=== PATIENT | female | born 1960 | race Caucasian/White ===

== ENCOUNTER → 2020-07-08 09:28 | Outpatient (BNVA) | payer OTHER, SELFPAY | PROVIDERS: PCP Emergency Medicine; Referring Provider Emergency Medicine; Visit Provider Internal Medicine | DX: J44.9 Chronic obstructive pulmonary disease, unspecified (principal); J84.89 Other specified interstitial pulmonary diseases; G47.34 Idiopathic sleep related nonobstructive alveolar hypoventilation; Z79.899 Other long term (current) drug therapy | CPT/HCPCS: 99213 ==

== ENCOUNTER → 2020-07-30 15:58 | Outpatient (BNVA) | payer OTHER, SELFPAY | PROVIDERS: PCP Emergency Medicine; Referring Provider Emergency Medicine; Visit Provider Student in an Organized Health Care Education/Training Program | DX: M25.50 Pain in unspecified joint (principal) | CPT/HCPCS: 99202 ==

== ENCOUNTER 2020-09-02 07:49 | Outpatient (REF) | payer OTHER, SELFPAY ==
--- NOTE | 2020-09-02 07:53 | MM_ITS ---
EXAMINATION: BONE DENSITOMETRY CLINICAL INDICATION: Use of systemic steroids. COMPARISON: None (current study represents initial baseline exam). TECHNIQUE: Using a [employer] DXA System (software version: 13.1) manufactured by [employer], dual-energy x-ray absorptiometry was performed of the lumbar spine and left hip. The images are of good technical quality. Summary results are attached. FINDINGS: AP SPINE L1-L4: BMD 1.080 g/cm2, Z-score -0.6, T-score -0.8, normal. LEFT FEMUR, NECK: BMD 0.986 g/cm2, Z-score 0.3, T-score -0.4, normal. LEFT FEMUR, TOTAL: BMD 1.030 g/cm2, Z-score 0.4, T-score 0.2, normal. IDENTIFIED RISK FACTORS: Osteoporosis, recurrent falls, history of fracture (adult), glucocorticoids (chronic), menopause. HISTORY OF FRACTURE: Extremities. No insufficiency fracture reported. MEDICATIONS: Fosamax. MM/XR DEXA axial skeleton IMPRESSION: 1. DIAGNOSIS: Normal bone density based on the lowest T-score value of -0.8 in the lumbar spine applying World Health Organization criteria. 2. 10-YEAR FRACTURE RISK PREDICTION, FRAX: Major osteoporotic fracture (clinical spine, forearm, hip or shoulder) 9.0%. Hip fracture 0.3%. 3. Treatment Recommendations: NOF guidelines recommend consideration for treatment in postmenopausal women and men age 50 and older presenting with the following: -A hip or vertebral (clinical or morphometric) fracture. -T-score less than or equal to -2.5 at the femoral neck or spine after appropriate evaluation to exclude secondary causes. -Low bone mass at the hip or spine and a 10-year fracture probability by FRAX of greater than or equal to 3% for hip fracture or greater than or equal to 20% for major osteoporotic fracture based on the [place] adapted WHO algorithm. 4. Other Recommendations: All treatment decisions require clinical judgment and consideration of individual patient factors, including patient preferences, comorbidities, previous drug use, risk factors not captured in the FRAX model (e.g. frailty, falls, vitamin D deficiency, increased bone turnover, interval significant decline in bone density) and possible under or overestimation of fracture risk by FRAX. FUTURE SCAN RECOMMENDATION: People with diagnosed cases of osteoporosis or at high risk for fracture should have regular bone mineral density tests. For patients eligible for Medicare, routine testing is allowed once every 2 years. The testing frequency can be increased to one year for patients who have rapidly progressing disease, those who are receiving or discontinuing medical therapy to restore bone mass, or have additional risk factors.
== END 2020-09-02 07:50 | disposition home or self-care (01) ==
LOC: HO.MAMMO 07:49
PROVIDERS: PCP Nurse Practitioner; Visit Provider Nurse Practitioner
DX: Z79.52 Long term (current) use of systemic steroids (principal); Z87.81 Personal history of (healed) traumatic fracture
CPT/HCPCS: 77080

== ENCOUNTER 2020-09-21 06:40 | Emergency (ER) | payer OTHER, SELFPAY ==
[2020-09-21 06:56] VITALS: BP 130/77; BP 146/106; PULSE 100; RESP 18; TEMP 36.9; O2SAT 97; BMI 34.7
--- NOTE | 2020-09-21 07:17 | CT_ITS ---
EXAMINATION: CT BRAIN, CT CERVICAL SPINE AND CT LUMBAR SPINE. CLINICAL INFORMATION: Trauma. COMPARISON: CT brain 12/10/2012 and MRI brain 05/09/2015. MRI lumbar spine 12/18/2019 TECHNIQUE: 5 mm thin axial and reformatted 2 mm thin sagittal and coronal images of brain were obtained. Subsequently axial 3 mm thin and reformatted 2 mm thin sagittal and coronal images of cervical spine were obtained. DLP [id number]. Lastly axial 2 mm thin and reformatted 2 mm thin sagittal and coronal images of lumbar spine were obtained. DLP [id number]. FINDINGS: BRAIN: There is no acute intra-axial, extra-axial bleed, masses or midline shift. There is no acute infarction in evolution. The lateral ventricles are symmetrical in size and configuration without enlargement. The tatum to white matter differentiation is maintained. Bone windows reveal no calvarial abnormality. Bilateral paranasal sinuses and mastoid air cells are well-aerated. No scalp soft tissue abnormality. CERVICAL SPINE: There is mild straightening of cervical lordosis. The vertebral heights and alignment is normal. There is disc fusion C5-C6 and C6-C7 disc levels with disc prosthesis. There is loss of C4-C5 disc height with moderate ventral spondylosis. There is minimal spondylosis. The C1-C2 disc level. The craniovertebral junction and the C1-C2 alignment is normal. There is no visible acute fracture, dislocation or subluxation seen. There is moderate right C3-C4 facet joint arthropathy. The prevertebral and paravertebral soft tissues are normal. The airway is widely patent. Visualized thyroid, submandibular and parotid glands are symmetrical and unremarkable. No neck mass or abnormal size lymphadenopathy seen. The lung apices are clear. LUMBAR SPINE: There is normal lumbar lordosis. The vertebral heights, alignment and disc heights are normal. There is no visible acute fracture, dislocation, subluxation or lytic process. Mild L4-L5, L3-L4 and L2-L3 facet joint arthropathy. There is superior endplate L4 Schmorl's node. No lytic or sclerotic process seen. The paravertebral soft tissues are normal. CT/CT cervical spine wo con IMPRESSION: No acute intracranial process seen. No acute fracture or dislocation cervical spine. There is an old left L3 transverse process fracture. There is disc fusion at C5-C6 and C6-C7 disc levels with degenerative disc changes at C4-C5 disc level. The craniovertebral junction appears normal. The soft tissues are normal. No acute fracture, dislocation or subluxation lumbar spine. No lytic or sclerotic process seen. There is bilateral L4-L5 and L3-L4 facet joint arthropathy.
--- NOTE | 2020-09-21 07:17 | ECG_ITS ---
Test Reason : FALL Blood Pressure : / mmHG Vent. Rate : 078 BPM Atrial Rate : 078 BPM P-R Int : 180 ms QRS Dur : 092 ms QT Int : 410 ms P-R-T Axes : 061 028 039 degrees QTc Int : 467 ms Normal sinus rhythm Normal ECG When compared with ECG of 10-JUN-2020 08:43, No significant change was found Referred By: Christophe Mayes Electronically Signed By:SASHA RODARTE
--- NOTE | 2020-09-21 07:20 | ED.FALL ---
HPI - Fall General Chief Complaint: Fall Stated Complaint: FALL WITH ABD PAIN Time Seen by Provider: 09/21/20 07:16 Source: patient and EMS Mode of arrival: EMS Limitations: no limitations History of Present Illness HPI Narrative: Very nice 60 years old female patient presented to the emergency department after a fall. Patient states that she has a history of falls, she has a history of fibromyalgia, chronic pain is see that she fell down about 5 stairs. She is complaining of generalized pain all over including back pain and headache and neck pain MD complaint: fall Onset (ago): hour(s) (1) Fall from: down stairs (#) Fall witnessed: no Place fall occurred: home Loss of consciousness: none Prolonged down time: no Symptoms prior to fall: none Context: other (Weakness) Location of injury: head, neck and other (Back) Associated symptoms (after fall): headache and neck pain Related Data Home Medications Medication Instructions Recorded Confirmed amlodipine 10 mg tablet 10 mg PO DAILY 06/16/20 07/30/20 doxepin 75 mg capsule 75 mg PO BEDTIME 06/16/20 07/30/20 duloxetine 60 mg capsule,delayed 0 mg PO 06/16/20 07/30/20 release eszopiclone 3 mg tablet 3 mg PO BEDTIME 06/16/20 07/30/20 gabapentin 600 mg tablet 600 mg PO TID 06/16/20 07/30/20 naloxone 4 mg/actuation nasal spray 0 spray INTRANASAL 06/16/20 07/30/20 olanzapine 5 mg tablet 5 mg PO BEDTIME 06/16/20 07/30/20 pantoprazole 40 mg tablet,delayed 40 mg PO DAILY 06/16/20 07/30/20 release baclofen 10 mg tablet 0 mg PO 07/08/20 07/30/20 betamethasone dipropionate 0.05 % TOPICAL 07/08/20 07/30/20 topical ointment levothyroxine 50 mcg tablet 50 mcg PO DAILY 07/08/20 07/30/20 onabotulinumtoxinA 200 unit unit INTRADERMAL ONCE ea 07/08/20 07/30/20 solution for injection ondansetron HCl 4 mg tablet 0 mg PO 07/08/20 07/30/20 sumatriptan succinate 50 mg tablet 0 mg PO 07/08/20 07/30/20 alprazolam 1 mg tablet 1 mg PO BEDTIME 07/30/20 07/30/20 eszopiclone 3 mg tablet 3 mg PO BEDTIME 07/30/20 07/30/20 Previous Rx's Medication Instructions Recorded albuterol sulfate 90 mcg/actuation 2 puff INHALATION Q6H PRN #8.5 g 07/08/20 aerosol inhaler fluticasone furoate 200 1 inh INHALATION DAILY 30 Days #28 07/08/20 mcg-vilanterol 25 mcg/dose ea inhalation powder oxycodone 5 mg PO Q8H PRN #10 tab 09/21/20 Allergies Allergy/AdvReac Type Severity Reaction Status Date / Time cyclobenzaprine Allergy Severe Anaphylaxis Verified 07/30/20 16:03 [From Flexeril] beclomethasone [From QVAR] Allergy Intermediate FACIAL/TONGUE Verified 07/30/20 16:03 SWELLING NSAIDS (Non-Steroidal Allergy Intermediate swollen Verified 07/30/20 16:03 Anti-Inflamma [Nsaids] egg [Egg] Allergy Mild UNKNOWN Verified 07/30/20 16:03 Review of Systems Review of Systems: Patient denies any fever, chills, vomiting, chest pain, shortness of breath Yes all other systems are reviewed and are negative PMFSH Past Medical History Medical History Alopecia Anxiety Chronic pain COPD (chronic obstructive pulmonary disease) Depression Emphysema of lung Femur fracture, right Fibromyalgia Herniated disc Hypothyroidism Nocturnal hypoxemia Spondylosis of cervical spine Surgical History H/O cervical spine surgery H/O tubal ligation History of cholecystectomy Family History Family History Father Diabetes Mother CVD (cardiovascular disease) Social History Social History Smoking Status: Former smoker Tobacco Type: Cigarette Advance Directives: No Advance Directives Information Provided: Yes Physical Exam Vital Signs: Vital Signs: Last Vital Signs Temp 98.5 F 09/21/20 06:56 Pulse 82 09/21/20 09:11 Resp 16 09/21/20 09:11 BP 126/84 09/21/20 09:11 Pulse Ox 98 09/21/20 09:11 Body Mass Index 34.7 Const: Other: Patient id he is awake and alert in no acute distress General: cooperative and comfortable Orientation/consciousness: oriented to person, oriented to time and patient oriented x3 HENMT: Head: Yes normal to inspection and Yes No palpable skull fracture present Eyes: General: appearance normal, both eyes and all related structures Neck: Neck: Yes normal visual inspection and Yes full ROM Chest: Chest palpation & inspection: normal inspection of the chest and normal palpation of entire chest wall Resp: Effort & Inspection: normal respiratory effort, no respiratory distress and no retractions Cardio: Rate: regular rate GI: Inspection: Yes normal to inspection Palpation (GI): Soft to palpation Skin: General skin exam: no rashes or lesions noted Neuro: General: oriented to person, oriented to place, oriented to time and patient oriented x3 MDM - Fall Lab Data Result diagrams: 09/21/20 09:39 09/21/20 09:39 Labs: Lab Results 09/21/20 09/21/20 09/21/20 Range/Units 09:39 09:39 09:39 WBC 8.0 (4.8-10.8) X10*3/uL RBC 4.24 (4.20-5.50) X10*6/uL Hgb 12.3 (12.0-16.0) g/dl Hct 37.9 (37-47) % MCV 89.4 (80-98) fL MCH 29.0 (27.0-33.0) pg MCHC 32.5 (31.0-35.0) g/dl RDW 12.6 (11.0-16.0) % Plt Count 313 (160-400) X10*3/uL MPV 9.7 (9.4-12.3) fL Immature Gran % (Auto) 0.3 (0.0-0.4) % Neut % (Auto) 52.9 (45-73) % Lymph % (Auto) 35.4 (20-40) % [place] % (Auto) 6.5 (2-11) % Eos % (Auto) 4.1 H (0-4) % Baso % (Auto) 0.8 (0-2) % Lymph # (Auto) 2.8 (1.2-4.9) X10*3/uL [place] # (Auto) 0.5 (0.1-1.2) X10*3/uL Eos # (Auto) 0.3 (0.0-0.4) X10*3/uL Baso # (Auto) 0.1 (0.0-0.2) X10*3/uL Abs Immat Gran (auto) 0.02 (0.00-0.03) X10*3/uL Absolute Neuts (auto) 4.2 (2.0-8.3) X10*3/uL Absolute Nucleated RBC 0.000 (0.0-0.012) X10*3/uL Nucleated RBC % (auto) 0.0 (0.0-0.2) /100WBC Sodium 143 (135-145) mmol/L Potassium 4.2 (3.3-5.1) mmol/l Chloride 106 (96-108) mmol/L Carbon Dioxide 30 H (22-29) mmol/L Anion Gap 11 L (12-20) BUN 17 H (9-16) mg/dL Creatinine 0.87 (0.5-1.4) mg/dL Estim Creat Clear Calc 77.3 Estimated GFR > 60 Random Glucose 103 (60-115) mg/dL Calcium 8.9 (8.4-10.2) mg/dL Total Bilirubin 0.2 (0.0-1.0) mg/dL AST 16 (5-31) U/L ALT 13 (0-31) U/L Alkaline Phosphatase 116 (39-117) U/L Troponin I High Sens < 3.5 (<3.5-17.0) ng/L Total Protein 7.1 (6.5-8.0) g/dL Albumin 4.0 (3.5-5.0) g/dL Urine Color Urine Appearance Urine pH (5.0-8.0) Ur Specific [place] (1.005-1.025) Urine Protein (NEG-TRACE) MG/DL Urine Glucose (UA) (NEG) MG/DL Urine Ketones (NEG) MG/DL Urine Blood (NEG) Urine Nitrite (NEG) Ur Leukocyte Esterase (NEG) Urine RBC (0) /HPF Urine WBC (0-4) /HPF Ur Squamous Epith Cells /LPF Urine Bacteria /LPF 09/21/20 Range/Units 09:39 WBC (4.8-10.8) X10*3/uL RBC (4.20-5.50) X10*6/uL Hgb (12.0-16.0) g/dl Hct (37-47) % MCV (80-98) fL MCH (27.0-33.0) pg MCHC (31.0-35.0) g/dl RDW (11.0-16.0) % Plt Count (160-400) X10*3/uL MPV (9.4-12.3) fL Immature Gran % (Auto) (0.0-0.4) % Neut % (Auto) (45-73) % Lymph % (Auto) (20-40) % [place] % (Auto) (2-11) % Eos % (Auto) (0-4) % Baso % (Auto) (0-2) % Lymph # (Auto) (1.2-4.9) X10*3/uL [place] # (Auto) (0.1-1.2) X10*3/uL Eos # (Auto) (0.0-0.4) X10*3/uL Baso # (Auto) (0.0-0.2) X10*3/uL Abs Immat Gran (auto) (0.00-0.03) X10*3/uL Absolute Neuts (auto) (2.0-8.3) X10*3/uL Absolute Nucleated RBC (0.0-0.012) X10*3/uL Nucleated RBC % (auto) (0.0-0.2) /100WBC Sodium (135-145) mmol/L Potassium (3.3-5.1) mmol/l Chloride (96-108) mmol/L Carbon Dioxide (22-29) mmol/L Anion Gap (12-20) BUN (9-16) mg/dL Creatinine (0.5-1.4) mg/dL Estim Creat Clear Calc Estimated GFR Random Glucose (60-115) mg/dL Calcium (8.4-10.2) mg/dL Total Bilirubin (0.0-1.0) mg/dL AST (5-31) U/L ALT (0-31) U/L Alkaline Phosphatase (39-117) U/L Troponin I High Sens (<3.5-17.0) ng/L Total Protein (6.5-8.0) g/dL Albumin (3.5-5.0) g/dL Urine Color YELLOW Urine Appearance CLOUDY Urine pH 6.0 (5.0-8.0) Ur Specific [place] 1.010 (1.005-1.025) Urine Protein NEG (NEG-TRACE) MG/DL Urine Glucose (UA) NEG (NEG) MG/DL Urine Ketones NEG (NEG) MG/DL Urine Blood 1+ H (NEG) Urine Nitrite NEG (NEG) Ur Leukocyte Esterase 2+ H (NEG) Urine RBC 0 (0) /HPF Urine WBC 5-9 H (0-4) /HPF Ur Squamous Epith Cells 3+ /LPF Urine Bacteria 1+ /LPF ECG Data Attestation: I personally reviewed and interpreted this ECG as follows: ECG interpretation date: 09/21/20 ECG interpretation time: 10:40 Pacemaker model: Normal sinus rhythm rate of 78 no ischemic changes Discharge Plan Discharge Clinical Impression: Fall, Contusion Patient Disposition: Home, Self-Care Instructions: Fall Prevention (ED) Additional Instructions: Please follow-up with primary care physician tomorrow faye office in a.m. return if you are worse Prescriptions: New oxycodone 5 mg tablet 5 mg PO Q8H PRN (Reason: pain) Qty: 10 RF: 0 No Action sumatriptan succinate 50 mg tablet 0 mg PO RF: 0 ondansetron HCl 4 mg tablet 0 mg PO RF: 0 baclofen 10 mg tablet 0 mg PO RF: 0 levothyroxine 50 mcg tablet 50 mcg PO DAILY RF: 0 betamethasone dipropionate 0.05 % ointment topical RF: 0 Botox 200 unit recon soln intradermal ONCE RF: 0 Breo Ellipta 200-25 mcg/dose blister with device 1 inh inhalation DAILY 30 Days Qty: 28 RF: 5 albuterol sulfate [ProAir HFA] 90 mcg/actuation HFA aerosol inhaler 2 puff inhalation Q6H PRN (Reason: shortness of breath or wheezing) Qty: 8.5 RF: 4 Narcan 4 mg/actuation spray,non-aerosol 0 spray intranasal RF: 0 eszopiclone 3 mg tablet 3 mg PO BEDTIME RF: 0 duloxetine 60 mg capsule,delayed release(DR/EC) 0 mg PO RF: 0 olanzapine 5 mg tablet 5 mg PO BEDTIME RF: 0 doxepin 75 mg capsule 75 mg PO BEDTIME RF: 0 amlodipine 10 mg tablet 10 mg PO DAILY RF: 0 pantoprazole 40 mg tablet,delayed release (DR/EC) 40 mg PO DAILY RF: 0 gabapentin 600 mg tablet 600 mg PO TID RF: 0 alprazolam [Xanax] 1 mg tablet 1 mg PO BEDTIME RF: 0 eszopiclone [Lunesta] 3 mg tablet 3 mg PO BEDTIME RF: 0 Interventions: ED Discharge Assessment Last Done: 09/21/20 10:58 Discharge Date/Time: 09/21/20 10:58
[2020-09-21] MEDS: oxyCODONE HCl Immed Release 5 MG TABLET 10 MG PO (07:35)
[2020-09-21 09:11] VITALS: BP 126/84; PULSE 82; RESP 16; O2SAT 98
[2020-09-21 09:44] LABS: MANUAL DIFF FLAG NO
[2020-09-21 09:45] LABS: Basophils Absolute Auto 0.1 X10*3/uL (0.0-0.2); Basophils Percent Auto 0.8 % (0-2); Eosinophils Absolute Auto 0.3 X10*3/uL (0.0-0.4); Eosinophils Percent Auto 4.1 % (0-4); Hematocrit 37.9 % (37-47); Hemoglobin 12.3 g/dl (12.0-16.0); Imm Gran Abs Auto 0.02 X10*3/uL (0.00-0.03); Imm Gran Pct Auto 0.3 % (0.0-0.4); Lymphocytes Absolute Auto 2.8 X10*3/uL (1.2-4.9); Lymphocytes Percent Auto 35.4 % (20-40); Mean Corpuscular HGB Conc 32.5 g/dl (31.0-35.0); Mean Corpuscular Volume 89.4 fL (80-98); Mean Platelet Volume 9.7 fL (9.4-12.3); Monocytes Absolute Auto 0.5 X10*3/uL (0.1-1.2); Monocytes Percent Auto 6.5 % (2-11); Neutrophils Absolute Auto 4.2 X10*3/uL (2.0-8.3); Neutrophils Percent Auto 52.9 % (45-73); Platelet Count 313 X10*3/uL (160-400); Red Blood Count 4.24 X10*6/uL (4.20-5.50); Red Cell Distribution Width 12.6 % (11.0-16.0)
[2020-09-21 09:52] LABS: Glucose Urine UA NEG (NEG); Leukocyte Esterase Urine 2+ (NEG); Nitrite Urine NEG (NEG); Urine Blood 1+ (NEG); Urine Ketones NEG (NEG); Urine Protein NEG (NEG-TRACE)
[2020-09-21 10:07] LABS: Appearance Urine CLOUDY; Color Urine YELLOW
[2020-09-21 10:08] LABS: Bacteria Urine 1+ /LPF; RBC Urine 0 /HPF (0); Squamous Epithelial Cell Urine 3+ /LPF
[2020-09-21 10:13] LABS: Alanine Aminotransferase 13 U/L (0-31); Alkaline Phosphatase 116 U/L (39-117); Anion Gap 11 (12-20); Aspartate Amino Transferase 16 U/L (5-31); Bilirubin Total 0.2 mg/dL (0.0-1.0); Blood Urea Nitrogen 17 mg/dL (9-16); Calcium 8.9 mg/dL (8.4-10.2); Carbon Dioxide 30 mmol/L (22-29); Chloride 106 mmol/L (96-108); Creatinine Clr Calc Pharmacy 77.3; Estimated Glomerular Filt Rate > 60; Glucose Random 103 mg/dL (60-115); Potassium 4.2 mmol/l (3.3-5.1); Sodium 143 mmol/L (135-145); Total Protein 7.1 g/dL (6.5-8.0)
[2020-09-21 10:18] LABS: Troponin-I High Sensitivity < 3.5 ng/L (<3.5-17.0)
--- NOTE | 2020-09-21 10:39 | PC.NURSE ---
DR DALTON SPOKE WITH PT. TO BE DISCH
== END 2020-09-21 10:58 | disposition home or self-care (01) ==
PROVIDERS: Emergency Provider Emergency Medicine
DX: S30.0XXA Contusion of lower back and pelvis, initial encounter (principal); S10.93XA Contusion of unspecified part of neck, initial encounter; M54.2 Cervicalgia; M54.5 Low back pain; G44.309 Post-traumatic headache, unspecified, not intractable; W10.9XXA Fall (on) (from) unspecified stairs and steps, initial encounter; Y93.9 Activity, unspecified; Y92.009 Unspecified place in unspecified non-institutional (private) residence as the place of occurrence of the external cause; Y99.9 Unspecified external cause status; Z79.899 Other long term (current) drug therapy; Z87.891 Personal history of nicotine dependence; Z91.81 History of falling
CPT/HCPCS: 36415; 70450; 72125; 72131; 80053; 81001; 81003; 84484; 85025; 87086; 93005; 99283; 99284

== ENCOUNTER 2020-09-27 09:03 | Outpatient (REF) | payer OTHER, SELFPAY ==
[2020-09-27 09:30] LABS: Basophils Absolute Auto 0.1 X10*3/uL (0.0-0.2); Basophils Percent Auto 0.8 % (0-2); Eosinophils Absolute Auto 0.2 X10*3/uL (0.0-0.4); Eosinophils Percent Auto 3.3 % (0-4); Hematocrit 37.7 % (37-47); Hemoglobin 12.6 g/dl (12.0-16.0); Imm Gran Abs Auto 0.02 X10*3/uL (0.00-0.03); Imm Gran Pct Auto 0.3 % (0.0-0.4); Lymphocytes Absolute Auto 2.6 X10*3/uL (1.2-4.9); Lymphocytes Percent Auto 35.4 % (20-40); Mean Corpuscular HGB Conc 33.4 g/dl (31.0-35.0); Mean Corpuscular Hemoglobin 28.8 pg (27.0-33.0); Mean Corpuscular Volume 86.1 fL (80-98); Mean Platelet Volume 9.7 fL (9.4-12.3); Monocytes Absolute Auto 0.6 X10*3/uL (0.1-1.2); Monocytes Percent Auto 7.6 % (2-11); Neutrophils Absolute Auto 3.8 X10*3/uL (2.0-8.3); Neutrophils Percent Auto 52.6 % (45-73); Platelet Count 409 X10*3/uL (160-400); Red Blood Count 4.38 X10*6/uL (4.20-5.50); Red Cell Distribution Width 12.4 % (11.0-16.0); White Blood Count 7.3 X10*3/uL (4.8-10.8)
--- NOTE | 2020-09-27 09:31 | XR_ITS ---
EXAMINATION: XR BILATERAL HAND. CLINICAL INFORMATION: Bilateral hand pain. COMPARISON: Left wrist 09/10/2012 TECHNIQUE: 3 views each hand. FINDINGS: RIGHT HAND: There is no visible acute fracture, dislocation or subluxation. The PIP and DIP joint space is reduced. No periarticular spurring or erosive changes seen. The soft tissues are normal. LEFT HAND: There is partial resection in the base of the 1st metacarpal and 2 elda from previous surgical changes. There is loss of PIP and DIP joint space all digits no visible acute fracture or dislocation seen. The dense round 1.1 cm calcification seen adjacent to ulnar styloid process likely old injury or calcium deposit. The soft tissues are normal. XR/XR hand LT min 3V IMPRESSION: 1. Mild early degenerative changes suspected in PIP and DIP joints of both digits but no bony erosive changes, spurring or soft tissue swelling. 2. There is postsurgical changes base of 1st metacarpal left hand. 3. There is a 1.1 cm calcification adjacent to the left ulnar styloid process likely old injury. This could be producing some pain in the lateral left wrist.
--- NOTE | 2020-09-27 09:31 | XR_ITS ---
EXAMINATION: XR BILATERAL HAND. CLINICAL INFORMATION: Bilateral hand pain. COMPARISON: Left wrist 09/10/2012 TECHNIQUE: 3 views each hand. FINDINGS: RIGHT HAND: There is no visible acute fracture, dislocation or subluxation. The PIP and DIP joint space is reduced. No periarticular spurring or erosive changes seen. The soft tissues are normal. LEFT HAND: There is partial resection in the base of the 1st metacarpal and 2 elda from previous surgical changes. There is loss of PIP and DIP joint space all digits no visible acute fracture or dislocation seen. The dense round 1.1 cm calcification seen adjacent to ulnar styloid process likely old injury or calcium deposit. The soft tissues are normal. XR/XR hand RT min 3V IMPRESSION: 1. Mild early degenerative changes suspected in PIP and DIP joints of both digits but no bony erosive changes, spurring or soft tissue swelling. 2. There is postsurgical changes base of 1st metacarpal left hand. 3. There is a 1.1 cm calcification adjacent to the left ulnar styloid process likely old injury. This could be producing some pain in the lateral left wrist.
[2020-09-27 09:33] LABS: MANUAL DIFF FLAG NO
[2020-09-27 10:03] LABS: Alanine Aminotransferase 16 U/L (0-31); Albumin Level 4.1 g/dL (3.5-5.0); Alkaline Phosphatase 117 U/L (39-117); Anion Gap 15 (12-20); Aspartate Amino Transferase 19 U/L (5-31); Bilirubin Total 0.3 mg/dL (0.0-1.0); Blood Urea Nitrogen 9 mg/dL (9-16); C Reactive Protein 1.24 mg/dL (< or = 0.50); Calcium 9.7 mg/dL (8.4-10.2); Carbon Dioxide 25 mmol/L (22-29); Chloride 105 mmol/L (96-108); Estimated Glomerular Filt Rate > 60; Glucose Random 106 mg/dL (60-115); Rheumatoid Factor < 15.0 IU/mL (<15.0); Sodium 141 mmol/L (135-145); Total Protein 7.4 g/dL (6.5-8.0)
[2020-09-27 10:12] LABS: Erythrocyte Sedimentation Rate 26 MM/HR (0-20)
[2020-09-27 10:23] LABS: Thyroid Stimulating Hormone 0.59 uIU/mL (0.32-4.0)
[2020-09-29 13:12] LABS: Antibody to SS-A Antigen <1.0 NEG AI (<1.0 NEG); Antibody to SS-B Antigen <1.0 NEG AI (<1.0 NEG); Cyclic Citrullinated Peptide <16 UNITS
[2020-09-29 13:38] LABS: Beta-2 Microglobulin, Serum 2.42 mg/L (< OR = 2.51); PTT (LAC) Screen 35 sec (< OR = 40)
[2020-09-29 23:22] LABS: Anti Nuclear Antibody Pattern Nuclear, Nucleolar; Anti Nuclear Antibody Screen POSITIVE (NEGATIVE); Anti Nuclear Antibody Titer 1:40 titer
[2020-09-30 00:12] LABS: Cardiolipin IgG Ab <14 GPL; Cardiolipin IgM Ab 37 MPL
== END 2020-09-27 09:04 | disposition home or self-care (01) ==
LOC: HO.LAB 09:03
PROVIDERS: Absent Provider Nurse Practitioner; PCP Nurse Practitioner; Visit Provider Student in an Organized Health Care Education/Training Program
DX: M25.50 Pain in unspecified joint (principal)
CPT/HCPCS: 36415; 73130; 80053; 82232; 84443; 85025; 85597; 85613; 85652; 85730; 86038; 86039; 86140; 86147; 86200; 86235; 86431

== ENCOUNTER 2020-10-01 07:47 | Outpatient (REF) | payer OTHER, SELFPAY ==
--- NOTE | 2020-10-01 08:26 | XR_ITS ---
EXAMINATION: XR KNEE, RIGHT CLINICAL INFORMATION: Right knee pain COMPARISON: Radiographs right knee 06/17/2020 TECHNIQUE: 5 views of the right knee. FINDINGS: There is old healed fracture distal femur with intact hardware within [id number]. Hardware extends proximally beyond the [id number]. There is no fracture or dislocation or destructive process. There is mild narrowing medial knee joint compartment with small marginal osteophyte. Mild narrowing also present patellofemoral joint. There are no erosive changes or chondrocalcinosis. No definite knee joint effusion. XR/XR knee RT 4V IMPRESSION: 1. Mild osteoarthritic changes medial knee joint compartment and lateral patellofemoral joint. 2. Old healed fracture femur. Visualized hardware intact. No osteolysis.
[2020-10-01 09:53] LABS: Thyroid Stimulating Hormone 0.17 uIU/mL (0.32-4.0)
== END 2020-10-01 07:48 | disposition home or self-care (01) ==
LOC: HO.LAB 07:47
PROVIDERS: Visit Provider Internal Medicine
DX: E03.9 Hypothyroidism, unspecified (principal); M25.561 Pain in right knee
CPT/HCPCS: 36415; 73564; 84443

== ENCOUNTER 2020-11-18 13:38 | Outpatient (REF) | payer OTHER, SELFPAY ==
--- NOTE | ~2020-11-18 | US_ITS ---
EXAMINATION: US VENOUS ULTRASOUND WITH DOPPLER LOWER EXTREMITY, RIGHT CLINICAL INFORMATION: Leg swelling. COMPARISON: None TECHNIQUE: Ultrasound of the deep veins is performed from the hip to the calf with compression sonography and color and pulse Doppler assessment. Spectral analysis with color-flow imaging is performed. FINDINGS: The right common femoral, superficial femoral, profunda femoral veins are patent. There is a small amount of nonocclusive thrombus in the popliteal vein. The visualized posterior tibial and peroneal veins are patent. There is no Reyes's cyst. US/US venous duplex LE RT IMPRESSION: Nonocclusive thrombus in the right popliteal vein.
== END 2020-11-18 13:39 | disposition home or self-care (01) ==
LOC: HO.HMGCX 13:38
PROVIDERS: PCP Nurse Practitioner; Visit Provider General Practice
DX: R22.41 Localized swelling, mass and lump, right lower limb (principal)
CPT/HCPCS: 93971

== ENCOUNTER → 2020-12-10 09:56 | Outpatient (BNVA) | payer OTHER, SELFPAY | PROVIDERS: PCP Nurse Practitioner; Visit Provider Nurse Practitioner Family | DX: M96.1 Postlaminectomy syndrome, not elsewhere classified (principal); M47.816 Spondylosis without myelopathy or radiculopathy, lumbar region; G89.29 Other chronic pain; Z79.899 Other long term (current) drug therapy | CPT/HCPCS: 99212 ==

== ENCOUNTER 2020-12-12 12:44 | Outpatient (REF) | payer OTHER, SELFPAY ==
--- NOTE | ~2020-12-12 | US_ITS ---
EXAMINATION: US VENOUS ULTRASOUND WITH DOPPLER LOWER EXTREMITY, RIGHT CLINICAL INFORMATION: Right leg pain. History of DVT. COMPARISON: Previous right lower extremity venous ultrasound exam 11/18/2020 TECHNIQUE: Ultrasound of the deep veins is performed from the hip to the calf with compression sonography and color and pulse Doppler assessment. Spectral analysis with color-flow imaging is performed. FINDINGS: There is normal venous compression and respiratory variation and augmented flow. The visualized common femoral vein, superficial femoral vein, profunda femoral vein and the trifurcation region shows no evidence of deep venous thrombosis. There is a small amount of nonocclusive thrombus seen in the right popliteal vein. This is similar to 11/18/2020 exam and may be chronic. The right popliteal vein compresses normally. There is no significant popliteal fossa cyst. US/US venous duplex LE RT IMPRESSION: Small amount of nonocclusive thrombus seen in the right popliteal vein. This is similar to 11/18/2020 exam and may be chronic. No other evidence of DVT.
== END 2020-12-12 12:45 | disposition home or self-care (01) ==
LOC: HO.HMGCX 12:44
PROVIDERS: Visit Provider Internal Medicine Geriatric Medicine
DX: M79.604 Pain in right leg (principal); Z86.718 Personal history of other venous thrombosis and embolism
CPT/HCPCS: 93971

== ENCOUNTER 2020-12-13 12:34 | Emergency (ER) | payer OTHER, SELFPAY ==
--- NOTE | ~2020-12-13 | XR_ITS ---
EXAMINATION: XR CHEST CLINICAL INFORMATION: Right clavicle pain. Fall. COMPARISON: Previous chest x-ray May 2020 TECHNIQUE: 2 views of the chest were obtained. FINDINGS: The cardiac and mediastinal contours are normal. The lungs are clear. There is no pleural effusion or pneumothorax. There are postsurgical changes to the lower cervical spine. Bony structures are otherwise unremarkable. XR/XR chest 2V IMPRESSION: Unremarkable examination.
--- NOTE | ~2020-12-13 | CT_ITS ---
EXAMINATION: CT HEAD WITHOUT CONTRAST CLINICAL INFORMATION: Lower extremity weakness. Fall. COMPARISON: Previous head CT September 2020 TECHNIQUE: Contiguous axial imaging was performed from the skull base to vertex without intravenous administration of contrast. This CT examination was performed using dose optimization techniques as appropriate, variously including the following: *Automated exposure control *Adjustment of mA and/or kV according to patient size (this includes techniques or standardized protocols for targeted exams where dose is matched to indication/reason for exam; i.e. extremities or head) *Use of iterative reconstruction technique DLP: 652 mGy-cm FINDINGS: There is no evidence of acute intracranial hemorrhage or territorial infarction. No abnormal mass effect or midline shift is seen. Silva to white matter differentiation is well preserved. No extra-axial fluid collections are identified. The ventricles are normal in size. There is no abnormal attenuation within the brain parenchyma. The osseous structures and soft tissues are normal. The mastoid air cells and visualized portions of the paranasal sinuses are well aerated. CT/CT head/brain wo con IMPRESSION: Unremarkable exam.
[2020-12-13 12:45] VITALS: BP 125/70; BP 126/72; PULSE 100; PULSE 88; RESP 18; TEMP 37.1; O2SAT 95; BMI 37.8
--- NOTE | 2020-12-13 13:13 | ECG_ITS ---
Test Reason : FALL Blood Pressure : / mmHG Vent. Rate : 079 BPM Atrial Rate : 079 BPM P-R Int : 184 ms QRS Dur : 088 ms QT Int : 410 ms P-R-T Axes : 063 035 051 degrees QTc Int : 470 ms Sinus rhythm with Premature atrial complexes in a pattern of bigeminy Low voltage QRS Nonspecific T wave abnormality Prolonged QT Abnormal ECG When compared with ECG of 21-SEP-2020 09:26, Premature atrial complexes are now Present Nonspecific T wave abnormality, worse in Anterolateral leads Referred By: Tracie Rayo Electronically Signed By:SASHA RODARTE
--- NOTE | 2020-12-13 13:19 | ED_ITS ---
HPI - General Adult General Chief complaint: General Medical Stated complaint: ? DVT, SEEN T-1 FOR SAME Time Seen by Provider: 12/13/20 12:36 Source: patient Mode of arrival: ambulatory Limitations: no limitations History of Present Illness HPI narrative: 60 yo with past medical history of alopecia , anxiety, chronic pain, COPD (chronic obstructive pulmonary disease), Depression, Emphysema of lung, h/o Femur fracture, right, Fibromyalgia, Herniated disc, Hypothyroidism, Nocturnal hypoxemia (O2 2L/MT AT NIGHT ,, AND MAY USE PRN DURING DAY TIME), Spondylosis of cervical spine here with complaints of abnormal US concerning for DVT. Patient tells me she has been having pain and intermittent numbness/tingling in her right lower extremity x 2 weeks. She had an outpatient US yesterday concerning for DVT. Sent in from PCP for eval today. Patient tells me yesterday when she was walking up the stairs she had weakness in both of her legs R>L causing her fall forwards striking her chest and right clavicle. NO head injury or LOC. Related Data Home Medications Medication Instructions Recorded Confirmed amlodipine 10 mg tablet 10 mg PO DAILY 06/16/20 12/10/20 doxepin 75 mg capsule 75 mg PO BEDTIME 06/16/20 12/10/20 duloxetine 60 mg capsule,delayed 0 mg PO 06/16/20 12/10/20 release eszopiclone 3 mg tablet 3 mg PO BEDTIME 06/16/20 12/10/20 gabapentin 600 mg tablet 600 mg PO TID 06/16/20 12/10/20 naloxone 4 mg/actuation nasal spray 0 spray INTRANASAL 06/16/20 12/10/20 olanzapine 5 mg tablet 5 mg PO BEDTIME 06/16/20 12/10/20 pantoprazole 40 mg tablet,delayed 40 mg PO DAILY 06/16/20 12/10/20 release baclofen 10 mg tablet 0 mg PO 07/08/20 07/30/20 betamethasone dipropionate 0.05 % TOPICAL 07/08/20 07/30/20 topical ointment levothyroxine 50 mcg tablet 50 mcg PO DAILY 07/08/20 12/10/20 onabotulinumtoxinA 200 unit unit INTRADERMAL ONCE ea 07/08/20 12/10/20 solution for injection ondansetron HCl 4 mg tablet 0 mg PO 07/08/20 12/10/20 sumatriptan succinate 50 mg tablet 0 mg PO 07/08/20 12/10/20 alprazolam 1 mg tablet 1 mg PO BEDTIME 07/30/20 12/10/20 eszopiclone 3 mg tablet 3 mg PO BEDTIME 07/30/20 07/30/20 Previous Rx's Medication Instructions Recorded fluticasone furoate 200 1 inh INHALATION DAILY 30 Days #28 07/08/20 mcg-vilanterol 25 mcg/dose ea inhalation powder oxycodone 5 mg PO Q8H PRN #10 tab 09/21/20 albuterol sulfate 90 mcg/actuation 2 puff PO Q6H PRN #25.5 g 11/24/20 aerosol inhaler oxycodone 5 mg PO Q6H PRN #5 tab 12/13/20 rivaroxaban [Xarelto] 15 mg PO BID #21 tab 12/13/20 Allergies Allergy/AdvReac Type Severity Reaction Status Date / Time cyclobenzaprine Allergy Severe Anaphylaxis Verified 12/10/20 10:12 [From Flexeril] beclomethasone [From QVAR] Allergy Intermediate FACIAL/TONGUE Verified 12/10/20 10:12 SWELLING NSAIDS (Non-Steroidal Allergy Intermediate swollen Verified 12/10/20 10:12 Anti-Inflamma [Nsaids] egg [Egg] Allergy Mild UNKNOWN Verified 12/10/20 10:12 Review of Systems Review of Systems: Yes all other systems are reviewed and are negative Constitutional: Constitutional: Reports no additional constitutional complaints, Denies body ache(s), Denies chills, Denies fever(s), Denies headache(s) and Reports weakness Eyes: Eyes: Reports no additional eye complaints and Denies change in vision ENT: Reports system reviewed and no additional complaints, except as documented, Denies dizziness, Denies headache(s), Denies nasal congestion, Denies nasal discharge and Denies neck pain Cardiovascular: Cardiovascular: Reports no additional cardiovascular complaints, Reports chest pain, Denies leg edema and Denies dyspnea Respiratory: Respiratory: Reports no additional respiratory complaints, Denies cough and Denies dyspnea Gastrointestinal: Gastrointestinal: Reports no additional gastrointestinal complaints, Denies abdominal pain, Denies diarrhea, Denies nausea and Denies vomiting Genitourinary: Genitourinary: Reports no additional female genitourinary complaints and Denies urinary incontinence Musculoskeletal: Musculoskeletal: Reports no additional musculoskeletal complaints, Denies back pain, Reports arthralgias, Denies joint swelling, Denies neck pain, Reports numbness and Reports tingling Integumentary/Breasts: Skin/Breast: Reports system reviewed and no additional complaints, except as docu and Denies rash Neurologic: Reports system reviewed and no additional complaints, except as documented, Denies Abnormal speech present, Denies dizziness, Denies headache(s), Reports numbness, Reports tingling and Reports weakness PMFSH Past Medical History Attestation statement: The following information was validated with the patient. Source: old records reviewed and nursing notes reviewed Medical History (Updated 12/13/20 @ 15:29 by Tracie Rayo NP) Alopecia Anxiety Chronic pain COPD (chronic obstructive pulmonary disease) Depression Emphysema of lung Femur fracture, right Fibromyalgia Herniated disc Hypothyroidism Nocturnal hypoxemia Spondylosis of cervical spine Surgical History H/O cervical spine surgery H/O tubal ligation History of cholecystectomy Family History Family History Father Diabetes Mother CVD (cardiovascular disease) Social History Social History Smoking Status: Former smoker Tobacco Type: Cigarette Smoked in Last 30 Days: No Use of substances other than those prescribed or required for medical reasons: No Advance Directives: No Advance Directives Information Provided: Yes Physical Exam Vital Signs: Vital Signs: Last Vital Signs Temp 98.9 F 12/13/20 15:04 Pulse 78 12/13/20 15:04 Resp 18 12/13/20 15:04 BP 109/60 12/13/20 15:04 Pulse Ox 94 12/13/20 15:04 Body Mass Index 37.8 Const: General: cooperative, healthy appearing, comfortable and no acute distress Orientation/consciousness: patient oriented x3 Limitations: no limitations HENMT: Head: Yes normal to inspection Ears: hearing grossly normal bilaterally General nose exam: Normal external nose present Face and sinus: Yes normal facial exam Mouth: Normal oral and palatal mucosa present Throat: Yes posterior oropharynx normal Eyes: General: appearance normal, both eyes and all related structures Pupils: Equal, round and reactive pupils present Neck: Other: No midline tenderness, step-offs or deformities Neck: Yes normal visual inspection Chest: Other: Tenderness over central chest with no obvious ecchymosis, crepitus or deformity. Chest palpation & inspection: normal inspection of the chest Resp: Effort & Inspection: normal respiratory effort Auscultation: clear to auscultation bilaterally Cardio: Rate: regular rate Rhythm: regular rhythm Peripheral pulses: Peripheral pulses 2+ throughout GI: Inspection: Yes normal to inspection Palpation (GI): Soft to palpation and nontender Auscultation: normal bowel sounds Back/Spine/Pelvis: Thoracic/Lumbar Spine: thoracic and lumbar spine normal to inspection Skin: General skin exam: no rashes or lesions noted Neuro: General: patient oriented x3, no focal motor deficits and normal sensation to monofilament Cranial nerves: Yes CN's II-XII intact bilaterally, Yes Equal, round and reactive pupils present, Yes Bilaterally intact EOM present, Yes Nystagmus not present, Yes Normal facial strength present and Yes Midline tongue present Cognition (Neuro): normal cognition Speech: No Abnormal speech present Gait exam (Neuro): Normal gait present Motor exam (neuro): 5/5 motor strength present throughout Sensory Exam: Normal double simultaneous stimulation for sensation Deep tendon reflexes (DTR's): Right patellar reflex intensity grade: 2+, Left patellar reflex intensity grade: 2+, Right ankle reflex intensity grade: 2+ and Left ankle reflex intensity grade: 2+ Coordination: meplhs-mg-idna test normal, aist-gy-psnr test normal and tandem gait normal Extrem: Other: Tenderness over the proximal clavicle with no obvious deformity or tenting of the skin or swelling. General: Yes normal to inspection, Yes no pedal edema and Yes calf tenderness (Right calf, no erythema or warmth) Course Course Course Narrative: 60-year-old female here with outpatient ultrasound concerning for DVT done yesterday in the setting of 2 weeks of right calf pain. No history of DVTs in the past. No history of PEs. No recent travel. No OCP or estrogen use. No family history. Patient is very immobile at home and due to the p andemic has been only leaving for doctor's appointments. She tells me that due to her asthma she spends most of her days in a recliner and on the couch and does not move much. Also complaining of a fall which occurred yesterday due to the lower legs giving out on the patient and some weakness. Normal neurological exam. However due to complaints will check CT head, chest x-ray, labs, EKG. 1615-imaging of CT head and chest x-ray unremarkable. Labs are unremarkable. EKG shows no ischemic changes. Ultrasound from yesterday shows a nonocclusive thrombus in the right popliteal vein. Discussed with patient. We will start her on Xarelto 15 mg twice daily for 21 days and have her follow-up with her primary care doctor for additional dosage. Reviewed worrisome signs and symptoms when to return to the emergency department. Lengthy discussion about anticoagulation with risks versus benefi ts. Comfortable discharge home. Medical Decision Making MDM Narrative Medical decision making narrative: PE, DVT, chest wall strain versus contusion, rib fracture, clavicle fracture versus contusion, GB, ICH versus lesion, electrolyte abnormality, anemia, underlying infection Less likely GB with no progressive symptoms, normal reflexes and neuro exam. Lab Data Result diagrams: 12/13/20 13:27 12/13/20 13:27 Labs: Lab Results 12/13/20 12/13/20 12/13/20 Range/Units 13:27 13:27 13:27 WBC 5.8 (4.8-10.8) X10*3/uL RBC 4.59 (4.20-5.50) X10*6/uL Hgb 12.9 (12.0-16.0) g/dl Hct 39.8 (37-47) % MCV 86.7 (80-98) fL MCH 28.1 (27.0-33.0) pg MCHC 32.4 (31.0-35.0) g/dl RDW 13.2 (11.0-16.0) % Plt Count 335 (160-400) X10*3/uL MPV 9.5 (9.4-12.3) fL Immature Gran % (Auto) 0.2 (0.0-0.4) % Neut % (Auto) 47.3 (45-73) % Lymph % (Auto) 37.2 (20-40) % [place] % (Auto) 7.5 (2-11) % Eos % (Auto) 6.8 H (0-4) % Baso % (Auto) 1.0 (0-2) % Lymph # (Auto) 2.1 (1.2-4.9) X10*3/uL [place] # (Auto) 0.4 (0.1-1.2) X10*3/uL Eos # (Auto) 0.4 (0.0-0.4) X10*3/uL Baso # (Auto) 0.1 (0.0-0.2) X10*3/uL Abs Immat Gran (auto) 0.01 (0.00-0.03) X10*3/uL Absolute Neuts (auto) 2.7 (2.0-8.3) X10*3/uL Absolute Nucleated RBC 0.000 (0.0-0.012) X10*3/uL Nucleated RBC % (auto) 0.0 (0.0-0.2) /100WBC PT 11.6 (10.8-13.0) SEC INR 1.0 (0.9-1.1) Sodium 141 (135-145) mmol/L Potassium 3.5 (3.3-5.1) mmol/L Chloride 106 (96-108) mmol/L Carbon Dioxide 27 (22-29) mmol/L Anion Gap 12 (12-20) BUN 10 (9-16) mg/dL Creatinine 1.03 (0.5-1.4) mg/dL Estim Creat Clear Calc 68.4 Estimated GFR 55 Random Glucose 142 H (60-115) mg/dL Calcium 8.3 L D (8.4-10.2) mg/dL Total Bilirubin 0.3 (0.0-1.0) mg/dL Direct Bilirubin 0.2 (0.0-0.5) mg/dL AST 21 (5-31) U/L ALT 9 (0-31) U/L Alkaline Phosphatase 116 (39-117) U/L Total Protein 6.7 (6.5-8.0) g/dL Albumin 3.7 (3.5-5.0) g/dL Imaging Data Venous US: Attestation: I personally reviewed and interpreted this imaging study as follows: Radiologist's impression: IMPRESSION: Small amount of nonocclusive thrombus seen in the right popliteal vein. This is similar to 11/18/2020 exam and may be chronic. No other evidence of DVT. CT scan - head: Attestation: I personally reviewed and interpreted this imaging study as follows: Radiologist's impression: EXAMINATION: CT HEAD WITHOUT CONTRAST CLINICAL INFORMATION: Lower extremity weakness. Fall. COMPARISON: Previous head CT September 2020 TECHNIQUE: Contiguous axial imaging was performed from the skull base to vertex without intravenous administration of contrast. This CT examination was performed using dose optimization techniques as appropriate, variously including the following: *Automated exposure control *Adjustment of mA and/or kV according to patient size (this includes techniques or standardized protocols for targeted exams where dose is matched to indication/reason for exam; i.e. extremities or head) *Use of iterative reconstruction technique DLP: 652 mGy-cm FINDINGS: There is no evidence of acute intracranial hemorrhage or territorial infarction. No abnormal mass effect or midline shift is seen. Silva to white matter differentiation is well preserved. No extra-axial fluid collections are identified. The ventricles are normal in size. There is no abnormal attenuation within the brain parenchyma. The osseous structures and soft tissues are normal. The mastoid air cells and visualized portions of the paranasal sinuses are well aerated. CT/CT head/brain wo con IMPRESSION: Unremarkable exam. Chest x-ray: Attestation: I personally reviewed and interpreted this imaging study as follows: Radiologist's impression: EXAMINATION: XR CHEST CLINICAL INFORMATION: Right clavicle pain. Fall. COMPARISON: Previous chest x-ray May 2020 TECHNIQUE: 2 views of the chest were obtained. FINDINGS: The cardiac and mediastinal contours are normal. The lungs are clear. There is no pleural effusion or pneumothorax. There are postsurgical changes to the lower cervical spine. Bony structures are otherwise unremarkable. XR/XR chest 2V IMPRESSION: Unremarkable examination. ECG Data Attestation: I personally reviewed and interpreted this ECG as follows: Interpretation: sr with rate 79, normal [place], normal QRS, prolonged QTC 470 Discharge Plan Discharge Clinical Impression: DVT (deep venous thrombosis) Qualifiers: DVT location: lower extremity Affected thrombotic vein of extremity: popliteal Chronicity: acute Laterality: right Qualified Code(s): I82.431 - Acute embolism and thrombosis of right popliteal vein Patient Disposition: Home, Self-Care Instructions: Deep Vein Thrombosis (ED), Safe Use of Anticoagulants (ED), Blood Thinners (ED) Additional Instructions: See instructions for being on anticoagulation If you fall and hit your head you must come in for an evaluation. Watch for signs of bleeding and return to the emergency department if these occur Follow-up with your primary care doctor Tuesday Compression stockings as discussed Prescriptions: New Xarelto 15 mg tablet 15 mg PO BID Qty: 21 RF: 0 oxycodone 5 mg tablet 5 mg PO Q6H PRN (Reason: pain) Qty: 5 RF: 0 No Action albuterol sulfate 90 mcg/actuation HFA aerosol inhaler 2 puff PO Q6H PRN (Reason: for wheezing) Qty: 25.5 RF: 0 oxycodone 5 mg tablet 5 mg PO Q8H PRN (Reason: pain) Qty: 10 RF: 0 sumatriptan succinate 50 mg tablet 0 mg PO RF: 0 ondansetron HCl 4 mg tablet 0 mg PO RF: 0 baclofen 10 mg tablet 0 mg PO RF: 0 levothyroxine 50 mcg tablet 50 mcg PO DAILY RF: 0 betamethasone dipropionate 0.05 % ointment topical RF: 0 Botox 200 unit recon soln intradermal ONCE RF: 0 Breo Ellipta 200-25 mcg/dose blister with device 1 inh inhalation DAILY 30 Days Qty: 28 RF: 5 Narcan 4 mg/actuation spray,non-aerosol 0 spray intranasal RF: 0 eszopiclone 3 mg tablet 3 mg PO BEDTIME RF: 0 duloxetine 60 mg capsule,delayed release(DR/EC) 0 mg PO RF: 0 olanzapine 5 mg tablet 5 mg PO BEDTIME RF: 0 doxepin 75 mg capsule 75 mg PO BEDTIME RF: 0 amlodipine 10 mg tablet 10 mg PO DAILY RF: 0 pantoprazole 40 mg tablet,delayed release (DR/EC) 40 mg PO DAILY RF: 0 gabapentin 600 mg tablet 600 mg PO TID RF: 0 alprazolam [Xanax] 1 mg tablet 1 mg PO BEDTIME RF: 0 eszopiclone [Lunesta] 3 mg tablet 3 mg PO BEDTIME RF: 0 Interventions: ED Discharge Assessment Last Done: 12/13/20 15:49 Discharge Date/Time: 12/13/20 15:50
[2020-12-13] MEDS: oxyCODONE HCl Immed Release 5 MG TABLET PO (13:21)
[2020-12-13] MEDS: Acetaminophen 325 MG TABLET 650 MG PO (13:21)
[2020-12-13 13:32] LABS: MANUAL DIFF FLAG NO
[2020-12-13 13:33] LABS: Basophils Absolute Auto 0.1 X10*3/uL (0.0-0.2); Eosinophils Absolute Auto 0.4 X10*3/uL (0.0-0.4); Eosinophils Percent Auto 6.8 % (0-4); Hematocrit 39.8 % (37-47); Hemoglobin 12.9 g/dl (12.0-16.0); Imm Gran Abs Auto 0.01 X10*3/uL (0.00-0.03); Imm Gran Pct Auto 0.2 % (0.0-0.4); Lymphocytes Absolute Auto 2.1 X10*3/uL (1.2-4.9); Lymphocytes Percent Auto 37.2 % (20-40); Mean Corpuscular HGB Conc 32.4 g/dl (31.0-35.0); Mean Corpuscular Hemoglobin 28.1 pg (27.0-33.0); Mean Corpuscular Volume 86.7 fL (80-98); Mean Platelet Volume 9.5 fL (9.4-12.3); Monocytes Absolute Auto 0.4 X10*3/uL (0.1-1.2); Monocytes Percent Auto 7.5 % (2-11); Neutrophils Absolute Auto 2.7 X10*3/uL (2.0-8.3); Neutrophils Percent Auto 47.3 % (45-73); Platelet Count 335 X10*3/uL (160-400); Red Blood Count 4.59 X10*6/uL (4.20-5.50); Red Cell Distribution Width 13.2 % (11.0-16.0); White Blood Count 5.8 X10*3/uL (4.8-10.8)
[2020-12-13 13:42] LABS: Prothrombin Time 11.6 SEC (10.8-13.0)
[2020-12-13 13:57] LABS: Alanine Aminotransferase 9 U/L (0-31); Albumin Level 3.7 g/dL (3.5-5.0); Alkaline Phosphatase 116 U/L (39-117); Anion Gap 12 (12-20); Aspartate Amino Transferase 21 U/L (5-31); Bilirubin Direct 0.2 mg/dL (0.0-0.5); Bilirubin Total 0.3 mg/dL (0.0-1.0); Blood Urea Nitrogen 10 mg/dL (9-16); Calcium 8.3 mg/dL (8.4-10.2); Carbon Dioxide 27 mmol/L (22-29); Chloride 106 mmol/L (96-108); Creatinine Clr Calc Pharmacy 68.4; Estimated Glomerular Filt Rate 55; Glucose Random 142 mg/dL (60-115); Potassium 3.5 mmol/L (3.3-5.1); Sodium 141 mmol/L (135-145); Total Protein 6.7 g/dL (6.5-8.0)
[2020-12-13 15:04] VITALS: BP 109/60; PULSE 78; RESP 18; TEMP 37.2; O2SAT 94
== END 2020-12-13 15:50 | disposition home or self-care (01) ==
PROVIDERS: Nurse Practitioner Family; Emergency Provider Emergency Medicine; PCP Nurse Practitioner
DX: I82.431 Acute embolism and thrombosis of right popliteal vein (principal); M79.661 Pain in right lower leg; R53.1 Weakness; J44.9 Chronic obstructive pulmonary disease, unspecified
CPT/HCPCS: 36415; 70450; 71046; 80048; 80076; 85025; 85610; 93005; 99284

== ENCOUNTER → 2021-02-23 10:22 | Outpatient (BNVA) | payer OTHER, SELFPAY | PROVIDERS: PCP Nurse Practitioner; Visit Provider Internal Medicine | DX: J44.9 Chronic obstructive pulmonary disease, unspecified (principal); G47.34 Idiopathic sleep related nonobstructive alveolar hypoventilation | CPT/HCPCS: 99212 ==

== ENCOUNTER 2021-06-24 16:24 | Emergency (ER) | payer OTHER, SELFPAY ==
--- NOTE | ~2021-06-24 | XR_ITS ---
EXAMINATION: XR CHEST CLINICAL INFORMATION: Shortness of breath. COMPARISON: Chest radiograph dated from 12/13/2020. TECHNIQUE: AP view of the chest was obtained. FINDINGS: Normal appearance of the cardiomediastinal silhouette. There is increased interstitial prominence when compared to the study from November with new patchy and linear opacities in the lung bases. No pleural effusion or pneumothorax. No acute osseous findings. XR/XR chest 1V IMPRESSION: Increased interstitial prominence and patchy opacities in the lung bases raising the possibility of an infectious/inflammatory process of the small airways. Correlate clinically and follow-up to ensure resolution.
[2021-06-24 16:33] VITALS: BP 138/78; PULSE 98; O2SAT 97
[2021-06-24 16:42] VITALS: BP 111/56; PULSE 97; RESP 20; TEMP 38.1; O2SAT 97; BMI 31.4
[2021-06-24 17:17] LABS: COVID-19 Test Positive (Negative); IDNOW Serial# 9DD0AD1C
--- NOTE | 2021-06-24 17:31 | ED.GENADULT ---
HPI - General Adult General Chief complaint: Upper Respiratory Symptoms Stated complaint: COUGH,SOB,N/V,FEVER, SINCE TUESDAY,? COVID Time Seen by Provider: 06/24/21 16:44 Source: patient Mode of arrival: EMS Limitations: no limitations History of Present Illness HPI narrative: Patient with history of COPD and DVT in the past for last 4 days patient been having cough fever nausea vomiting diarrhea body aches headache saturating 96% at home unable to eat or drink today lost her taste sensation also not been vaccinated against COVID. No other family member sick Related Data Home Medications Medication Instructions Recorded Confirmed amlodipine 10 mg tablet 10 mg PO DAILY 06/16/20 12/10/20 gabapentin 600 mg tablet 600 mg PO TID 06/16/20 12/10/20 naloxone 4 mg/actuation nasal spray 0 spray INTRANASAL 06/16/20 12/10/20 olanzapine 5 mg tablet 5 mg PO BEDTIME 06/16/20 12/10/20 pantoprazole 40 mg tablet,delayed 40 mg PO DAILY 06/16/20 12/10/20 release betamethasone dipropionate 0.05 % TOPICAL 07/08/20 07/30/20 topical ointment alprazolam 1 mg tablet (Xanax) 1 mg PO BEDTIME 07/30/20 12/10/20 eszopiclone 3 mg tablet (Lunesta) 3 mg PO BEDTIME 07/30/20 07/30/20 baclofen 10 mg tablet 10 mg PO BEDTIME PRN tab 02/23/21 duloxetine 60 mg capsule,delayed 60 mg PO BID cap 02/23/21 release ondansetron HCl 4 mg tablet 4 mg PO Q8H PRN tab 02/23/21 sumatriptan succinate 50 mg tablet 50 mg PO ONCE tab 02/23/21 Previous Rx's Medication Instructions Recorded fluticasone furoate 200 1 inh INHALATION DAILY 30 Days #28 07/08/20 mcg-vilanterol 25 mcg/dose ea inhalation powder (Breo Ellipta) albuterol sulfate 90 mcg/actuation 2 puff PO Q6H PRN #25.5 g 02/09/21 aerosol inhaler benzonatate 100 mg capsule 100 mg PO TID PRN #20 cap 06/24/21 (Tessalon Perles) dexamethasone 6 mg tablet 6 mg PO DAILY #7 tab 06/24/21 (Decadron) ondansetron 4 mg disintegrating 4 mg PO Q6-8H PRN #7 tab 06/24/21 tablet Allergies Allergy/AdvReac Type Severity Reaction Status Date / Time cyclobenzaprine Allergy Severe Anaphylaxis Verified 02/23/21 10:48 [From Flexeril] beclomethasone [From QVAR] Allergy Intermediate FACIAL/TONGUE Verified 02/23/21 10:48 SWELLING NSAIDS (Non-Steroidal Allergy Intermediate swollen Verified 02/23/21 10:48 Anti-Inflamma [Nsaids] egg [Egg] Allergy Mild UNKNOWN Verified 02/23/21 10:48 Review of Systems Review of Systems: Yes all other systems are reviewed and are negative [facility] Past Medical History Medical History Alopecia Anxiety Chronic pain COPD (chronic obstructive pulmonary disease) Depression Emphysema of lung Femur fracture, right Fibromyalgia Herniated disc Hypothyroidism Nocturnal hypoxemia Spondylosis of cervical spine Surgical History H/O cervical spine surgery H/O tubal ligation History of cholecystectomy Family History Family History Father Diabetes Mother CVD (cardiovascular disease) Social History Social History Advance Directives: No Advance Directives Information Provided: No Patient : No Physical Exam Vital Signs: Vital Signs: Last Vital Signs Temp 100.7 F H 06/24/21 18:58 Pulse 85 06/24/21 18:58 Resp 17 06/24/21 18:58 BP 130/64 06/24/21 18:58 Pulse Ox 99 06/24/21 18:58 Body Mass Index 31.4 Appearance: Alert. Oriented X3. No acute distress. Eyes: No pallor/ icterus coughing a lot ENT: Pharynx normal. Oral Mucosa moist Neck: Normal inspection. Neck supple. CVS: Normal heart rate and rhythm. Pulses normal. Respiratory: No respiratory distress. Equal air entry bilateral, no wheezing/rales/rhonchi Abdomen: Soft and nontender. Bowel sounds are present, no mass palpable, no CVA tenderness Skin: Skin warm and dry. Normal skin color. Normal skin turgor. Extremities: No lower extremity edema. No calf tenderness Neuro: Oriented X 3. Medical Decision Making MDM Narrative Medical decision making narrative: Patient's COVID-19 infection saturating 97% , patient feel better after IV fluids and Zofran will discharge patient home on Decadron Lab Data Lab results reviewed: Yes I reviewed the patient's lab results. Labs: Lab Results 06/24/21 Range/Units 16:55 COVID-19 ([place]) Positive A (Negative) COVID-19 Clin Com See Note Discharge Plan Discharge Clinical Impression: COVID-19 Patient Disposition: Home, Self-Care Instructions: COVID-19 (Coronavirus Disease 2019) (ED) Additional Instructions: Self-isolation and social distancing as advised Drink plenty of fluids Take medication as prescribed Report to the ER if increased shortness of breath Prescriptions: New dexamethasone [Decadron] 6 mg tablet 6 mg PO DAILY Qty: 7 RF: 0 ondansetron 4 mg tablet,disintegrating 4 mg PO Q6-8H PRN (Reason: nausea and vomiting) Qty: 7 RF: 0 benzonatate [Tessalon Perles] 100 mg capsule 100 mg PO TID PRN (Reason: cough) Qty: 20 RF: 0 No Action albuterol sulfate 90 mcg/actuation HFA aerosol inhaler 2 puff PO Q6H PRN (Reason: for wheezing) Qty: 25.5 RF: 0 betamethasone dipropionate 0.05 % ointment topical RF: 0 Breo Ellipta 200-25 mcg/dose blister with device 1 inh inhalation DAILY 30 Days Qty: 28 RF: 5 baclofen 10 mg tablet 10 mg PO BEDTIME PRNRF: 0 ondansetron HCl 4 mg tablet 4 mg PO Q8H PRNRF: 0 sumatriptan succinate 50 mg tablet 50 mg PO ONCE RF: 0 Narcan 4 mg/actuation spray,non-aerosol 0 spray intranasal RF: 0 olanzapine 5 mg tablet 5 mg PO BEDTIME RF: 0 amlodipine 10 mg tablet 10 mg PO DAILY RF: 0 pantoprazole 40 mg tablet,delayed release (DR/EC) 40 mg PO DAILY RF: 0 gabapentin 600 mg tablet 600 mg PO TID RF: 0 duloxetine 60 mg capsule,delayed release(DR/EC) 60 mg PO BID RF: 0 alprazolam [Xanax] 1 mg tablet 1 mg PO BEDTIME RF: 0 eszopiclone [Lunesta] 3 mg tablet 3 mg PO BEDTIME RF: 0 Interventions: ED Discharge Assessment Last Done: 06/24/21 19:07 Discharge Date/Time: 06/24/21 20:01
[2021-06-24] MEDS: 0.9 % Sodium Chloride 1,000 ML 999 ML IVCONT (18:26)
[2021-06-24] MEDS: dexAMETHasone sod phosphate 10 MG/ML VIAL IVPUSH (18:27)
[2021-06-24] MEDS: guaiFEN/Codeine SF 200/20/10ML 10 ML LIQUID PO (18:27)
[2021-06-24] MEDS: ondansetron HCL 4 MG/2 ML VIAL IVPUSH (18:27)
[2021-06-24 18:58] VITALS: BP 130/64; PULSE 85; RESP 17; TEMP 38.2; O2SAT 99
--- NOTE | 2021-06-24 19:02 | PC.NURSE ---
RN assumed care at 1900. Pt alert and oriented x4, calm and cooperative. Pt denies pain, states generalized ache throughout body. Pt states cough has improved. Pt ambulating without difficulties. Vitals stable. IV intact. Pt voided without issues. Pt educated on dc and stated an understanding.
== END 2021-06-24 20:01 | disposition home or self-care (01) ==
PROVIDERS: Emergency Provider Internal Medicine; PCP Nurse Practitioner
DX: U07.1 COVID-19 (principal); J44.9 Chronic obstructive pulmonary disease, unspecified; Z86.718 Personal history of other venous thrombosis and embolism; Z79.899 Other long term (current) drug therapy
CPT/HCPCS: 36415; 71045; 87635; 96361; 96374; 96375; 99284; J1100; J2405

== ENCOUNTER → 2021-07-29 08:02 | Outpatient (BNVA) | payer OTHER, SELFPAY | PROVIDERS: PCP Nurse Practitioner; Visit Provider Nurse Practitioner Family | DX: M47.816 Spondylosis without myelopathy or radiculopathy, lumbar region (principal); M96.1 Postlaminectomy syndrome, not elsewhere classified | CPT/HCPCS: 99212 ==

== ENCOUNTER → 2021-10-12 13:04 | Outpatient (BNVA) | payer OTHER, SELFPAY | PROVIDERS: PCP Nurse Practitioner; Visit Provider Internal Medicine | DX: J44.9 Chronic obstructive pulmonary disease, unspecified (principal); J84.9 Interstitial pulmonary disease, unspecified; G47.34 Idiopathic sleep related nonobstructive alveolar hypoventilation | CPT/HCPCS: 94618; 99212 ==

== ENCOUNTER 2021-10-26 09:25 | Emergency (ER) | payer OTHER, SELFPAY ==
--- NOTE | ~2021-10-26 | CT_ITS ---
. EXAMINATION: CT BRAIN, CT CERVICAL SPINE WITHOUT CONTRAST. LUMBAR SPINE. CLINICAL INFORMATION: Fall. COMPARISON: CT brain 12/13/[address] lumbar spine 09/21/2020. TECHNIQUE: Axial 5 mm thin and reformatted 2 mm thin sagittal and coronal images of brain were obtained. Axial 3 mm thin and reformatted 2 mm thin sagittal and coronal images of cervical spine were obtained. DLP [id number] FINDINGS: Brain: There is no acute intra-axial, extra-axial bleed, masses or midline shift. There is no acute infarction evolution. There is no edema. Silva to white matter differentiation is maintained normal. The lateral ventricles are symmetrical in size and configuration without enlargement. Bone windows reveal no calvarial abnormality. There is no scalp soft tissue abnormality seen. The paranasal sinuses are well-aerated and clear. Cervical spine: There is mild reversal of cervical lordosis. Grade 1 anterolisthesis C3 over C4 is noted. There is C5-C6 and C6-C7 disc fusion with disc with zero profile prosthesis in place. There is bilateral C2-C3, C3-C4 and C7-T1 facet joint arthropathy. No visible acute fracture or dislocation seen. The craniovertebral junction and the C1-C2 alignment is normal. There is mild bilateral narrowing of neural foramina from uncovertebral atrophic changes at C5-C6 and C6-C7 disc levels. Bilateral submandibular, parotid glands are symmetrical and normal. The thyroid lobes are symmetric and normal. No abnormal neck mass or lymphadenopathy seen. Silva is widely patent. The TM joints are symmetrical and normal. Partially visualized lung apices are clear. Lumbar spine: There is normal lumbar lordosis. There is grade 1 anterolisthesis L4-L5. There is loss of L4-L5 and L5/S1 disc heights rest the disc heights are normal. No visible acute fracture, dislocation or lytic process seen. The prevertebral and paravertebral soft tissues are normal. CT/CT cervical spine wo con IMPRESSION: No acute intracranial process seen. No acute fracture, dislocation or subluxation in cervical spine. There is C5-C6 and C6-C7 disc fusion with prosthesis in place. Grade 1 anterolisthesis C3 over C4 is noted. Grade 1 anterolisthesis L4 over L5. No acute fracture or dislocation in lumbar spine.
[2021-10-26 09:28] VITALS: BP 152/96; PULSE 89; RESP 18; TEMP 36.3; O2SAT 96; BMI 34.3
--- NOTE | 2021-10-26 09:44 | ED_ITS ---
HPI - Fall General Chief Complaint: Fall Stated Complaint: Fall Time Seen by Provider: 10/26/21 09:34 Source: patient and old records reviewed Mode of arrival: ambulatory Limitations: no limitations History of Present Illness MD complaint: fall Onset (ago): minute(s) Fall from: standing Fall witnessed: yes, by family Place fall occurred: home Loss of consciousness: yes, seconds (10 maybe but unsure) Length of LOC: second(s) (10) Prolonged down time: no Symptoms prior to fall: none Context: tripped/slipped (ice) Location of injury: head, neck and back Severity: severe Quality: aching and throbbing Associated symptoms (after fall): headache Related Data Home Medications Medication Instructions Recorded Confirmed naloxone 4 mg/actuation nasal spray 0 spray INTRANASAL 06/16/20 10/12/21 olanzapine 5 mg tablet 5 mg PO BEDTIME 06/16/20 10/12/21 pantoprazole 40 mg tablet,delayed 40 mg PO DAILY 06/16/20 10/12/21 release betamethasone dipropionate 0.05 % TOPICAL 07/08/20 10/12/21 topical ointment alprazolam 1 mg tablet (Xanax) 1 mg PO BEDTIME 07/30/20 10/12/21 eszopiclone 3 mg tablet (Lunesta) 3 mg PO BEDTIME 07/30/20 10/12/21 duloxetine 60 mg capsule,delayed 60 mg PO BID cap 02/23/21 10/12/21 release sumatriptan succinate 50 mg tablet 50 mg PO ONCE tab 02/23/21 10/12/21 cholecalciferol (vitamin D3) 1,250 1,250 mcg PO QWEEK 10/12/21 10/12/21 mcg (50,000 unit) capsule folic acid 1 mg tablet 1 mg PO DAILY 10/12/21 10/12/21 methotrexate (PF) 7.5 mg/0.15 mL 7.5 mg SUBCUT QWEEK 10/12/21 10/12/21 subcutaneous auto-injector Previous Rx's Medication Instructions Recorded fluticasone furoate 200 1 inh INHALATION DAILY 30 Days 07/08/20 #28 mcg-vilanterol 25 mcg/dose ea inhalation powder (Breo Ellipta) albuterol sulfate 90 mcg/actuation 2 puff PO Q6H PRN #25.5 g 02/09/21 aerosol inhaler ondansetron 4 mg disintegrating 4 mg PO Q6-8H PRN #7 tab 06/24/21 tablet lidocaine 5 % topical patch 1 patch TOPICAL DAILY #30 ea 10/26/21 Allergies Allergy/AdvReac Type Severity Reaction Status Date / Time cyclobenzaprine Allergy Severe Anaphylaxis Verified 10/26/21 09:28 [From Flexeril] beclomethasone Allergy Intermediate FACIAL/TONGUE Verified 10/26/21 09:28 [From QVAR] SWELLING NSAIDS Allergy Intermediate swollen Verified 10/26/21 09:28 (Non-Steroidal Anti-Inflamma [Nsaids] egg [Egg] Allergy Mild UNKNOWN Verified 10/26/21 09:28 Review of Systems Verdana 4l Review of Systems: Verdana 4d Verdana 4d Constitutional : No Fever, No Chills, No Fatigue ENT/Mouth : No sore throat, No Rhinorrhea Eyes: No Eye Pain, No Swelling, No Redness Cardiovascular : No Chest Pain, No SOB, No Dyspnea on Exertion Respiratory : No Cough, No Sputum GastrointestinalGastrointestinal : No Nausea, No Vomiting, No Diarrhea, No abdominal Pain Genitourinary : No Dysuria, No Urinary Frequency, No Hematuria, Musculoskeletal : No joint pain, No Myalgias, No Joint Swelling, pos back pain Skin : No Skin Lesions, No rash Neuro : No Weakness, No Numbness, No Dizziness, positive Headache, pos LOC Psych : No Anxiety/Panic, No Depression Heme/Lymph: No Bruising, No Bleeding,No Lymphadenopathy Endocrine : No Polyuria, No Polydipsia All other systems reviewed and are negative PMFSH Past Medical History Attestation statement: The following information was validated with the patient. Medical History Alopecia Anxiety Chronic pain COPD (chronic obstructive pulmonary disease) Depression DVT (deep venous thrombosis) Emphysema of lung Femur fracture, right Fibromyalgia Herniated disc Hypothyroidism Interstitial lung disease Nocturnal hypoxemia Spondylosis of cervical spine Surgical History H/O cervical spine surgery H/O tubal ligation History of cholecystectomy Family History Family History Father Diabetes Mother CVD (cardiovascular disease) Social History Social History Household Members: Children Household Members Other:: son Alcohol intake: never Patient Tobacco Use Status: Former Tobacco user Use of substances other than those prescribed or required for medical reasons: No Advance Directives: No Advance Directives Information Provided: No Physical Exam Verdana 4l Vital Signs: Verdana 4d Verdana 4d Vital Signs: Verdana 4d Verdana 4Bd Last Vital Signs Verdana 4d Hand Screen Printer New 4d Hand Screen Printer New 4d Temp 97.3 F 10/26/21 09:28 Hand Screen Printer New 4d Pulse 89 10/26/21 09:28 Hand Screen Printer New 4d Resp 18 10/26/21 09:28 BP 152/96 H 10/26/21 09:28 Pulse Ox 96 10/26/21 09:28 BMI result Body Mass Index 34.3 Appearance: Alert. Oriented X3. Mild acute distress. Very anxious Eyes: Pupils equal, round and reactive to light. ENT: Pharynx normal. Contusion on occiput Neck: R sided ttp no mass seen, no step offs CVS: Normal heart rate and rhythm. Pulses normal. Respiratory: No respiratory distress. Breath sounds normal. Abdomen: Soft and non-tender. Back: reports lower lumbar ttp no step offs felt Skin: Skin warm and dry. Normal skin color. Normal skin turgor. Extremities: No lower extremity edema. No calf ttp Neuro: Oriented X 3. No motor deficit. No sensory deficit. Course Course Course Narrative: no acute findings on xray or CT head/cervical spine GCS 15. MDM - Fall MDM Narrative Medical decision making narrative: 61 yo female with hx of ILD, COPD, remote DVT, here with mechanical fall slipping on ice - not on DOAC reports possible brief LOC she is GCS 15 c/o headache/neck pain and low back pain - she is NV intact. At this time will obtain CT head/neck given her degree of pain and LOC. Lumbar films. Will offer tylenol, zofran and xanax for anxiety. Dispo per results and findings. Differential Diagnosis Differential diagnosis: Unlikely syncope Discharge Plan Discharge Clinical Impression: Head injury Qualifiers: Encounter type: initial encounter Qualified Code(s): S09.90XA - Unspecified injury of head, initial encounter Contusion of scalp Qualifiers: Encounter type: initial encounter Qualified Code(s): S00.03XA - Contusion of scalp, initial encounter Low back strain Qualifiers: Encounter type: initial encounter Qualified Code(s): S39.012A - Strain of muscle, fascia and tendon of lower back, initial encounter Neck strain Qualifiers: Encounter type: initial encounter Qualified Code(s): S16.1XXA - Strain of muscle, fascia and tendon at neck level, initial encounter Patient Disposition: Home, Self-Care Instructions: Cervical Strain (ED), Concussion (ED), Head Injury (ED), Acute Low Back Pain (ED), Contusion in Adults (ED) Additional Instructions: return to ED for any worsening symptoms or concerns Prescriptions: New lidocaine 5 % adhesive patch,medicated 1 patch topical DAILY Qty: 30 0RF Rx Instructions: leave on most painful area for up to 12 hrs No Action albuterol sulfate 90 mcg/actuation HFA aerosol inhaler 2 puff PO Q6H PRN (Reason: for wheezing) Qty: 25.5 0RF ondansetron 4 mg tablet,disintegrating 4 mg PO Q6-8H PRN (Reason: nausea and vomiting) Qty: 7 0RF betamethasone dipropionate 0.05 % ointment topical 0RF Breo Ellipta 200-25 mcg/dose blister with device 1 inh inhalation DAILY 30 Days Qty: 28 5RF sumatriptan succinate 50 mg tablet 50 mg PO ONCE 0RF Narcan 4 mg/actuation spray,non-aerosol 0 spray intranasal 0RF olanzapine 5 mg tablet 5 mg PO BEDTIME 0RF pantoprazole 40 mg tablet,delayed release (DR/EC) 40 mg PO DAILY 0RF duloxetine 60 mg capsule,delayed release(DR/EC) 60 mg PO BID 0RF alprazolam [Xanax] 1 mg tablet 1 mg PO BEDTIME 0RF eszopiclone [Lunesta] 3 mg tablet 3 mg PO BEDTIME 0RF folic acid 1 mg tablet 1 mg PO DAILY 0RF cholecalciferol (vitamin D3) 1,250 mcg (50,000 unit) capsule 1,250 mcg PO QWEEK 0RF methotrexate (PF) 7.5 mg/0.15 mL auto-injector 7.5 mg subcut QWEEK 0RF Referrals: Miri Reyes [Primary Care Provider] - 2 days
--- NOTE | 2021-10-26 09:59 | PC.NURSE ---
Out of room for CT scan at this time
[2021-10-26] MEDS: Acetaminophen 325 MG TABLET 650 MG PO (10:20)
[2021-10-26] MEDS: ALPRAZolam 0.5 MG TABLET PO (10:20)
[2021-10-26] MEDS: Ondansetron ODT 4 MG TAB.RAPDIS TRANSLINGU (10:20)
[2021-10-26] MEDS: oxyCODONE HCl Immed Release 5 MG TABLET PO (11:29)
== END 2021-10-26 11:51 | disposition home or self-care (01) ==
PROVIDERS: Emergency Provider Emergency Medicine; PCP Nurse Practitioner
DX: S09.90XA Unspecified injury of head, initial encounter (principal); S00.03XA Contusion of scalp, initial encounter; S39.012A Strain of muscle, fascia and tendon of lower back, initial encounter; S16.1XXA Strain of muscle, fascia and tendon at neck level, initial encounter; W00.0XXA Fall on same level due to ice and snow, initial encounter; Y93.89 Activity, other specified; Y92.018 Other place in single-family (private) house as the place of occurrence of the external cause; Y99.9 Unspecified external cause status
CPT/HCPCS: 70450; 72100; 72125; 99284

== ENCOUNTER 2021-11-12 10:53 | Outpatient (REF) | payer OTHER, SELFPAY ==
--- NOTE | ~2021-11-12 | XR_ITS ---
EXAMINATION: XR CHEST CLINICAL INFORMATION: Interstitial pulmonary disease. COMPARISON: 06/24/2021 chest radiographs. TECHNIQUE: 2 views of the chest were obtained. FINDINGS: No significant abnormality is noted involving the heart, lungs, mediastinum, bony thorax or soft tissues. XR/XR chest 2V IMPRESSION: No acute cardiopulmonary process.
== END 2021-11-12 10:54 | disposition home or self-care (01) ==
LOC: HO.XRAY 10:53
PROVIDERS: PCP Nurse Practitioner; Visit Provider Internal Medicine
DX: J84.9 Interstitial pulmonary disease, unspecified (principal); J44.9 Chronic obstructive pulmonary disease, unspecified
CPT/HCPCS: 71046

== ENCOUNTER → 2021-12-14 08:18 | Outpatient (BNVA) | payer OTHER, SELFPAY | PROVIDERS: PCP Nurse Practitioner; Visit Provider Psychiatry & Neurology Neurology | DX: G43.109 Migraine with aura, not intractable, without status migrainosus (principal) | CPT/HCPCS: 64615; 99211; J0585 ==

== ENCOUNTER 2021-12-15 09:52 | Outpatient (REF) | payer OTHER, SELFPAY ==
--- NOTE | 2021-12-15 13:15 | PFT_ITS ---
Forced vital capacity is 69%, FEV1 70%, FEV1/FVC ratio is 78, FEF 25/75 69% and MVV is 78%. After bronchodilator therapy, there is a significant improvement in FEV1 and FEF 25/75 bringing the flow volumes to almost normal. Total lung capacity 76% and total residual volume 92%. Diffusion capacity 65%. CONCLUSION: 1. Mild restrictive pulmonary disorder. 2. [id number] degree of obstructive airway disorder with good response to bronchodilator therapy. This finding is consistent with bronchial asthma. 3. Clinical correlation recommended. MD JONI Squires/MODL / [id number]
== END 2021-12-15 09:53 | disposition home or self-care (01) ==
LOC: HO.RESP 09:52
PROVIDERS: PCP Nurse Practitioner; Visit Provider Internal Medicine
DX: J44.9 Chronic obstructive pulmonary disease, unspecified (principal); J84.9 Interstitial pulmonary disease, unspecified; G47.34 Idiopathic sleep related nonobstructive alveolar hypoventilation; Z79.899 Other long term (current) drug therapy
CPT/HCPCS: 94060; 94727; 94729; 99212

== ENCOUNTER → 2022-04-13 09:55 | Outpatient (BNVA) | payer OTHER, SELFPAY | PROVIDERS: PCP Nurse Practitioner; Visit Provider Internal Medicine | DX: J44.9 Chronic obstructive pulmonary disease, unspecified (principal); G47.34 Idiopathic sleep related nonobstructive alveolar hypoventilation; J84.9 Interstitial pulmonary disease, unspecified | CPT/HCPCS: 99212 ==

== ENCOUNTER → 2022-08-04 11:06 | Outpatient (BNVA) | payer OTHER, SELFPAY | PROVIDERS: PCP Nurse Practitioner; Visit Provider Internal Medicine | DX: J44.9 Chronic obstructive pulmonary disease, unspecified (principal); J84.9 Interstitial pulmonary disease, unspecified; G47.34 Idiopathic sleep related nonobstructive alveolar hypoventilation; Z99.81 Dependence on supplemental oxygen | CPT/HCPCS: 99212 ==

== ENCOUNTER 2022-08-09 17:17 | Emergency (ER) | payer OTHER, SELFPAY ==
--- NOTE | ~2022-08-09 | XR_ITS ---
EXAMINATION: XR CHEST CLINICAL INFORMATION: Cough and fever COMPARISON: Chest x-ray 09/11/2022 TECHNIQUE: Frontal view of the chest was obtained. FINDINGS: Cardiac silhouette is normal in size. The lungs are well aerated. There is no lobar consolidation. No pleural effusion or pneumothorax. XR/XR chest 1V IMPRESSION: No acute pulmonary pathology.
[2022-08-09 17:25] VITALS: BP 107/76; BP 126/82; PULSE 88; PULSE 91; RESP 16; TEMP 37.8; O2SAT 98; O2SAT 99; BMI 31.9
--- NOTE | 2022-08-09 17:59 | ED_ITS ---
HPI - Nausea/Vomiting/Diarrhea General Chief complaint: Nausea/Vomiting/Diarrhea Stated complaint: headache Time Seen by Provider: 08/09/22 17:58 Source: patient Mode of arrival: ambulatory Limitations: no limitations History of Present Illness HPI Narrative: Patient has history of COPD chronic lung disease alopecia comes here for body ache nausea vomiting running nose headache dry cough since early today. No ot her family member sick noticed to have low-grade fever 100.1 on arrival. Patient vomited 3 times at home no significant abdominal pain no diarrhea at this time patient feeling much better no urinary complaints no flank pain Related Data Home Medications Medication Instructions Recorded Confirmed naloxone 4 mg/actuation nasal spray 0 spray intranasal 06/16/20 04/13/22 olanzapine 5 mg tablet 5 mg PO BEDTIME 06/16/20 04/13/22 pantoprazole 40 mg tablet,delayed 40 mg PO DAILY 06/16/20 04/13/22 release betamethasone dipropionate 0.05 % topical 07/08/20 04/13/22 topical ointment alprazolam 1 mg tablet (Xanax) 1 mg PO BEDTIME 07/30/20 04/13/22 eszopiclone 3 mg tablet (Lunesta) 3 mg PO BEDTIME 07/30/20 04/13/22 duloxetine 60 mg capsule,delayed 60 mg PO BID 02/23/21 04/13/22 release onabotulinumtoxinA 100 unit IM .q 4 months PRN 04/13/22 04/13/22 solution for injection (Botox) upadacitinib 15 mg tablet,extended 15 mg PO DAILY 08/04/22 release 24 hr (Rinvoq) Previous Rx's Medication Instructions Recorded fluticasone furoate 200 1 inh inhalation DAILY 30 days #28 07/08/20 mcg-vilanterol 25 mcg/dose ea inhalation powder (Breo Ellipta) ondansetron 4 mg disintegrating 4 mg PO Q6-8H PRN nausea and 11/12/21 tablet vomiting #7 tabs sumatriptan succinate 50 mg tablet See Rx Instructions PO ONCE #14 11/12/21 tabs albuterol sulfate 90 mcg/actuation 2 puff PO Q6H PRN for wheezing 03/09/22 aerosol inhaler #25.5 grams Allergies Allergy/AdvReac Type Severity Reaction Status Date / Time cyclobenzaprine Allergy Severe Anaphylaxis Verified 08/04/22 11:25 [From Flexeril] beclomethasone [From QVAR] Allergy Intermediate FACIAL/TONGUE Verified 08/04/22 11:25 SWELLING NSAIDS (Non-Steroidal Allergy Intermediate swollen Verified 08/04/22 11:25 Anti-Inflamma [Nsaids] egg [Egg] Allergy Mild UNKNOWN Verified 08/04/22 11:25 Review of Systems Review of Systems: Yes all other systems are reviewed and are negative [facility] Past Medical History Medical History Alopecia Anxiety Asthma-COPD overlap syndrome Chronic pain COPD (chronic obstructive pulmonary disease) Depression DVT (deep venous thrombosis) Emphysema of lung Femur fracture, right Fibromyalgia Herniated disc Hypothyroidism Interstitial lung disease Nocturnal hypoxemia Spondylosis of cervical spine Surgical History H/O cervical spine surgery H/O tubal ligation History of cholecystectomy Family History Family History Father Diabetes Mother CVD (cardiovascular disease) Social History Social History Household Members: Children Household Members Other:: son Alcohol intake: never Patient Tobacco Use Status: Former Tobacco user Advance Directives: No Advance Directives Information Provided: Yes Physical Exam Vital Signs: Vital Signs: Last Vital Signs Temp 100.1 F 08/09/22 17:25 Pulse 88 08/09/22 17:25 Resp 16 08/09/22 17:25 BP 107/76 08/09/22 17:25 Pulse Ox 99 08/09/22 17:25 O2 Del Method 08/09/22 17:25 Oxygen Flow Rate 2 08/09/22 17:25 BMI result Body Mass Index 31.9 Appearance: Alert. Oriented X3. No acute distress. Eyes: No pallor/ icterus ENT: Pharynx normal. Oral Mucosa moist clear rhinorrhea Neck: Normal inspection. Neck supple. CVS: Normal heart rate and rhythm. Pulses normal. Respiratory: No respiratory distress. Equal air entry bilateral, bilateral wheezing++ Abdomen: Soft and nontender. Bowel sounds are present, no mass palpable, no CVA tenderness Skin: Skin warm and dry. Normal skin color. Normal skin turgor. Extremities: No lower extremity edema. No calf tenderness Neuro: Oriented X 3. No motor deficit. Medications Administered Discontinued Medications Generic Name Dose Route Start Last Admin Trade Name John PRN Reason Stop Dose Admin Albuterol Sulfate 2.5 mg/ 0 mg 08/09/22 18:21 08/09/22 18:41 Albuterol/Ipratropium 3 ml INHALE 08/09/22 18:22 2.5 each ONCE ONE Administration Tramadol HCl 50 mg 08/09/22 18:16 08/09/22 18:26 Tramadol Hcl 50 Mg Tablet PO 08/09/22 18:17 50 mg ONCE ONE Administration MDM - Nausea/Vomiting/Diarrhea MDM Narrative Medical decision making narrative: Patient chest x-ray negative symptoms likely viral URI discharge patient home Lab Data Attestation: I reviewed the patient's lab results. Labs: Lab Results 08/09/22 Range/Units 18:28 Influenza Type A (PCR) NEGATIVE (Negative) Influenza Type B (PCR) NEGATIVE (Negative) RSV RNA Qual (PCR) NEGATIVE (Negative) SARS-CoV-2 RNA (RT-PCR) NEGATIVE (Negative) Discharge Plan Discharge Clinical Impression: Viral upper respiratory infection Patient Disposition: Home, Self-Care Instructions: Upper Respiratory Infection (ED) Additional Instructions: Keep hydrated Drink plenty of fluids Tylenol/Motrin for fever body aches Report to the ER if gets worse Prescriptions: No Action sumatriptan succinate 50 mg tablet See Rx Instructions PO ONCE Qty: 14 3RF Rx Instructions: 1 tab at onset of migraine , can be repeated in 2 hrs if needed, maximum 4tabs a day PO once; ondansetron 4 mg tablet,disintegrating 4 mg PO Q6-8H PRN (Reason: nausea and vomiting) Qty: 7 0RF albuterol sulfate 90 mcg/actuation HFA aerosol inhaler 2 puff PO Q6H PRN (Reason: for wheezing) Qty: 25.5 0RF betamethasone dipropionate 0.05 % ointment topical Breo Ellipta 200-25 mcg/dose blister with device 1 inh inhalation DAILY 30 Days Qty: 28 5RF Narcan 4 mg/actuation spray,non-aerosol 0 spray intranasal olanzapine 5 mg tablet 5 mg PO BEDTIME pantoprazole 40 mg tablet,delayed release (DR/EC) 40 mg PO DAILY duloxetine 60 mg capsule,delayed release(DR/EC) 60 mg PO BID alprazolam [Xanax] 1 mg tablet 1 mg PO BEDTIME eszopiclone [Lunesta] 3 mg tablet 3 mg PO BEDTIME Botox 100 unit recon soln IM .q 4 months PRN Rx Instructions: for migrains Rinvoq 15 mg tablet extended release 24 hr 15 mg PO DAILY
[2022-08-09] MEDS: traMADoL HCL 50 MG TABLET PO (18:26)
[2022-08-09] MEDS: Albuterol Sulfate 2.5 MG, Albuterol/Iprat 2.5/0.5MG 3 ML 3 ML INHALE (18:41)
[2022-08-09 19:11] LABS: Influenza A PCR NEGATIVE (Negative); Influenza B PCR NEGATIVE (Negative); Resp Syncy Virus RNA Qual PCR NEGATIVE (Negative); SARS COV2 PCR INHOUSE NEGATIVE (Negative)
== END 2022-08-09 23:59 | disposition home or self-care (01) ==
PROVIDERS: Emergency Provider Internal Medicine; PCP Nurse Practitioner
DX: B34.9 Viral infection, unspecified (principal); M79.10 Myalgia, unspecified site; Z20.822 Contact with and (suspected) exposure to COVID-19; J44.9 Chronic obstructive pulmonary disease, unspecified; Z79.899 Other long term (current) drug therapy
CPT/HCPCS: 0241U; 71045; 99283; 99284

== ENCOUNTER → 2022-11-09 14:13 | Outpatient (BNVA) | payer OTHER, SELFPAY | PROVIDERS: PCP Registered Nurse; Visit Provider Psychiatry & Neurology Neurology | DX: G43.109 Migraine with aura, not intractable, without status migrainosus (principal); G43.119 Migraine with aura, intractable, without status migrainosus | CPT/HCPCS: 99212 ==

== ENCOUNTER → 2022-12-02 09:27 | Outpatient (BNVA) | payer OTHER, SELFPAY | PROVIDERS: PCP Registered Nurse; Visit Provider Internal Medicine | DX: J44.9 Chronic obstructive pulmonary disease, unspecified (principal); G47.34 Idiopathic sleep related nonobstructive alveolar hypoventilation; J84.9 Interstitial pulmonary disease, unspecified | CPT/HCPCS: 99212 ==

== ENCOUNTER 2023-04-19 14:12 | Outpatient (AMB) | payer OTHER, SELFPAY ==
[2023-04-19 14:13] VITALS: BP 102/74; PULSE 84; O2SAT 96; BMI 31.7
--- NOTE | 2023-04-19 14:13 | A.OFFVIS_ITS ---
Intake Vital Signs 04/19/23 14:13 Height 5 ft 5 in Weight 190 lb 4 oz BMI 31.7 BP 102/74 Blood Pressure Location Lt brachial Position Sitting Pulse 84 Pulse Source Pulse Oximeter Pulse Oximetry (%) 96 Oxygen Delivery Method Room Air Intake Visit Reasons: follow up-confimed Intake Note: Pt presents in office as a f/u. 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: No Allergies cyclobenzaprine [From Flexeril] Allergy (Severe, Verified 04/19/23 14:17) Anaphylaxis beclomethasone [From QVAR] Allergy (Intermediate, Verified 04/19/23 14:17) FACIAL/TONGUE SWELLING NSAIDS (Non-Steroidal Anti-Inflamma [Nsaids] Allergy (Intermediate, Verified 04/19/23 14:17) swollen egg [Egg] Allergy (Mild, Verified 04/19/23 14:17) UNKNOWN Medication List - Last Reconciled 04/19/23 by Beth Gil MD albuterol sulfate 90 mcg/actuation 2 puffs PO Q6H PRN alprazolam (Xanax) 1 mg PO BEDTIME atorvastatin 20 mg PO DAILY betamethasone dipropionate 0.05% topical duloxetine 60 mg PO BID eszopiclone (Lunesta) 3 mg PO BEDTIME fluticasone furoate-vilanterol 200-25 mcg/dose (Breo Ellipta) 1 inh inhalation DAILY 30 days levothyroxine 0 mcg PO meclizine mg PO naloxone 4 mg/actuation 0 sprays intranasal olanzapine 5 mg PO BEDTIME omega 4-zxr-uva-fish oil 60-90-500 mg (Fish Oil) 0 caps PO onabotulinumtoxinA (Botox) for migrains ondansetron 4 mg PO Q6-8H PRN pantoprazole 40 mg PO DAILY sumatriptan succinate 50 - 100 mg orally at onset of headache, may repeat in 2 hrs PRN; max 2 tabs per day or 4 tabs/week 30 days ubrogepant (Ubrelvy) 1 tab at onset of migraine and can repeat in 2 hrs; MDD 2 tabs HPI HPI Comments History of Present Illness Details 63y/o female with chronic migraines comes for a new symptoms. she reports numbness in her Left UE . It was episodic initially but for past 1month it is persistent. she has neck pain and shooting pains from her neck.SHe denies weakness.she has h/o cervical surgery in 2008 . Ubrelvy helps her migraines -she takes it qod . But she had headaches almost everyday. she was on treatment with botox and her migraines were well controlled. But after her last treatment in November 2021 she did not have follow up. Her migraines have increased to almost every day. she has pounding throbbing pain with photophobia, phonophobia nausea , blurry vision, vomiting, visual aura. she takes sumatriptan 100mg as needed . she wants to restart botox She was tried on gabapentin, topiramate, amitriptyline, verapramil for prophylaxis she was tried on rizatriptan, fioricet imitrex, ubrelvy Total migarine days - 25 days PFSH Medical History (Updated 04/19/23 @ 14:33 by Beth Gil MD) Alopecia Anxiety Asthma-COPD overlap syndrome Chronic pain COPD (chronic obstructive pulmonary disease) Depression DVT (deep venous thrombosis) Emphysema of lung Femur fracture, right Fibromyalgia Herniated disc Hypothyroidism Interstitial lung disease Left upper extremity numbness Nocturnal hypoxemia Spondylosis of cervical spine Surgical History H/O cervical spine surgery H/O tubal ligation History of cholecystectomy Family History Father Diabetes Mother CVD (cardiovascular disease) Social History Household Members: Children Household Members Other:: son Alcohol intake: never Patient Tobacco Use Status: Former Tobacco user Use of substances other than those prescribed or required for medical reasons: No Physical Exam Vital Signs: Last Vital Signs Pulse 84 04/19/23 14:13 BP 102/74 04/19/23 14:13 Pulse Ox 96 04/19/23 14:13 Oxygen Delivery Method Room Air 04/19/23 14:13 BMI result Body Mass Index 31.7 Const General: cooperative, healthy appearing, comfortable, no acute distress and well developed Nutritional Appearance: overweight Orientation/consciousness: patient oriented x3 Eyes Pupils: Equal, round and reactive pupils present Neck Other: tight neck muscles Neck: Yes no meningeal signs Neuro General: patient oriented x3, gait normal, tone normal, moves all extremities, Normal light touch and pain sensation, no meningeal signs, no focal motor deficits and CN's II-XI intact bilaterally Cranial nerves: Yes CN's II-XII intact bilaterally, Yes Facial sensation intact/muscles of mastication intact and Yes Equal, round and reactive pupils present Cognition (Neuro): normal cognition Motor exam (neuro): 5/5 motor strength present throughout Deep tendon reflexes (DTR's): Right triceps reflex intensity grade: 2+, Left triceps reflex intensity grade: 2+, Rt Biceps (C5, C6): 2+, Left biceps reflex intensity grade: 2+, Right brachioradialis reflex intensity grade: 2+, Left brachioradialis reflex intensity grade: 2+, Right patellar reflex intensity grade: 2+ and Left patellar reflex intensity grade: 2+ Coordination: [id number] test normal Assessment & Plan Assessment & Plan (1) Chronic migraine with aura: Code(s): G43.109 - Migraine with aura, not intractable, without status migrainosus (2) Migraine with aura, intractable, without status migrainosus: Code(s): G43.119 - Migraine with aura, intractable, without status migrainosus (3) Left upper extremity numbness: Code(s): R20.0 - Anesthesia of skin (4) Neck pain: Code(s): M54.2 - Cervicalgia Plan I will restart her on botox for chronic migraines continue sumatriptan 100mg as needed ubrelvy 100 mg as needed I will evaluate her with MRI C spine, EMG and trial her on baclofen 5mg qhs Orders: Orders MR cervical spine wo con Today M47.812 - Spondylosis without myelopathy or radiculopathy, cervical region, M54.2 - Cervicalgia NE electromyogram (EMG) Today R20.0 - Anesthesia of skin Medications: New baclofen 5 mg PO BEDTIME 30 tabs 3RF Coding Level of Care Code Est Pt Level 4 (67338) Diagnoses Chronic migraine with aura G43.109 Migraine with aura, intractable, without status migrainosus G43.119 Left upper extremity numbness R20.0 Neck pain M54.2
== END 2023-04-19 14:39 | disposition home or self-care (01) ==
PROVIDERS: PCP Registered Nurse; Visit Provider Psychiatry & Neurology Neurology
DX: G43.109 Migraine with aura, not intractable, without status migrainosus (principal); G43.119 Migraine with aura, intractable, without status migrainosus; R20.0 Anesthesia of skin; M54.2 Cervicalgia
CPT/HCPCS: 99214

== ENCOUNTER → 2023-04-19 14:12 | Outpatient (BNVA) | payer OTHER, SELFPAY | PROVIDERS: PCP Registered Nurse; Visit Provider Psychiatry & Neurology Neurology | DX: R20.0 Anesthesia of skin (principal); M47.812 Spondylosis without myelopathy or radiculopathy, cervical region; G43.119 Migraine with aura, intractable, without status migrainosus; M54.2 Cervicalgia | CPT/HCPCS: 99212 ==

== ENCOUNTER 2023-05-04 13:05 | Outpatient (REF) | payer OTHER, SELFPAY ==
--- NOTE | 2023-05-04 | EMG_ITS ---
Please see EMG / Nerve Conduction Report. MTDD
--- NOTE | 2023-05-04 14:06 | HO.EMG-NCS ---
Physiatry - EMG/NCS EMG/NCS Chief complaint: Left hand pain and numbness. History of hand fracture 3 years ago with resulting numbness after. History of cervical spine surgery several years ago. Chronic neck pain. History of fibromyalgia. Reason for referral: Evaluate for radiculopathy versus neuropathy Referred by: Dr. Gil Procedure done: Left upper extremity NCS/EMG Precautions and/or limitations: None The limb temperature was monitored continuously and remained between 32-36 degrees C during the performance of the NCS. Nerve Conduction Studies Anti Sensory Summary Table ?Stim Site NR Onset (ms) Norm Onset (ms) Peak (ms) Norm Peak (ms) O-P Amp (?V) Norm O-P Amp Site1 Site2 Delta-0 (ms) Dist (cm) John (m/s) Norm John (m/s) Left Median Anti Sensory (2nd Digit) Wrist ? 2.6 3.2 <3.6 27.0 >10 Wrist 2nd Digit 2.6 14.0 54 Left Radial Anti Sensory (Thumb) Forearm ? 0.7 0.8 <3.1 99.6 Forearm Thumb 0.7 0.0 Left Ulnar Anti Sensory (5th Digit) Wrist ? 2.6 3.3 <3.7 28.3 >15.0 Wrist 5th Digit 2.6 14.0 54 Motor Summary Table ?Stim Site NR Onset (ms) Norm Onset (ms) O-P Amp (mV) Norm O-P Amp iAmp (mV) Amp (1st) (%) Site1 Site2 Delta-0 (ms) Dist (cm) John (m/s) Norm John (m/s) Left Median Motor (Abd Poll Brev) Wrist ? 3.1 <3.9 8.1 >4.5 9.2 100.0 Elbow Wrist 3.2 21.0 66 >45 Elbow ? 6.3 7.5 8.6 92.6 Left Ulnar Motor (Abd Dig Minimi) Wrist ? 2.7 <3.0 3.3 >5 3.9 100.0 B Elbow Wrist 3.0 16.0 53 >45 B Elbow ? 5.7 2.9 3.9 87.9 A Elbow B Elbow 1.8 10.0 56 >45 A Elbow ? 7.5 2.6 3.5 78.8 EMG+ ?Side Muscle Nerve Root Ins Act Fibs Psw Amp Dur Poly Recrt Int Pat Comment Left FDI Ulnar C8-T1 Nml Nml Nml Nml Nml 0 Nml Complete Left FCR Median C6-C7 Nml Nml Nml Nml Nml 0 Nml Complete Left Biceps Musculocut C5-C6 Nml Nml Nml Nml Nml 0 Nml Complete Left Triceps Radial C6-C8 Nml Nml Nml Nml Nml 0 Nml Complete Left Deltoid Axillary C5-C6 Nml Nml Nml Nml Nml 0 Nml Complete Left EIP Post Interosseous,? R... C7-C8 Nml Nml Nml Nml Nml 0 Nml Complete Left FCU Ulnar C8-T1 Nml Nml Nml Nml Nml 0 Nml Complete FINDINGS: Left ulnar motor nerve showed normal distal latency, small amplitude and normal conduction velocity. All other nerves tested were within normal. Concentric needle EMG was performed in selected muscles of the left upper extremity. Study did not reveal signs of electric abnormalities as shown in the table below. IMPRESSION: 1. This is an abnormal study. 2. There is electrodiagnostic findings suggestive for left ulnar neuropathy. 3. Left C8 chronic radiculopathy cannot be completely ruled out. Although needle EMG was normal. 3. There is no electrodiagnostic evidence for median neuropathy, or brachial plexopathy. CLINICAL COMMENT: Further clinical correlation recommended. Thank you for your kind referral. Suzanne Holm MD, SULAIMAN Board Certified, [place] [employer] and [employer] (ABPMR) Board Certified, [place] Board [employer] Electrodiagnostic [employer] (ABEM)
== END 2023-05-04 13:06 | disposition home or self-care (01) ==
LOC: HO.NEURO 13:05
PROVIDERS: PCP Registered Nurse; Visit Provider Psychiatry & Neurology Neurology
DX: R20.0 Anesthesia of skin (principal)
CPT/HCPCS: 95860; 95886; 95907; 95909

== ENCOUNTER → 2023-05-04 13:05 | Outpatient (BNV) | payer OTHER, SELFPAY | PROVIDERS: PCP Registered Nurse; Visit Provider Physical Medicine & Rehabilitation | DX: G56.22 Lesion of ulnar nerve, left upper limb (principal); M54.12 Radiculopathy, cervical region | CPT/HCPCS: 95886; 95909 ==

== ENCOUNTER 2023-05-18 09:26 | Outpatient (AMB) | payer OTHER, SELFPAY ==
[2023-05-18 09:30] VITALS: BP 104/62; PULSE 65; O2SAT 98; BMI 31.9
--- NOTE | 2023-05-18 09:30 | MHC.OFFVIS ---
Intake Vital Signs 05/18/23 09:30 Height 5 ft 5 in Weight 191 lb 12.835 oz BMI 31.9 BP 104/62 Blood Pressure Location Lt brachial Position Sitting Pulse 65 Pulse Source Pulse Oximeter Pulse Oximetry (%) 98 Oxygen Delivery Method Room Air Intake Visit Reasons: COPD [employer] Required: No Allergies cyclobenzaprine [From Flexeril] Allergy (Severe, Verified 05/18/23 09:35) Anaphylaxis beclomethasone [From QVAR] Allergy (Intermediate, Verified 05/18/23 09:35) FACIAL/TONGUE SWELLING NSAIDS (Non-Steroidal Anti-Inflamma [Nsaids] Allergy (Intermediate, Verified 05/18/23 09:35) swollen egg [Egg] Allergy (Mild, Verified 05/18/23 09:35) UNKNOWN Medication List - Last Reconciled 05/18/23 by Corinna Hi MD albuterol sulfate 90 mcg/actuation 2 puffs PO Q6H PRN alprazolam (Xanax) 1 mg PO BEDTIME atorvastatin 20 mg PO DAILY baclofen 5 mg PO BEDTIME betamethasone dipropionate 0.05% topical duloxetine 60 mg PO BID eszopiclone (Lunesta) 3 mg PO BEDTIME fluticasone furoate-vilanterol 200-25 mcg/dose (Breo Ellipta) 1 inh inhalation DAILY 30 days levothyroxine 0 mcg PO meclizine mg PO naloxone 4 mg/actuation 0 sprays intranasal olanzapine 5 mg PO BEDTIME omega 1-krh-vji-fish oil 60-90-500 mg (Fish Oil) 0 caps PO onabotulinumtoxinA (Botox) for migrains ondansetron 4 mg PO Q6-8H PRN pantoprazole 40 mg PO DAILY sumatriptan succinate 50 - 100 mg orally at onset of headache, may repeat in 2 hrs PRN; max 2 tabs per day or 4 tabs/week 30 days ubrogepant (Ubrelvy) 1 tab at onset of migraine and can repeat in 2 hrs; MDD 2 tabs Do you need a note to return to daycare/school/sports/work: No HPI COPD HPI Details This 63 years old very pleasant female is being seen for pulmonary follow-up after 6 months. Breathing status has remained very stable, without any acute exacerbations. She does have mild intermittent cough which is nonproductive. She does get short of breath on walking around in the house or climbing stairs. Sleeps well with O2 2 L/minute at night. Does not smoke. Emotionally has been stable . [facility] Medical History Alopecia Anxiety Asthma-COPD overlap syndrome Chronic pain COPD (chronic obstructive pulmonary disease) Depression DVT (deep venous thrombosis) Emphysema of lung Femur fracture, right Fibromyalgia Herniated disc Hypothyroidism Interstitial lung disease Left upper extremity numbness Nocturnal hypoxemia Spondylosis of cervical spine Surgical History H/O cervical spine surgery H/O tubal ligation History of cholecystectomy Family History Father Diabetes Mother CVD (cardiovascular disease) Social History Household Members: Children Household Members Other:: son Alcohol intake: never Patient Tobacco Use Status: Former Tobacco user Review of Systems Const All systems reviewed & are unremarkable except as noted in HPI and below Eyes Reports no additional complaints ENT Reports nasal congestion (Only mild off and on) Card Denies chest pain, Denies irregular heart rhythm, Denies leg edema and Reports dyspnea on exertion (Mild if she walks fast) Resp Reports cough (Mild off and on) and Reports dyspnea on exertion (Mild if she walks fast) GI Reports as per HPI Reports no additional complaints Musc Reports back pain (Mild stiffness like feeling) and Reports myalgias (Fibromyalgia like symptoms) Skin/Breast Reports system reviewed and no additional complaints, except as documented Neuro Reports no additional complaints Psych Reports depression (Controlled in) Endo Reports no additional complaints Juan/Lymph Reports no additional complaints Physical Exam Vital Signs: Last Vital Signs Pulse 65 05/18/23 09:30 BP 104/62 05/18/23 09:30 Pulse Ox 98 05/18/23 09:30 Oxygen Delivery Method Room Air 05/18/23 09:30 BMI result Body Mass Index 31.9 Const General: comfortable, no acute distress, alert and awake Orientation/consciousness: patient oriented x3 HEENT Head: Yes normal to inspection General nose exam: No nasal polyps present and No nasal discharge present Face and sinus: Yes sinuses nontender Mouth: oropharynx normal Throat: Yes posterior oropharynx normal Eyes General: appearance normal, both eyes and all related structures Neck Neck: Yes normal visual inspection, Yes no lymphadenopathy, Yes trachea midline and Yes no JVD Thyroid: Thyroid normal Chest Chest palpation & inspection: normal inspection of the chest, normal palpation of entire chest wall and no tenderness Resp Other: Percussion is resonant, breath sounds are equal on both sides. A few fine inspiratory crackles over the basilar areas . No wheezes . NO PLEURAL RUB. Cardio Palpation: normal PMI Rate: regular rate Rhythm: regular rhythm Heart sounds: no gallops and no murmurs Peripheral pulses: Peripheral pulses 2+ throughout GI Palpation (GI): Soft to palpation, nontender, No hepatosplenomegaly present and no masses Auscultation: normal bowel sounds Back/Spine/Pelvis Thoracic/Lumbar Spine: thoracic and lumbar spine normal to inspection Skin General skin exam: no rashes or lesions noted Neuro General: patient oriented x3 and no focal motor deficits Cranial nerves: Yes CN's II-XII intact bilaterally Extrem General: Yes normal to inspection, Yes no clubbing, cyanosis or edema and Yes no calf tenderness Psych Appearance: grossly normal and well kempt Speech and movement: Normal speech and movement present Assessment & Plan Assessment & Plan (1) Asthma-COPD overlap syndrome: Comment: She has been treated for asthma and COPD. The pulmonary function test has confirmed that she has predominantly bronchial asthma with mild COPD. responding positively to the bronchodilator therapy. TX: She is doing well with the use of Breo 200-25 just 1 inhalation daily . Prescription renewed . and ProAir 2 puffs Q 4-6 hours p.r.n.. Code(s): J44.9 - Chronic obstructive pulmonary disease, unspecified (2) Interstitial lung disease: Comment: She does have some residual interstitial lung disease, since her acute alveolitis in 2019 . She does have mild restrictive component probably due to residual interstitial lung disease. Code(s): J84.9 - Interstitial pulmonary disease, unspecified (3) Nocturnal hypoxemia: Comment: Has had Nocturnal Hypoxemia , TX: O2 2L/MT AT NIGHT ,, AND MAY USE PRN DURING DAY TIME . Code(s): G47.34 - Idiopathic sleep related nonobstructive alveolar hypoventilation Coding Level of Care Code Est Pt Level 3 (90469) Diagnoses Asthma-COPD overlap syndrome J44.9 Interstitial lung disease J84.9 Nocturnal hypoxemia G47.34
== END 2023-05-18 09:41 | disposition home or self-care (01) ==
PROVIDERS: PCP Registered Nurse; Visit Provider Internal Medicine
DX: J44.9 Chronic obstructive pulmonary disease, unspecified (principal); J84.9 Interstitial pulmonary disease, unspecified; G47.34 Idiopathic sleep related nonobstructive alveolar hypoventilation
CPT/HCPCS: 99213

== ENCOUNTER → 2023-05-18 09:26 | Outpatient (BNVA) | payer OTHER, SELFPAY | PROVIDERS: Visit Provider Internal Medicine | DX: J44.9 Chronic obstructive pulmonary disease, unspecified (principal); G47.34 Idiopathic sleep related nonobstructive alveolar hypoventilation; J84.9 Interstitial pulmonary disease, unspecified | CPT/HCPCS: 99212 ==

== ENCOUNTER 2023-06-16 07:46 | Outpatient (REF) | payer OTHER, SELFPAY | END 2023-06-16 07:47 | disposition home or self-care (01) | LOC: HO.MRI 07:46 | PROVIDERS: PCP Registered Nurse; Visit Provider Psychiatry & Neurology Neurology | DX: Z13.89 Encounter for screening for other disorder (principal) ==

== ENCOUNTER 2023-08-31 10:50 | Outpatient (REF) | payer OTHER, SELFPAY ==
[2023-08-31 11:27] LABS: MANUAL DIFF FLAG NO
[2023-08-31 11:33] LABS: Basophils Absolute Auto 0.1 X10*3/uL (0.0-0.2); Basophils Percent Auto 1.5 % (0-2); Eosinophils Absolute Auto 0.4 X10*3/uL (0.0-0.4); Eosinophils Percent Auto 6.1 % (0-4); Hematocrit 37.3 % (37.0-47.0); Hemoglobin 12.2 g/dl (12.0-16.0); Imm Gran Abs Auto 0.02 X10*3/uL (0.00-0.03); Imm Gran Pct Auto 0.3 % (0.0-0.4); Lymphocytes Absolute Auto 2.4 X10*3/uL (1.2-4.9); Mean Corpuscular HGB Conc 32.7 g/dl (31.0-35.0); Mean Corpuscular Hemoglobin 26.6 pg (27.0-33.0); Mean Corpuscular Volume 81.4 fL (80.0-98.0); Mean Platelet Volume 9.8 fL (9.4-12.3); Monocytes Absolute Auto 0.3 X10*3/uL (0.1-1.2); Neutrophils Absolute Auto 2.8 x10*3/uL (2.0-8.3); Neutrophils Percent Auto 47.1 % (45-73); Platelet Count 400 X10*3/uL (160-400); Red Blood Count 4.58 X10*6/uL (4.20-5.50); Red Cell Distribution Width 14.8 % (11.0-16.0)
[2023-08-31 11:57] LABS: Alanine Aminotransferase 9 U/L (0-31); Alkaline Phosphatase 84 U/L (39-117); Anion Gap 11 (12-20); Aspartate Amino Transferase 18 U/L (5-31); Bilirubin Total 0.5 mg/dL (0.0-1.0); Blood Urea Nitrogen 13 mg/dL (9-16); Calcium 9.4 mg/dL (8.4-10.2); Carbon Dioxide 25 mmol/L (22-29); Chloride 107 mmol/L (96-108); Cholesterol 149 mg/dL (<200); Estimated Glomerular Filt Rate > 60; Glucose Random 102 mg/dL (60-115); HDL Cholesterol 39 mg/dL (>40); LDL Cholesterol Calculated 85 mg/dL (<100); Potassium 3.3 mmol/L (3.3-5.1); Sodium 140 mmol/L (135-145); Total Protein 7.6 g/dL (6.5-8.0); Triglycerides 127 mg/dL (<150)
== END 2023-08-31 10:51 | disposition home or self-care (01) ==
LOC: HO.HHCL 10:50
PROVIDERS: Visit Provider Dermatology
DX: L63.0 Alopecia (capitis) totalis (principal); L20.89 Other atopic dermatitis
CPT/HCPCS: 36415; 80053; 80061; 85025

== ENCOUNTER 2023-10-12 15:45 | Outpatient (REF) | payer OTHER, SELFPAY ==
--- NOTE | ~2023-10-12 | XR_ITS ---
EXAMINATION: XR FOOT, RIGHT CLINICAL INFORMATION: Right first toe pain worsening COMPARISON: June 29, 2017 TECHNIQUE: AP, lateral, and oblique views of the right foot. FINDINGS: There is no evidence of acute fracture or dislocation of the right foot. Right foot joint spaces are maintained. There is mild hallux valgus deformity of the first metatarsophalangeal joint. There is some mild soft tissue swelling about the medial aspect of the joint. No destructive erosive changes are appreciated. There are old healed fractures involving the third and fourth metatarsals. About the plantar soft tissues about the base of the first distal phalanx there is a density measuring approximately 4 x 1 mm in size. This is not a metallic foreign body but could represent foreign body or other etiology. Clinical correlation to site of pain as to whether it is involving the first metatarsophalangeal joint or interphalangeal joint is recommended. XR/XR foot RT min 3V IMPRESSION: Question radiopaque foreign body plantar aspect base first distal phalanx. Bunion formation with hallux valgus deformity about the first metatarsophalangeal joint.
== END 2023-10-12 15:46 | disposition home or self-care (01) ==
LOC: HO.HHCX 15:45
PROVIDERS: Visit Provider General Practice
DX: M21.611 Bunion of right foot (principal)
CPT/HCPCS: 73630

== ENCOUNTER 2023-11-24 11:51 | Emergency (ER) | payer OTHER, SELFPAY ==
--- NOTE | ~2023-11-24 | XR_ITS ---
EXAMINATION: XR FEMUR, RIGHT CLINICAL INFORMATION: Pain COMPARISON: None available. TECHNIQUE: AP and lateral views of the right femur were obtained. FINDINGS: Postsurgical changes seen, in the femur with posttraumatic deformity noted. Surgical hardware is intact. There is no fracture or destructive process. XR/XR femur RT 2V IMPRESSION: No acute findings in the right femur.
--- NOTE | ~2023-11-24 | XR_ITS ---
EXAMINATION: XR KNEE, RIGHT CLINICAL INFORMATION: Right knee injury. COMPARISON: 10/01/2020 TECHNIQUE: Four views of the right knee. FINDINGS: Lateral plate and screw fixation of the distal femur is partially imaged. No periprosthetic lucency. Hardware alignment is unchanged. Mild medial tibiofemoral and patellofemoral cartilage space loss with marginal osteophytes. Trace suprapatellar joint effusion. XR/XR knee RT 4V IMPRESSION: Mild osteoarthritis of the right knee.
--- NOTE | ~2023-11-24 | XR_ITS ---
EXAMINATION: XR PELVIS CLINICAL INFORMATION: Pain COMPARISON: None available. TECHNIQUE: AP view of the pelvis. FINDINGS: Pelvic ring is intact. Sacroiliac joints are symmetric. No gross fracture or dislocation of either hip. Pelvic calcifications are likely vascular in nature. XR/XR pelvis 1-2V IMPRESSION: No pelvic fracture.
[2023-11-24 12:32] VITALS: BP 101/67; PULSE 64; RESP 18; TEMP 36.6; O2SAT 98
[2023-11-24 12:34] VITALS: BP 101/67; BP 138/94; PULSE 64; PULSE 84; RESP 16; TEMP 36.6; O2SAT 98; BMI 30.8
[2023-11-24] MEDS: HYDROcodone Bit/Acetam 5/325 TABLET 1 TAB PO (14:03)
--- NOTE | 2023-11-24 14:13 | ED.LOWEXIN ---
HPI - Extremity Injury (Lower) General Chief Complaint: Extremity Injury, Lower Stated Complaint: R KNEE PAIN/SWELLINF/DEFORMITY,FELT POP PER EMS Time Seen by Provider: 11/24/23 12:13 Source: patient and RN notes reviewed Mode of arrival: ambulatory Limitations: no limitations History of Present Illness HPI Narrative: This is a 63-year-old female, with a history of fibromyalgia, chronic migraines, and emphysema, presenting to the emergency department via EMS for evaluation of right knee pain and swelling since today. Patient states that she was walking on a road and stepped on a branch and immediately felt a pop in her right knee. She states that she is unable to fully bear weight on her right leg secondary to pain. Patient states that she fractured her femur and had hardware placed several years ago. Denies taking any medications prior to arrival for pain. She did not fall to the ground, hit her head or lose consciousness. She denies any dizziness, lightheadedness, changes in vision, chest pain, shortness of breath, abdominal pain, nausea, vomiting or diarrhea. No other complaints or concerns at this time. MD complaint: knee injury and leg injury Type of Injury: unknown Place: street/outdoors Severity: severe Relieving factors: nothing Exacerbating factors: weight bearing Context: walking Associated symptoms: unable to bear weight Other symptoms: none Related Data Home Medications Medication Instructions Recorded Confirmed naloxone 4 mg/actuation nasal spray 0 spray intranasal 06/16/20 04/19/23 olanzapine 5 mg tablet 5 mg PO BEDTIME 06/16/20 04/19/23 pantoprazole 40 mg tablet,delayed 40 mg PO DAILY 06/16/20 04/19/23 release betamethasone dipropionate 0.05 % topical 07/08/20 04/19/23 topical ointment alprazolam 1 mg tablet (Xanax) 1 mg PO BEDTIME 07/30/20 04/19/23 eszopiclone 3 mg tablet (Lunesta) 3 mg PO BEDTIME 07/30/20 04/19/23 duloxetine 60 mg capsule,delayed 60 mg PO BID 02/23/21 04/19/23 release onabotulinumtoxinA 100 unit IM .q 4 months PRN 04/13/22 04/19/23 solution for injection (Botox) levothyroxine 88 mcg tablet 0 mcg PO 12/02/22 04/19/23 meclizine 25 mg tablet mg PO 12/02/22 04/19/23 omega 4-wdr-sss-fish oil 60 mg-90 0 cap PO 12/02/22 04/19/23 mg-500 mg capsule (Fish Oil) atorvastatin 20 mg tablet 20 mg PO DAILY 04/19/23 04/19/23 Previous Rx's Medication Instructions Recorded fluticasone furoate 200 1 inh inhalation DAILY 30 days #28 07/08/20 mcg-vilanterol 25 mcg/dose ea inhalation powder (Breo Ellipta) ondansetron 4 mg disintegrating 4 mg PO Q6-8H PRN nausea and 11/12/21 tablet vomiting #7 tabs sumatriptan succinate 100 mg tablet 50 - 100 mg (0.5 - 1 x 100 mg) PO 11/01/22 .COMPLEX PRN migraine headache 30 days #12 tabs ubrogepant 100 mg tablet (Ubrelvy) See Rx Instructions .Route 11/24/22 .COMPLEX migraine #14 tabs baclofen 5 mg tablet 5 mg PO BEDTIME #30 tabs 04/19/23 albuterol sulfate 90 mcg/actuation 2 puff PO Q6H PRN for wheezing 10/25/23 aerosol inhaler #25.5 grams acetaminophen 650 mg 650 mg PO Q8H PRN pain #30 tabs 11/24/23 tablet,extended release (Tylenol 8 Hour) oxycodone 5 mg tablet 5 mg PO Q6H PRN severe pain (scale 11/24/23 score 7-10) #10 tabs Allergies Allergy/AdvReac Type Severity Reaction Status Date / Time cyclobenzaprine Allergy Severe Anaphylaxis Verified 05/18/23 09:35 [From Flexeril] beclomethasone [From QVAR] Allergy Intermediate FACIAL/TONGUE Verified 05/18/23 09:35 SWELLING NSAIDS (Non-Steroidal Allergy Intermediate swollen Verified 05/18/23 09:35 Anti-Inflamma [Nsaids] egg [Egg] Allergy Mild UNKNOWN Verified 05/18/23 09:35 Review of Systems Review of Systems: Yes all other systems are reviewed and are negative Constitutional: Constitutional: Reports as per [facility] Past Medical History Attestation statement: The following information was validated with the patient. Medical History Left upper extremity numbness Asthma-COPD overlap syndrome DVT (deep venous thrombosis) Interstitial lung disease Femur fracture, right Depression Chronic pain Herniated disc Alopecia Anxiety Fibromyalgia Emphysema of lung Spondylosis of cervical spine Hypothyroidism Nocturnal hypoxemia COPD (chronic obstructive pulmonary disease) Surgical History H/O cervical spine surgery H/O tubal ligation History of cholecystectomy Family History Family History Father Diabetes Mother CVD (cardiovascular disease) Social History Social History Household Members: Children Household Members Other:: son Alcohol intake: never Patient Tobacco Use Status: Former Tobacco user Smoked in Last 30 Days: No Use of substances other than those prescribed or required for medical reasons: No Advance Directives: No Advance Directives Information Provided: Yes Patient : No Physical Exam Vital Signs: Vital Signs: Last Vital Signs Temp 98.4 F 11/24/23 14:34 Pulse 101 H 11/24/23 14:34 Resp 18 11/24/23 14:34 BP 141/81 H 11/24/23 14:34 Pulse Ox 98 11/24/23 14:34 O2 Del Method Room Air 11/24/23 14:34 BMI result Body Mass Index 30.8 Const: General: cooperative, comfortable and no acute distress Orientation/consciousness: patient oriented x3 Limitations: no limitations HEENT: Head: Yes normal to inspection, Yes normocephalic and Yes atraumatic Ears: hearing grossly normal bilaterally General nose exam: Normal external nose present Face and sinus: Yes normal facial exam Mouth: Normal oral and palatal mucosa present, oropharynx normal and moist mucous membranes Throat: Yes posterior oropharynx normal Eyes: General: appearance normal, both eyes and all related structures Eyelids: Yes eyelids normal Conjunctivae: conjunctivae normal Sclerae: sclerae normal Pupils: Equal, round and reactive pupils present EOM: EOMs intact bilaterally Neck: Neck: Yes normal visual inspection, Yes full ROM and Yes no lymphadenopathy Lymphatic: no lymphadenopathy noted Chest: Chest palpation & inspection: normal inspection of the chest Resp: Effort & Inspection: normal respiratory effort and able to speak in complete sentences Auscultation: clear to auscultation bilaterally, no crackles, no rales, no rhonchi and no wheezes Cardio: Rate: regular rate Rhythm: regular rhythm Heart sounds: S1 normal heart sound present and S2 normal heart sound present GI: Inspection: Yes normal to inspection Skin: General skin exam: no rashes or lesions noted Trauma: no lacerations or abrasions Wounds: no wounds Neuro: General: patient oriented x3 and moves all extremities Cranial nerves: Yes Equal, round and reactive pupils present Extrem: Other: Right knee medial aspect there is a moderate amount of swelling with exquisite tenderness palpation. She is tenderness palpation along her distal femur. No open wounds or lacerations noted. Unable to extend leg fully. Comfortable position is with her right leg flexed and abducted negative anterior-posterior drawer. No joint laxity with varus and valgus strain. General: Yes normal to inspection Right upper extremity: normal to inspection Left upper extremity: normal to inspection Right lower extremity: normal to inspection Left lower extremity: normal to inspection Course Reevaluation(s) Reevaluation #1: X-ray revealing mild osteoarthritis of the right knee. X-ray of the femur revealing old posttraumatic findings, I discussed this with , radiology, who states that this is not acute, is chronic in nature. Discussed with patient, will follow-up with Orthopedics. Given return precautions. She has a wheelchair as well as a walker at home which she can utilize as needed to help with ambulation. She does not live alone, feels comfortable for discharge. Patient stable for discharge. Time: 16:46 Medications Administered Discontinued Medications Generic Name Dose Route Start Last Admin Trade Name Sidq PRN Reason Stop Dose Admin Hydrocodone Bitart/Acetaminophen 1 tab 11/24/23 13:41 11/24/23 14:03 Hydrocodone Bit/Acetam 5/325 Tablet PO 11/24/23 13:42 1 tab ONCE ONE Administration Oxycodone HCl 5 mg 11/24/23 16:40 11/24/23 16:53 Oxycodone Hcl Immed Release 5 Mg Tablet PO 11/24/23 16:41 5 mg ONCE ONE Administration Medical Decision Making Medical Decision Making [facility] Narrative: This is a 63-year-old female presenting to the emergency department for evaluation of leg pain status post stepping on tree branch and feeling a popping sensation her right knee and leg. On arrival, vital signs within normal limits. Patient has exquisite tenderness palpation along the medial aspect of the right knee as well as distal femur. Differential diagnoses include fracture, hardware malalignment, dislocation. Less likely compartment syndrome. Plan: X-ray right knee femur, and pelvis, Percocet p.o. Differential Diagnosis Differential Diagnoses: The differential diagnosis associated with the presentation includes See above Admission/Observation Consideration of admission/observation: Escalation of care including admission/observation considered Escalation of care including admission/observation considered however given workup today not warranted at this time. Radiology Impression Discussion of test interpretation with radiology: I have reviewed the radiologist's reading. Radiologist Impression: EXAMINATION: XR PELVIS CLINICAL INFORMATION: Pain COMPARISON: None available. TECHNIQUE: AP view of the pelvis. FINDINGS: Pelvic ring is intact. Sacroiliac joints are symmetric. No gross fracture or dislocation of either hip. Pelvic calcifications are likely vascular in nature. XR/XR pelvis 1-2V IMPRESSION: No pelvic fracture. Dictated By: Luis Miguel Julio MD EXAMINATION: XR FEMUR, RIGHT CLINICAL INFORMATION: Pain COMPARISON: None available. TECHNIQUE: AP and lateral views of the right femur were obtained. FINDINGS: Postsurgical changes seen, in the femur with posttraumatic deformity noted. Surgical hardware is intact. There is no fracture or destructive process. XR/XR femur RT 2V IMPRESSION: No acute findings in the right femur. Dictated By: Twan Romano MD EXAMINATION: XR KNEE, RIGHT CLINICAL INFORMATION: Right knee injury. COMPARISON: 10/01/2020 TECHNIQUE: Four views of the right knee. FINDINGS: Lateral plate and screw fixation of the distal femur is partially imaged. No periprosthetic lucency. Hardware alignment is unchanged. Mild medial tibiofemoral and patellofemoral cartilage space loss with marginal osteophytes. Trace suprapatellar joint effusion. XR/XR knee RT 4V IMPRESSION: Mild osteoarthritis of the right knee. Independent Historian Clinical information obtained from an independent historian. History obtained from or confirmed by: EMS Prescription Management I considered prescription management with: Pain Medication Discharge Plan Discharge Clinical Impression: Knee strain Patient Disposition: Home, Self-Care Instructions: Knee Sprain (ED) Additional Instructions: You were seen in the emergency department after injuring her right knee. Your right knee does not show any broken bones. The hardware in your leg is in the right spot. You do have osteoarthritis, which has not caused from the fall. Rest, ice, elevate and use Jose wrap. You may have ligament damage in your right knee which we are unable to determine in the emergency room today. You need to follow-up with Orthopedics. Call today or tomorrow to make an appointment. Drink plenty of fluids get plenty of rest. Take Tylenol as well as oxycodone as needed for pain Oxycodone is a strong narcotic pain medication, only take as needed for severe pain only. Please be advised that this can cause drowsiness, do not drink alcohol or drive while taking this medication. This medication can be addictive. You can not return to the emergency room for medication refill of this medication. If you do need a refill or further management of your pain, you need follow-up with primary care physician. Prescriptions: New oxycodone 5 mg tablet 5 mg PO Q6H PRN (Reason: severe pain (scale score 7-10)) Qty: 10 0RF Rx Instructions: Partial Fill upon patient request. acetaminophen [Tylenol 8 Hour] 650 mg tablet extended release 650 mg PO Q8H PRN (Reason: pain) Qty: 30 0RF No Action ondansetron 4 mg tablet,disintegrating 4 mg PO Q6-8H PRN (Reason: nausea and vomiting) Qty: 7 0RF sumatriptan succinate 100 mg tablet 50 - 100 mg PO .COMPLEX PRN (Reason: migraine headache) 30 Days Qty: 12 6RF Rx Instructions: 50 - 100 mg orally at onset of headache, may repeat in 2 hrs PRN; max 2 tabs per day or 4 tabs/week Ubrelvy 100 mg tablet See Rx Instructions .ROUTE .COMPLEX MDD 2 tabs Qty: 14 3RF Rx Instructions: 1 tab at onset of migraine and can repeat in 2 hrs; albuterol sulfate 90 mcg/actuation HFA aerosol inhaler 2 puff PO Q6H PRN (Reason: for wheezing) Qty: 25.5 0RF betamethasone dipropionate 0.05 % ointment topical Breo Ellipta 200-25 mcg/dose blister with device 1 inh inhalation DAILY 30 Days Qty: 28 5RF Narcan 4 mg/actuation spray,non-aerosol 0 spray intranasal olanzapine 5 mg tablet 5 mg PO BEDTIME pantoprazole 40 mg tablet,delayed release (DR/EC) 40 mg PO DAILY duloxetine 60 mg capsule,delayed release(DR/EC) 60 mg PO BID alprazolam [Xanax] 1 mg tablet 1 mg PO BEDTIME eszopiclone [Lunesta] 3 mg tablet 3 mg PO BEDTIME Botox 100 unit recon soln IM .q 4 months PRN Rx Instructions: for migrains omega 0-lni-bsw-fish oil [Fish Oil] 60-90-500 mg capsule 0 cap PO meclizine 25 mg tablet PO levothyroxine 88 mcg tablet 0 mcg PO atorvastatin 20 mg tablet 20 mg PO DAILY baclofen 5 mg tablet 5 mg PO BEDTIME Qty: 30 3RF Referrals: [facility] [place] Orthopedic Surgeons [Provider Group] Interventions: ED Discharge Assessment Last Done: 11/24/23 16:51
[2023-11-24 14:34] VITALS: BP 141/81; PULSE 101; RESP 18; TEMP 36.9; O2SAT 98
[2023-11-24] MEDS: oxyCODONE HCl Immed Release 5 MG TABLET PO (16:53)
== END 2023-11-24 17:02 | disposition home or self-care (01) ==
PROVIDERS: Emergency Provider Emergency Medicine
DX: S83.91XA Sprain of unspecified site of right knee, initial encounter (principal); R10.2 Pelvic and perineal pain; M25.561 Pain in right knee; M79.7 Fibromyalgia; X58.XXXA Exposure to other specified factors, initial encounter; Y93.9 Activity, unspecified; Y92.89 Other specified places as the place of occurrence of the external cause; Y99.8 Other external cause status; Z79.899 Other long term (current) drug therapy
CPT/HCPCS: 72170; 73552; 73564; 99283; 99284

== ENCOUNTER 2023-12-16 07:44 | Outpatient (AMB) | payer OTHER, MEDICAID, SELFPAY ==
--- NOTE | 2023-12-16 08:00 | A.OFFVIS_ITS ---
Intake Vital Signs 12/16/23 08:05 Height 5 ft 5 in Weight 185 lb BMI 30.8 Intake Visit Reasons: N/P RT knee sprain/swelling/ ED visit 11/24/23 Intake Note: Rodrigue is a 63 year old female who presents today as a new patient for a evaluation of her right knee pain, DOI 11/24/23. Patient states that she was walking on a road and stepped on a branch and immediately felt a pop in her right knee. She states that her pain has been getting worse. Pain is all over the knee and her pain radiates up to her hip. Allergies cyclobenzaprine [From Flexeril] Allergy (Severe, Verified 12/16/23 08:02) Anaphylaxis beclomethasone [From QVAR] Allergy (Intermediate, Verified 12/16/23 08:02) FACIAL/TONGUE SWELLING NSAIDS (Non-Steroidal Anti-Inflamma [Nsaids] Allergy (Intermediate, Verified 12/16/23 08:02) swollen egg [Egg] Allergy (Mild, Verified 12/16/23 08:02) UNKNOWN HPI N/P RT knee sprain/swelling/ ED visit 11/24/23 HPI Details 63-year-old female who [facility], as a new patient, for an evaluation of right knee pain. Patient presented to the ED on 11/24/2023 with a complaint of pain and edema beginning that day. Patient stated that she was walking on a road and stepped on a branch and immediately felt a pop in her right knee. X-rays were obtained. Patient was prescribed Oxycodone 5 mg PO Q6H PRN and Acetaminophen 650 mg PO Q8H PRN. While in the office today the patient reports she was talking on the road when she stepped on a branch. This caused her to feel a popping in her right knee. She reports since the injury her pain has been increasing. She claims the pain is through out the knee and it radiates up to her hip. Patient has a history of a right femur ORIF, with hardware placed several years ago. [facility] Medical History Left upper extremity numbness Asthma-COPD overlap syndrome DVT (deep venous thrombosis) Interstitial lung disease Femur fracture, right Depression Chronic pain Herniated disc Alopecia Anxiety Fibromyalgia Emphysema of lung Spondylosis of cervical spine Hypothyroidism Nocturnal hypoxemia COPD (chronic obstructive pulmonary disease) Surgical History H/O cervical spine surgery H/O tubal ligation History of cholecystectomy Family History Father Diabetes Mother CVD (cardiovascular disease) Social History (Updated 12/16/23 @ 08:05 by Cedric Hooper) Household Members: Children Household Members Other:: son Alcohol intake: never Patient Tobacco Use Status: Former Tobacco user Current occupational status: disabled Review of Systems Const All systems reviewed & are unremarkable except as noted in HPI and below Physical Exam Vital Signs: BMI result Body Mass Index 30.8 Const General: cooperative and no acute distress Orientation/consciousness: patient oriented x3 Resp Effort & Inspection: normal respiratory effort and able to speak in complete sentences Cardio Peripheral pulses: Peripheral pulses 2+ throughout Skin General skin exam: no rashes or lesions noted Neuro General: patient oriented x3 Extrem Other: Right knee: Global tenderness to palpation, more tenderness to the medial joint line. ROM is lacking 40 degrees of full extension. Flexion to 90 degrees. Unable to assess Hyacinth's and Anterior Drawer due to patient guarding. NVI. Office Procedures Joint Injection/Drain Joint Injection/Drain Primary Site: right knee Prep: site was prepped using aseptic technique, ethochloride spray was applied and injection warnings given Injected: with 3 mL of (2% plain lido ), 0.25% bupivacaine (3mL), in the joint and decadron Approach Used: anterolateral Procedure: The patient tolerated the procedure well, but had some pain with the injection and there was some relief with the local anesthesia Coding 81830 - Large joint Procedure code (CPT) selection complete Assessment & Plan Assessment & Plan (1) Osteoarthritis of right knee: Code(s): M17.11 - Unilateral primary osteoarthritis, right knee Qualifiers: Osteoarthritis type: unspecified Qualified Code(s): M17.11 - Unilateral primary osteoarthritis, right knee Plan Ms. Martinez is a 63-year-old female who presents in the office today, as a new patient, for an evaluation of right knee pain. Patient presented to the ED on 11/24/2023 with a complaint of pain and edema beginning that day. Patient stated that she was walking on a road and stepped on a branch and immediately felt a pop in her right knee. X-rays were obtained. Patient was prescribed Oxycodone 5 mg PO Q6H PRN and Acetaminophen 650 mg PO Q8H PRN. While in the office today the patient reports she was talking on the road when she stepped on a branch. This caused her to feel a popping in her right knee. She reports since the injury her pain has been increasing. She claims the pain is through out the knee and it radiates up to her hip. Patient has a history of a right femur ORIF, with hardware placed several years ago. Patient has a significant medical history of fibromyalgia. The patient was offered a cortisone injection in the right knee. The patient was explained the risk, benefits, and alternatives to receiving this injection. After receiving consent for the injection, the patient had the procedure done while in office today. The patient tolerated the procedure well with no complications. Patient was given a reaction knee brace off the shelf. A prescription for Tramadol 25 mg PO Q8H for 5 days was sent to the pharmacy, this is a one time prescription with no refills. Follow up will be 6 weeks, or sooner if needed. X-rays of the right knee which were obtained while in the office today and were reviewed by me, Gill Dunn PA-C, revealed no acute fracture or dislocation. Prior distal femur fracture with orthopedic hardware in place. X-rays of the right knee, obtained on 11/24/2023, revealed: FINDINGS: Lateral plate and screw fixation of the distal femur is partially imaged. No periprosthetic lucency. Hardware alignment is unchanged. Mild medial tibiofemoral and patellofemoral cartilage space loss with marginal osteophytes. Trace suprapatellar joint effusion. IMPRESSION: Mild osteoarthritis of the right knee. X-rays of the right femur, obtained on 11/24/2023, revealed: FINDINGS: Postsurgical changes seen, in the femur with posttraumatic deformity noted. Surgical hardware is intact. There is no fracture or destructive process. IMPRESSION: No acute findings in the right femur. Orders: Orders XR knee RT 3V Today M25.569 - Pain in unspecified knee Medications: New tramadol 25 mg PO Q8H PRN 15 tabs 0RF pain 5 days Patient Instructions: Scribed by Georgette Albre[facility] or medicalbety law PA-C on 12/16/2023 at 7:51 am, EST. Coding Level of Care Code New Pt Level 4 (62066) Diagnoses Osteoarthritis of right knee, unspecified osteoarthritis type M17.11 Osteoarthritis type: unspecified CPT Codes Coding - 25420 Large joint: 46515 - Large joint ([id number])
[2023-12-16 08:05] VITALS: BMI 30.8
== END 2023-12-16 08:50 | disposition home or self-care (01) ==
PROVIDERS: Visit Provider Physician Assistant
DX: M17.11 Unilateral primary osteoarthritis, right knee (principal)
CPT/HCPCS: 20610; 99204

== ENCOUNTER 2023-12-16 09:43 | Outpatient (REF) | payer OTHER, SELFPAY ==
--- NOTE | ~2023-12-16 | XR_ITS ---
EXAMINATION: XR KNEE, RIGHT CLINICAL INFORMATION: Pain. COMPARISON: Prior radiographs dated 11/24/2023. TECHNIQUE: AP lateral and axial views of the right knee are submitted. The AP view includes the upright left knee. FINDINGS: There is an old, healed fracture of the distal shaft of the right femur, with bony remodeling. An intact intact orthopedic fixator plate and fixator screws are applied to the distal right femur. No hardware failure or loosening is seen. There is mild narrowing of the lateral and patellofemoral joint space compartments of the right knee, and the medial joint space compartment is well-maintained. There is mild peripheral osteophyte formation of the lateral and medial joint space compartments. No right knee joint effusion is seen. There is no foreign body. The medial joint space compartment of the left knee is mildly narrowed, with peripheral osteophyte formation, and the lateral joint space compartment is well-maintained. No significant varus or valgus configuration is seen bilaterally. XR/XR knee RT 3V IMPRESSION: 1. There is mild tricompartment osteoarthritic change of the right knee, most pronounced of the medial and patellofemoral joint space compartments. 2. There is mild osteoarthritic change of the medial joint space compartment of the left knee.
== END 2023-12-16 09:44 | disposition home or self-care (01) ==
LOC: HO.HOSX 09:43
PROVIDERS: Visit Provider Physician Assistant
DX: M17.11 Unilateral primary osteoarthritis, right knee (principal)
CPT/HCPCS: 20610; 73562; 99202; J0665; J1100

== ENCOUNTER 2024-01-10 10:13 | Outpatient (AMB) | payer OTHER, SELFPAY ==
[2024-01-10 10:35] VITALS: BP 102/68; PULSE 78; O2SAT 95; BMI 32.3
--- NOTE | 2024-01-10 10:35 | A.OFFVIS_ITS ---
Vital Signs 01/10/24 10:35 Height 5 ft 5 in Weight 194 lb BMI 32.3 BP 102/68 Blood Pressure Location Lt brachial Position Sitting Pulse 78 Pulse Source Pulse Oximeter Pulse Oximetry (%) 95 Oxygen Delivery Method Room Air Intake Visit Reasons: copd Intake Note: pt is here for follow up and states she does have some coughing and wheezing, usually at night. Instrumentation Technician Required: No Allergies cyclobenzaprine [From Flexeril] Allergy (Severe, Verified 01/10/24 11:08) Anaphylaxis beclomethasone [From QVAR] Allergy (Intermediate, Verified 01/10/24 11:08) FACIAL/TONGUE SWELLING NSAIDS (Non-Steroidal Anti-Inflamma [Nsaids] Allergy (Intermediate, Verified 01/10/24 11:08) swollen egg [Egg] Allergy (Mild, Verified 01/10/24 11:08) UNKNOWN Medication List - Last Reconciled 01/10/24 by Corinna Hi MD acetaminophen ER (Tylenol 8 Hour) 650 mg PO Q8H PRN albuterol sulfate 90 mcg/actuation 2 puffs PO Q6H PRN alprazolam (Xanax) 1 mg PO BEDTIME atorvastatin 20 mg PO DAILY baclofen 5 mg PO BEDTIME betamethasone dipropionate 0.05% topical duloxetine 60 mg PO BID eszopiclone (Lunesta) 3 mg PO BEDTIME fluticasone furoate-vilanterol 200-25 mcg/dose (Breo Ellipta) 1 inh inhalation DAILY 30 days levothyroxine 0 mcg PO meclizine mg PO olanzapine 5 mg PO BEDTIME omega 0-cjn-qgk-fish oil 60-90-500 mg (Fish Oil) 0 caps PO onabotulinumtoxinA (Botox) for migrains pantoprazole 40 mg PO DAILY sumatriptan succinate 50 - 100 mg orally at onset of headache, may repeat in 2 hrs PRN; max 2 tabs per day or 4 tabs/week 30 days tramadol 50 mg PO Q8H PRN 5 days ubrogepant (Ubrelvy) 1 tab at onset of migraine and can repeat in 2 hrs; MDD 2 tabs Do you need a note to return to daycare/school/sports/work: No HPI HPI copd: Details: 63 YEARS OLD VERY PLEASANT FEMALE IS HERE FOR 6 MONTHS FOLLOW-UP. SHE IS BEING TREATED FOR ASTHMA/COPD OVERLAP SYNDROME. ALSO SHE HAS HAD INTERSTITIAL LUNG DISEASE SECONDARY TO ALVEOLITIS SINCE MANY YEARS AGO WHICH HAS GRADUALLY RESOLVED. SHE HAS NOCTURNAL HYPOXEMIA TREATED WITH O2 2 L/MINUTE AT NIGHT. SHE DOES NOT NEED. OXYGEN DURING THE DAYTIME USES BREO 200-250 1 INHALATION DAILY AND HARDLY NEEDS TO USE THE RESCUE INHALER. SHE HAS ONLY MILD SHORTNESS OF BREATH ON WALKING AROUND. SHE HAS HAD ALOPECIA AFTER CHEMOTHERAPY, NOW SHE IS THRILLED THAT HER HERE ARE GROWING BACK. [facility] Medical History Left upper extremity numbness Asthma-COPD overlap syndrome DVT (deep venous thrombosis) Interstitial lung disease Femur fracture, right Depression Chronic pain Herniated disc Alopecia Anxiety Fibromyalgia Emphysema of lung Spondylosis of cervical spine Hypothyroidism Nocturnal hypoxemia COPD (chronic obstructive pulmonary disease) Surgical History H/O cervical spine surgery H/O tubal ligation History of cholecystectomy Family History Father Diabetes Mother CVD (cardiovascular disease) Social History Household Members: Children Household Members Other:: son Alcohol intake: never Patient Tobacco Use Status: Former Tobacco user Current occupational status: disabled Review of Systems Const All systems reviewed & are unremarkable except as noted in HPI and below Eyes Reports no additional complaints ENT Reports nasal congestion (Only mild off and on) Card Denies chest pain, Denies irregular heart rhythm, Denies leg edema and Reports dyspnea on exertion (Mild if she walks fast) Resp Reports cough (Mild off and on) and Reports dyspnea on exertion (Mild if she walks fast) GI Reports as per HPI Reports no additional complaints Musc Reports back pain (Mild stiffness like feeling) and Reports myalgias (Fibromyalgia like symptoms) Skin/Breast Reports system reviewed and no additional complaints, except as documented Neuro Reports no additional complaints Psych Reports depression (Controlled in) Endo Reports no additional complaints Juan/Lymph Reports no additional complaints Physical Exam Vital Signs: Last Vital Signs Pulse 78 01/10/24 10:35 BP 102/68 01/10/24 10:35 Pulse Ox 95 01/10/24 10:35 Oxygen Delivery Method Room Air 01/10/24 10:35 BMI result Body Mass Index 32.3 Const General: comfortable, no acute distress, alert and awake Orientation/consciousness: patient oriented x3 HEENT Head: Yes normal to inspection General nose exam: No nasal polyps present and No nasal discharge present Face and sinus: Yes sinuses nontender Mouth: oropharynx normal Throat: Yes posterior oropharynx normal Eyes General: appearance normal, both eyes and all related structures Neck Neck: Yes normal visual inspection, Yes no lymphadenopathy, Yes trachea midline and Yes no JVD Thyroid: Thyroid normal Chest Chest palpation & inspection: normal inspection of the chest, normal palpation of entire chest wall and no tenderness Resp Other: Percussion is resonant, breath sounds are equal on both sides. A few fine inspiratory crackles over the basilar areas . No wheezes . NO PLEURAL RUB. Cardio Palpation: normal PMI Rate: regular rate Rhythm: regular rhythm Heart sounds: no gallops and no murmurs Peripheral pulses: Peripheral pulses 2+ throughout GI Palpation (GI): Soft to palpation, nontender, No hepatosplenomegaly present and no masses Auscultation: normal bowel sounds Back/Spine/Pelvis Thoracic/Lumbar Spine: thoracic and lumbar spine normal to inspection Skin General skin exam: no rashes or lesions noted Neuro General: patient oriented x3 and no focal motor deficits Cranial nerves: Yes CN's II-XII intact bilaterally Extrem General: Yes normal to inspection, Yes no clubbing, cyanosis or edema and Yes no calf tenderness Psych Appearance: grossly normal and well kempt Speech and movement: Normal speech and movement present Assessment & Plan Assessment & Plan (1) Asthma-COPD overlap syndrome: Comment: She has been treated for asthma and COPD. The pulmonary function test has confirmed that she has predominantly bronchial asthma with mild COPD. responding positively to the bronchodilator therapy. Code(s): J44.9 - Chronic obstructive pulmonary disease, unspecified Category: Medical Plan: TX: She is doing well with the use of Breo 200-25 just 1 inhalation daily . Prescription renewed . and ProAir 2 puffs Q 4-6 hours p.r.n.. (2) Nocturnal hypoxemia: Comment: Has had Nocturnal Hypoxemia , I talked to her in detail. Advise that we should do overnight oximetry recording on room air and see if she still needs oxygen. Code(s): G47.34 - Idiopathic sleep related nonobstructive alveolar hypoventilation Category: Medical Plan: Overnight oximetry on room air is being ordered (3) Interstitial lung disease: Comment: She does have some residual interstitial lung disease, since her acute alveolitis in 2019 . She does have mild restrictive component probably due to residual interstitial lung disease. Code(s): J84.9 - Interstitial pulmonary disease, unspecified Category: Medical Plan: IT IS NOT ACTIVE. CONTINUE DOING DEEP BREATHING EXERCISES Medications: Refilled fluticasone furoate-vilanterol 200-25 mcg/dose (Breo Ellipta) 1 inh inhalation DAILY 28 ea 5RF 30 days Coding Level of Care Code Est Pt Level 3 (08386) Diagnoses Asthma-COPD overlap syndrome J44.9 Nocturnal hypoxemia G47.34 Interstitial lung disease J84.9
== END 2024-01-10 11:10 | disposition home or self-care (01) ==
PROVIDERS: PCP General Practice; Visit Provider Internal Medicine
DX: J44.9 Chronic obstructive pulmonary disease, unspecified (principal); G47.34 Idiopathic sleep related nonobstructive alveolar hypoventilation; J84.9 Interstitial pulmonary disease, unspecified
CPT/HCPCS: 99213

== ENCOUNTER → 2024-01-10 10:13 | Outpatient (BNVA) | payer OTHER, SELFPAY | PROVIDERS: PCP General Practice; Visit Provider Internal Medicine | DX: J44.9 Chronic obstructive pulmonary disease, unspecified (principal); J84.9 Interstitial pulmonary disease, unspecified; G47.34 Idiopathic sleep related nonobstructive alveolar hypoventilation | CPT/HCPCS: 99212 ==

== ENCOUNTER 2024-01-27 09:30 | Outpatient (AMB) | payer OTHER, MEDICAID, SELFPAY ==
--- NOTE | 2024-01-27 09:38 | A.OFFVIS_ITS ---
Vital Signs 01/27/24 09:40 Height 5 ft 5 in Weight 194 lb BMI 32.3 Intake Visit Reasons: OV - right knee OA, last inj 12/16/23 Intake Note: Rodrigue is a 63 year old female who presents today for a follow up of her right knee OA, DOI 11/24/23. Last inj 12/16/23. Patient states her last injection gave her about 3 days of relief. She expresses that when she wears her knee brace she feels its not helping her with the pain or support. Patient finds relief when she is taking the tramodol. Allergies cyclobenzaprine [From Flexeril] Allergy (Severe, Verified 01/27/24 09:39) Anaphylaxis beclomethasone [From QVAR] Allergy (Intermediate, Verified 01/27/24 09:39) FACIAL/TONGUE SWELLING NSAIDS (Non-Steroidal Anti-Inflamma [Nsaids] Allergy (Intermediate, Verified 01/27/24 09:39) swollen egg [Egg] Allergy (Mild, Verified 01/27/24 09:39) UNKNOWN HPI HPI OV - right knee OA, last inj 12/16/23: Details: 63-year-old female who presents in the office today for a follow up of right knee osteoarthritis. I last saw the patient in the office on 12/16/2023 when she was given a cortisone injection. She was also given a reaction knee brace and prescribed Tramadol 25 mg PO Q8H for 5 days as a onetime prescription. While in the office today the patient reports the injection gave her about 3 days worth of relief. She states she has been wearing the brace but feels it is not helping her with her pain or support. She claims to get relief from taking the Tramadol. [facility] Medical History Left upper extremity numbness Asthma-COPD overlap syndrome DVT (deep venous thrombosis) Interstitial lung disease Femur fracture, right Depression Chronic pain Herniated disc Alopecia Anxiety Fibromyalgia Emphysema of lung Spondylosis of cervical spine Hypothyroidism Nocturnal hypoxemia COPD (chronic obstructive pulmonary disease) Surgical History H/O cervical spine surgery H/O tubal ligation History of cholecystectomy Family History Father Diabetes Mother CVD (cardiovascular disease) Social History Household Members: Children Household Members Other:: son Alcohol intake: never Patient Tobacco Use Status: Former Tobacco user Current occupational status: disabled Review of Systems Const All systems reviewed & are unremarkable except as noted in HPI and below Physical Exam Vital Signs: BMI result Body Mass Index 32.3 Const General: cooperative, healthy appearing and no acute distress Resp Effort & Inspection: normal respiratory effort and able to speak in complete sentences Cardio Rate: regular rate Peripheral pulses: Peripheral pulses 2+ throughout GI Palpation (GI): Soft to palpation Skin Lesions: no lesions Rashes: no rashes Extrem Other: Right knee: Global tenderness to palpation, more tenderness to the medial joint line. ROM is lacking 40 degrees of full extension. Flexion to 90 degrees. Unable to assess Hyacinth's and Anterior Drawer due to patient guarding. Pain with straight leg raise. NVI. Assessment & Plan Assessment & Plan (1) Osteoarthritis of right knee: Code(s): M17.11 - Unilateral primary osteoarthritis, right knee Category: Medical Qualifiers: Osteoarthritis type: unspecified Qualified Code(s): M17.11 - Unilateral primary osteoarthritis, right knee Plan Ms. Martinez is a 63-year-old female who presents in the office today for a follow up of right knee osteoarthritis. I last saw the patient in the office on 12/16/2023 when she was given a cortisone injection. She was also given a reaction knee brace and prescribed Tramadol 25 mg PO Q8H for 5 days as a onetime prescription. While in the office today the patient reports the injection gave her about 3 days worth of relief. She states she has been wearing the brace but feels it is not helping her with her pain or support. She claims to get relief from taking the Tramadol. Discussed the role of gel injection and a referral to Pain Management for possible genicular nerve blocks. We are going to defer at this time on both options due to the patient having significant lower back pain that radiates throughout the entire right lower extremity and causes increased pain with straight leg raise. A referral to Physiatry was made today for further evaluation and treatment of her lower back. After this evaluation we will decide how to proceed with treatment for her right knee. Follow up at this time will be with Physiatry, therefore follow up with Orthopedics will be PRN, or sooner if needed. Patient Instructions: Scribed by Georgette Albrecht medical assembler, for Gill Dunn PA-C on 01/27/2024 at 9:34 am, EST. Coding Level of Care Code Est Pt Level 3 (95962) Diagnoses Osteoarthritis of right knee, unspecified osteoarthritis type M17.11 Osteoarthritis type: unspecified
[2024-01-27 09:40] VITALS: BMI 32.3
== END 2024-01-27 11:01 | disposition home or self-care (01) ==
PROVIDERS: PCP General Practice; Visit Provider Physician Assistant
DX: M17.11 Unilateral primary osteoarthritis, right knee (principal)
CPT/HCPCS: 99213

== ENCOUNTER → 2024-01-27 09:30 | Outpatient (BNVA) | payer OTHER, MEDICAID, SELFPAY | PROVIDERS: PCP General Practice; Visit Provider Physician Assistant | DX: M17.11 Unilateral primary osteoarthritis, right knee (principal) | CPT/HCPCS: 99212 ==

== ENCOUNTER 2024-02-21 11:14 | Outpatient (REF) | payer OTHER, MEDICAID, SELFPAY ==
[2024-02-21 12:05] LABS: MANUAL DIFF FLAG NO
[2024-02-21 12:17] LABS: Basophils Percent Auto 0.7 % (0-2); Eosinophils Absolute Auto 0.1 X10*3/uL (0.0-0.4); Hematocrit 35.6 % (37.0-47.0); Hemoglobin 12.2 g/dl (12.0-16.0); Imm Gran Abs Auto 0.01 X10*3/uL (0.00-0.03); Imm Gran Pct Auto 0.2 % (0.0-0.4); Lymphocytes Absolute Auto 2.3 X10*3/uL (1.2-4.9); Lymphocytes Percent Auto 51.5 % (20-40); Mean Corpuscular HGB Conc 34.3 g/dl (31.0-35.0); Mean Corpuscular Hemoglobin 29.4 pg (27.0-33.0); Mean Corpuscular Volume 85.8 fL (80.0-98.0); Mean Platelet Volume 9.9 fL (9.4-12.3); Monocytes Absolute Auto 0.3 X10*3/uL (0.1-1.2); Neutrophils Absolute Auto 1.8 x10*3/uL (2.0-8.3); Neutrophils Percent Auto 38.6 % (45-73); Platelet Count 468 X10*3/uL (160-400); Red Blood Count 4.15 X10*6/uL (4.20-5.50); Red Cell Distribution Width 13.5 % (11.0-16.0); White Blood Count 4.5 X10*3/uL (4.8-10.8)
[2024-02-21 12:33] LABS: Estimated Average Glucose 103 mg/dL; Hemoglobin A1c % 5.2 % (<6.0)
[2024-02-21 13:22] LABS: Alanine Aminotransferase 15 U/L (0-31); Albumin Level 4.4 g/dL (3.5-5.0); Alkaline Phosphatase 75 U/L (39-117); Anion Gap 15 (12-20); Aspartate Amino Transferase 24 U/L (5-31); Bilirubin Total 0.8 mg/dL (0.0-1.0); Blood Urea Nitrogen 16 mg/dL (9-16); Calcium 9.7 mg/dL (8.4-10.2); Carbon Dioxide 25 mmol/L (22-29); Chloride 105 mmol/L (96-108); Estimated Glomerular Filt Rate 49; Glucose Random 105 mg/dL (60-115); Potassium 3.5 mmol/L (3.3-5.1); Sodium 141 mmol/L (135-145); Total Protein 7.7 g/dL (6.5-8.0)
[2024-02-21 13:39] LABS: TSH reflex Free T4 1.67 uIU/mL (0.32-4.0)
== END 2024-02-21 11:15 | disposition home or self-care (01) ==
LOC: HO.HHCL 11:14
PROVIDERS: Visit Provider Nurse Practitioner Family
DX: Z01.818 Encounter for other preprocedural examination (principal); E03.8 Other specified hypothyroidism; E06.3 Autoimmune thyroiditis
CPT/HCPCS: 36415; 80053; 83036; 84443; 85025

== ENCOUNTER 2024-05-15 17:06 | Outpatient (REF) | payer OTHER, SELFPAY | END 2024-05-15 17:07 | disposition home or self-care (01) | LOC: HO.HHCLNP 17:06 | PROVIDERS: Visit Provider Family Medicine | DX: J02.9 Acute pharyngitis, unspecified (principal) | CPT/HCPCS: 87070 ==

== ENCOUNTER 2024-08-07 10:04 | Outpatient (AMB) | payer OTHER, SELFPAY ==
[2024-08-07 10:45] VITALS: BP 102/60; PULSE 75; O2SAT 95; BMI 32.8
--- NOTE | 2024-08-07 10:45 | A.OFFVIS_ITS ---
Vital Signs 08/07/24 10:45 Height 5 ft 5 in Weight 197 lb 5.019 oz BMI 32.8 BP 102/60 Blood Pressure Location Lt brachial Position Sitting Pulse 75 Pulse Source Pulse Oximeter Pulse Oximetry (%) 95 Oxygen Delivery Method Room Air Intake Visit Reasons: COPD Intake Note: pt is here for follow up and is feeling good. pt needs refill on Breo and albuterol hfa. 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 Allergies cyclobenzaprine [From Flexeril] Allergy (Severe, Verified 08/07/24 11:02) Anaphylaxis beclomethasone [From QVAR] Allergy (Intermediate, Verified 08/07/24 11:02) FACIAL/TONGUE SWELLING NSAIDS (Non-Steroidal Anti-Inflamma [Nsaids] Allergy (Intermediate, Verified 08/07/24 11:02) swollen egg [Egg] Allergy (Mild, Verified 08/07/24 11:02) UNKNOWN Medication List - Last Reconciled 08/07/24 by Corinna Hi MD acetaminophen ER (Tylenol 8 Hour) 650 mg PO Q8H PRN albuterol sulfate 90 mcg/actuation 2 puffs PO Q6H PRN alprazolam (Xanax) 1 mg PO BEDTIME atorvastatin 20 mg PO DAILY baclofen 5 mg PO BEDTIME betamethasone dipropionate 0.05% topical duloxetine 60 mg PO BID eszopiclone (Lunesta) 3 mg PO BEDTIME fluticasone furoate-vilanterol 200-25 mcg/dose (Breo Ellipta) 1 inh inhalation DAILY 30 days levothyroxine 0 mcg PO meclizine mg PO olanzapine 5 mg PO BEDTIME omega 9-kyp-lnw-fish oil 60-90-500 mg (Fish Oil) 0 caps PO onabotulinumtoxinA (Botox) for migrains pantoprazole 40 mg PO DAILY sumatriptan succinate 50 - 100 mg orally at onset of headache, may repeat in 2 h rs PRN; max 2 tabs per day or 4 tabs/week 30 days tramadol 50 mg PO Q8H PRN 5 days ubrogepant (Ubrelvy) 1 tab at onset of migraine and can repeat in 2 hrs; MDD 2 tabs Do you need a note to return to daycare/school/sports/work: No HPI HPI COPD: Details: JOSÉ MIGUEL Lopez Is 64 years old female coming for follow-up after 6 months, for her COPD. She has remained very stable and in fact somewhat improved from before. 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 During the day she is relatively asymptomatic, as long as she uses Breo once a day. She is nonsmoker Has had no acute infection since our last visit. [facility], [facility] Medical History Left upper extremity numbness Asthma-COPD overlap syndrome DVT (deep venous thrombosis) Interstitial lung disease Femur fracture, right Depression Chronic pain Herniated disc Alopecia Anxiety Fibromyalgia Emphysema of lung Spondylosis of cervical spine Hypothyroidism Nocturnal hypoxemia COPD (chronic obstructive pulmonary disease) Surgical History H/O cervical spine surgery H/O tubal ligation History of cholecystectomy Family History Father Diabetes Mother CVD (cardiovascular disease) Social History Household Members: Children Household Members Other:: son Alcohol intake: never Patient Tobacco Use Status: Former Tobacco user Current occupational status: disabled Review of Systems Const All systems reviewed & are unremarkable except as noted in HPI and below Eyes Reports no additional complaints ENT Reports nasal congestion (Only mild off and on) Card Denies chest pain, Denies irregular heart rhythm, Denies leg edema and Reports dyspnea on exertion (Mild if she walks fast) Resp Reports cough (Mild off and on) and Reports dyspnea on exertion (Mild if she walks fast) GI Reports as per HPI Reports no additional complaints Musc Reports back pain (Mild stiffness like feeling) and Reports myalgias (Fibromyalgia like symptoms) Skin/Breast Reports system reviewed and no additional complaints, except as documented Neuro Reports no additional complaints Psych Reports depression (Controlled in) Endo Reports no additional complaints Juan/Lymph Reports no additional complaints Physical Exam Vital Signs: Last Vital Signs Pulse 75 08/07/24 10:45 BP 102/60 08/07/24 10:45 Pulse Ox 95 08/07/24 10:45 Oxygen Delivery Method Room Air 08/07/24 10:45 BMI result Body Mass Index 32.8 Const General: comfortable, no acute distress, alert and awake Orientation/consciousness: patient oriented x3 HEENT Head: Yes normal to inspection General nose exam: No nasal polyps present and No nasal discharge present Face and sinus: Yes sinuses nontender Mouth: oropharynx normal Throat: Yes posterior oropharynx normal Eyes General: appearance normal, both eyes and all related structures Neck Neck: Yes normal visual inspection, Yes no lymphadenopathy, Yes trachea midline and Yes no JVD Thyroid: Thyroid normal Chest Chest palpation & inspection: normal inspection of the chest, normal palpation of entire chest wall and no tenderness Resp Other: Percussion is resonant, breath sounds are equal on both sides. A few fine inspiratory crackles over the basilar areas . No wheezes . NO PLEURAL RUB. Cardio Palpation: normal PMI Rate: regular rate Rhythm: regular rhythm Heart sounds: no gallops and no murmurs Peripheral pulses: Peripheral pulses 2+ throughout GI Palpation (GI): Soft to palpation, nontender, No hepatosplenomegaly present and no masses Auscultation: normal bowel sounds Back/Spine/Pelvis Thoracic/Lumbar Spine: thoracic and lumbar spine normal to inspection Skin General skin exam: no rashes or lesions noted Neuro General: patient oriented x3 and no focal motor deficits Cranial nerves: Yes CN's II-XII intact bilaterally Extrem General: Yes normal to inspection, Yes no clubbing, cyanosis or edema and Yes no calf tenderness Psych Appearance: grossly normal and well kempt Speech and movement: Normal speech and movement present Assessment & Plan Assessment & Plan (1) Asthma-COPD overlap syndrome: Comment: She has been treated for asthma and COPD. The pulmonary function test has confirmed that she has predominantly bronchial asthma with mild COPD. responding positively to the bronchodilator therapy. Code(s): J44.9 - Chronic obstructive pulmonary disease, unspecified Category: Medical Plan: Continue to use Breo 200-25 1 inhalation daily. Use albuterol HFA 2 puffs Q 6 hours p.r.n. and. (2) Nocturnal hypoxemia: Comment: Has had Nocturnal Hypoxemia , After last visit, O2 sat at night was normal. And she has not use due to at night. Code(s): G47.34 - Idiopathic sleep related nonobstructive alveolar hypoventilation Category: Medical Plan: Does not need to use oxygen Medications: Changed From albuterol sulfate 90 mcg/actuation 2 puffs PO Q6H PRN 25.5 grams 0RF for wheezing To albuterol sulfate 90 mcg/actuation 2 puffs PO Q6H PRN 25.5 grams 3RF for wheezing 30 days Coding Level of Care Code Est Pt Level 3 (04071) Diagnoses Asthma-COPD overlap syndrome J44.9 Nocturnal hypoxemia G47.34
== END 2024-08-07 11:04 | disposition home or self-care (01) ==
PROVIDERS: PCP General Practice; Visit Provider Internal Medicine
DX: J44.9 Chronic obstructive pulmonary disease, unspecified (principal); G47.34 Idiopathic sleep related nonobstructive alveolar hypoventilation
CPT/HCPCS: 99213

== ENCOUNTER → 2024-08-07 10:04 | Outpatient (BNVA) | payer OTHER, SELFPAY | PROVIDERS: PCP General Practice; Visit Provider Internal Medicine | DX: J44.9 Chronic obstructive pulmonary disease, unspecified (principal); G47.34 Idiopathic sleep related nonobstructive alveolar hypoventilation | CPT/HCPCS: 99212 ==

== ENCOUNTER 2024-09-11 09:07 | Outpatient (REF) | payer OTHER, SELFPAY ==
--- OUTSIDE RECORDS SUMMARY | 2024-09-11 09:11 | XMS_ITS | Data Portability ---
Author Organization [employer] Address [address] [place] [phone] Care Team Providers Care Healthcare Consultant Name Role Phone HIM CCA OTHER Assessment No assessment recorded. Plan of Treatment Reminders Order Date Submit Date Provider Last Modified By Organization Details Last Modified Time Details Appointments None recorded. Lab None recorded. Referral None recorded. Procedures None recorded. Surgeries None recorded. Imaging None recorded. Medication Orders Bactrim DS 800 mg-160 mg tablet 024 024 [id number], [address] [facility] [place], [place], [phone], 4 16:00:01 Patient TargetsNo targets recorded. Patient InstructionsNo instructions recorded. Reason for Referral None Reported. Medical Equipment None Reported. Allergies Allergen ID Allergen Name Allergen Category Reaction Reaction Severity Criticality Documentation Date Start Date Code Code System Note Provider Name and Address Organization Details Recorded Time 7046 egg extract food,medi cation Not available Not available Not available 07/17/2024 70292 15 RxNorm Not Available [facility] - production 4 03:34:34 Medications Name Sig Start Date Stop Date Status Note LastModified by Organization Details LastModified Time acetaminophe n 325 mg tablet TAKE 2 TABLETS BY MOUTH EVERY 6 HOURS FOR UP TO 10 DAYS NEEDED FOR PAIN OR MILD TO MODERATE PAIN active Not Available Not Available No t Available atorvastatin 20 mg tablet active Not Available Not Available Not Available alprazolam 1 mg tablet TAKE 1 TABLET BY MOUTH TWICE DAILY active Not Available Not Available No t Available sumatriptan 100 mg tablet active Not Available Not Available Not Available prazosin 1 mg capsule TAKE 1 TO 2 CAPSULES BY MOUTH AT BEDTIME FOR NIGHTMARES active Not Available Not Available N ot Available gabapentin 400 mg capsule TAKE 1 CAPSULE BY MOUTH TWICE DAILY active Not Available Not Available No t Available olanzapine 5 mg tablet TAKE 1 TABLET BY MOUTH AT BEDTIME. MAY TAKE EXTRA 1/2 TABLET DURING THE DAY NEEDED FOR ANXIETY AGITATION active Not Available Not Available No t Available sumatriptan 50 mg tablet TAKE 1 TABLET BY MOUTH ONSET OF MIGRAINE REPEAT IN 2 HOURS IF NEEDED MAX 4 TABLETS A DAY active Not Available Not Available No t Available sulfamethoxa zole 800 mg-trimethop rim 160 mg tablet TAKE 1 TABLET BY MOUTH EVERY 12 HOURS active Not Available Not Available No t Available tramadol 50 mg tablet TAKE 1 TABLET BY MOUTH EVERY 8 HOURS FOR 5 DAYS NEEDED FOR PAIN active Not Available Not Available No t Available acetaminophe n 500 mg tablet TAKE 1 CAPLET BY MOUTH EVERY 8 HOURS active Not Available Not Available No t Available acetaminophe n ER 650 mg tablet,exten ded release TAKE 1 TABLET BY MOUTH EVERY 8 HOURS active Not Available Not Available No t Available levothyroxin e 88 mcg tablet TAKE 1 TABLET BY MOUTH EVERY DAY HOLD ON SUNDAYS active Not Available Not Available No t Available methocarbamo l 750 mg tablet active Not Available Not Available Not Available meclizine 25 mg tablet active Not Available Not Available No t Available pantoprazole 40 mg tablet,delay ed release TAKE 1 TABLET BY MOUTH EVERY DAY active Not Available Not Available No t Available betamethason e dipropionate 0.05 % topical cream APPLY TO THE SCALP DAILY FOR 3 WEEKS. BREAK FOR 1 WEEK. REPEAT active Not Available Not Available No t Available amoxicillin 250 mg capsule TAKE 1 CAPSULE BY MOUTH EVERY 8 HOURS UNTIL FINISHED active Not Available Not Available No t Available albuterol sulfate HFA 90 mcg/actuatio n aerosol inhaler INHALE 2 PUFFS BY MOUTH EVERY 6 HOURS NEEDED FOR WHEEZING active Not Available Not Available No t Available betamethason e dipropionate 0.05 % topical ointment APPLY TO TO THE AFFECTED AREA ON THE TRUNK AND LEGS TWICE DAILY FOR 2 WEEKS BREAK FOR 1 WEEK USE VASELINE THEN REPEAT active Not Available Not Available Not Available fluticasone propionate 50 mcg/actuatio n nasal spray,suspen keysha ADMINISTER 2 SPRAYS INTO EACH NOSTRIL DAILY. SHAKE GENTLY. BEFORE 1ST USE PRIME PUMP AFTER USE CLEAN TIP active Not Available Not Available No t Available loratadine 10 mg tablet TAKE 1 TABLET BY MOUTH EVERY DAY active Not Available Not Available No t Available amoxicillin 875 mg-potassium clavulanate 125 mg tablet TAKE 1 TABLET BY MOUTH TWICE DAILY FOR 10 DAYS active Not Available Not Available No t Available oxycodone 5 mg tablet TAKE 1 TABLET BY MOUTH EVERY 6 HOURS NEEDED FOR PAIN active Not Available Not Available No t Available rosuvastatin 10 mg tablet TAKE 1 TABLET BY MOUTH EVERY DAY active Not Available Not Available No t Available duloxetine 60 mg capsule,billy yed release TAKE 2 CAPSULES BY MOUTH AT BEDTIME active Not Available Not Available No t Available eszopiclone 3 mg tablet TAKE 1 TABLET BY MOUTH AT BEDTIME active Not Available Not Available No t Available Fish Oil 340 mg-1,000 mg capsule TAKE 2 CAPSULES BY MOUTH DAILY active Not Available Not Available Not Available diclofenac 1 % topical gel APPLY TOPICALLY TO THE AFFECTED AREA THREE TIMES DAILY active Not Available Not Available Not Available omega 8-hwf-joe-fi sh oil 60 mg-90 mg-500 mg capsule TAKE 1 CAPSULE BY MOUTH DAILY IN THE MORNING active Not Available Not Available No t Available Breo Ellipta 200 mcg-25 mcg/dose powder for inhalation INHALE 1 PUFF BY MOUTH EVERY DAY active Not Available Not Available No t Available Rinvoq 15 mg tablet,exten ded release TAKE 1 TABLET BY MOUTH DAILY active Not Available Not Available Not Available Ubrelvy 100 mg tablet TAKE 1 TABLET BY MOUTH AT ONSET OF MIGRAINE. MAY REPEAT IN 2 HOURS. MAX DAILY DOSE IS 2 TABLETS active Not Available Not Available No t Available omega-3 300 mg-dha 120 mg-epa 180 mg-fish oil 1,000 mg capsule TAKE 2 CAPSULES BY MOUTH DAILY active Not Available Not Available Not Available Vitals Date Recorded Body height Respiratory rate Body weight Body temperature Oxygen saturation Oxygen saturation in Arterial blood by Pulse oximetry Heart rate Systolic blood pressure Diastolic blood pressure Provider Name and Address Organization Details Last Updated DateTime 3 165.1 cm 18 /min 11368.8 88 g 98.4 [degF] 96 % 96 % 70 /min 109 mm[Hg] 76 mm[Hg] Not Available [employer] 3 17:55:02 Date Recorded Oxygen saturation Oxygen saturation in Arterial blood by Pulse oximetry Body height Heart rate Respiratory rate Body weight Body temperature Systolic blood pressure Diastolic blood pressure Provider Name and Address Organization Details Last Updated DateTime 4 95 % 95 % 152.4 cm 95 /min 16 /min 53868.5 2 g 99.3 [degF] 160 mm[Hg] 89 mm[Hg] Not Available [employer] 15:56:16 Social History None recorded. Functional Status None recorded. Mental Status None recorded. Family History Nothing Reported. Medical History No medical history recorded. Gynecological HistoryNo gynecological history recorded. Obstetrics History GPAL:G 0 P 0 0 0 0 Past Encounters Encounter ID Performer Location Encounter Start Date Encounter Closed Date Diagnosis/Indication Diagnosis SNOMED-CT Code Diagnosis ICD10 Code [id number] Alex Hall MD [facility] [address] [place] [id number] 02/21/2023 17:54:56 02/22/2023 15:43:28 Pain of right knee region 3341651135 65913 M25.561 [id number] Saundra Chen MD [facility] [address] [place] [id number] 05/07/2024 15:56:03 05/07/2024 22:38:04 Infection of big toe 671772402 L08.9 Health Concerns Section Related Observation LastModified by Organization Detai ls LastModified Time None Recorded Concern Status LastModified by Organization Details LastModified Time None Recorded Advance Directives Directive None Recorded Payers Encounter Date Sequence Insurance Name Policy Number Policy Dumont Covered Member ID Dumont Member ID Guarantor Name 02/21/2023 1 [facility] - DOS ON OR AFTER 2022 - DUAL ELIGIBLE - SKILLED NURSING OPTIONS AND ONE CARE (MEDICARE REPLACEMENT/ADV ANTAGE - HMO) [id number] [facility]/07/2024 1 [facility] - DOS ON OR AFTER 2022 - DUAL ELIGIBLE - SKILLED NURSING OPTIONS AND ONE CARE (MEDICARE REPLACEMENT/ADV ANTAGE - HMO) [facility] [id number] [facility] Notes Date Note Type Note Provider Name and Address Organization Details Recorded Time 02/21/2023 text/html HPI: pt had operation in a leg>swelling. on and off for a couple of months>unable to walk on it when it swells, pain as well. Naturally suffers from dizziness, nausea, headache. taking vertigo medication due to dizziness. .................. .................. .................. .................. .................. .................. .................. ............... CRC Nursing Assessment: Comments: CRC RN did not require any additional information to process this visit. .................. .................. .................. .................. .................. .................. .................. ............... Bottom Brusher Note From Hawa Murray: Sent to a call for a pt complaining of leg pain/edema. SC8 arrives on scene, pt is alert and oriented, airway is patent. Pt complains of intermittent pain/edema in right upper leg/knee after broken femur following fall downstairs in 2019. Pt is allergic to Nsaids and took Tylenol 1gm approx 1 hr ago. Pt has an appt with PCP on Tuesday and states she has been prescribed pain meds in the past. Pt has no other complaints. BP:109/76, P:70, RR:18, SpO2:96% RA, T:98.4; Head: unremarkable; Lung sounds: clear bilaterally; Abdomen: soft, non-tender, no distention; Back: unremarkable; Upper extremities: unremarkable; Lower extremities: (+)pedal pulses, slight edema around right knee; no erythema, wounds, or deformities noted; Skin: pink, warm, dry; C consulted advises pt continue taking Tylenol and follow up with PCP. Red flags discussed. Pt has no further questions. .................. .................. .................. .................. .................. .................. .................. ............... Disposition: Fulfilled Alex Hall MD [address] [facility], [place], [address], [employer] 02/21/2023 18:00:06 05/07/2024 text/html CRC Nurse Triage Notes (Geovany Rodriguez): Reason For Request: Patient wants someone to look at her foot, she had foot surgery and it's now painful, and swollen. 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 Education provided on the response time and the member was advised to monitor reported s/s and seek emergency treatment if needed.Member reports right foot pain - Reports having surgery on 04/14 - Increased pain - Swollen and redness - Denies any wounds - Denies fever - Reports slipping and twisting same - Wellness visit requested. .................. .................. .................. .................. .................. .................. .................. ............... Bottom Brusher Note From Dante Livingston: Pt reports surgery to remove a bunion on 03/15/24. Pt notes increased redness, swelling and pain to the surgical area for two weeks. Pt denies known fevers, chills, n/v/d. Pt has podiatry f/u on Tuesday. Pt is alert, NAD. VSS. Afebrile. Non focal neuro exam. Lung CTA. Benign ABD exam. Erythema, edema and warmth noted at base of big toe/lateral side of foot. [facility] contacted an will send rx to pharmacy. Pt instructed to keep appointment on Tuesday and to seek emergent medical care for new or worsening sx, which are reviewed with her. .................. .................. .................. .................. .................. .................. .................. ............... Disposition: Fulfilled Saundra Chen MD [address] [facility], [place], [address], [employer] 05/07/2024 16:11:29 OBGyn Episode No OBEpisode recorded.
[2024-09-11 12:04] LABS: Alanine Aminotransferase 17 U/L (0-31); Albumin Level 3.9 g/dL (3.5-5.0); Alkaline Phosphatase 75 U/L (39-117); Anion Gap 12 (12-20); Aspartate Amino Transferase 25 U/L (5-31); Bilirubin Total 0.3 mg/dL (0.0-1.0); Blood Urea Nitrogen 18 mg/dL (9-16); Calcium 8.9 mg/dL (8.4-10.2); Carbon Dioxide 28 mmol/L (22-29); Chloride 107 mmol/L (96-108); Cholesterol 192 mg/dL (<200); Estimated Average Glucose 108 mg/dL; Estimated Glomerular Filt Rate > 60; Glucose Random 130 mg/dL (60-115); HDL Cholesterol 51 mg/dL (>40); Hemoglobin A1C 109.4179 umol/L; Hemoglobin A1c % 5.4 % (<6.0); LDL Cholesterol Calculated 95 mg/dL (<100); Potassium 3.7 mmol/L (3.3-5.1); Sodium 143 mmol/L (135-145); Total Hemoglobin (HGBA1C) 3038.0968 umol/L; Total Protein 7.4 g/dL (6.5-8.0); Triglycerides 231 mg/dL (<150)
[2024-09-11 12:53] LABS: TSH reflex Free T4 0.74 uIU/mL (0.32-4.0)
== END 2024-09-11 09:08 | disposition home or self-care (01) ==
LOC: HO.HHCL 09:07
PROVIDERS: Visit Provider General Practice
DX: I10 Essential (primary) hypertension (principal); Z13.1 Encounter for screening for diabetes mellitus; E78.5 Hyperlipidemia, unspecified; E06.3 Autoimmune thyroiditis
CPT/HCPCS: 36415; 80053; 80061; 83036; 84443

== ENCOUNTER 2024-09-20 14:36 | Outpatient (AMB) | payer OTHER, SELFPAY ==
--- NOTE | 2024-09-20 14:58 | MHC.OFFVIS ---
Vital Signs 09/20/24 14:59 Height 5 ft 5 in Weight 192 lb BMI 31.9 Intake Visit Reasons: Follow up Intake Note: Patient presents for follow up. Allergies cyclobenzaprine [From Flexeril] Allergy (Severe, Verified 09/20/24 15:02) Anaphylaxis beclomethasone [From QVAR] Allergy (Intermediate, Verified 09/20/24 15:02) FACIAL/TONGUE SWELLING NSAIDS (Non-Steroidal Anti-Inflamma [Nsaids] Allergy (Intermediate, Verified 09/20/24 15:02) swollen egg [Egg] Allergy (Mild, Verified 09/20/24 15:02) UNKNOWN HPI Comments Details: 63y/o female with chronic migraines comes for follow up. she has 3-4 migraines/week - reponds to sumatriptan and tylenol.The ehadaches last 24 hrs . she also responded to ubrelvy.she was doing well on BOTOX but was stopped due to insurance prior auth issues. she has h/o cervical surgery in 2008 . She was tried on gabapentin, topiramate, amitriptyline, verapramil for prophylaxis she was tried on rizatriptan, fioricet imitrex, ubrelvy Total migarine days - 25 days PFSH Medical History Left upper extremity numbness Asthma-COPD overlap syndrome DVT (deep venous thrombosis) Interstitial lung disease Femur fracture, right Depression Chronic pain Herniated disc Alopecia Anxiety Fibromyalgia Emphysema of lung Spondylosis of cervical spine Hypothyroidism Nocturnal hypoxemia COPD (chronic obstructive pulmonary disease) Surgical History H/O cervical spine surgery H/O tubal ligation History of cholecystectomy Family History Father Diabetes Mother CVD (cardiovascular disease) Social History Household Members: Children Household Members Other:: son Alcohol intake: never Patient Tobacco Use Status: Former Tobacco user Current occupational status: disabled Physical Exam Vital Signs: BMI result Body Mass Index 31.9 Const General: cooperative, healthy appearing, comfortable, no acute distress and well developed Nutritional Appearance: overweight Orientation/consciousness: patient oriented x3 Eyes Pupils: Equal, round and reactive pupils present Neck Other: tight neck muscles Neck: Yes no meningeal signs Neuro General: patient oriented x3, gait normal, tone normal, moves all extremities, Normal light touch and pain sensation, no meningeal signs, no focal motor deficits and CN's II-XI intact bilaterally Cranial nerves: Yes CN's II-XII intact bilaterally, Yes Facial sensation intact/muscles of mastication intact and Yes Equal, round and reactive pupils present Cognition (Neuro): normal cognition Motor exam (neuro): 5/5 motor strength present throughout Deep tendon reflexes (DTR's): Right triceps reflex intensity grade: 2+, Left triceps reflex intensity grade: 2+, Rt Biceps (C5, C6): 2+, Left biceps reflex intensity grade: 2+, Right brachioradialis reflex intensity grade: 2+, Left brachioradialis reflex intensity grade: 2+, Right patellar reflex intensity grade: 2+ and Left patellar reflex intensity grade: 2+ Coordination: [id number] test normal Assessment & Plan Assessment & Plan (1) Chronic migraine with aura: Code(s): G43.109 - Migraine with aura, not intractable, without status migrainosus Category: Medical (2) Migraine with aura, intractable, without status migrainosus: Code(s): G43.119 - Migraine with aura, intractable, without status migrainosus Category: Medical (3) Neck pain: Code(s): M54.2 - Cervicalgia Category: Medical Plan I will restart her on botox for chronic migraines continue sumatriptan 100mg as needed ubrelvy 100 mg as needed Coding Level of Care Code Est Pt Level 4 (36727) Diagnoses Chronic migraine with aura G43.109 Migraine with aura, intractable, without status migrainosus G43.119 Neck pain M54.2
[2024-09-20 14:59] VITALS: BMI 31.9
--- OUTSIDE RECORDS SUMMARY | 2024-09-20 16:11 | XMS_ITS | Data Portability ---
Author Organization [employer] [place] [employer] Address [address] [place] [phone] Care Team Providers Care Media Center Assistant Name Role Phone HIM CCA OTHER Assessment No assessment recorded. Plan of Treatment Reminders Order Date Submit Date Provider Last Modified By Organization Details Last Modified Time Details Appointments None recorded. Lab None recorded. Referral None recorded. Procedures None recorded. Surgeries None recorded. Imaging None recorded. Medication Orders Bactrim DS 800 mg-160 mg tablet 024 024 [facility][id number], [address] [facility] [place], [place], [id number], 4 16:00:01 Patient TargetsNo targets recorded. Patient InstructionsNo instructions recorded. Reason for Referral None Reported. Medical Equipment None Reported. Allergies Allergen ID Allergen Name Allergen Category Reaction Reaction Severity Criticality Documentation Date Start Date Code Code System Note Provider Name and Address Organization Details Recorded Time 7046 egg extract food,medi cation Not available Not available Not available 07/17/2024 86874 15 RxNorm Not Available [facility] - production [...] Not Available Not Available Not Available omega 0-cuu-jjx-fi sh oil 60 mg-90 mg-500 mg capsule [...] Updated DateTime 3 165.1 cm 18 /min 60714.8 88 g 98.4 [degF] 96 % 96 % 70 /min 109 mm[Hg] 76 mm[Hg] Not Available [employer] 3 17:55:02 Date Recorded Oxygen saturation Oxygen saturation in Arterial blood by Pulse oximetry Body height Heart rate Respiratory rate Body weight Body temperature Systolic blood pressure Diastolic blood pressure Provider Name and Address Organization Details Last Updated DateTime 4 95 % 95 % 152.4 cm 95 /min 16 /min 45067.5 2 g 99.3 [degF] 160 mm[Hg] 89 mm[Hg] Not Available [employer] 15:56:16 Social History None recorded. Functional Status None recorded. Mental Status None recorded. Family History Nothing Reported. Medical History No medical history recorded. Gynecological HistoryNo gynecological history recorded. Obstetrics History GPAL:G 0 P 0 0 0 0 Past Encounters Encounter ID Performer Location Encounter Start Date Encounter Closed Date Diagnosis/Indication Diagnosis SNOMED-CT Code Diagnosis ICD10 Code [id number] Alex Hall MD [facility] [address] [place] [id number] 02/21/2023 17:54:56 02/22/2023 15:43:28 Pain of right knee region [id number] 13420 M25.561 [id number] Saundra Chen MD [facility] [address] [place] [id number] 05/07/2024 15:56:03 05/07/2024 22:38:04 Infection of big toe 866315082 L08.9 Health Concerns Section Related Observation LastModified by Organization Detai ls LastModified Time None Recorded Concern Status LastModified by Organization Details LastModified Time None Recorded Advance Directives Directive None Recorded Payers Encounter Date Sequence Insurance Name Policy Number Policy Dumont Covered Member ID Dumont Member ID Guarantor Name 02/21/2023 1 [facility] - DOS ON OR AFTER 2022 - DUAL ELIGIBLE - FCI OPTIONS AND ONE CARE (MEDICARE REPLACEMENT/ADV ANTAGE - HMO) [id number] [facility] 05/07/2024 1 [facility] - DOS ON OR AFTER 2022 - DUAL ELIGIBLE - FCI OPTIONS AND ONE CARE (MEDICARE REPLACEMENT/ADV ANTAGE - HMO) [facility] [id number] [facility] Notes Date Note Type Note Provider Name [...] .................. .................. .................. .................. .................. .................. ............... Platform Engineer Note From Hawa Murray: Sent to a [...] ............... Disposition: Fulfilled Alex Hall MD [address] [facility],[address], [place], [address], [employer] 02/21/2023 18:00:06 05/07/2024 text/html CRC Nurse Triage Notes (Geovany Rodriguez): Reason For Request: Patient wants someone to look at her foot, she had foot surgery and it's now painful, and swollen. Chief Complaints: Pain PMH: COPD/Asthma, Hypertension Allergies: Egg Comments: Senior Javascript Developer verified the member's name//address and phone number. [...] .................. .................. .................. .................. .................. .................. ............... Platform Engineer Note From Dante Livingston: Pt reports surgery [...] base of big toe/lateral side of foot. [facility] contacted an will send rx to pharmacy. Pt instructed to keep appointment on Tuesday and to seek emergent medical care for new or worsening sx, which are reviewed with her. .................. .................. .................. .................. .................. .................. .................. ............... Disposition: Fulfilled Saundra Chen MD [address] [facility],[address], [place], [address], [employer] 05/07/2024 16:11:29 OBGyn Episode No OBEpisode recorded.
== END 2024-09-20 15:21 | disposition home or self-care (01) ==
PROVIDERS: PCP General Practice; Visit Provider Psychiatry & Neurology Neurology
DX: G43.109 Migraine with aura, not intractable, without status migrainosus (principal); G43.119 Migraine with aura, intractable, without status migrainosus; M54.2 Cervicalgia
CPT/HCPCS: 99214

== ENCOUNTER → 2024-09-20 14:36 | Outpatient (BNVA) | payer OTHER, SELFPAY | PROVIDERS: PCP General Practice; Visit Provider Psychiatry & Neurology Neurology | DX: G43.119 Migraine with aura, intractable, without status migrainosus (principal); M54.2 Cervicalgia | CPT/HCPCS: 99212 ==

== ENCOUNTER 2024-10-29 13:03 | Emergency (ER) | payer OTHER, SELFPAY ==
[2024-10-29 13:14] VITALS: BP 130/90; PULSE 70; O2SAT 100
--- OUTSIDE RECORDS SUMMARY | 2024-10-29 16:23 | XMS_ITS | Encounter Summary ---
Author Organization [employer] Address [address] [place] [address] [address] [place] [address] Care Team Providers Care Repack Room Worker Name Role Phone Carlos Orozco Primary Care Provider Unavail able Sunita Ellis MD Primary Care Provider [phone] Reason for Visit * Reason Comments Med Refill Encounter Details Date Type Department Care Team (Late st Contact Info) Description 01/26/2023 Refill [facility] [address] [place], [place] [phone] Carlos Orozco AGNP Social History Tobacco Use Types Packs/Day Years Used Date Smoking Tobacco: Former Cigarettes Smokeless Tobacco: Never Alcohol Use Standard Drinks/Week Comments Never 0 (1 standard drink = 0.6 oz pur e alcohol) PHQ-2 Answer Date Recorded Patient Health Questionnaire-2 Score 2 10/29/2022 Depression Answer Date Recorded Patient Health Questionnaire-9 Score 7 10/29/2022 Comments Unknown Sex and Gender Information Value Date Recorded Sex Assigned at Female 07/19/2022 10:23 AM EDT Legal Sex Female 10:23 AM EDT Gender Identity Female 07/19/2022 10:23 AM EDT Sexual Orientation Choose not to disclose 2021 10:23 AM EDT documented as of this encounter Plan of Treatment Not on file documented as of this encounter Visit Diagnoses Not on filedocumented in this encounter Additional Health Concerns Assessment Noted Time PHQ-9 Depression Total Score: 7 10/29/19 23 9:12 AM EST documented as of this encounter Care Teams Repack Room Worker Relationship Specialty Start Date End Date Carlos Orozco AGNP PCP - General Family Medicine 10/05/22 02/03/23 Sunita Ellis MD [address] [place] [address] PCP - General Family Medicine 02/04/23 documented as of this encounter
--- OUTSIDE RECORDS SUMMARY | 2024-10-29 16:23 | XMS_ITS | Encounter Summary ---
Author Organization [employer] Address [facility] [address] [place] [address] Care Team Providers Care Expanded Function Dental Assistant Name Role Phone Sunita Ellis MD Primary Care Provider [phone] Reason for Visit * Reason Onset Date Comments Med Refill 09/23/2023 Encounter Details Date Type Department Care Team ([facility] st Contact Info) Description 09/23/2023 Refill [facility] MED & PEDS [address] [place], [place] [phone] Sunita Ellis MD [address] [place] [address] Social History Tobacco Use Types Packs/Day Years Used Date Smoking Tobacco: Former Cigarettes Smokeless Tobacco: Never Alcohol Use Standard Drinks/Week Comments Never 0 (1 standard drink = 0.6 oz pur e alcohol) PHQ-2 Answer Date Recorded Patient Health Questionnaire-2 Score 0 02/25/2023 Depression Answer Date Recorded Patient Health Questionnaire-9 Score 7 10/29/2022 Housing Stability Answer Date Recorded What is your housing situation today? I have simi villalta 07/04/[address] you li ve. Do you have problems with any of the following? None of the above 07/04/2023 Food Insecurity Answer Date Recorded Within the past 12 months, y ou worried that your food would run out before you got money to buy more: Never True 07/04/2023 Within the past 12 months,th e food you bought just didn't last and you didn't have enough money to get more: Never True Transportation Answer Date Recorded In the past 12 months, has l ack of transportation kept you from medical appts, meetings, work or from getting things needed for daily living? Yes, it has kept me from medical appointments or getting medications. 06/29/2023 Utilities Answer Date Recorded In the past 12 months, has t he electric, gas, oil or water company threatened to shut off services in your home? No 07/04/2023 Depression Answer Date Recorded Patient Health Questionnaire-2 Score 0 02/25/2023 Comments Unknown Sex and Gender Information Value [...] Time PHQ-9 Depression Total Score: 7 10/29/19 9:12 AM EST documented as of this encounter Care Teams Expanded Function Dental Assistant Relationship Specialty Start Date End Date Sunita Ellis MD [address] [place] [id number] PCP - General Family Medicine 02/04/23 documented as of this encounter
--- OUTSIDE RECORDS SUMMARY | 2024-10-29 16:23 | XMS_ITS | Encounter Summary ---
Author Organization [email or web address] Address [address] [place] [address] [place] [address] Care Team Providers Care Stamper Blocker Name Role Phone Cherry Atwood Primary Care Provider [phone] Carlos Orozco Primary Care Provider Unavail Sunita Clay MD Primary Care Provider Encounter Details Date Type Department Care Team (Late st Contact Info) Description 09/02/2022 Orders Only [facility] [address] [place], [place] [phone] Cherry Atwood FNP [address] [place], [place] [phone] Social History Tobacco Use Types Packs/Day Years Used Date Smoking Tobacco: Never Assessed Comments Unknown Sex and Gender Information Value [...] Diagnoses Not on filedocumented in this encounter Care Teams Stamper Blocker Relationship Specialty Start Date End Date Cherry Atwood FNP [address] [place] [address] [phone] PCP - General Family Medicine 05/06/22 10/04/22 Carlos Orozco AGNP [address] [place] [id number] PCP - General Family Medicine 10/05/22 02/03/23 Sunita Ellis MD [address] [place] [address] PCP - General Family Medicine 02/04/23 documented as of this encounter
--- OUTSIDE RECORDS SUMMARY | 2024-10-29 16:23 | XMS_ITS | Encounter Summary ---
Author Organization [employer] Address [address] [facility] 7t [place] [address] Care Team Providers Care Mobile Home Laborer Name Role Phone Sunita Ellis MD Primary Care Provider Reason for Visit * Reason Comments Med Refill Encounter Details Date Type Department Care Team (Late st Contact Info) Description 09/06/2024 Refill [facility] CHC MED & PEDS [address] [place], [place] [phone] Sunita Ellis MD [address] [place] [address] Social History Tobacco Use Types Packs/Day Years [...] documented as of this encounter Care Teams Mobile Home Laborer Relationship Specialty Start Date End Date Sunita Ellis MD [address] [place] [id number] PCP - General Family Medicine 02/04/23 documented as of this encounter
--- OUTSIDE RECORDS SUMMARY | 2024-10-29 16:23 | XMS_ITS | Encounter Summary ---
Author Organization [employer] Address [address] [facility] 7t [place] [address] Care Team Providers Care Hog Pusher Name Role Phone Sunita Ellis MD Primary Care Provider [phone] Reason for Visit * Reason Comments Med Refill Encounter Details Date Type Department Care Team (Late st Contact Info) Description 04/09/2024 Refill [facility] MEDICINE [address] [place], [place] [phone] Carlos Orozco AGNP Hyperlipidemia, unspecified hyperlipidemia type Social History Tobacco Use Types Packs/Day Years [...] documented as of this encounter Visit Diagnoses Diagnosis Hyperlipidemia, unspecified hyperlipidemia type documented in this encounter Additional Health Concerns Assessment Noted Time PHQ-9 Depression Total Score: 7 10/29/19 9:12 AM EST documented as of this encounter Care Teams Hog Pusher Relationship Specialty Start Date End Date Sunita Ellis MD [address] [place] [address] PCP - General Family Medicine 02/04/23 documented as of this encounter
--- OUTSIDE RECORDS SUMMARY | 2024-10-29 16:23 | XMS_ITS | Encounter Summary ---
Author Organization [employer] Address [address] [facility] 7t [place] [address] Care Team Providers Care Professor Of Astronomy Name Role Phone Sunita Ellis MD Primary Care Provider [phone] Reason for Visit * Reason Onset Date Comments Nurse Triage 09/20/2023 Encounter Details Date Type Department Care Team ([facility] st Contact Info) Description 09/20/2023 Telephone [facility] MEDICINE [address] [place], [place] [phone] Sunita Ellis MD [address] [place], [place] [phone] Nurse Triage Social History Tobacco Use Types Packs/Day Years [...] AM EDT documented as of this encounter Miscellaneous Notes * Telephone Encounter - Charissa Boucher RN - 09/20/2023 12:14 PM EST Triage call Pt reports right foot pain which started 2 weeks ago and has gotten worse. Pt reports pain is in the area of the great toe, top, side and bottom. Reddened but not warm to touch. Pt hasn'tworn any type of tight /narrow shoe only wears moccasins. Pt is having a hard time sleeping due to the pain. Pt has tried lidocaine cream on the area without effect. Pt is not using ibuprofen/tylenolfor pain, I don't like taking pills . Apt with PCP 09/23/23 @ 1115am. Protocol Used: Foot Pain (Adult) Protocol-Based Disposition: See in Office or Video Visit within 3 Days Video visit not offered Positive Triage Questions: * Moderate pain (e.g., interferes with normal activities, limping) and present > 3 days * Pain in the big toe joint * Patient wants to be seen * All higher-acuity triage questions were negative Care Advice Discussed: * Reassurance and Education - Foot Pain * Reassurance and Education - Overuse * Foot Pain - Aggravating Factors * Pain Medicines * Pain Medicines - Extra Notes and Warnings * Reasons To Call Back - Swelling, redness, or fever occur - Severe pain not relieved by pain medicine - Pain lasts over 7 days - You become worse * Telephone Encounter - Jan Arenas - 09/20/2023 10:57 AM EST Symptom: Foot or Ankle Swelling Outcome: Schedule an urgent appointment (within 1 hour) or talk to a nurse or provider soon Reason: Trouble walking The caller accepted this outcome Please contact at [phone] documented in this encounter Plan of Treatment Not on file documented as of this encounter Visit Diagnoses Not on filedocumented in this encounter Additional Health Concerns Assessment Noted Time PHQ-9 Depression Total Score: 7 10/29/19 9:12 AM EST documented as of this encounter Care Teams Professor Of Astronomy Relationship Specialty Start Date End Date Sunita Ellis MD [address] [place] [id number] PCP - General Family Medicine 02/04/23 documented as of this encounter
--- OUTSIDE RECORDS SUMMARY | 2024-10-29 16:23 | XMS_ITS | Encounter Summary ---
Author Organization [employer] Address [address] [facility] 7t [place] [address] Care Team Providers Care Laundry Sorter Name Role Phone Sunita Ellis MD Primary Care Provider [phone] Encounter Details Date Type Department Care Team ([facility] st Contact Info) Description 08/01/2023 Abstract [facility] MEDICINE [address] [place], [place] [phone] Sunita Ellis MD [address] [place], [place] [phone] Social History Tobacco Use Types Packs/Day Years [...] is your housing situation today? I have simiion villalta 07/04/[address] you [...] documented as of this encounter Care Teams Laundry Sorter Relationship Specialty Start Date End Date Sunita Ellis MD [address] [place] [phone] PCP - General Family Medicine 02/04/23 documented as of this encounter
--- OUTSIDE RECORDS SUMMARY | 2024-10-29 16:23 | XMS_ITS | Data Portability ---
Author Organization [employer] Address [address] [place] [phone] Care Team Providers Care Hand Ii Blocker Name Role Phone HIM [facility] OTHER Assessment No assessment recorded. Plan of Treatment Reminders Order Date Submit Date Provider Last Modified By Organization Details Last Modified Time Details Appointments None recorded. Lab None recorded. Referral None recorded. Procedures None recorded. Surgeries None recorded. Imaging None recorded. Medication Orders Bactrim DS 800 mg-160 mg tablet 024 024 [id number], [address] [facility] [place], [place], [phone], 4 16:00:01 Patient TargetsNo targets recorded. Patient InstructionsNo instructions recorded. Reason for Referral None Reported. Medical Equipment None Reported. Allergies Allergen ID Allergen Name Allergen Category Reaction Reaction Severity Criticality Documentation Date Start Date Code Code System Note Provider Name and Address Organization Details Recorded Time 7046 egg extract food,medi cation Not available Not available Not available 07/17/2024 92864 15 RxNorm Not Available [facility] - production [...] Not Available Not Available Not Available omega 5-acm-eho-fi sh oil 60 mg-90 mg-500 mg capsule [...] Updated DateTime 3 165.1 cm 18 /min 81999.8 88 g 98.4 [degF] 96 % 96 % 70 /min 109 mm[Hg] 76 mm[Hg] Not Available [facility] 3 17:55:02 Date Recorded Oxygen saturation Oxygen saturation in Arterial blood by Pulse oximetry Body height Heart rate Respiratory rate Body weight Body temperature Systolic blood pressure Diastolic blood pressure Provider Name and Address Organization Details Last Updated DateTime 4 95 % 95 % 152.4 cm 95 /min 16 /min 02189.5 2 g 99.3 [degF] 160 mm[Hg] 89 mm[Hg] Not Available [employer] 4 15:56:16 Social History None recorded. Functional Status None recorded. Mental Status None recorded. Family History Nothing Reported. Medical History No medical history recorded. Gynecological HistoryNo gynecological history recorded. Obstetrics History GPAL:G 0 P 0 0 0 0 Past Encounters Encounter ID Performer Location Encounter Start Date Encounter Closed Date Diagnosis/Indication Diagnosis SNOMED-CT Code Diagnosis ICD10 Code Diagnosis Note [id number] Alex Hall MD [facility] [address] [place] [phone] 02/21/2023 17:54:56 02/22/2023 15:43:28 Pain of right knee region [id number] 04421 M25.561 This 62-year-ol d female apparently sustained a right femur fracture in 2019. Since then she has had intermitte nt swelling and pain in the region of her right knee. She is taking Tylenol with some relief. She has an appointmen t with her PCP later this week, and she is expecting that he will prescribe narcotics. I recommende d that she continue taking Tylenol. She will follow-up with her PCP. The patient agreed with this plan. [id number] Saundra Chen MD [facility] [address] [place] [address] [id number] 05/07/2024 15:56:03 05/07/2024 22:38:04 Infection of big toe [id number] L08.9 64 year old female with COPD and HTN, being evaluated for 2 weeks of R great toe pain after surgical interventi on 6 weeks ago (corn removal). Patient reporting worsening pain making it difficult to ambulate. Denies fever/chil ls or trauma. Exam notable for temp 99.3 after taking tylenol/ib uprofen. R foot showing an area of warmth and erythema at R MTP region of great toe, with significan t tenderness to palpation and pain on passive ROM. Presentati on concerning for post-surgi antonietta foot infection, gout also on the differenti al, however given potential consequenc es of untreated infection will start treatment with bactrim, podiatry FU arranged in two days. I have reviewed and agree with the assessment and plan as documented by the contract negotiator. I provided real-time medical direction for this encounter and was immediatel y available to provide additional phone-base d assistance as needed. We discussed the diagnostic uncertaint y of home visits and associated risks. We discussed the need to seek care urgently/e mergently in the setting of any new or worsening symptoms. Health Concerns Section Related Observation LastModified by Organization Detai ls LastModified Time None Recorded Concern Status LastModified by Organization Details LastModified Time None Recorded Advance Directives Directive None Recorded Payers Encounter Date Sequence Insurance Name Policy Number Policy Dumont Covered Member ID Dumont Member ID Guarantor Name 02/21/2023 1 [employer] [facility] - DOS ON OR AFTER 2022 - DUAL ELIGIBLE - [employer] OPT[employer] AND ONE CARE (MEDICARE REPLACEMENT/ADV ANTAGE - HMO) Rodrigue Martinez [id number] Rodrigue Martinez 05/07/2024 1 [employer] [facility] - DOS ON OR AFTER 2022 - DUAL ELIGIBLE - [employer] OPTIONS AND ONE CARE (MEDICARE REPLACEMENT/ADV ANTAGE - HMO) Rodrigue Martinez [id number] Rodrigue Martinez Notes Date Note Type Note Provider Name [...] .................. .................. .................. .................. .................. .................. ............... Credit Director Note From Hawa Murray: Sent to a [...] or deformities noted; Skin: pink, warm, dry; [facility] consulted advises pt continue taking Tylenol and follow up with PCP. Red flags discussed. Pt has no further questions. .................. .................. .................. .................. .................. .................. .................. ............... Disposition: Fulfilled Alex Hall MD [address] [facility],[address], [place], [phone], TOMMY - TARA FORTE 02/21/2023 18:00:06 05/07/2024 text/html [facility] Nurse Triage Notes (Geovany Rodriguez): Reason For Request: Patient wants someone to look at her foot, she had foot surgery and it's now painful, and swollen. Chief Complaints: Pain PMH: COPD/Asthma, Hypertension Allergies: Egg Comments: [employer] Installer verified the member's name//address and phone number. [...] .................. .................. .................. .................. .................. .................. ............... Credit Director Note From Dante Livingston: Pt reports surgery [...] base of big toe/lateral side of foot. [facility] contacted an will send rx to pharmacy. Pt instructed to keep appointment on Tuesday and to seek emergent medical care for new or worsening sx, which are reviewed with her. .................. .................. .................. .................. .................. .................. .................. ............... Disposition: Fulfilled Saundra Chen MD [address] [facility], [place], [phone], TOMMY - TARA FORTE 05/07/2024 16:11:29 OBGyn Episode No OBEpisode recorded.
--- OUTSIDE RECORDS SUMMARY | 2024-10-29 16:23 | XMS_ITS | Encounter Summary ---
Author Organization [employer] Address 75 [facility] 7t [place] [address] Care Team Providers Care Quartz Orientator Name Role Phone Sunita Ellis MD Primary Care Provider [phone] Encounter Details Date Type Department Care Team ([facility] st Contact Info) Description 07/04/2023 Abstract [facility] MEDICINE [address] [place], [place] [phone] Sunita Ellis MD [address] [place], [place] [phone] Social History Tobacco Use Types Packs/Day Years [...] documented as of this encounter Care Teams Quartz Orientator Relationship Specialty Start Date End Date Sunita Ellis MD [address] [place] [id number] PCP - General Family Medicine 02/04/23 documented as of this encounter
--- OUTSIDE RECORDS SUMMARY | 2024-10-29 16:23 | XMS_ITS | Data Portability ---
Author Organization [facility] Address [address] [facility],[address] [place] [address] Care Team Providers Care Registry Nurse Name Role Phone JI LAUREANO Referring Provider JOSHUA ANG Primary Care Provider Assessment Encounter Date Assessment Date Assessment LastModified by Organization Details LastModified Time 02/25/2016 02/25/2016 Rodrigue Martinez is a 55 year old woman with complaints of neck pain radiating into her mid back region. She also has pain in both feet, right is greater than left. She is S/P ACDF by Dr. Walker 10 years ago. She has no radiating pain in her upper or lower extremities. She has myofascial pain syndrome. We discussed treatment options 1. Trial of aquatic physical therapy-I have discussed the importance of regular aerobic exercise for fibromyalgia pain control.She will contact us if she wants to proceed with water therapy for a referral to PT. 2. Trial of lyrica- due to her history of seizures and depression and anxiety - I have advised her to discuss this option with her psychiatrist, neurologist and PCP before starting the medication. She can follow up as needed. [email or web address] Not available 03/15/2016 10:20:34 Plan of Treatment Reminders Order Date Submit Date Provider Last Modified By Organization Details Last Modified Time Details Appointments None record ed. Lab None record ed. Referral None record ed. Procedures None record ed. Surgeries None record ed. Imaging None record ed. Medication Orders None record ed. Patient TargetsNo targets recorded. Patient Instructions Encounter Date Encounter Id Patient Instructions Last Modified By Organization Details Last Modified Time 02/25/2016 [id number] She was advised against bed rest lasting longer than four days and to continue activities as tolerated. Benefits of smoking cessation were discussed with her. [email or web address] Not available 03/15/2016 10:21:06 Reason for Referral None Reported. Problems Name Problem SNOMED Code Status Onset Date Resolution Date Notes Provider Name and Address Organization Details Recorded Time Muscle pain 80439694 Active Patsy wan MD [address] , [address], [place], [address], [place] [facility] 6 10:21:06 Osteoarthritis 858724448 Active Patsy wan MD [address] , [address], [place], [address], [place] [facility] 10:21:06 Problem Notes None recorded. Procedures Surgical History Date Name Laterality Status Provider Name and Address Organization Details Recorded Time Cataract Surgery completed Yani Westbrook [place] [facility] 02/25/2016 14:54:07 Cholecystectomy completed Yani Westbrook [place] [facility] 02/25/2016 14:54:07 Tubal Ligation completed Yani Westbrook M A [facility] 02/25/2016 14:54:07 Other completed Yani Westbrook [place] [facility] 02/25/2016 14:54:07 Imaging Results None recorded. Procedure Notes None recorded. Medical Equipment None Reported. Allergies Allergen ID Allergen Name Allergen Category Reaction Reaction Severity Criticality Documentation Date Start Date Code Code System Note Provider Name and Address Organization Details Recorded Time 60490 Non-stero idal anti-infl ammatory agent (product) medicatio n respirato ry distress Not available Not available 02/25/2016 11620 005 SNOMED Yani green [place] [facility] 6 14:54:07 53797 beclometh asone dipropion ate medicatio n respirato ry distress Not available Not available 02/25/2016 1348 RxNorm Yani green [place] [facility] 6 14:54:07 70955 cyclobenz aprine hydrochlo ride medicatio n hives Not available Not available 02/25/2016 55660 RxNorm Yani green [place] [facility] 6 14:54:07 13074 egg extract food,medi cation hives Not available Not available 02/25/2016 39776 15 RxNorm Yani green, [place] [facility] 6 14:54:07 Medications Name Sig Start Date Stop Date Status Note LastModified by Organization Details LastModified Time carisoprodol 350 mg tablet TAKE 1 TABLET BY MOUTH EVERY 6 HOURS NEEDED FOR MUSCLE SPASM. active Not Available Not Available No t Available latanoprost 0.005 % eye drops INSTILL 1 DROP INTO BOTH EYES NIGHTLY active Not Available Not Available No t Available clonidine HCl 0.1 mg tablet active Not Available Not Availabl e Not Available prednisone 10 mg tablet active Not Available Not Available No t Available gabapentin 600 mg tablet active Not Available Not Available No t Available amitriptyline 75 mg tablet active Not Available Not Available Not Available hydrocodone 5 mg-acetaminophe n 325 mg tablet active Not Available Not Availa ble Not Available ondansetron HCl 4 mg tablet active Not Available Not Available Not Available prednisone 20 mg tablet active Not Available Not Available No t Available alendronate 70 mg tablet active Not Available Not Available No t Available clonazepam 0.5 mg tablet active Not Available Not Available No t Available clonidine HCl 0.3 mg tablet active Not Available Not Availabl e Not Available prednisone 5 mg tablet active Not Available Not Available Not Available clonazepam 1 mg tablet active Not Available Not Available Not Available clindamycin HCl 150 mg capsule active Not Available Not Availab le Not Available acetaminophen 300 mg-codeine 30 mg tablet active Not Available Not Available Not Available olanzapine 7.5 mg tablet active Not Available Not Available No t Available amitriptyline 50 mg tablet active Not Available Not Available Not Available oxycodone-aceta minophen 5 mg-325 mg tablet active Not Available Not Available Not Available citalopram 20 mg tablet active Not Available Not Available No t Available amitriptyline 25 mg tablet active Not Available Not Available Not Available prednisolone acetate 1 % eye drops,suspensio n active Not Available Not Available Not Available lorazepam 0.5 mg tablet active Not Available Not Available No t Available methotrexate sodium 2.5 mg tablet active Not Available Not Available Not Available oxycodone-aceta minophen 10 mg-325 mg tablet active Not Available Not Available Not Available meclizine 25 mg tablet active Not Available Not Available Not Available cephalexin 500 mg capsule active Not Available Not Available N ot Available promethazine 25 mg tablet active Not Available Not Available No t Available oxycodone 5 mg capsule active Not Available Not Available Not Available gabapentin 300 mg capsule active Not Available Not Available N ot Available folic acid 1 mg tablet TAKE 1 TABLET BY MOUTH EVERY DAY active Not Available Not Available No t Available hydroxyzine HCl 25 mg tablet TAKE 1 TABLET BY MOUTH 3 TIMES A DAY NEEDED FOR ITCHING OR ANXIETY. active Not Available Not Available No t Available Cheratussin AC 10 mg-100 mg/5 mL oral liquid TAKE 5 ML BY MOUTH EVERY 6 HOURS NEEDED FOR COUGH active Not Available Not Available No t Available zolpidem 10 mg tablet active Not Available Not Available Not Available topiramate 100 mg tablet active Not Available Not Available No t Available oxycodone 5 mg tablet active Not Available Not Available Not Available duloxetine 30 mg capsule,delayed release active Not Available Not Available Not Available duloxetine 60 mg capsule,delayed release active Not Available Not Available Not Available ProAir HFA 90 mcg/actuation aerosol inhaler TAKE 2 PUFFS 4 TIMES DAILY NEEDED FOR WHEEZING /SHORTNE SS OF BREATH active Not Available Not Available No t Available quetiapine 50 mg tablet active Not Available Not Available No t Available Calcium with Vitamin D 600 mg-10 mcg (400 unit) tablet TAKE 1 TABLET BY MOUTH TWICE A DAY active Not Available Not Available No t Available Vitals Date Recorded Heart rate Body weight Oxygen saturation Oxygen saturation in Arterial blood by Pulse oximetry Body height Body mass index (BMI) Systolic blood pressure Diastolic blood pressure Provider Name and Address Organization Details Last Updated DateTime 6 76 /min 20673.6 266 g 97 % 97 % 165.1 cm 30 kg/m2 117 mm[Hg] 60 mm[Hg] [facility] 6 14:54:07 Social History Question Answer Notes LastModified by Organizat ion Details LastModified Time Tobacco Smoking Status Former Smoker quit x 1-2 months with recent smoking Not Available [employer] 07/04/2020 03:16:11 What Is Your Level Of Alcohol Consumption? None [id number] Information not available 07/04/2020 Are You Currently Employed? No [id number] Information not available 07/04/2020 Which Illicit Or Recreational Drugs Have You Used? No [id number] Information not available 07/04/2020 Education 12 With Some College [email or web address] Information not available 02/25/2016 Live Alone Or With Others? Alone Information not available 02/25/2016 Marital Status Informatio n not available 02/25/2016 How Many Years Have You Smoked Tobacco? 20 [id number] Information not available 07/04/2020 Sex: Unknown Functional Status None recorded. Mental Status None recorded. Family History Relationship Description Onset Age of this Age Resolved Age Notes LastModified by Organization Details LastModified Time Mother Chronic obstructive pulmonary disease [email or web address] Not available 02/18 10:08:35 Mother Heart disease [email or web address] Not available 02/18 10:08:35 Father Diabetes mellitus [email or web address] Not available 02/18 10:08:35 Medical History Condition Response Depression Y COPD Y Anxiety Disorder Y Arthritis Y Fibromyalgia Y Osteoporosis Y Gynecological HistoryNo gynecological history recorded. Obstetrics History GPAL:G 0 P 0 0 0 0 Past Encounters Encounter ID Performer Location Encounter Start Date Encounter Closed Date Diagnosis/Indication Diagnosis SNOMED-CT Code Diagnosis ICD10 Code Diagnosis Note [id number] Patsy Quevedo MD PAIN OFFICE [address] [place] [phone] 02/25/2016 14:27:06 03/15/2016 10:21:32 Muscle pain 63049908 M79.1 Osteoarthritis 897305430 M15.0 Health Concerns Section Related Observation LastModified by Organization Detai ls LastModified Time None Recorded Concern Status LastModified by Organization Details LastModified Time None Recorded Advance Directives Directive None Recorded Payers Encounter Date Sequence Insurance Name Policy Number Policy [place] Covered Member ID [place] Member ID Guarantor Name 02/25/2016 1 [place] [employer] Rodrigue [facility] [id number] Rodrigue [facility] 02/25/2016 2 [place] [id number] Rodrigue [facility] Notes Date Note Type Note Provider Name and Address Organization Details Recorded Time 02/25/2016 text/html [facility] Management[facility] eported bypatient.Location:Mary Ann Martinez is a 55 year old woman with complaints of pain in her mid back region. She has history of chronic pain and has been diagnosed with Fibromyalgia and is seeing a senior engineering technician at [facility]. She also has a diagnosis of arthritis and is on methotrexate. Quality:She describes the pain as starting in her neck and radiates into her mid back region and pain is along the spinous process region of the neck and mid back region. She has no radiating pain in her upper or lower extremities. Severity:worsening;inte rference with sleep; Current pain level is 10/10 Duration:present for >12 months Timing:constant Alleviating Factors:rest Aggravating Factors:movement/positi oning Associated Symptoms:no fever; no weak limbs; no tingling; no numbness of the legs/feet; no incontinence ADL (Activities of Daily Living):walking; sweeping; mopping She is S/P ACDF by Dr. Walker 10 years ago. She states since the fusion ,she has limited range of motion of her neck. She has recently tripped on a chair and has pain in her right foot. Patsy Quevedo MD [address] [place] [address] , [address], [place], [address], [facility] 03/16/2016 16:14:28 OBGyn Episode No OBEpisode recorded.
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
--- OUTSIDE RECORDS SUMMARY | 2024-10-29 16:23 | XMS_ITS | Encounter Summary ---
Author Organization [employer] Address [address] [facility] [address] [place] [address] Care Team Providers Care Racecourse Barrier Attendant Name Role Phone Carlos Orozco Primary Care Provider Unavail able Sunita Ellis MD Primary Care Provider [phone] Reason for Visit * Reason Onset Date Comments Results 11/24/2022 Encounter Details Date Type Department Care Team ([facility] Contact Info) Description 11/24/2022 Telephone [facility] [address] [place], [place] [id number] Carlos Orozco AGNP Results Social History Tobacco Use Types Packs/Day Years [...] not to disclose 2021 10:23 AM EDT COVID-19 Exposure Response Date Recorded In the last 10 days, have yo u been in contact with someone who was confirmed or suspected to have Coronavirus/COVID-19? No / Unsure 10/29/2022 8:45 AM EST documented as of this encounter Miscellaneous Notes * Telephone Encounter - Lianet David RN - 11/29/2022 3:15 PM EDT Spoke with the patient who has an appointment at the end of the month. Pt encouraged to discuss blood test results at the appointment. 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 Pt had no further concerns. * Telephone Encounter - Heladio Yeboah - 11/29/2022 2:33 PM EDT Tc from pt returning call regarding message below. Please contact pt at [phone] * Telephone Encounter - Heladio Yeboah - 11/24/2022 10:43 AM EST Tc from pt requesting a call back regarding blood work. Pt requesting for results Please contact pt at [phone] documented in this encounter Plan of Treatment Not on file documented as of this encounter Visit Diagnoses Not on filedocumented in this encounter Additional Health Concerns Assessment Noted Time PHQ-9 Depression Total Score: 7 10/29/19 9:12 AM EST documented as of this encounter Care Teams Racecourse Barrier Attendant Relationship Specialty Start Date End Date Carlos Orozco AGNP PCP - General Family Medicine 10/05/22 02/03/23 Sunita Ellis MD [address] [place] [id number] PCP - General Family Medicine 02/04/23 documented as of this encounter
== END 2024-10-29 19:11 | disposition left against medical advice (07) ==
PROVIDERS: Emergency Provider Emergency Medicine
DX: Z53.21 Procedure and treatment not carried out due to patient leaving prior to being seen by health care provider (principal)

== ENCOUNTER 2024-10-30 10:41 | Emergency (ER) | payer OTHER, SELFPAY ==
--- NOTE | ~2024-10-30 | XR_ITS ---
EXAMINATION: XR ANKLE, LEFT CLINICAL INFORMATION: fall COMPARISON: None available. TECHNIQUE: AP, lateral, and mortise views of the left ankle. FINDINGS: Moderate lateral malleolar soft tissue swelling. No visible acute fracture, dislocation subluxation seen. The ankle mortise and subtalar joints are normal. There is mild dorsal ankle soft tissue swelling. XR/XR ankle LT 2V IMPRESSION: Moderate lateral malleolar soft tissue swelling. No visible acute fracture or dislocation seen. Electronically signed by: Babar Pitts MD 10/30/2024 12:07 PM [facility]
--- NOTE | ~2024-10-30 | XR_ITS ---
EXAMINATION: XR FOOT, LEFT CLINICAL INFORMATION: fall COMPARISON: None available. TECHNIQUE: AP, lateral, and oblique views of the left foot. FINDINGS: The bones and soft tissues are normal. No fracture. Alignment is anatomic. Joint spaces are maintained. XR/XR foot LT 2V IMPRESSION: Unremarkable left foot. Electronically signed by: Babar Pitts MD 10/30/2024 12:04 PM [facility]
--- NOTE | ~2024-10-30 | XR_ITS ---
EXAMINATION: XR KNEE, LEFT CLINICAL INFORMATION: pain s/p fall COMPARISON: September 29, 2019 TECHNIQUE: Four views of the left knee. FINDINGS: No acute cortical disruption or malalignment. Marginal osteophyte formation in the medial femoral condyle and medial tibial plateau. Minimal joint space narrowing involving the medial compartment. Small to moderate amount of fluid suprapatellar bursa. No lytic or blastic lesions. XR/XR knee LT 3V IMPRESSION: No acute fracture or dislocation. Small to moderate amount of suprapatellar joint effusion. Medial compartment osteoarthrosis. Electronically signed by: Anthony Ruiz MD 10/30/2024 02:00 PM [facility]
[2024-10-30 10:54] VITALS: BP 101/68; PULSE 81; RESP 18; TEMP 36.2; O2SAT 99; BMI 33.5
--- NOTE | 2024-10-30 12:28 | ED_ITS ---
HPI - Extremity Injury (Lower) General Chief Complaint: Extremity Injury, Lower Stated Complaint: Ankle injury Time Seen by Provider: 10/30/24 12:28 Source: patient, RN notes reviewed and old records reviewed Mode of arrival: wheelchair History of Present Illness ED Provider: Hawa Mathis PA-C HPI Narrative: 64-year-old female with a past medical history of osteoarthritis, asthma/COPD overlap syndrome, presenting to the ED complaining of left ankle pain and swelling s/p mechanical trip and fall on black ice yesterday. Denies head trauma or LOC. Denies injury to other area, numbness, tingling weakness Related Data Home Medications ?Medication ?Instructions ?Recorded ?Confirmed olanzapine 5 mg tablet 5 mg PO BEDTIME 06/16/20 04/19/23 pantoprazole 40 mg tablet,delayed 40 mg PO DAILY 06/16/20 04/19/23 release betamethasone dipropionate 0.05 % topical 07/08/20 04/19/23 topical ointment alprazolam 1 mg tablet (Xanax) 1 mg PO BEDTIME 07/30/20 04/19/23 eszopiclone 3 mg tablet (Lunesta) 3 mg PO BEDTIME 07/30/20 04/19/23 duloxetine 60 mg capsule,delayed 60 mg PO BID 02/23/21 04/19/23 release onabotulinumtoxinA 100 unit IM .q 4 months PRN 04/13/22 04/19/23 solution for injection (Botox) levothyroxine 88 mcg tablet 0 mcg PO 12/02/22 04/19/23 meclizine 25 mg tablet mg PO 12/02/22 04/19/23 omega 0-gfh-qnq-fish oil 60 mg-90 0 cap PO 12/02/22 04/19/23 mg-500 mg capsule (Fish Oil) atorvastatin 20 mg tablet 20 mg PO DAILY 04/19/23 04/19/23 upadacitinib 15 mg tablet,extended 15 mg PO DAILY 09/20/24 release 24 hr (Rinvoq) Previous Rx's ?Medication ?Instructions ?Recorded sumatriptan succinate 100 mg tablet 50 - 100 mg (0.5 - 1 x 100 mg) PO 11/01/22 .COMPLEX PRN migraine headache 30 days #12 tabs ubrogepant 100 mg tablet (Ubrelvy) See Rx Instructions .Route 11/24/22 .COMPLEX migraine #14 tabs baclofen 5 mg tablet 5 mg PO BEDTIME #30 tabs 04/19/23 acetaminophen 650 mg 650 mg PO Q8H PRN pain #30 tabs 11/24/23 tablet,extended release (Tylenol 8 Hour) tramadol 50 mg tablet 50 mg PO Q8H PRN pain 5 days #15 12/16/23 tabs fluticasone furoate 200 1 inh inhalation DAILY 30 days #28 01/10/24 mcg-vilanterol 25 mcg/dose ea inhalation powder (Breo Ellipta) albuterol sulfate 90 mcg/actuation 2 puff PO Q6H PRN for wheezing 30 08/07/24 aerosol inhaler days #25.5 grams morphine 15 mg immediate release 15 mg PO Q6H PRN pain (scale score 10/30/24 tablet 7-10) 3 days #5 tabs Allergies Allergy/AdvReac Type Severity Reaction Status Date / Time cyclobenzaprine Allergy Severe Anaphylaxis Verified 10/30/24 10:56 [From Flexeril] beclomethasone [From QVAR] Allergy Intermediate FACIAL/TONGUE Verified 10/30/24 10:56 SWELLING NSAIDS (Non-Steroidal Allergy Intermediate swollen Verified 10/30/24 10:56 Anti-Inflamma [Nsaids] egg [Egg] Allergy Mild UNKNOWN Verified 10/30/24 10:56 Review of Systems Review of Systems: Yes all other systems are reviewed and are negative Constitutional: Constitutional: Reports as per [facility] Past Medical History Attestation statement: The following information was validated with the patient. Source: old records reviewed Medical History Left upper extremity numbness Asthma-COPD overlap syndrome DVT (deep venous thrombosis) Interstitial lung disease Femur fracture, right Depression Chronic pain Herniated disc Alopecia Anxiety Fibromyalgia Emphysema of lung Spondylosis of cervical spine Hypothyroidism Nocturnal hypoxemia COPD (chronic obstructive pulmonary disease) Surgical History H/O cervical spine surgery H/O tubal ligation History of cholecystectomy Family History Family History Father Diabetes Mother CVD (cardiovascular disease) Social History Social History Household Members: Children Household Members Other:: son Alcohol intake: never Patient Tobacco Use Status: Former Tobacco user Advance Directives: No Advance Directives Information Provided: Yes Do you have a plan to hurt others: No Plan Current occupational status: disabled Physical Exam Vital Signs: Vital Signs: Last Vital Signs Temp 97.1 F 10/30/24 10:54 Pulse 81 10/30/24 10:54 Resp 18 10/30/24 10:54 BP 101/68 10/30/24 10:54 Pulse Ox 99 10/30/24 10:54 O2 Del Method Room Air 10/30/24 10:54 BMI result Body Mass Index 33.5 Const: General: cooperative, healthy appearing and no acute distress Orientation/consciousness: patient oriented x3 Limitations: no limitations HEENT: Head: Yes normal to inspection and Yes atraumatic Ears: hearing grossly normal bilaterally General nose exam: Normal external nose present Face and sinus: Yes normal facial exam Eyes: General: appearance normal, both eyes and all related structures EOM: EOMs intact bilaterally Neck: Neck: Yes normal visual inspection and Yes no meningeal signs Resp: Effort & Inspection: normal respiratory effort and no respiratory distress Cardio: Rate: regular rate Skin: Rashes: no rashes Wounds: no wounds Neuro: General: patient oriented x3, tone normal and no meningeal signs Cranial nerves: Yes CN's II-XII intact bilaterally Gait exam (Neuro): Normal gait present Extrem: Other: Left knee without appreciable deformity. Tender to palpation. Limited full flexion secondary to pain. Left ankle with appreciable swelling. Diffusely, read by patient. Limited ROM secondary to pain. Neurovascularly intact distally. Left foot with mild swelling. Nontender Course Course Course Narrative: 1229--XR foot LT 2V IMPRESSION: Unremarkable left foot. XR ankle LT 2V IMPRESSION: Moderate lateral malleolar soft tissue swelling. No visible acute fracture or dislocation seen. > Aircast and crutches applied XR knee LT 3V IMPRESSION: No acute fracture or dislocation. Small to moderate amount of suprapatellar joint effusion. Medial compartment osteoarthrosis. Results discussed with patient including worrisome signs and symptoms and strict return precautions, and when to return to the emergency department. They verbalized understanding and feel safe for discharge at this time. Medical Decision Making Medical Decision Making MDM Narrative: 64-year-old female with a past medical history of osteoarthritis, asthma/COPD overlap syndrome, presenting to the ED complaining of left ankle pain and swelling s/p mechanical trip and fall on black ice yesterday. On exam vital signs stable, NAD, nontoxic appearing, physical exam as noted above. Concern for fracture vs sprain. No evidence of septic joint/arthritis. Unlikely DVT Plan: X-rays Please refer to course for remaining clinical decision making, interpretation of labs/imaging results, and discussions with consultants and/or family members. Differential Diagnosis Differential Diagnoses: The differential diagnosis associated with the presentation includes As above Independent Interpretation I performed an independent interpretation of an: Plain X-Ray Radiology Impression Discussion of test interpretation with radiology: I have reviewed the radiologist's reading. External Record Review External record reviewed: Inpatient record, Office record, Outpatient record, Prior outpatient labs, Prior outpatient radiology, Primary care record and Outside ED record Tests considered The following testing was considered but not selected: As above Prescription Management I considered prescription management with: Pain Medication Chronic Conditions Patient?s care impacted by: Other (Asthma/COPD) Social Determinants Patient?s care significantly limited by Social Determinants of Health including: Other Social Determinant of Health Procedures Orthopedic Splinting/Casting Injury #1: Side: left Lower Extremity Injury Location: ankle and foot Lower Extremity Immobilizer: AirCast Other Orthopedic Equipment: crutches Discharge Plan Discharge Clinical Impression: Ankle sprain and strain Patient Disposition: Home, Self-Care Instructions: Ankle Sprain (DC) Additional Instructions: Your x-ray does not show fracture. You sprain her ankle Continue to take Tylenol In addition morphine as an opiate pain medication, take only when pain is severe for the next 3 days Have close follow up with her doctor Wear Aircast as needed for compression and stability. Bear weight as tolerated, use crutches as needed If pain becomes unbearable, or area begins to look infected return to the emergency department Prescriptions: New morphine 15 mg tablet 15 mg PO Q6H PRN (Reason: pain (scale score 7-10)) 3 Days Qty: 5 0RF Rx Instructions: Partial Fill upon patient request. No Action sumatriptan succinate 100 mg tablet 50 - 100 mg PO .COMPLEX PRN (Reason: migraine headache) 30 Days Qty: 12 6RF Rx Instructions: 50 - 100 mg orally at onset of headache, may repeat in 2 hrs PRN; max 2 tabs per day or 4 tabs/week Ubrelvy 100 mg tablet See Rx Instructions .ROUTE .COMPLEX MDD 2 tabs Qty: 14 3RF Rx Instructions: 1 tab at onset of migraine and can repeat in 2 hrs; tramadol 50 mg tablet 50 mg PO Q8H PRN (Reason: pain) 5 Days Qty: 15 0RF acetaminophen [Tylenol 8 Hour] 650 mg tablet extended release 650 mg PO Q8H PRN (Reason: pain) Qty: 30 0RF betamethasone dipropionate 0.05 % ointment topical olanzapine 5 mg tablet 5 mg PO BEDTIME pantoprazole 40 mg tablet,delayed release (DR/EC) 40 mg PO DAILY duloxetine 60 mg capsule,delayed release(DR/EC) 60 mg PO BID alprazolam [Xanax] 1 mg tablet 1 mg PO BEDTIME eszopiclone [Lunesta] 3 mg tablet 3 mg PO BEDTIME Botox 100 unit recon soln IM .q 4 months PRN Rx Instructions: for migrains omega 1-ehj-wov-fish oil [Fish Oil] 60-90-500 mg capsule 0 cap PO meclizine 25 mg tablet PO levothyroxine 88 mcg tablet 0 mcg PO albuterol sulfate 90 mcg/actuation HFA aerosol inhaler 2 puff PO Q6H PRN (Reason: for wheezing) 30 Days Qty: 25.5 3RF atorvastatin 20 mg tablet 20 mg PO DAILY baclofen 5 mg tablet 5 mg PO BEDTIME Qty: 30 3RF fluticasone furoate-vilanterol [Breo Ellipta] 200-25 mcg/dose blister with device 1 inh inhalation DAILY 30 Days Qty: 28 5RF Rinvoq 15 mg tablet extended release 24 hr 15 mg PO DAILY Referrals: Sunita Ellis MD [Primary Care Provider] - 1 week Print Language: Mongolian
--- OUTSIDE RECORDS SUMMARY | 2024-10-30 13:43 | XMS_ITS | Continuity of Care Document ---
Author Organization [employer], [employer] Address [address] [place] [phone] Care Team Providers Care Honey Extractor Name Role Phone HIM [facility] Primary Care Provider Assessment Encounter Date Assessment Date Assessment LastModified by Organization Details LastModified Time 10/29/2024 10/29/2024 service called for fall found 64 karen with hx COPD HTN osteoporosis c/o worsening L foot and ankle swelling and pain following fall this AM denies head strike endorses some numbness in L foot VSS reported exam: unable palpate L pedal pulse, tender effusion anterolateral aspect of L foot #L Foot Pain given worsening swelling, unable palpate pulse, and numbness recc urgent care imaging or ED assessment with imaging [email or web address] Not available 10/29/2024 19:18:34 Plan of Treatment Reminders Order Date Submit Date Provider Last Modified By Organization Details Last Modified Time Details Appointments None record ed. Lab None record ed. Referral None record ed. Procedures None record ed. Surgeries None record ed. Imaging None record ed. Medication Orders None record ed. Patient TargetsNo targets recorded. Patient InstructionsNo instructions recorded. Reason for Referral None Reported. Medical Equipment None Reported. Allergies Allergen ID Allergen Name Allergen Category Reaction Reaction Severity Criticality Documentation Date Start Date Code Code System Note Provider Name and Address Organization Details Recorded Time 25994 ibuprofen medicatio n Not available Not available Not available 10/29/2024 5640 RxNorm Not Available [facility] - production 14:29:58 20921 cyclobenz aprine hydrochlo ride medicatio n Not available Not available Not available 10/29/2024 24899 RxNorm Not Available [facility] - production 14:29:58 7046 egg extract food,medi cation Not available Not available Not available 07/17/2024 22000 15 RxNorm Not Available [facility] - production [...] Not Available Not Available Not Available omega 1-fhw-xet-fi sh oil 60 mg-90 mg-500 mg capsule [...] Not Available Not Available Vitals Date Recorded Respiratory rate Body temperature Oxygen saturation Oxygen saturation in Arterial blood by Pulse oximetry Heart rate Systolic blood pressure Diastolic blood pressure Provider Name and Address Organization Details Last Updated DateTime 16 /min 98.4 [degF] 98 % 98 % 89 /min 138 mm[Hg] 88 mm[Hg] Not Available [facility] - production 18:15:32 Social History None recorded. Functional Status None recorded. Mental Status None recorded. Family History Nothing Reported. Medical History No medical history recorded. Gynecological HistoryNo gynecological history recorded. Obstetrics History GPAL:G 0 P 0 0 0 0 Past Encounters Encounter ID Performer Location Encounter Start Date Encounter Closed Date Diagnosis/Indication Diagnosis SNOMED-CT Code Diagnosis ICD10 Code Diagnosis Note [id number] Michael Barrera MD [facility] [address] [place] [phone] 10/29/2024 18:15:21 10/29/2024 21:43:07 Pain in left foot [id number] 29791 M79.672 Health Concerns Section Related Observation LastModified by Organization Detai ls LastModified Time None Recorded Concern Status LastModified by Organization Details LastModified Time None Recorded Payers Encounter Date Sequence Insurance Name Policy Number Policy Dumont Covered Member ID Dumont Member ID Guarantor Name 10/29/2024 1 [facility] - DOS ON OR AFTER 2022 - DUAL ELIGIBLE - SENIOR LIVING OPTIONS AND ONE CARE (MEDICARE REPLACEMENT/ADV ANTAGE - HMO) Rodrigue Janesjessica [id number] Rodrigue Janesjessica Notes Date Note Type Note Provider Name and Address Organization Details Recorded Time 10/29/2024 text/html CRC Nurse Triage Notes (Georgette Meade - RN): Reason For Request: Pt reporting a fall that occured today which has resulted in left ankle swelling (starting to bruise, 8 out of 10 pain) Denies: Falls with head strike and LOC Falls from a standing position, no LOC, patient is amnestic to the event Falls with isolated injury and deformity noted to limb Falls with inability to move post fall Cool extremities after fall or injury Chief Complaints: Falls PMH: COPD/Asthma, Hypertension PMH Reviewed at 10/29/2024 - : Allergies Reviewed at 10/29/2024 - : Comments: Patient calling in to place a referral, identified via name and , Patient who slipped on ice, and believes she sprained her left ankle. She denies head strike, and does not take any blood thinners. Patient reports 8/10 pain, swelling to her outer ankle, looks like an egg , denies any other deformities, and is starting to bruise. She reports being unable to bear weight. She also is experiencing some lower back pain. Denies kidney disease. She is aware we may recommended imaging, however, she prefers to start with an istED visit. She took 3 tylenols prior to call. She was advised to keep elevated and apply ice. .................. .................. .................. .................. .................. .................. .................. ............... Brand Communications Manager Note From Alexander Pugh: Dispatch to the call address for the female with possible ankle injury. Pt states she slipped on the ice this morning. She denies head strike/LOC. She states the swelling of her left ankle has gotten worse throughout the day despite using ice. She advises that she is allergic to NSAIDs (facial swelling) but has taken Tylenol to help with pain. She endorses some numbness in the toes and is not able to flex her foot nor bare weight. Patient was found sitting in living room recliner, CAOX4, in no obvious distress, breathing non-labored, airway open and patent. Mucus membranes pink and moist, skin PWD with good turgor, lung sounds CTA, A febrile, ABD soft nontender/distende d, ? CVA tenderness, Pupils PERRL, +swelling to left ankle (top/lateral/media l aspects), unable to palpate pedal pulses, Pt did have sensation at the bottom and top of her foot. C consulted. Pt advised that she should have it imaged sooner rather than later. Pt advised she would call for a ride to urgent care and if she was not able to procure one she would call 911. Red flags discussed. All times are approximate. .................. .................. .................. .................. .................. .................. .................. ............... [facility] Consulted: Michael Barrera .................. .................. .................. .................. .................. .................. .................. ............... Disposition: Fulfilled Michael Barrera MD [address] [facility],[address], [place], [phone], [employer] 10/29/2024 21:31:08 OBGyn Episode No OBEpisode recorded.
--- OUTSIDE RECORDS SUMMARY | 2024-10-30 13:43 | XMS_ITS | Data Portability ---
Author Organization [employer] Address [address] [place] [phone] Care Team Providers Care Internist Medical Doctor Md Name Role Phone HIM [facility] Primary Care Provider Assessment Encounter Date [...] DS 800 mg-160 mg tablet 024 024 [id number] [address] [place], [place], [phone], 4 16:00:01 Patient TargetsNo targets recorded. Patient InstructionsNo instructions recorded. Reason for Referral None Reported. Medical Equipment None Reported. Allergies Allergen ID Allergen Name Allergen Category Reaction Reaction Severity Criticality Documentation Date Start Date Code Code System Note Provider Name and Address Organization Details Recorded Time 60171 ibuprofen medicatio n Not available Not available Not available 10/29/2024 5640 RxNorm Not Available [facility] - production 5 14:29:58 71824 cyclobenz aprine hydrochlo ride medicatio n Not available Not available Not available 10/29/2024 10727 RxNorm Not Available [facility] - production 5 14:29:58 7046 egg extract food,medi cation Not available Not available Not available 07/17/2024 04180 15 RxNorm Not Available [facility] - production 4 03:34:34 Medications Name Sig [...] Not Available Not Available Not Available omega 5-tbx-hge-fi sh oil 60 mg-90 mg-500 mg capsule [...] Updated DateTime 3 165.1 cm 18 /min 29268.8 88 g 98.4 [degF] 96 % 96 % 70 /min 109 mm[Hg] 76 mm[Hg] Not Available [facility] 3 17:55:02 Date Recorded Oxygen saturation Oxygen saturation in Arterial blood by Pulse oximetry Body height Heart rate Respiratory rate Body weight Body temperature Systolic blood pressure Diastolic blood pressure Provider Name and Address Organization Details Last Updated DateTime 4 95 % 95 % 152.4 cm 95 /min 16 /min 67832.5 2 g 99.3 [degF] 160 mm[Hg] 89 mm[Hg] Not Available [facility] 4 15:56:16 Date Recorded Respiratory rate Body temperature Oxygen saturation Oxygen saturation in Arterial blood by Pulse oximetry Heart rate Systolic blood pressure Diastolic blood pressure Provider Name and Address Organization Details Last Updated DateTime 5 16 /min 98.4 [degF] 98 % 98 % 89 /min 138 mm[Hg] 88 mm[Hg] Not Available [facility] 5 18:15:32 Social History None recorded. Functional Status None recorded. Mental Status None recorded. Family History Nothing Reported. Medical History No medical history recorded. Gynecological HistoryNo gynecological history recorded. Obstetrics History GPAL:G 0 P 0 0 0 0 Past Encounters Encounter ID Performer Location Encounter Start Date Encounter Closed Date Diagnosis/Indication Diagnosis SNOMED-CT Code Diagnosis ICD10 Code Diagnosis Note [id number] Alex Hall MD [facility] - [facility] [address] [place] [phone] 02/21/2023 17:54:56 02/22/2023 15:43:28 Pain of right knee region [id number] 46586 M25.561 This 62-year-ol d female apparently sustained [...] PCP. The patient agreed with this plan. [id number] Saundra Chen MD Main - [facility] [address] [place] [phone] 05/07/2024 15:56:03 05/07/2024 22:38:04 Infection of big toe [id number] L08.9 64 year old female with COPD [...] assessment and plan as documented by the head of mathematics. I provided real-time medical direction for this encounter and was immediatel y available to provide additional phone-base d assistance as needed. We discussed the diagnostic uncertaint y of home visits and associated risks. We discussed the need to seek care urgently/e mergently in the setting of any new or worsening symptoms. [id number] Michael Barrera MD Main - [facility] [address] [place] [phone] 10/29/2024 18:15:21 10/29/2024 21:43:07 Pain in left foot [id number] 06264 M79.672 Health Concerns Section Related Observation LastModified by Organization Detai ls LastModified Time None Recorded Concern Status LastModified by Organization Details LastModified Time None Recorded Advance Directives Directive None Recorded Payers Encounter Date Sequence Insurance Name Policy Number Policy Dumont Covered Member ID Dumont Member ID Guarantor Name 02/21/2023 1 [facility] - DOS ON OR AFTER 2022 - DUAL ELIGIBLE - SKILLED NURSING OPTIONS AND ONE CARE (MEDICARE REPLACEMENT/ADV ANTAGE - HMO) Diolinda Bahadur [id number] Diolinda Bahadur 05/07/2024 1 [facility] - DOS ON OR AFTER 2022 - DUAL ELIGIBLE - SKILLED NURSING OPTIONS AND ONE CARE (MEDICARE REPLACEMENT/ADV ANTAGE - HMO) Diolinda Bahadur [id number] Diolinda Bahadur 10/29/2024 1 [facility] - DOS ON OR AFTER 2022 - DUAL ELIGIBLE - SKILLED NURSING OPTIONS AND ONE CARE (MEDICARE REPLACEMENT/ADV ANTAGE - HMO) Diolmela Bahadur [id number] Diolinda Bahadur Notes Date Note Type Note Provider Name [...] .................. .................. .................. .................. .................. .................. ............... Stepdown Nurse Note From Hawa Murray: Sent to a [...] deformities noted; Skin: pink, warm, dry; [facility] [place] advises pt continue taking Tylenol and follow up with PCP. Red flags discussed. Pt has no further questions. .................. .................. .................. .................. .................. .................. .................. ............... Disposition: Fulfilled Alex Hall MD [address] [facility],[address], [place], [address], [employer] 02/21/2023 18:00:06 05/07/2024 text/html CRC Nurse Triage Notes (Geovany Rodriguez): Reason For Request: Patient wants someone to look at her foot, she had foot surgery and it's now painful, and swollen. Chief Complaints: Pain PMH: COPD/Asthma, Hypertension Allergies: Egg Comments: Environmental Services Worker verified the member's name//address and phone number. [...] .................. .................. .................. .................. .................. .................. ............... Stepdown Nurse Note From Dante Livingston: Pt reports surgery [...] of big toe/lateral side of foot. [facility] [place] an will send rx to pharmacy. Pt instructed to keep appointment on Tuesday and to seek emergent medical care for new or worsening sx, which are reviewed with her. .................. .................. .................. .................. .................. .................. .................. ............... Disposition: Fulfilled Saundra Chen MD [address] [facility],[address], [place], [address], [email or web address] 05/07/2024 16:11:29 10/29/2024 text/html CRC Nurse Triage Notes (Georgette [...] Falls PMH: COPD/Asthma, Hypertension PMH Reviewed at 10/29/2024: Allergies Reviewed at 10/29/2024: Comments: Patient calling in to place a [...] .................. .................. .................. .................. .................. .................. ............... Stepdown Nurse Note From Alexander Pugh: Dispatch to the [...] the bottom and top of her foot. [facility] [place]. Pt advised that she should have it imaged sooner rather than later. Pt advised she would call for a ride to urgent care and if she was not able to procure one she would call 911. Red flags discussed. All times are approximate. .................. .................. .................. .................. .................. .................. .................. ............... [facility] Consulted: Michael Barrera .................. .................. .................. .................. .................. .................. .................. ............... Disposition: Fulfilled Michael Barrera MD [address] [facility],[address], [place], [address], [facility] 10/29/2024 21:31:08 OBGyn Episode No OBEpisode recorded.
--- OUTSIDE RECORDS SUMMARY | 2024-10-30 13:43 | XMS_ITS | Encounter Summary ---
Author Organization [facility] Address [address] [place] [address] Care Team Providers Care Admissions Nurse Name Role Phone Naun Max MD Primary Care Provider [phone] Sunita Ellis MD Primary Care Provider Unava ilable Encounter Details Date Type Department Care Team Description 01/19/2016 Seed Laboratory Assistant Report Medical Records [address] [place], [place] [phone] Beth Gil MD Social History Tobacco Use Types Packs/Day Years Used Date Smoking Tobacco: Some Days Cigarettes Smokeless Tobacco: Never Comments:approx 1 cigarette Alcohol Use Standard Drinks/Week Comments No 0 (1 standard drink = 0.6 oz pur e alcohol) Sex Assigned at Date Recorded Not on file documented as of this encounter Plan of Treatment Not on file documented as of this encounter Visit Diagnoses Not on filedocumented in this encounter Care Teams Admissions Nurse Relationship Specialty Start Date End Date Naun Max MD [address] [place], [place] [phone] PCP - General Internal Medicine 08/26/14 09/26/23 Sunita Ellis MD [address] [place] [address] PCP - General Floor Attendant 09/27/23 documented as of this encounter
--- OUTSIDE RECORDS SUMMARY | 2024-10-30 13:43 | XMS_ITS | Encounter Summary ---
Author Organization [employer] Address [address] [facility] [address] [place] [address] Care Team Providers Care Resident Care Supervisor Name Role Phone Sunita Ellis MD Primary Care Provider [phone] Reason for Visit * Reason Onset Date Comments Nurse Triage 09/20/2023 Encounter Details Date Type Department Care Team ([facility] st Contact Info) Description 09/20/2023 Telephone [facility] MEDICINE [address] [place], [place] [phone] Sunita Ellis MD [address] [place], [place] [phone] Nurse Triage Social History Tobacco Use Types [...] caller accepted this outcome Please contact at [phone] documented in this encounter Plan of Treatment Not on file documented as of this encounter Visit Diagnoses Not on filedocumented in this encounter Additional Health Concerns Assessment Noted Time PHQ-9 Depression Total Score: 7 10/29/19 9:12 AM EST documented as of this encounter Care Teams Resident Care Supervisor Relationship Specialty Start Date End Date Sunita Ellis MD [address] [place] [id number] PCP - General Family Medicine 02/04/23 documented as of this encounter
--- OUTSIDE RECORDS SUMMARY | 2024-10-30 13:43 | XMS_ITS | Encounter Summary ---
Author Organization [employer] [facility] Address [address] [place] [address] Care Team Providers Care Electrophysiology Nurse Practitioner Name Role Phone Naun Max MD Primary Care Provider [phone] Sunita Ellis MD Primary Care Provider Unava ilable Reason for Visit * Reason Onset Date Comments Provider Call Back 01/27/2016 Encounter Details Date Type Department Care Team Description 01/27/2016 Telephone Adult Medicine [address] [phone] Naun Max MD [address] [place] [phone] Provider Call Back Social History Tobacco Use Types Packs/Day Years Used Date Smoking Tobacco: Some Days Cigarettes Smokeless Tobacco: Never Comments:approx 1 cigarette Alcohol Use Standard Drinks/Week Comments No 0 (1 standard drink = 0.6 oz pur e alcohol) Sex Assigned at Date Recorded Not on file documented as of this encounter Miscellaneous Notes * Telephone Encounter - Naun Max MD - 01/27/2016 6:06 PM EDT Called pt she is upset regarding her pain and he contract violation Pt brought up ? Of why we cannot randomly testing and that she has talked to the fda and they said medical [employer] 101 is that we should have done blood testing Pt was Animated but i calmly explained that the urine was sent to and independent lab and which wasgas chromatography was performed and its [place] policy That once some one test positive for any illicit substance and it is confirmed that we cannot prescribe Pt also has he case appealed Pt was not happy but was accepting Pt states she has boots on for foot fx and that she is to see Pain management which i agreed was Good idea Pt also upset about the fact she cannot breath she states her inhaler and nebulizer is not working pt contacted her shipping room supervisor who directed her to the er I also recommended pt go to there er and pt agreed to do so * Telephone Encounter - Chaparrita Singh M.A. - 01/27/2016 4:24 PM EDT Should we just have pt speak with patient services? * Telephone Encounter - Saira Bullard - 01/27/2016 4:19 PM EDT Patient demanding a call from Dr. Max, he never calls back, or keep up with her health, Please call, Also patient asked to speak with patient services . documented in this encounter Plan of Treatment Not on file documented as of this encounter Visit Diagnoses Not on filedocumented in this encounter Care Teams Electrophysiology Nurse Practitioner Relationship Specialty Start Date End Date Naun Max MD [address] [place] [id number] PCP - General Internal Medicine 08/26/14 09/26/23 Sunita Ellis MD [address] [place] [address] PCP - General Receptionist Telephone Operator 09/27/23 documented as of this encounter
--- OUTSIDE RECORDS SUMMARY | 2024-10-30 13:43 | XMS_ITS | Clinical Summary ---
Author Organization [facility] Address [address] [place] [address] Phone Care Team Providers Care Medical Support Specialist Name Role Phone Sunita Ellis MD Primary Care Provider [phone] Allergies Active Allergy Reactions Criticality Noted Date [...] PROCEDURE: HISTORICAL CHOLECYSTECTOMY OTHER SURGICAL HISTORY PROCEDURE: ND ANESTHESIA CERVICAL SPINE & CORD NOS; COMMENT: disectomy TUBAL LIGATION PROCEDURE: HISTORICAL TUBAL LIGATION Medical History Medical History Date Comments COPD (chronic obstructive pu lmonary disease) ([facility]) 09/30/2014 DX:COPD (chronic obstructive pulmonary disease) ([facility]) DJD (degenerative joint disease) 09/30/2014 DX:DJD (degenerative joint disease) Migraine 09/30/2014 DX:Migraine Fibromyalgia 09/30/2014 DX:Fibromyalgia Essential hypertension, benign 11/06/2014 D X:Essential hypertension, benign Seizure disorder ([facility]) 09/30/2014 DX:Se izure disorder ([facility]); COMMENT: Follows with Dr Best Osteoporosis [...] Results * Annual BMP Blood Test (07/14/2015) [facility] Annual BMP Blood Test Abstracted Historical Provider HEALTH MAINTENANCE Final Result * (ABNORMAL) Lipid panel (07/04/2015) [facility] LDL/HDL Ratio 3 0 - 4 Triglycerides 198(A) 0 - 150 mg/dL Cholesterol 250(A) 0 - 200 mg/dL HDL 73 >=40 mg/dL LDL Cholesterol 138(A) 0 - 100 mg/dL Blood Venous blood specimen / Unknown Historical Provider LAB BLOOD ORDERABLES Ping l Result * Cervical Cancer Screening: HPV (05/21/2015) Pathologist [facility] Cervical Cancer Screening: HPV Abstracted ,negative Historical Provider HEALTH MAINTENANCE Final Result * Hepatitis C Screening (05/21/2015) [facility] Hepatitis C Screening Abstracted Historical Provider HEALTH MAINTENANCE Final Result from Last 3 Months or Most Recently Relevant to Health Maintenance Insurance [employer] MEDICARE Member Subscriber Plan / Payer (Ef fective 2016-Present) Name:Emigdiorebecca Rodrigue Relation to Subscriber:Self Name:Rodrigue Martinez Payer ID:[id number] Group ID:[id number] Type:Not on file Address: [place] [address] [address] [address] Care Teams Medical Support Specialist Relationship Specialty Start Date End Date Snuita Ellis MD [address] [place] [address] PCP - General 09/27/23
--- OUTSIDE RECORDS SUMMARY | 2024-10-30 13:43 | XMS_ITS | Encounter Summary ---
Author Organization [employer] Address [address] [facility] 7[address] [place] [address] Care Team Providers Care Die Maker Bench Stamping Name Role Phone Sunita Ellis MD Primary Care Provider [phone] Reason for Visit * Reason Comments Med Refill Encounter Details Date Type Department Care Team (Late st Contact Info) Description 04/09/2024 Refill [facility] MEDICINE [address] [place], [place] [phone] Carlos Orozco AGNP Hyperlipidemia, unspecified hyperlipidemia type [...] documented as of this encounter Care Teams Die Maker Bench Stamping Relationship Specialty Start Date End Date Sunita Ellis MD [address] [place] [address] PCP - General Family Medicine 02/04/23 documented as of this encounter
--- OUTSIDE RECORDS SUMMARY | 2024-10-30 13:43 | XMS_ITS | Clinical Summary ---
Author Organization [employer] Address [address] [facility] 7t [place] [address] Care Team Providers Care Riveter Hand Name Role Phone Sunita Ellis MD Primary Care Provider [phone] Allergies Active Allergy Reactions Criticality Noted Date [...] about testing for familial hypercholesterolemia, please call [employer] at [email or web address].GENE.INFO. Veronica Blount, et al. J National Lipid [...] LDL-C. Esdras TOVAR et al. ROBER. 2013;310(19): 4185-1655 (http://ORVIBO.Birks [employer] Mayors/faq/VMO572) Chol/HDLC Ratio <5.0 (calc) 6.5??High?? 5.1??High?? 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 Date Type Department Care Team Description 10/30/2024 Orders Only [facility] External Provider, [facility] 09/06/2024 Refill [facility] CHC MED & PEDS [address] [place] [address] Sunita Ellis MD 08/08/2024 Telephone [facility] MEDICINE [address] [place] [address] Manisha Yeboah [place] Durable Medical Equipment from [...] Procedure Name Priority Date/Time Associated Diagnosis Comments XR ANKLE 2 VIEWS LEFT Routine 10/30/2024 11:50 AM EST XR FOOT 1-2 VIEWS LEFT Routine 11:50 AM EST HEMOGLOBIN A1C Routine 09/11/2024 9:10 AM EST [...] Recently Relevant to Health Maintenance Results * XR Foot 1-2 Views Left (10/30/2024 11:50 AM EST) Anatomical Region Laterality Modality Lower Extremities, Foot Left Radiogra phic Imaging 10/30/2024 11:5 0 AM EST Narrative 10/30/2024 12:07 PM EST ? [facility] ?[address] ?[place] [address] ?XRay Report ? Signed ? Patient: Bahadur,Diolinda ?MR#: [id number] ?? [id number] ? : 1960 ?Acct:[id number] ? Age/Sex: 64 / F ?ADM Date: 10/30/24 ? Loc: HO.ED ? Attending Dr: ? Ordering Physician: Generic ED Physician ?? Date of Service: 10/30/24 ?? Procedure(s): XR foot LT 2V ?? Accession Number(s): [id number] ? cc: Generic ED Physician; Sunita Ellis ? EXAMINATION: ?? XR FOOT, LEFT ? CLINICAL INFORMATION: ?? fall ? COMPARISON: ?? None available. ? TECHNIQUE: ?? AP, lateral, and oblique views of the left foot. ? FINDINGS: ?? The bones and soft tissues are normal. No fracture. Alignment is ?? anatomic. Joint spaces are maintained. ? XR/XR foot LT 2V ?? IMPRESSION: ?? Unremarkable left foot. ? Electronically signed by: ??Babar Pitts MD ??10/30/2024 12:04 PM EST RP ? Dictated By: ?Babar Pitts MD ? Signed By: ?<Electronically signed by Babar Pitts MD in OV> ?10/30/24 1204 ? DD/ 1150 ? TD/TT: 10/30/24 1157 ? Commercial Construction Estimator: MSM ? Procedure Note Angeli Howard - 10/30/[address] [address] XRay Report Signed Patient: Edvin Martinez#: [id number] : 2Acct:[id number] Age/Sex: 64 / FADM Date: 10/30/24 Loc: HO.ED Attending Dr: Ordering Physician: Generic ED Physician Date of Service: 10/30/24 Procedure(s): XR foot LT 2V Accession Number(s): [id number] cc: Generic ED Physician; Sunita Ellis EXAMINATION: XR FOOT, LEFT CLINICAL INFORMATION: fall COMPARISON: None available. TECHNIQUE: AP, lateral, and oblique views of the left foot. FINDINGS: The bones and soft tissues are normal. No fracture. Alignment is anatomic. Joint spaces are maintained. XR/XR foot LT 2V IMPRESSION: Unremarkable left foot. Electronically signed by: Babar Pitts MD 10/30/2024 12:04 PM EST RP Dictated By: Babar Pitts MD Signed By: <Electronically signed by Babar Pitts MD in OV> 10/30/24 1204 DD/ 1150 TD/TT: 10/30/24 1157 Commercial Construction Estimator: PIPO [facility] External Provider IMG XR PROCEDURES Final Result * XR Ankle 2 Views Left (10/30/2024 11:50 AM EST) Anatomical Region Laterality Modality Lower Extremities, Ankle Left Radiogr aphic Imaging 10/30/2024 11:5 0 AM EST Narrative 10/30/2024 12:10 PM EST ? [facility] ?[address] ?[place] [address] ?XRay Report ? Signed ? Patient: Rodrigue Martinez ?MR#: [id number] ?? [id number] ? : 1960 ?Acct:[id number] ? Age/Sex: 64 / F ?ADM Date: 10/30/24 ? Loc: HO.ED ? Attending Dr: ? Ordering Physician: Generic ED Physician ?? Date of Service: 10/30/24 ?? Procedure(s): XR ankle LT 2V ?? Accession Number(s): [id number] ? cc: Generic ED Physician; Sunita Ellis ? EXAMINATION: ?? XR ANKLE, LEFT ? CLINICAL INFORMATION: ?? fall ? COMPARISON: ?? None available. ? TECHNIQUE: ?? AP, lateral, and mortise views of the left ankle. ? FINDINGS: ?? Moderate lateral malleolar soft tissue swelling. No visible acute ?? fracture, dislocation subluxation seen. The ankle mortise and subtalar ?? joints are normal. There is mild dorsal ankle soft tissue swelling. ? XR/XR ankle LT 2V ?? IMPRESSION: ?? Moderate lateral malleolar soft tissue swelling. No visible acute ?? fracture or dislocation seen. ? Electronically signed by: ??Babar Pitts MD ??10/30/2024 12:07 PM EST RP ? Dictated By: ?Gisselle,Babar S MD ? Signed By: ?<Electronically signed by Babar Pitts MD in OV> ?10/30/24 1207 ? DD/ 1150 ? TD/TT: 10/30/24 1157 ? Commercial Construction Estimator: PIPO ? Procedure Note Kathyter, Image - 10/30/[address] [address] XRay Report Signed Patient: Edvin Martinez#: [id number] : 2Acct:[id number] Age/Sex: 64 / FADM Date: 10/30/24 Loc: HO.ED Attending Dr: Ordering Physician: Generic ED Physician Date of Service: 10/30/24 Procedure(s): XR ankle LT 2V Accession Number(s): [id number] cc: Generic ED Physician; Sunita Ellis EXAMINATION: XR ANKLE, LEFT CLINICAL INFORMATION: fall COMPARISON: None available. TECHNIQUE: AP, lateral, and mortise views of the left ankle. FINDINGS: Moderate lateral malleolar soft tissue swelling. No visible acute fracture, dislocation subluxation seen. The ankle mortise and subtalar joints are normal. There is mild dorsal ankle soft tissue swelling. XR/XR ankle LT 2V IMPRESSION: Moderate lateral malleolar soft tissue swelling. No visible acute fracture or dislocation seen. Electronically signed by: Babar Pitts MD 10/30/2024 12:07 PM [facility] Dictated By: Babar Pitts MD Signed By: <Electronically signed by Babar Pitts MD in OV> 10/30/24 1207 DD/ 1150 TD/TT: 10/30/24 1157 Commercial Construction Estimator: PIPO us [facility] External Provider IMG XR PROCEDURES Final Result * TSH W/Reflex to FT4 (09/11/2024 9:10 AM EST) TSH reflex Free T4 0.74 0.32 - 4.0 uIU/mL [facility] Blood Venous blood specimen / Unknown 09/11/2024 9:10 AM EST 09/11/2024 10:59 AM EST Sunita Ellis MD LAB BLOOD ORDERABLES Final Res ult Performing Organization Address City/[facility]/ZIP Co de Phone Number [facility] [address] [place] [phone] * Hemoglobin A1c (09/11/2024 9:10 AM EST) Hemoglobin A1c 5.4 <6.0 % [facility] Comment:Hemoglobin A1C Refer ence Range Adults: 4.8 - 6.0 % Non diabetic: < 6.0 % Goal: < 7.0 %Additional Action Suggested: > 8.0 %Note: Hemoglobin A1c results are invalid for patients with abnormal amounts of HbF. Blood transfusions may impact the HbA1c concentration in the patient sample. Estimated Average Glucose 108 mg/dL [facility] Comment:eAG = Estimated ave rage glucose which is %A1C expressed asaverage glucose, using the formula of the B7Q-NmwfxexTmkqhlu Glucose study (ADAG), Diabetes Care, Vol.31,#8,Apr. 2007 Blood Venous blood specimen / Unknown 09/11/2024 9:10 AM EST 09/11/2024 10:59 AM EST us Sunita Ellis MD LAB BLOOD ORDERABLES Final Res ult Performing Organization Address City/[facility]/ZIP Co de Phone Number [facility] [address] [place] [phone] * (ABNORMAL) Lipid Panel, Standard (09/11/2024 9:10 AM EST) Triglycerides 231(H) <150 mg/dL [facility] Comment:Desirable Triglyceri de: less than 150 mg/dLBorderline High Triglyceride 150-199 mg/dLHigh Triglyceride: 200-499 mg/dLVery High Triglyceride: greater than or equal to 5OO mg/dL Cholesterol 192 <200 mg/dL [facility] Comment:Desirable Cholestero l: less than 200 mg/dLBorderline High Cholesterol: 200-239 mg/dLHigh Cholesterol: greater than 239 mg/dL LDL Cholesterol Calculated 95 <100 mg/dL [facility] Comment:Desirable LDL: less than 100 mg/dLNear Optimal/Above Optimal LDL: 110- 129 mg/dLBorderline High LDL: 130-159 mg/dLHigh LDL: 160-189 mg/dLVery High LDL: greater than or equal to 190 mg/dL HDL Cholesterol 51 >40 mg/dL [facility] Comment:Desirable HDL: great er than 40 mg/dL Note: This HDL assay may give artificially low results in patients with liver disease. Blood Venous blood specimen / Unknown 09/11/2024 9:10 AM EST 09/11/2024 10:59 AM EST us Sunita Ellis MD LAB BLOOD ORDERABLES Final Res ult [facility] [address] [place] [phone] * (ABNORMAL) Comprehensive Metabolic Panel (09/11/2024 9:10 AM EST) Sodium 143 135 - 145 mmol/L [facility] Potassium 3.7 3.3 - 5.1 mmol/L [facility] Chloride 107 96 - 108 mmol/L [facility] Carbon Dioxide 28 22 - 29 mmol/L [facility] Anion Gap 12 12 - 20 [facility] Urea Nitrogen (BUN) 18(H) 9 - 16 mg/dL [facility] Creatinine, Serum 0.93 0.5 - 1.4 mg/dL [facility] Estimated Glomerular Filt Rate >60 [facility] Comment:Chronic Kidney Disea se: Estimated GFR < 60 mL/min/1.91t0Artpnp Kidney Disease: Estimated GFR < 15 mL/min/1.73m2 Glucose 130(H) 60 - 115 mg/dL [facility] Calcium 8.9 8.4 - 10.2 mg/dL [facility] Bilirubin, Total 0.3 0.0 - 1.0 mg/dL [facility] Aspartate Amino Transferase 25 5 - 31 U/L [facility] Alanine Aminotransferase 17 0 - 31 U/L [facility] Total Protein 7.4 6.5 - 8.0 g/dL [facility] Albumin Level 3.9 3.5 - 5.0 g/dL [facility] Alkaline Phosphatase 75 39 - 117 U/L [facility] Blood Venous blood specimen / Unknown 09/11/2024 9:10 AM EST 09/11/2024 10:59 AM EST Sunita Ellis MD LAB BLOOD ORDERABLES Final Res ult [facility] [address] [place] [phone] * Mammography Report 1 (09/02/2020 7:53 AM EST) Anatomical Region Laterality Modality Breast Bilateral Mammography 09/02/2020 7:53 AM EST Narrative 09/02/2020 11:51 AM EST Refer to the Notes tab for result details [facility] Procedure: Mammography Report 1 Procedure Note Provider, MD Virgen - 12/11/2022 Refer to the Notes tab for result details [facility] Procedure: Mammography Report 1 us Miri Reyes COMMISSIONER OF INTERNAL REVENUE IMG BI PROCEDURES Final Result from Last 3 Months or Most Recently Relevant to Health Maintenance Insurance [facility] Care Teams Riveter Hand Relationship Specialty Start Date End Date Sunita Ellis MD [address] [place] [phone] PCP - General Family Medicine 02/04/23
--- OUTSIDE RECORDS SUMMARY | 2024-10-30 13:43 | XMS_ITS | Encounter Summary ---
Author Organization [employer] Address [address] [place] [address] [address]t [place] [address] Care Team Providers Care Manager Wholesale Name Role Phone Carlos Orozco Primary Care Provider Unavail able Sunita Ellis MD Primary Care Provider [phone] Reason for Visit * Reason Comments Med Refill Encounter Details Date Type Department Care Team (Late st Contact Info) Description 01/26/2023 Refill [facility] MEDICINE [address] [place], [place] [phone] Carlos Orozco AGNP Social History Tobacco Use [...] documented as of this encounter Care Teams Manager Wholesale Relationship Specialty Start Date End Date Carlos Orozco AGNP PCP - General Family Medicine 10/05/22 02/03/23 Sunita Ellis MD [address] [place] [address] PCP - General Family Medicine 02/04/23 documented as of this encounter
--- OUTSIDE RECORDS SUMMARY | 2024-10-30 13:43 | XMS_ITS | Encounter Summary ---
Author Organization [employer] Address [address] [facility] 7t [place] [address] Care Team Providers Care Psychiatric Arnp Name Role Phone Sunita Ellis MD Primary Care Provider [phone] Reason for Visit * Reason Comments Med Refill Encounter Details Date Type Department Care Team (Late st Contact Info) Description 09/06/2024 Refill [facility] CHC MED & PEDS [address] [place], [place] [phone] Sunita Ellis MD [address] [place] [address] Social History Tobacco Use Types Packs/Day Years [...] documented as of this encounter Care Teams Psychiatric Arnp Relationship Specialty Start Date End Date Sunita Ellis MD [address] [place] [phone] PCP - General Family Medicine 02/04/23 documented as of this encounter
--- OUTSIDE RECORDS SUMMARY | 2024-10-30 13:43 | XMS_ITS | Encounter Summary ---
Author Organization [employer] Address [address] [facility] [address] [place] [address] Care Team Providers Care Supervisor [employer] Products Name Role Phone Sunita Ellis MD Primary Care Provider [phone] Reason for Visit * Reason Onset Date Comments Med Refill 09/23/2023 Encounter Details Date Type Department Care Team ([facility] st Contact Info) Description 09/23/2023 Refill [facility] CHC MED & PEDS [address] [place], [place] [phone] Sunita Ellis MD [address] [place] [address] Social History Tobacco Use Types Packs/Day Years [...] documented as of this encounter Care Teams Supervisor Maple Products Relationship Specialty Start Date End Date Sunita Ellis MD [address] [place] [phone] PCP - General Family Medicine 02/04/23 documented as of this encounter
--- OUTSIDE RECORDS SUMMARY | 2024-10-30 13:43 | XMS_ITS | Encounter Summary ---
Author Organization [facility] Address [address] [place] [address] Care Team Providers Care Supervisor Finishing Room Name Role Phone Naun Max MD Primary Care Provider [phone] Sunita Ellis MD Primary Care Provider Unava ilable Encounter Details Date Type Department Care Team Description 08/05/2017 Silo Painter Report Medical Records [address] [place], [place] [phone] Beth Gil MD Social History Tobacco Use Types Packs/Day Years Used Date Smoking Tobacco: Former Cigarettes Smokeless Tobacco: Never Comments:quit january 2016 Alcohol Use Standard Drinks/Week Comments No 0 (1 standard drink = 0.6 oz pur e alcohol) Sex Assigned at Date Recorded Not on file documented as of this encounter Plan of Treatment Not on file documented as of this encounter Visit Diagnoses Not on filedocumented in this encounter Care Teams Supervisor Finishing Room Relationship Specialty Start Date End Date Naun Max MD [address] [place], [place] [phone] PCP - General Internal Medicine 08/26/14 09/26/23 Sunita Ellis MD [address] [place] [phone] PCP - General Seo Professional 09/27/23 documented as of this encounter
--- OUTSIDE RECORDS SUMMARY | 2024-10-30 13:43 | XMS_ITS | Encounter Summary ---
Author Organization [employer] Address [address] [facility] 7t [place] [address] Care Team Providers Care Handbag Framer Name Role Phone Sunita Ellis MD Primary Care Provider [phone] Encounter Details Date Type Department Care Team ([facility] st Contact Info) Description 08/01/2023 Abstract [facility] MEDICINE [address] [place], [place] [phone] Sunita Ellis MD [address] [place], [place] [phone] Social History Tobacco Use Types Packs/Day Years [...] documented as of this encounter Care Teams Handbag Framer Relationship Specialty Start Date End Date Sunita Ellis MD [address] [place] [phone] PCP - General Family Medicine 02/04/23 documented as of this encounter
--- OUTSIDE RECORDS SUMMARY | 2024-10-30 13:43 | XMS_ITS | Encounter Summary ---
Author Organization [facility] Address [address] [place] [address] Care Team Providers Care Strategy Manager Name Role Phone Naun Max MD Primary Care Provider [phone] Sunita Ellis MD Primary Care Provider Unava ilable Encounter Details Date Type Department Care Team Description 09/04/2015 Heeler Report Medical Records [address] [place], [place] [phone] Beth Gil MD Social History Tobacco Use [...] on filedocumented in this encounter Care Teams Strategy Manager Relationship Specialty Start Date End Date Naun Max MD [address] [place], [place] [phone] PCP - General Internal Medicine 08/26/14 09/26/23 Sunita Ellis MD [address] [place] [phone] PCP - General Hot Tar Roofer Helper 09/27/23 documented as of this encounter
--- OUTSIDE RECORDS SUMMARY | 2024-10-30 13:43 | XMS_ITS | Encounter Summary ---
Author Organization [employer] [facility] Address [address] [place] [address] Care Team Providers Care Interventional Radiologist Name Role Phone Naun Max MD Primary Care Provider [phone] Sunita Ellis MD Primary Care Provider Unava ilable Encounter Details Date Type Department Care Team Description 08/11/2015 Advertising Assistant Report Medical Records [address] [place], [place] [phone] Beth Gil MD Social History Tobacco Use [...] on filedocumented in this encounter Care Teams Interventional Radiologist Relationship Specialty Start Date End Date Naun Max MD [address] [place], [place] [phone] PCP - General Internal Medicine 08/26/14 09/26/23 Sunita Ellis MD [address] [place] [address] PCP - General Pattern Chart Writer 09/27/23 documented as of this encounter
--- OUTSIDE RECORDS SUMMARY | 2024-10-30 13:43 | XMS_ITS | Encounter Summary ---
Author Organization [employer] [facility] Address [address] [place] [address] Care Team Providers Care Cost And Sales Record Supervisor Name Role Phone Naun Max MD Primary Care Provider [phone] Sunita Ellis MD Primary Care Provider Unava ilable Encounter Details Date Type Department Care Team Description 11/04/2015 Hospital Medical Records [address] [place] [address] Jase Mistry Social History Tobacco Use Types Packs/Day Years [...] on filedocumented in this encounter Care Teams Cost And Sales Record Supervisor Relationship Specialty Start Date End Date Naun Max MD [address] [place], [place] [phone] PCP - General Internal Medicine 08/26/14 09/26/23 Sunita Ellis MD [address] [place] [address] PCP - General Licensed Embalmer Supervisor 09/27/23 documented as of this encounter
--- OUTSIDE RECORDS SUMMARY | 2024-10-30 13:43 | XMS_ITS | Encounter Summary ---
Author Organization [employer] Address [address] [facility] [address]t [place] [address] Care Team Providers Care Corner Cutter Name Role Phone Sunita Ellis MD Primary Care Provider [phone] Encounter Details Date Type Department Care Team ([facility] st Contact Info) Description 07/04/2023 Abstract [facility] MEDICINE [address] [place], [place] [phone] Sunita Ellis MD [address] [place], [place] [phone] Social History Tobacco Use Types Packs/Day Years [...] documented as of this encounter Care Teams Corner Cutter Relationship Specialty Start Date End Date Sunita Ellis MD [address] [place] [phone] PCP - General Family Medicine 02/04/23 documented as of this encounter
--- OUTSIDE RECORDS SUMMARY | 2024-10-30 13:43 | XMS_ITS | Encounter Summary ---
Author Organization [employer] [facility] Address [address] [place] [address] Care Team Providers Care Recruiting Scheduler Name Role Phone Naun Max MD Primary Care Provider [phone] Sunita Ellis MD Primary Care Provider Unava ilable Encounter Details Date Type Department Care Team Description 04/02/2016 Walk In Clinic Visit Medical Records [address] [phone] Social History Tobacco Use Types Packs/Day Years [...] on filedocumented in this encounter Care Teams Recruiting Scheduler Relationship Specialty Start Date End Date Naun Max MD [address] [place], [place] [phone] PCP - General Internal Medicine 08/26/14 09/26/23 Sunita Ellis MD [address] [place] [address] PCP - General Follow Up Manager 09/27/23 documented as of this encounter
--- OUTSIDE RECORDS SUMMARY | 2024-10-30 13:44 | XMS_ITS | Encounter Summary ---
Author Organization [facility] Address [address] [place] [address] Care Team Providers Care Claim Benefit Specialist Name Role Phone Naun Max MD Primary Care Provider [phone] Sunita Ellis MD Primary Care Provider Unava ilable Encounter Details Date Type Department Care Team Description 09/27/2014 Hospital Medical Records [address] [place] [address] Social History Tobacco Use Types Packs/Day Years [...] on filedocumented in this encounter Care Teams Claim Benefit Specialist Relationship Specialty Start Date End Date Naun Max MD [address] [place], [place] [phone] PCP - General Internal Medicine 08/26/14 09/26/23 Sunita Ellis MD [address] [place] [address] PCP - General Wheel Worker 09/27/23 documented as of this encounter
--- OUTSIDE RECORDS SUMMARY | 2024-10-30 13:44 | XMS_ITS | Encounter Summary ---
Author Organization [facility] Address [address] [place] [address] Care Team Providers Care Miller Distillery Name Role Phone Sunita Ellis MD Primary Care Provider Alicia burton Encounter Details Date Type Department Care Team Description 05/03/2024 Telephone [facility] Medical [facility] [address] [phone] Juan Arias DPM [address] [address] Social History Tobacco Use Types Packs/Day Years Used Date Smoking Tobacco: Former Cigarettes Smokeless Tobacco: Never Comments:quit january 2016 Alcohol Use Standard Drinks/Week Comments No 0 (1 standard drink = 0.6 oz pur e alcohol) Sex Assigned at Date Recorded Not on file documented as of this encounter Miscellaneous Notes * Telephone Encounter - Eda Hayes - 05/03/2024 11:35 AM EDT Rodrigue called in stating her foot is red, swollen and very painful. DOS 03/02 Right foot bunionectomy. I offered her to come in today but she does not have transportation so she is scheduled for 05/09. Spoke to Ruthie as well and she suggested her to go to the ER or a urgent care to rule out infection. Patient agreed. Please advise. Thanks documented in this encounter Plan of Treatment Not on file documented as of this encounter Visit Diagnoses Not on filedocumented in this encounter Care Teams [employer] Relationship Specialty Start Date End Date Sunita Ellis MD PCP - General Papier Mache' Molder 09/27/23 documented as of this encounter
--- OUTSIDE RECORDS SUMMARY | 2024-10-30 13:44 | XMS_ITS | Encounter Summary ---
Author Organization [employer] Address [address] [facility] 7t [place] [address] Care Team Providers Care Wooling Machine Operator Name Role Phone Sunita Ellis MD Primary Care Provider [phone] Encounter Details Date Type Department Care Team (Late st Contact Info) Description 10/30/2024 Orders Only [facility] External Provider, [facility] Social History Tobacco Use Types Packs/Day Years [...] on file documented as of this encounter Procedures Procedure Name Priority Date/Time Associated Diagnosis Comments XR FOOT 1-2 VIEWS LEFT Routine 10/30/2024 11:50 AM EST XR ANKLE 2 VIEWS LEFT Routine 10/30/2024 11:50 AM EST documented in this encounter Results * XR Ankle 2 Views Left (10/30/2024 11:50 AM EST) Anatomical Region Laterality Modality Lower Extremities, Ankle Left Radiogr aphic Imaging 10/30/2024 11:5 0 AM EST Narrative 10/30/2024 12:10 PM EST ? [facility] ?[address] ?[place] [address] ?XRay Report ? Signed ? Patient: Rodrigue Martinez ?MR#: [id number] ?? [id number] ? : 1960 ?Acct:[id number] ? Age/Sex: 64 / F ?ADM Date: 10/30/24 ? Loc: HO.ED ? Attending Dr: ? Ordering Physician: Generic ED Physician ?? Date of Service: 10/30/24 ?? Procedure(s): XR ankle LT 2V ?? Accession Number(s): [id number] ? cc: Generic ED Physician; Sunita Ellis [...] PM EST RP ? Dictated By: ?Gisselle,Babar Mcmullen MD ? Signed By: ?<Electronically signed by Babar Pitts MD in OV> ?10/30/24 1207 ? DD/ 1150 ? TD/TT: 10/30/24 1157 ? Service Operator: PIPO ? Procedure Note Kathyter, Image - 10/30/[address] [address] XRay Report Signed Patient: Edvin Martinez#: [id number] : 2Acct:[id number] Age/Sex: 64 / FADM Date: 10/30/24 Loc: HO.ED Attending Dr: Ordering Physician: Generic ED Physician Date of Service: 10/30/24 Procedure(s): XR ankle LT 2V Accession Number(s): [id number] cc: Generic ED Physician; Sunita Ellis EXAMINATION: [...] by: Babar Pitts MD 10/30/2024 12:07 PM [facility] Dictated By: Babar Pitts MD Signed By: <Electronically signed by Babar Pitts MD in OV> 10/30/24 1207 DD/ 1150 TD/TT: 10/30/24 1157 Service Operator: PIPO [facility] External Provider IMG XR PROCEDURES Final Result * XR Foot 1-2 Views Left (10/30/2024 11:50 AM EST) Anatomical Region Laterality Modality Lower Extremities, Foot Left Radiogra phic Imaging 10/30/2024 11:5 0 AM EST Narrative 10/30/2024 12:07 PM EST ? [facility] ?[address] ?[place] [address] ?XRay Report ? Signed ? Patient: Bahadur,Diolinda ?MR#: [id number] ?? [id number] ? : 1960 ?Acct:[id number] ? Age/Sex: 64 / F ?ADM Date: 10/30/24 ? Loc: HO.ED ? Attending Dr: ? Ordering Physician: Generic ED Physician ?? Date of Service: 10/30/24 ?? Procedure(s): XR foot LT 2V ?? Accession Number(s): [id number] ? cc: Generic ED Physician; Sunita Ellis [...] 12:04 PM EST RP ? Dictated By: ?Gisselle,Babar S MD ? Signed By: ?<Electronically signed by Babar Kemi Pitts MD in OV> ?10/30/24 1204 ? DD/ 1150 ? TD/TT: 10/30/24 1157 ? Service Operator: MSM ? Procedure Note Angeli Howard - 10/30/[address] [address] XRay Report Signed Patient: Edvin Martinez#: [id number] : 2Acct:[id number] Age/Sex: 64 / FADM Date: 10/30/24 Loc: HO.ED Attending Dr: Ordering Physician: Generic ED Physician Date of Service: 10/30/24 Procedure(s): XR foot LT 2V Accession Number(s): [id number] cc: Generic ED Physician; Sunita Ellis EXAMINATION: [...] 10/30/24 1204 DD/ 1150 TD/TT: 10/30/24 1157 Service Operator: PIPO [facility] External Provider IMG XR PROCEDURES Final Result documented in this encounter Visit Diagnoses Not on filedocumented in this encounter Additional Health Concerns Assessment Noted Time PHQ-9 Depression Total Score: 7 10/29/19 23 9:12 AM EST documented as of this encounter Care Teams Wooling Machine Operator Relationship Specialty Start Date End Date Sunita Ellis MD [address] [place] [address] PCP - General Family Medicine 02/04/23 documented as of this encounter
--- OUTSIDE RECORDS SUMMARY | 2024-10-30 13:44 | XMS_ITS | Encounter Summary ---
Author Organization [employer] [facility] Address [address] [place] [address] Care Team Providers Care Dairy Store Manager Name Role Phone Naun Max MD Primary Care Provider [phone] Sunita Ellis MD Primary Care Provider Unava ilable Encounter Details Date Type Department Care Team Description 04/22/2015 Armature Winder Repair Helper Report Medical Records [address] [place], [place] [id number] Nilo Curran Social History Tobacco Use Types Packs/Day Years Used Date Smoking Tobacco: Some Days Cigarettes Smokeless Tobacco: Never Comments:approx 1 cigarette qod Alcohol Use Standard Drinks/Week Comments No 0 (1 standard drink = 0.6 oz pur e alcohol) Sex Assigned at Date Recorded Not on file documented as of this encounter Plan of Treatment Not on file documented as of this encounter Visit Diagnoses Not on filedocumented in this encounter Care Teams Dairy Store Manager Relationship Specialty Start Date End Date Naun Max MD [address] [place], [place] [phone] PCP - General Internal Medicine 08/26/14 09/26/23 Sunita Ellis MD [address] [place] [address] PCP - General Hyperbaric Tech 09/27/23 documented as of this encounter
--- OUTSIDE RECORDS SUMMARY | 2024-10-30 13:44 | XMS_ITS | Data Portability ---
Author Organization [facility] Address [address] [facility],[address] [place] [address] Care Team Providers Care Vacation Guide Name Role Phone JI LAUREANO Referring Provider JOSHUA ANG Primary Care Provider [phone] Assessment Encounter Date Assessment Date Assessment LastModified [...] By Organization Details Last Modified Time 02/25/2016 13097 She was advised against bed rest lasting longer than four days and to continue activities as tolerated. Benefits of smoking cessation were discussed with her. [email or web address] Not available 03/15/2016 10:21:06 Reason for Referral None Reported. Problems Name Problem SNOMED Code Status Onset Date Resolution Date Notes Provider Name and Address Organization Details Recorded Time Muscle pain 68679127 Active Patsy wan MD [address] , [address], [place], [address], [place] [facility] 6 10:21:06 Osteoarthritis 596623037 Active Patsy wan MD [address] , [address], [place], [address], [place] [facility] [...] Name and Address Organization Details Recorded Time 18247 Non-stero idal anti-infl ammatory agent (product) medicatio n respirato ry distress Not available Not available 02/25/2016 49781 005 SNOMED Yani green [place] [facility] 6 14:54:07 55235 beclometh asone dipropion ate medicatio n respirato ry distress Not available Not available 02/25/2016 1348 RxNorm Yani green [place] [facility] 6 14:54:07 67378 cyclobenz aprine hydrochlo ride medicatio n hives Not available Not available 02/25/2016 20645 RxNorm Yani green [place] [facility] 6 14:54:07 57949 egg extract food,medi cation hives Not available Not available 02/25/2016 85439 15 RxNorm Yani green, [place] - [place] [...] Details Last Updated DateTime 6 76 /min 10739.6 266 g 97 % 97 % 165.1 cm 30 kg/m2 117 mm[Hg] 60 mm[Hg] [facility] 6 14:54:07 Social History Question Answer Notes LastModified by Organizat ion Details LastModified Time Tobacco Smoking Status Former Smoker quit x 1-2 months with recent smoking Not Available [employer] 07/04/2020 03:16:11 What Is Your Level Of Alcohol Consumption? None [id number] Information not available 07/04/2020 Are You Currently Employed? No [id number] Information not available 07/04/2020 Which Illicit Or Recreational Drugs Have You Used? No [id number] Information not available 07/04/2020 Education 12 With Some College [email or web address] Information not available 02/25/2016 Live Alone Or With Others? Alone Information not available 02/25/2016 Marital Status Informatio n not available 02/25/2016 How Many Years Have You Smoked Tobacco? 20 [id number] Information not available 07/04/2020 Sex: Unknown Functional Status None recorded. Mental Status None recorded. Family History Relationship Description Onset Age of this Age Resolved Age Notes LastModified by Organization Details LastModified Time Mother Chronic obstructive pulmonary disease [email or web address] Not available 02/18 10:08:35 Mother Heart disease [email or web address] Not available 02/18 10:08:35 Father Diabetes mellitus [email or web address] Not available 02/18 10:08:35 Medical History Condition Response Anxiety Disorder Y Arthritis Y Depression Y COPD Y Fibromyalgia Y Osteoporosis Y Gynecological HistoryNo gynecological history recorded. Obstetrics History GPAL:G 0 P 0 0 0 0 Past Encounters Encounter ID Performer Location Encounter Start Date Encounter Closed Date Diagnosis/Indication Diagnosis SNOMED-CT Code Diagnosis ICD10 Code Diagnosis Note [id number] Patsy Quevedo MD PAIN OFFICE [address] [place] [phone] 02/25/2016 14:27:06 03/15/2016 10:21:32 Muscle pain 14803574 M79.1 Osteoarthritis 813593427 M15.0 Health Concerns Section Related Observation LastModified by Organization Detai ls LastModified Time None Recorded Concern Status LastModified by Organization Details LastModified Time None Recorded Advance Directives Directive None Recorded Payers Encounter Date Sequence Insurance Name Policy Number Policy Dumont Covered Member ID Dumont Member ID Guarantor Name 02/25/2016 1 [place] [employer] Rodrigue [facility] [id number] Rodrigue [facility] 02/25/2016 2 [place] [facility] [id number] Rodrigue [facility] Notes Date Note Type Note Provider Name and Address Organization Details Recorded Time 02/25/2016 text/html [facility] eported bypatient.Location:Mary Ann Martinez is a 55 year old woman with complaints of pain in her mid back region. She has history of chronic pain and has been diagnosed with Fibromyalgia and is seeing a sales analytics manager at [facility]. She also has a diagnosis [...] in her right foot. Patsy Quevedo MD [address] [place] [address] , [address], [place], [address], [facility] 03/16/2016 16:14:28 OBGyn Episode No OBEpisode recorded.
--- OUTSIDE RECORDS SUMMARY | 2024-10-30 13:44 | XMS_ITS | Encounter Summary ---
Author Organization [employer] [facility] Address [address] [place] [address] Care Team Providers Care Chute Builder Name Role Phone Naun Max MD Primary Care Provider [phone] Sunita Ellis MD Primary Care Provider Unava ilable Encounter Details Date Type Department Care Team Description 01/31/2015 Walk In Clinic Visit Medical Records [address] [place], [place] [phone] Social History Tobacco Use Types Packs/Day Years Used Date Smoking Tobacco: Some Days Cigarettes Smokeless Tobacco: Never Comments:quit one month back in 08/2014 Alcohol Use Standard Drinks/Week Comments No 0 (1 standard drink = 0.6 oz pur e alcohol) Sex Assigned at Date Recorded Not on file documented as of this encounter Plan of Treatment Not on file documented as of this encounter Visit Diagnoses Not on filedocumented in this encounter Care Teams Chute Builder Relationship Specialty Start Date End Date Naun Max MD [address] [place], [place] [phone] PCP - General Internal Medicine 08/26/14 09/26/23 Sunita Ellis MD [address] [place] [address] PCP - General Latexer 09/27/23 documented as of this encounter
--- OUTSIDE RECORDS SUMMARY | 2024-10-30 13:44 | XMS_ITS | Encounter Summary ---
Author Organization [employer] [facility] Address [address] [place] [address] Care Team Providers Care Head Holder Name Role Phone Naun Ang MD Primary Care Provider [phone] Sunita Ellis MD Primary Care Provider Unava ilable Reason for Visit * Reason Onset Date Comments hospital follow up 09/30/2014 Encounter Details Date Type Department Care Team Description 09/30/2014 Telephone Adult Medicine [facility] [address] [place] [phone] Naun Ang MD [address] [place] [address] [phone] hospital follow up Social History Tobacco Use Types Packs/Day Years Used Date Smoking Tobacco: Former Smokeless Tobacco: Never Comments:quit one month back in 08/2014 Alcohol Use Standard Drinks/Week Comments No 0 (1 standard drink = 0.6 oz pur e alcohol) Sex Assigned at Date Recorded Not on file documented as of this encounter Miscellaneous Notes * Telephone Encounter - Alecia Gudino R.N. - 09/30/2014 1:27 PM EST PATIENT PRESENT TODAY FOR INITIAL VISIIT WITH REFILLS NEEDED. sHE WILL BE SEEN RASHID JOSÉ MIGUEL BY Mamta ROMO BUT WILL NEED TO BE SEEN FOR HOSPITAL FOLLOWUP WITH DR ANG ON 10/18/14 AT 1030AM PAPERWORK REQUESTED FROM HOSPITAL * Telephone Encounter - Ada Garcia - 09/30/2014 10:46 AM EST Hospital follow up appointment needed Hospital patient was treated at: [facility] Was this only an ER visit or was the patient admitted to the hospital? Admitted to hospital Date of visit if ER visit only: N/A If patient was admitted what was the date of discharge? 09/29/14 Reason/diagnosis for visit or stay: emphyzema and copd When was the patient told to follow up? This week, pt has an appointment with Braulio Romo but she says she needs to see dr ang sooner also. Was visit or stay related to an injury? NO If yes, what was the date of injury (DOI)? N/A If yes, was the injury due to N/A documented in this encounter Plan of Treatment Not on file documented as of this encounter Visit Diagnoses Not on filedocumented in this encounter Care Teams Head Holder Relationship Specialty Start Date End Date Naun Ang MD [address] [place] [address] PCP - General Internal Medicine 08/26/14 09/26/23 uSnita Ellis MD [address] [place] [address] PCP - General Booker 09/27/23 documented as of this encounter
--- OUTSIDE RECORDS SUMMARY | 2024-10-30 13:44 | XMS_ITS | Encounter Summary ---
Author Organization [employer] [facility] Address [address] [place] [address] Care Team Providers Care Field Geologist Name Role Phone Sunita Ellis MD Primary Care Provider Alicia burton Encounter Details Date Type Department Care Team Description 03/28/2024 Refill [facility] Medical [facility] [address] [phone] Juan Arias DPM [address] [address] Social History Tobacco Use Types Packs/Day Years Used Date Smoking Tobacco: Former Cigarettes Smokeless Tobacco: Never Comments:quit january 2016 Alcohol Use Standard Drinks/Week Comments No 0 (1 standard drink = 0.6 oz pur e alcohol) Sex Assigned at Date Recorded Not on file documented as of this encounter Miscellaneous Notes * Telephone Encounter - Faith Cardona - 03/28/2024 1:30 PM EDT Pt also requested Tylenol documented in this encounter Plan of Treatment Not on file documented as of this encounter Visit Diagnoses Not on filedocumented in this encounter Care Teams Field Geologist Relationship Specialty Start Date End Date Sunita Ellis MD PCP - General Wound Nurse 09/27/23 documented as of this encounter
--- OUTSIDE RECORDS SUMMARY | 2024-10-30 13:44 | XMS_ITS | Encounter Summary ---
Author Organization [facility] Address [address] [place] [address] Care Team Providers Care Pet Care Technician Name Role Phone Naun Max MD Primary Care Provider [phone] Sunita Ellis MD Primary Care Provider Unava ilable Encounter Details Date Type Department Care Team Description 07/10/2015 Tax Expert Report Medical Records [address] [place], [place] [phone] Nilo Curran Social History Tobacco Use Types Packs/Day Years Used Date Smoking Tobacco: Former Cigarettes Smokeless Tobacco: Never Comments:quit 2012, approx 1 cigarette qod Alcohol Use Standard Drinks/Week Comments No 0 (1 standard drink = 0.6 oz pur e alcohol) Sex Assigned at Date Recorded Not on file documented as of this encounter Plan of Treatment Not on file documented as of this encounter Visit Diagnoses Not on filedocumented in this encounter Care Teams Pet Care Technician Relationship Specialty Start Date End Date Naun Max MD [address] [place] [phone] PCP - General Internal Medicine 08/26/14 09/26/23 Sunita Ellis MD [address] [place] [address] PCP - General Internet Consultant 09/27/23 documented as of this encounter
--- OUTSIDE RECORDS SUMMARY | 2024-10-30 13:44 | XMS_ITS | Encounter Summary ---
Author Organization [employer] Address [address] [facility] 7t [place] [address] Care Team Providers Care Civil Engineering Designer Name Role Phone Carlos Orozco Primary Care Provider Unavail able Sunita Ellis MD Primary Care Provider [phone] Reason for Visit * Reason Onset Date Comments Results 11/24/2022 Encounter Details Date Type Department Care Team ([facility] st Contact Info) Description 11/24/2022 Telephone [facility] [address] [place], [place] [phone] Carlos Orozco AGNP Results Social History Tobacco [...] blood work to be sent to her cello teacher office, pt advised she will need to sign a medical release with medical records, she confirmed this and will try to fill out the forms prior to her next appointment. Pt had no further concerns. * Telephone Encounter - Heladio Yeboah - 11/29/2022 2:33 PM EDT Tc from pt returning call regarding message below. Please contact pt at [phone] * Telephone Encounter - Heladio Yeboah - 11/24/2022 10:43 AM EST Tc from pt requesting a call back regarding blood work. Pt requesting for results Please contact pt at [phone] documented in this encounter Plan of Treatment Not on file documented as of this encounter Visit Diagnoses Not on filedocumented in this encounter Additional Health Concerns Assessment Noted Time PHQ-9 Depression Total Score: 7 10/29/19 9:12 AM EST documented as of this encounter Care Teams Civil Engineering Designer Relationship Specialty Start Date End Date Carlos Orozco AGNP PCP - General Family Medicine 10/05/22 02/03/23 Sunita Ellis MD [address] [place] [address] PCP - General Family Medicine 02/04/23 documented as of this encounter
--- OUTSIDE RECORDS SUMMARY | 2024-10-30 13:44 | XMS_ITS | Encounter Summary ---
Author Organization [employer] Address [address] [place] [address] [place] [address] Care Team Providers Care Salvage Winder And Inspector Name Role Phone Cherry Atwood Primary Care Provider [phone] Carlos Orozco Primary Care Provider Unavail Sunita Clay MD Primary Care Provider [phone] Encounter Details Date Type Department Care Team (Late st Contact Info) Description 09/02/2022 Orders Only [facility] [address] [place], [place] [phone] Cherry Atwood FNP [address] [place], [place] [phone] Social History Tobacco Use Types Packs/Day Years [...] on filedocumented in this encounter Care Teams Salvage Winder And Inspector Relationship Specialty Start Date End Date Cherry Atwood FNP [address] [place] [phone] PCP - General Family Medicine 05/06/22 10/04/22 Carlos Orozco AGNP [address] [place] [address] PCP - General Family Medicine 10/05/22 02/03/23 Sunita Ellis MD [address] [place] [address] PCP - General Family Medicine 02/04/23 documented as of this encounter
--- OUTSIDE RECORDS SUMMARY | 2024-10-30 13:44 | XMS_ITS | Encounter Summary ---
Author Organization [employer] [facility] Address [address] [place] [address] Care Team Providers Care Counselor At Law Name Role Phone Naun Max MD Primary Care Provider [phone] Sunita Ellis MD Primary Care Provider Unava ilable Encounter Details Date Type Department Care Team Description 05/23/2015 Business Doc Medical Records [address] [place], [place] [phone] Abstract, Provider Social History Tobacco Use Types Packs/Day Years [...] on filedocumented in this encounter Care Teams Counselor At Law Relationship Specialty Start Date End Date Naun Max MD [address] [place], [place] [phone] PCP - General Internal Medicine 08/26/14 09/26/23 Sunita Ellis MD [address] [place] [address] PCP - General Title I Paraprofessional 09/27/23 documented as of this encounter
--- OUTSIDE RECORDS SUMMARY | 2024-10-30 13:44 | XMS_ITS | Encounter Summary ---
Author Organization [employer] [facility] Address [address] [place] [address] Care Team Providers Care Music Composition Teacher Name Role Phone Naun Max MD Primary Care Provider [phone] Sunita Ellis MD Primary Care Provider Unava ilable Encounter Details Date Type Department Care Team Description 05/12/2015 Transfer Records Medical Records [address] [place], [place] [phone] Abstract, Provider Social History Tobacco Use Types [...] on filedocumented in this encounter Care Teams Music Composition Teacher Relationship Specialty Start Date End Date Naun Max MD [address] [place], [place] [phone] PCP - General Internal Medicine 08/26/14 09/26/23 Sunita Ellis MD [address] [place] [address] PCP - General Real Estate Investor 09/27/23 documented as of this encounter
--- OUTSIDE RECORDS SUMMARY | 2024-10-30 13:44 | XMS_ITS | Encounter Summary ---
Author Organization [facility] Address [address] [place] [address] Care Team Providers Care Tile Trimmer Name Role Phone Naun Max MD Primary Care Provider [phone] Sunita Ellis MD Primary Care Provider Unava ilable Encounter Details Date Type Department Care Team Description 09/29/2014 Hospital Medical Records [address] [place], [place] [phone] Luigi Blake MD Social History Tobacco Use Types Packs/Day [...] on filedocumented in this encounter Care Teams Tile Trimmer Relationship Specialty Start Date End Date Naun Max MD [address] [place], [place] [phone] PCP - General Internal Medicine 08/26/14 09/26/23 Sunita Ellis MD [address] [place] [address] PCP - General Catalytic Case Operator 09/27/23 documented as of this encounter
--- OUTSIDE RECORDS SUMMARY | 2024-10-30 13:44 | XMS_ITS | Encounter Summary ---
Author Organization [facility] Address [address] [place] [address] Care Team Providers Care Marketing Associate Name Role Phone Naun Max MD Primary Care Provider [phone] Sunita Ellis MD Primary Care Provider Unava ilable Reason for Visit * Reason Onset Date Comments Faxed Order 02/04/2015 Encounter Details Date Type Department Care Team Description 02/04/2015 Telephone Adult Medicine [address] [phone] Naun Max MD [address] [place] [address] [phone] Faxed Order Social History Tobacco Use Types Packs/Day Years Used Date Smoking Tobacco: Some Days Cigarettes Smokeless Tobacco: Never Comments:quit one month back in 08/2014 Alcohol Use Standard Drinks/Week Comments No 0 (1 standard drink = 0.6 oz pur e alcohol) Sex Assigned at Date Recorded Not on file documented as of this encounter Miscellaneous Notes * Telephone Encounter - Josette Silver - 02/04/2015 2:57 PM EDT Faxed orders from [facility] services sent to [place] smith to sign documented in this encounter Plan of Treatment Not on file documented as of this encounter Visit Diagnoses Not on filedocumented in this encounter Care Teams Marketing Associate Relationship Specialty Start Date End Date Naun Max MD [address] [place] [address] PCP - General Internal Medicine 08/26/14 09/26/23 Sunita Ellis MD [address] [place] [address] [place] [address] PCP - General Senior Java Developer 09/27/23 documented as of this encounter
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
--- OUTSIDE RECORDS SUMMARY | 2024-10-30 13:44 | XMS_ITS | Encounter Summary ---
Author Organization [employer] [facility] Address [address] [place] [address] Care Team Providers Care Supply Tech Name Role Phone Naun Max MD Primary Care Provider [phone] Sunita Ellis MD Primary Care Provider Unava ilable Encounter Details Date Type Department Care Team Description 05/26/2015 Walk In Clinic Visit Medical Records [address] [place], [place] [id number] Social History Tobacco Use Types Packs/Day Years [...] on filedocumented in this encounter Care Teams Supply Tech Relationship Specialty Start Date End Date Naun Max MD [address] [place], [place] [id number] PCP - General Internal Medicine 08/26/14 09/26/23 Sunita Ellis MD [address] [place] [id number] PCP - General Radiochemical Technician 09/27/23 documented as of this encounter
[2024-10-30] MEDS: Morphine Sulfate Immed Release 15 MG TABLET PO (14:46)
[2024-10-30 14:50] VITALS: BP 101/68; PULSE 81; RESP 18; TEMP 36.2; O2SAT 99
== END 2024-10-30 16:10 | disposition home or self-care (01) ==
PROVIDERS: Emergency Provider Emergency Medicine; PCP General Practice
DX: S93.402A Sprain of unspecified ligament of left ankle, initial encounter (principal); M25.572 Pain in left ankle and joints of left foot; M25.562 Pain in left knee; W00.0XXA Fall on same level due to ice and snow, initial encounter; Y93.01 Activity, walking, marching and hiking; Y92.9 Unspecified place or not applicable; Y99.8 Other external cause status; Z87.891 Personal history of nicotine dependence
CPT/HCPCS: 29515; 73562; 73600; 73620; 99283; 99284

== ENCOUNTER → 2024-10-30 11:50 | Outpatient (BNV) | payer OTHER, SELFPAY | PROVIDERS: PCP General Practice; Visit Provider Radiology Diagnostic Radiology | DX: M25.562 Pain in left knee (principal); M25.572 Pain in left ankle and joints of left foot | CPT/HCPCS: 73562; 73610; 73620 ==

== ENCOUNTER 2024-12-04 08:56 | Outpatient (AMB) | payer OTHER, SELFPAY ==
[2024-12-04 09:08] VITALS: BP 106/78; PULSE 78; O2SAT 98; BMI 34.7
--- NOTE | 2024-12-04 09:08 | A.OFFVIS_ITS ---
Vital Signs 12/04/24 09:08 Height 5 ft 4 in Weight 202 lb BMI 34.7 BP 106/78 Blood Pressure Location Rt brachial Position Sitting Pulse 78 Pulse Source Pulse Oximeter Pulse Oximetry (%) 98 Oxygen Delivery Method Room Air Intake Visit Reasons: Botox Intake Note: Patient presents for botox injection Practice supplied Allergies cyclobenzaprine [From Flexeril] Allergy (Severe, Verified 12/04/24 09:11) Anaphylaxis beclomethasone [From QVAR] Allergy (Intermediate, Verified 12/04/24 09:11) FACIAL/TONGUE SWELLING NSAIDS (Non-Steroidal Anti-Inflamma [Nsaids] Allergy (Intermediate, Verified 12/04/24 09:11) swollen egg [Egg] Allergy (Mild, Verified 12/04/24 09:11) UNKNOWN HPI Comments Details: ?64y/o female comes for treatment of chronic migraines with botox. ??? Most frequent reported adverse reactions following injection of botox for chronic migraine include neck pain (9%), headache(5%), eyelid ptosis(4%), migraine(4%), muscular weakness(4%), musculuskeletal stiffness(4%), bronchitis(3%), injection site pain (3%), musculoskeletal pain(3%), myalgia(3%), facial paresis(2%), HTN(2%) and muscle spasms(2%) were discussed in detail. ??? Botulinum toxin typeA 200units lot no [id number] Exp December 2026 was diluted with 4 cc of normal saline . ??? Muscles injected- ??? Frontalis 4 sites ??? Procerus 1 site ??? Client Support Consultant- 2 sites ??? Temporalis- 8 sites ??? Occipitalis- 6 sites ??? Cervical paraspinals- 4 sites ??? Trapezius- 6 sites ??? 5 units each in 31 site ??? Total use- 155units ??? Discarded-45units [facility] Medical History Left upper extremity numbness Asthma-COPD overlap syndrome DVT (deep venous thrombosis) Interstitial lung disease Femur fracture, right Depression Chronic pain Herniated disc Alopecia Anxiety Fibromyalgia Emphysema of lung Spondylosis of cervical spine Hypothyroidism Nocturnal hypoxemia COPD (chronic obstructive pulmonary disease) Surgical History History of bunionectomy H/O cervical spine surgery H/O tubal ligation History of cholecystectomy Family History Father Diabetes Mother CVD (cardiovascular disease) Social History Household Members: Children Household Members Other:: son Alcohol intake: never Patient Tobacco Use Status: Former Tobacco user Current occupational status: disabled Physical Exam Vital Signs: Last Vital Signs Pulse 78 12/04/24 09:08 BP 106/78 12/04/24 09:08 Pulse Ox 98 12/04/24 09:08 Oxygen Delivery Method Room Air 12/04/24 09:08 BMI result Body Mass Index 34.7 Const General: cooperative, healthy appearing, comfortable, no acute distress and well developed Nutritional Appearance: overweight Orientation/consciousness: patient oriented x3 Eyes Pupils: Equal, round and reactive pupils present Neck Other: tight neck muscles Neck: Yes no meningeal signs Neuro General: patient oriented x3, gait normal, tone normal, moves all extremities, Normal light touch and pain sensation, no meningeal signs, no focal motor deficits and CN's II-XI intact bilaterally Cranial nerves: Yes CN's II-XII intact bilaterally, Yes Facial sensation intact/muscles of mastication intact and Yes Equal, round and reactive pupils present Cognition (Neuro): normal cognition Motor exam (neuro): 5/5 motor strength present throughout Deep tendon reflexes (DTR's): Right triceps reflex intensity grade: 2+, Left triceps reflex intensity grade: 2+, Rt Biceps (C5, C6): 2+, Left biceps reflex intensity grade: 2+, Right brachioradialis reflex intensity grade: 2+, Left brachioradialis reflex intensity grade: 2+, Right patellar reflex intensity grade: 2+ and Left patellar reflex intensity grade: 2+ Coordination: [id number] test normal Office Procedures Botulinum toxin Injection 90285 - Migraine Procedure code (CPT) selection complete Office Meds onabotulinumtoxinA 200 unit solution for injection Performing Provider: Beth Gil MD [place]forming [place] [facility] Administered by: Beth Gil MD on 12/04/24 09:38 Dose Route Admin Location Dispensed Lot Number Expiration Date [facility] Substance Abuse Services Director 155 unit subcut 200 units [id number] ALLERGAN/BOTOX Comments: see HPI Assessment & Plan Assessment & Plan (1) Chronic migraine with aura: Code(s): G43.109 - Migraine with aura, not intractable, without status migrainosus Category: Medical Qualifiers: Status migrainosus presence: without status migrainosus Intractability: intractable Qualified Code(s): G43.E19 - Chronic migraine with aura, intractable, without status migrainosus (2) Migraine with aura, intractable, without status migrainosus: Code(s): G43.119 - Migraine with aura, intractable, without status migrainosus Category: Medical (3) Neck pain: Code(s): M54.2 - Cervicalgia Category: Medical Plan Patient tolerated the procedure well she will call with any side effects. continue sumatriptan 100mg as needed ubrelvy 100 mg as needed Orders: Orders AMB Botulinum toxin Injection Today G43.E19 - Chronic migraine with aura, intractable, without status migrainosus Medications: New onabotulinumtoxinA 200 units subcut ONCE 1 ea 0RF migraine G43.E19 - Chronic migraine with aura, intractable, without status migrainosus Refilled ubrogepant (Ubrelvy) 1 tab at onset of migraine and can repeat in 2 hrs; 14 tabs 3RF migraine MDD 2 tabs Coding Level of Care Code Est Pt Level 1 (01064) Diagnoses Intractable chronic migraine with aura and without status migrainosus G43.E19 Status migrainosus presence: without status migrainosus Intractability: intractable Migraine with aura, intractable, without status migrainosus G43.119 Neck pain M54.2 CPT Codes Botox Injection - Botox 3: 38670 - Migraine ([id number])
== END 2024-12-04 09:33 | disposition home or self-care (01) ==
LOC: HO.HSMS 08:56
PROVIDERS: PCP General Practice; Visit Provider Psychiatry & Neurology Neurology
DX: G43.E19 Chronic migraine with aura, intractable, without status migrainosus (principal)
CPT/HCPCS: 64615

== ENCOUNTER → 2024-12-04 08:56 | Outpatient (BNVA) | payer OTHER, SELFPAY | PROVIDERS: PCP General Practice; Visit Provider Psychiatry & Neurology Neurology | DX: G43.E19 Chronic migraine with aura, intractable, without status migrainosus (principal); M54.2 Cervicalgia | CPT/HCPCS: 64615; 99211; J0585 ==

== ENCOUNTER 2025-01-11 11:58 | Outpatient (REF) | payer OTHER, SELFPAY ==
--- NOTE | ~2025-01-11 | XR_ITS ---
EXAMINATION: XR FOOT 3 OR MORE VIEWS RIGHT HISTORY: PAIN COMPARISON: Comparison is made with the prior examination dated 10/12/2023. FINDINGS: Three views of the right foot are submitted. Osseous mineralization is normal. Postsurgical changes are noted involving the 1st metatarsal head. There is an old healed fracture of the 3rd metatarsal. There is no acute fracture or dislocation. The joint spaces are preserved. The soft tissues are unremarkable. XR/XR foot RT min 3V IMPRESSION: Postsurgical changes involving the 1st metatarsal head. No evidence of fracture of the right foot. Electronically signed by: Garret Nagel MD 01/11/2025 12:48 PM EDT
--- OUTSIDE RECORDS SUMMARY | 2025-01-11 12:51 | XMS_ITS | Encounter Summary ---
Author Organization [employer] [facility] Address [address] [place] [address] Care Team Providers Care Pulp Press Tender Name Role Phone Naun Max MD Primary Care Provider [phone] Sunita Ellis MD Primary Care Provider Unava ilable Encounter Details Date Type Department Care Team Description 11/15/2014 Business Doc Medical Records [address] [place], [place] [id number] Abstract, Provider Social History Tobacco Use Types [...] on filedocumented in this encounter Care Teams Pulp Press Tender Relationship Specialty Start Date End Date Naun Max MD [address] [place], [place] [phone] PCP - General Internal Medicine 08/26/14 09/26/23 Sunita Ellis MD [address] [place] [id number] PCP - General Supervisor Webbing 09/27/23 documented as of this encounter
--- OUTSIDE RECORDS SUMMARY | 2025-01-11 12:51 | XMS_ITS | Encounter Summary ---
Author Organization [employer] Address [address] [place] [address] Care Team Providers Care Underground Mine Superintendent Name Role Phone Sunita Ellis MD Primary Care Provider [phone] Encounter Details Date Type Department Care Team ([facility] st Contact Info) Description 08/01/2023 Abstract [facility] [address] [place], [place] [phone] Sunita Ellis MD [address] [place], [place] [phone] Social History Tobacco Use Types Packs/Day Years [...] documented as of this encounter Care Teams Underground Mine Superintendent Relationship Specialty Start Date End Date Sunita Ellis MD [address] [place] [id number] PCP - General Family Medicine 02/04/23 documented as of this encounter
--- OUTSIDE RECORDS SUMMARY | 2025-01-11 12:51 | XMS_ITS | Encounter Summary ---
Author Organization [employer] Address [address] [place] [address] Care Team Providers Care Computer Compositor Name Role Phone Sunita Ellis MD Primary Care Provider Encounter Details Date Type Department Care Team (Latest Contact Info) Description 01/11/2025 Travel Social History Tobacco Use Types Packs/Day Years [...] documented as of this encounter Care Teams Computer Compositor Relationship Specialty Start Date End Date Sunita Ellis MD [address] [place] [address] PCP - General Family Medicine 02/04/23 documented as of this encounter
--- OUTSIDE RECORDS SUMMARY | 2025-01-11 12:51 | XMS_ITS | Clinical Summary ---
Author Organization [employer] Address [address] [facility] [address] [place] [address] Care Team Providers Care Navy Material Inspector Name Role Phone Sunita Ellis MD Primary Care Provider [phone] Allergies Active Allergy Reactions Criticality Noted Date [...] puffs every 6 (six) hours if needed. 022 Active ALPRAZolam (Xanax) 1 MG tablet Take 1 mg by mouth 2 times daily. 023 Active betamethasone dipropionate (Diprolene) 0.05 % ointment 023 Active doxepin (SINEquan) 75 MG capsule Take 1 capsule by mouth at bed time. Active DULoxetine (Cymbalta) [address] capsule Take 120 mg by mouth at bedtime. 023 Active eszopiclone (Lunesta) 3 MG tablet Take 3 mg by mouth at bedtime. 023 Active OLANZapine (ZyPREXA) 5 MG tablet Take 1 tablet by mouth at bedtime. 023 Active Ubrelvy 100 MG tablet TAKE 1 TABLET BY MOUTH AT ONSET OF MIGRAINE. MAY REPEAT IN 2 HOURS. MAX DAILY DOSE IS 2 TABLETS Active Rinvoq 15 MG tablet sustained-release 24 hour Take 15 mg by mouth in the morning. Active prazosin (Minipress) 1 MG capsule Active omega-3 (Fish Oil) 500 MG capsuleIndication s:Hyperlipidemia, unspecified hyperlipidemia type TAKE 1 CAPSULE BY MOUTH DAILY IN THE MORNING 90 capsule 3 Active atorvastatin (Lipitor) 20 MG tablet TAKE 1 TABLET(20 MG) BY MOUTH IN THE MORNING 90 tablet 3 Active levothyroxine (Synthroid, Levoxyl) 88 MCG tablet TAKE 1 TABLET BY MOUTH EVERY DAY HOLD ON Sundays tablet 3 Active loratadine (Claritin) 10 MG tablet Take 1 tablet (10 mg) by mouth Once per day. 30 tablet 11 2024 Active fluticasone (Flonase) 50 MCG/ACT nasal spray Administer 2 sprays into each nostril Once per day. Shake gently. Before first use, prime pump. After use, clean tip and replace cap. 16 g 2 2024 Active methocarbamol (Robaxin) 750 MG tablet Take 1 tablet (750 mg) by mouth if needed in the morning and at bedtime for muscle spasms. 40 tablet 1 Active Diclofenac Sodium 1 % gelIndications:Bu nion of great toe of right foot Apply 1 Application topically if needed in the morning, at noon, in the evening, and at bedtime (pain). 150 g 3 Active acetaminophen (Tylenol 8 Hour) 650 MG ER tablet Take 1 tablet by mouth every 8 (eight) hours. Active Breo Ellipta 200-25 MCG/ACT aerosol powder Inhale 1 puff Once per day. Active pantoprazole (ProtoNix) 40 MG EC tablet TAKE 1 TABLET(40 MG) BY MOUTH IN THE MORNING 90 tablet 1 Active pantoprazole (ProtoNix) 40 MG EC tablet TAKE 1 TABLET(40 MG) BY MOUTH IN THE MORNING 90 tablet 1 024 2024 Discontinued oxyCODONE (Roxicodone) 5 MG immediate release tablet Take 1 tablet by mouth every 6 (six) hours if needed. 024 2024 Discontinued Active Problems Problem Noted Date Diagnosed Date [...] about testing for familial hypercholesterolemia, please call [employer] at 1.430.LFS ([employer]INFO. Veronica Blount, et al. J National Lipid Association Recommendations for Patient-Centered Management of Dyslipidemia: Part 1 Journal of Clinical Lipidology 2015;9(2), 129-169. Reference range: <100 ?? Desirable range <100 mg/dL for primary prevention; ?? <70 mg/dL for patients with CHD or diabetic patients with > or = 2 CHD risk factors. ?? LDL-C is now calculated using the Esdras-Senait calculation, which is a validated novel method providing better accuracy than the Friedewald equation in the estimation of LDL-C. Esdras TOVAR et al. ROBER. 2013;310(19): 4074-3445 (http://Digium.Gigamon/faq/KSB975) Chol/HDLC Ratio <5.0 (calc) 6.5??High?? 5.1??High?? 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 Muscle pain 10/29/2022 Osteoarthritis 08/20/2020 [...] (DVT) of popliteal vein 1 09/23/2023 Encounters Date Type Department Care Team Description 01/11/2025 11:00 AM EDT Office Visit [facility] [address] [place] [address] Cherry Atwood, AUTO SERVICE REPRESENTATIVE Chronic foot pain, right (Primary Dx) 01/11/2025 Travel 01/08/2025 Telephone [facility] [address] [place] [address] Sunita Ellis MD Nurse Triage 12/20/2024 Refill [facility] MED & PEDS [address] [place] [address] Sunita Ellis MD 12/20/2024 Refill [facility] MED & PEDS [address] [place] [address] Sunita Ellis MD 12/19/2024 Refill [facility] [address] [place] [address] Sunita Ellis MD 12/18/2024 Telephone [facility] [address] [place] [address] Sunita Ellis MD Nurse Triage 10/30/2024 Orders Only [facility] External Provider, [facility] from Last 3 Months Immunizations Name Administration [...] Sign Reading Time Taken Comments Blood Pressure 115/74 01/11/2025 11:02 AM EDT Pulse 74 01/11/2025 11:02 AM EDT Temperature 36.8 ??C (98.2 ??F) 01/11/2025 11:02 AM E DT Respiratory Rate 20 01/11/2025 11:02 AM EDT Oxygen Saturation 98% 01/11/2025 11:02 AM EDT Inhaled Oxygen Concentration - - Weight 92.7 kg (204 lb 6.4 oz) 01/11/2025 11:02 AM EDT Height 165.1 cm (5' 5 ) 01/11/2025 11:02 AM EDT Body Mass Index 34.01 01/11/2025 11:02 AM EDT Plan of Treatment Health Maintenance [...] 09/02/2020, 09/05/2017 Depression Screening 02/26/2024 02/25/2023, 10/29/19 SDOH Screening 02/26/2024 02/25/2023 COVID-19 Vaccine ( - season) 2024 07/24/2021, 07/03/2021 Influenza Vaccine (#1) 2024 Tobacco Screening 01/11/2026 01/11/2025 Lipid Panel 09/11/2029 09/11/2024, 10/20, 11/12/2021, Additional [...] Name Priority Date/Time Associated Diagnosis Comments XR KNEE 3 VIEWS LEFT Routine 10/30/2024 1:45 PM EST XR ANKLE 2 VIEWS LEFT Routine 10/30/2024 11:50 AM EST XR FOOT 1-2 VIEWS LEFT Routine 10/30/2024 11:50 AM EST LIPID PANEL, STANDARD Routine 09/11/2024 9:10 AM EST Elevated lipids MAMMOGRAM GENERIC Routine 09/02/2020 7:5 3 AM EST from Last 3 Months or Most Recently Relevant to Health Maintenance Results * XR Knee 3 Views Left (10/30/2024 1:45 PM EST) Anatomical Region Laterality Modality Lower Extremities, Knee Left Radiogra phic Imaging 10/30/2024 1:45 PM EST Narrative 10/30/2024 2:02 PM EST ? [facility] ?[address] ?[place] [address] ?XRay Report ? Signed ? Patient: Bahadur,Diolinda ?MR#: [id number] ?? [id number] ? : 1960 ?Acct:[id number] ? Age/Sex: 64 / F ?ADM Date: 10/30/24 ? Loc: HO.ED ? Attending Dr: ? Ordering Physician: Hawa Mathis ?? Date of Service: 10/30/24 ?? Procedure(s): XR knee LT 3V ?? Accession Number(s): [id number] ? cc: Sunita Ellis; Hawa Mathis ? EXAMINATION: ?? XR KNEE, LEFT ? CLINICAL INFORMATION: ?? pain s/p fall ? COMPARISON: ?? September 29, 2019 ? TECHNIQUE: ?? Four views of the left knee. ? FINDINGS: ?? No acute cortical disruption or malalignment. Marginal osteophyte ?? formation in the medial femoral condyle and medial tibial plateau. ?? Minimal joint space narrowing involving the medial compartment. ?? Small to moderate amount of fluid suprapatellar bursa. ?? No lytic or blastic lesions. ? XR/XR knee LT 3V ?? IMPRESSION: ?? No acute fracture or dislocation. ?? Small to moderate amount of suprapatellar joint effusion. ?? Medial compartment osteoarthrosis. ? Electronically signed by: ??Anthony Ruiz MD ??10/30/2024 02:00 PM ?? EST RP ? Dictated By: ?Anthony Villarreal MD ? Signed By: ?<Electronically signed by Anthony Ruiz MD in OV> ? 10/30/24 1400 ? DD/ 1345 ? TD/TT: 10/30/24 1351 ? Quality Assurance Assistant: ? Procedure Note Donotuseinterpreter, Image - 10/30/[address] [address] XRay Report Signed Patient: Edvin Martinez#: [id number] : 1960cct:[id number] Age/Sex: 64 / FADM Date: 10/30/24 Loc: HO.ED Attending Dr: Ordering Physician: Hawa Mathis Date of Service: 10/30/24 Procedure(s): XR knee LT 3V Accession Number(s): [id number] cc: Sunita Ellis; Hawa Mathis EXAMINATION: XR KNEE, LEFT CLINICAL INFORMATION: pain s/p fall COMPARISON: September 29, 2019 TECHNIQUE: Four views of the left knee. FINDINGS: No acute cortical disruption or malalignment. Marginal osteophyte formation in the medial femoral condyle and medial tibial plateau. Minimal joint space narrowing involving the medial compartment. Small to moderate amount of fluid suprapatellar bursa. No lytic or blastic lesions. XR/XR knee LT 3V IMPRESSION: No acute fracture or dislocation. Small to moderate amount of suprapatellar joint effusion. Medial compartment osteoarthrosis. Electronically signed by: Anthony Ruiz MD 10/30/2024 02:00 PM EST Dictated By: Anthony Villarreal MD Signed By: <Electronically signed by Anthony Ruiz MDin OV> 10/30/24 1400 DD/ 1345 TD/TT: 10/30/24 1351 Quality Assurance Assistant: [facility] External Provider IMG XR PROCEDURES Final Result * XR Foot 1-2 Views Left (10/30/2024 11:50 AM EST) Anatomical Region Laterality Modality Lower Extremities, Foot Left Radiogra phic Imaging 10/30/2024 11:5 0 AM EST Narrative 10/30/2024 12:07 PM EST ? [facility] ?[address] ?[place] [address] ?XRay Report ? Signed ? Patient: Bahadur,Diolinda ?MR#: [id number] ?? 3445 ? : 1960 ?Acct:[id number] ? Age/Sex: 64 / F ?ADM Date: 10/30/24 ? Loc: HO.ED ? Attending Dr: ? Ordering Physician: Generic ED Physician ?? Date of Service: 10/30/24 ?? Procedure(s): XR foot LT 2V ?? Accession Number(s): [id number] ? cc: Generic ED Physician; Sunita Ellis [...] DD/ 1150 ? TD/TT: 10/30/24 1157 ? Quality Assurance Assistant: MSM ? Procedure Note Angeli Howard - 10/30/[address] [address] XRay Report Signed Patient: Edvin Martinez#: [id number] : 2Acct:[id number] Age/Sex: 64 / FADM Date: 10/30/24 Loc: HO.ED Attending Dr: Ordering Physician: Generic ED Physician Date of Service: 10/30/24 Procedure(s): XR foot LT 2V Accession Number(s): [id number] cc: Generic ED Physician; Sunita Ellis EXAMINATION: [...] 10/30/24 1204 DD/ 1150 TD/TT: 10/30/24 1157 Quality Assurance Assistant: PIPO [facility] External Provider IMG XR PROCEDURES Final Result * XR Ankle 2 Views Left (10/30/2024 11:50 AM EST) Anatomical Region Laterality Modality Lower Extremities, Ankle Left Radiogr aphic Imaging 10/30/2024 11:5 0 AM EST Narrative 10/30/2024 12:10 PM EST ? [facility] ?[address] ?[place] [address] ?XRay Report ? Signed ? Patient: Rodrigue Martinez ?MR#: [id number] ?? 3445 ? : 1960 ?Acct:[id number] ? Age/Sex: 64 / F ?ADM Date: 10/30/24 ? Loc: HO.ED ? Attending Dr: ? Ordering Physician: Generic ED Physician ?? Date of Service: 10/30/24 ?? Procedure(s): XR ankle LT 2V ?? Accession Number(s): [id number] ? cc: Generic ED Physician; Sunita Ellis [...] 12:07 PM EST RP ? Dictated By: ?Babar Pitts MD ? Signed By: ?<Electronically signed by Babar Pitts MD in OV> ?10/30/24 1207 ? DD/ 1150 ? TD/TT: 10/30/24 1157 ? Quality Assurance Assistant: PIPO ? Procedure Note Dondoriankimberlakeshater, Image - 10/30/2024 [place] [address] XRay Report Signed Patient: Edvin Martinez#: [id number] : 1960cct:[id number] Age/Sex: 64 / FADM Date: 10/30/24 Loc: HO.ED Attending Dr: Ordering Physician: Generic ED Physician Date of Service: 10/30/24 Procedure(s): XR ankle LT 2V Accession Number(s): [id number] cc: Generic ED Physician; Sunita Ellis EXAMINATION: [...] by: Babar Pitts MD 10/30/2024 12:07 PM [facility] Dictated By: Babar Pitts MD Signed By: <Electronically signed by Babar Pitts MD in OV> 10/30/24 1207 DD/ 1150 TD/TT: 10/30/24 1157 Quality Assurance Assistant: PIPO us [facility] External Provider IMG XR PROCEDURES Final Result * (ABNORMAL) Lipid Panel, Standard (09/11/2024 9:10 AM EST) Triglycerides 231(H) <150 mg/dL [facility] Comment:Desirable Triglyceri de: less than 150 mg/dLBorderline High Triglyceride 150-199 mg/dLHigh Triglyceride: 200-499 mg/dLVery High Triglyceride: greater than or equal to 5OO mg/dL Cholesterol 192 <200 mg/dL [facility] Comment:Desirable Cholestero l: less than 200 mg/dLBorderline High Cholesterol: 200-239 mg/dLHigh Cholesterol: greater than 239 mg/dL LDL Cholesterol Calculated 95 <100 mg/dL [facility] Comment:Desirable LDL: less than 100 mg/dLNear Optimal/Above Optimal LDL: 110- 129 mg/dLBorderline High LDL: 130-159 mg/dLHigh LDL: 160-189 mg/dLVery High LDL: greater than or equal to 190 mg/dL HDL Cholesterol 51 >40 mg/dL [facility] Comment:Desirable HDL: great er than 40 mg/dL Note: This HDL assay may give artificially low results in patients with liver disease. Blood Venous blood specimen / Unknown 09/11/2024 9:10 AM EST 09/11/2024 10:59 AM EST us Sunita Ellis MD LAB BLOOD ORDERABLES Final Res ult [facility] [address] [place] [address] [phone] * Mammography Report 1 (09/02/2020 7:53 AM EST) Anatomical Region Laterality Modality Breast Bilateral Mammography 09/02/2020 7:53 AM EST Narrative 09/02/2020 11:51 AM EST Refer to the Notes tab for result details [facility] Procedure: Mammography Report 1 Procedure Note ProviderVirgen MD - 12/11/2022 Refer to the Notes tab for result details [facility] Procedure: Mammography Report 1 us Miri Reyes CREDIT CONSULTANT IMG BI PROCEDURES Final Result from Last 3 Months or Most Recently Relevant to Health Maintenance Insurance [employer] < [address] [place] [id number] Care Teams Navy Material Inspector Relationship Specialty Start Date End Date Sunita Ellis MD [address] [place] [phone] PCP - General Family Medicine 02/04/23
--- OUTSIDE RECORDS SUMMARY | 2025-01-11 12:51 | XMS_ITS | Encounter Summary ---
Author Organization [facility] Address [address] [place] [address] Care Team Providers Care Gis Professor Name Role Phone Naun Max MD Primary Care Provider [phone] Sunita Ellis MD Primary Care Provider Unava ilable Encounter Details Date Type Department Care Team Description 12/31/2014 Release of Information Medical Records [address] [place] [address] Abstract, Provider Social History Tobacco Use Types [...] on filedocumented in this encounter Care Teams Gis Professor Relationship Specialty Start Date End Date Naun Max MD [address] [place], [place] [phone] PCP - General Internal Medicine 08/26/14 09/26/23 Sunita Ellis MD [address] [place] [address] PCP - General Supervisor Meter Shop 09/27/23 documented as of this encounter
--- OUTSIDE RECORDS SUMMARY | 2025-01-11 12:51 | XMS_ITS | Encounter Summary ---
Author Organization [employer] Address [address] [facility] [place] [address] Care Team Providers Care Labor Employment Associate Name Role Phone Sunita Ellis MD Primary Care Provider [phone] Reason for Visit * Reason Onset Date Comments Med Refill 09/23/2023 Encounter Details Date Type Department Care Team ([facility] st Contact Info) Description 09/23/2023 Refill [facility] MED & PEDS [address] [place], [place] [phone] Sunita Ellis MD [address] [place] [address] Social History Tobacco Use Types Packs/Day Years [...] documented as of this encounter Care Teams Labor Employment Associate Relationship Specialty Start Date End Date Sunita Ellis MD [address] [place] [phone] PCP - General Family Medicine 02/04/23 documented as of this encounter
--- OUTSIDE RECORDS SUMMARY | 2025-01-11 12:51 | XMS_ITS | Encounter Summary ---
Author Organization [facility] Address [address] [place] [address] Care Team Providers Care Mechanical Car Checker Name Role Phone Naun Max MD Primary Care Provider [phone] Sunita Ellis MD Primary Care Provider Unava ilable Encounter Details Date Type Department Care Team Description 11/04/2015 Hospital Medical Records [address] [place] [address] Jase Mistry Social History Tobacco Use Types [...] on filedocumented in this encounter Care Teams Mechanical Car Checker Relationship Specialty Start Date End Date Naun Max MD [address] [place], [place] [phone] PCP - General Internal Medicine 08/26/14 09/26/23 Sunita Ellis MD [address] [place] [phone] PCP - General Debt And Budget Counselor 09/27/23 documented as of this encounter
--- OUTSIDE RECORDS SUMMARY | 2025-01-11 12:51 | XMS_ITS | Encounter Summary ---
Author Organization [employer] Address [address] [facility] [address] [place] [address] Care Team Providers Care Milling Planer Operator Name Role Phone Sunita Ellis MD Primary Care Provider [phone] Reason for Visit * Reason Comments Med Refill Encounter Details Date Type Department Care Team (Late st Contact Info) Description 09/06/2024 Refill [facility] MED & PEDS [address] [place], [place] [phone] Sunita Ellis MD [address] [place] [address] Social History Tobacco Use Types Packs/Day Years [...] documented as of this encounter Care Teams Milling Planer Operator Relationship Specialty Start Date End Date Sunita Ellis MD [address] [place] [phone] PCP - General Family Medicine 02/04/23 documented as of this encounter
--- OUTSIDE RECORDS SUMMARY | 2025-01-11 12:51 | XMS_ITS | Encounter Summary ---
Author Organization [employer] Address [address] [place] [address] [address] [place] [address] Care Team Providers Care Boat Pilot Name Role Phone Carlos Orozco Primary Care Provider Unavail able Sunita Ellis MD Primary Care Provider [phone] Reason for Visit * Reason Comments Med Refill Encounter Details Date Type Department Care Team (Late st Contact Info) Description 01/26/2023 Refill [facility] [address] [place], [place] [phone] Carlos Orozco AGNP Social History Tobacco Use [...] documented as of this encounter Care Teams Boat Pilot Relationship Specialty Start Date End Date Carlos Orozco AGNP PCP - General Family Medicine 10/05/22 02/03/23 Sunita Ellis MD [address] [place] [address] PCP - General Family Medicine 02/04/23 documented as of this encounter
--- OUTSIDE RECORDS SUMMARY | 2025-01-11 12:51 | XMS_ITS | Clinical Summary ---
Author Organization [facility] Address [address] [place] [address] Care Team Providers Care Measurement Advisor Name Role Phone Sunita Ellis MD Primary [...] SCREENING 05/21/2018 05/21/2015 CHOLESTEROL SCREENING 07/14/2020 07/14/2015 BMI CHECK/ADVISE 09/19/2024 05/21/2015 INFLUENZA (Season Ended) 2025 PNEUMOCOCCAL VACCINE FOR HIGH RISK PATIENTS (#2) 03/2512/07/2012 Care Teams Measurement Advisor Relationship Specialty Start Date End Date Sunita Ellis MD PCP - General Medicinal Plant Picker 09/27/23
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
--- OUTSIDE RECORDS SUMMARY | 2025-01-11 12:51 | XMS_ITS | Encounter Summary ---
Author Organization [employer] Address [address] [facility] [address] [place] [address] Care Team Providers Care Automotive Brake Technician Name Role Phone Sunita Ellis MD Primary Care Provider [phone] Reason for Visit * Reason Comments Med Refill Encounter Details Date Type Department Care Team (Late st Contact Info) Description 04/09/[address] [facility] [address] [place], [place] [phone] Carlos Orozco AGNP Hyperlipidemia, unspecified hyperlipidemia type [...] documented as of this encounter Care Teams Automotive Brake Technician Relationship Specialty Start Date End Date Sunita Ellis MD [address] [place] [address] PCP - General Family Medicine 02/04/23 documented as of this encounter
--- OUTSIDE RECORDS SUMMARY | 2025-01-11 12:51 | XMS_ITS | Encounter Summary ---
Author Organization [employer] Address [address] [facility] 7t [place] [address] Care Team Providers Care Senior Data Modeler Name Role Phone Sunita Ellis MD Primary Care Provider [phone] Encounter Details Date Type Department Care Team ([facility] st Contact Info) Description 07/04/2023 Abstract [facility] MEDICINE [address] [place], [place] [phone] Sunita Ellis MD [address] [place], [place] [phone] Social History Tobacco Use Types Packs/Day Years [...] documented as of this encounter Care Teams Senior Data Modeler Relationship Specialty Start Date End Date Sunita Ellis MD [address] [place] [address] PCP - General Family Medicine 02/04/23 documented as of this encounter
--- OUTSIDE RECORDS SUMMARY | 2025-01-11 12:51 | XMS_ITS | Encounter Summary ---
Author Organization [facility] Address [address] [place] [address] Care Team Providers Care Program Manager Name Role Phone Naun Max MD Primary Care Provider [phone] Sunita Ellis MD Primary Care Provider Unava ilable Encounter Details Date Type Department Care Team Description 01/11/2015 Walk In Clinic Visit Medical Records [address] [place], [place] [phone] Social History Tobacco Use Types Packs/Day Years [...] on filedocumented in this encounter Care Teams Program Manager Relationship Specialty Start Date End Date Naun Max MD [address] [place], [place] [phone] PCP - General Internal Medicine 08/26/14 09/26/23 Sunita Ellis MD [address] [place] [address] PCP - General Insulation Sprayer 09/27/23 documented as of this encounter
--- OUTSIDE RECORDS SUMMARY | 2025-01-11 12:51 | XMS_ITS | Encounter Summary ---
Author Organization [facility] Address [address] [place] [address] Care Team Providers Care User Acceptance Tester Name Role Phone Naun Max MD Primary Care Provider [phone] Sunita Ellis MD Primary Care Provider Unava ilable Encounter Details Date Type Department Care Team Description 08/11/2015 Rug Setter Velvet Report Medical Records [address] [place], [place] [phone] Beth Gil MD Social History Tobacco Use [...] on filedocumented in this encounter Care Teams User Acceptance Tester Relationship Specialty Start Date End Date Naun Max MD [address] [place], [place] [phone] PCP - General Internal Medicine 08/26/14 09/26/23 Sunita Ellis MD [address] [place] [address] PCP - General Reel Worker 09/27/23 documented as of this encounter
--- OUTSIDE RECORDS SUMMARY | 2025-01-11 12:51 | XMS_ITS | Data Portability ---
Author Organization [employer] Address [address] [place] [phone] Care Team Providers Care Physical Science Technician Name Role Phone HIM [facility] OTHER [facility] Primary Care Provider Assessment Encounter Date Assessment [...] mg-160 mg tablet 024 024 [id number] [address] [place], [place], [id number], 4 16:00:01 Patient TargetsNo targets recorded. Patient InstructionsNo instructions recorded. Reason for Referral None Reported. Medical Equipment None Reported. Allergies Allergen ID Allergen Name Allergen Category Reaction Reaction Severity Criticality Documentation Date Start Date Code Code System Note Provider Name and Address Organization Details Recorded Time 38480 ibuprofen medicatio n Not available Not available Not available 10/29/2024 5640 RxNorm Not Available [facility] - production 5 14:29:58 10697 cyclobenz aprine hydrochlo ride medicatio n Not available Not available Not available 10/29/2024 69234 RxNorm Not Available [facility] - production 5 14:29:58 7046 egg extract food,medi cation Not available Not available Not available 07/17/2024 04472 15 RxNorm Not Available [facility] - production 4 03:34:34 Medications Name Sig [...] Not Available Not Available Not Available omega 1-kgx-bxw-fi sh oil 60 mg-90 mg-500 mg capsule [...] Updated DateTime 3 165.1 cm 18 /min 38057.8 88 g 98.4 [degF] 96 % 96 % 70 /min 109 mm[Hg] 76 mm[Hg] Not Available [employer] 3 17:55:02 Date Recorded Oxygen saturation Oxygen saturation in Arterial blood by Pulse oximetry Body height Heart rate Respiratory rate Body weight Body temperature Systolic blood pressure Diastolic blood pressure Provider Name and Address Organization Details Last Updated DateTime 4 95 % 95 % 152.4 cm 95 /min 16 /min 75308.5 2 g 99.3 [degF] 160 mm[Hg] 89 mm[Hg] Not Available [employer] 4 15:56:16 Date Recorded Respiratory rate Body temperature Oxygen saturation Oxygen saturation in Arterial blood by Pulse oximetry Heart rate Systolic blood pressure Diastolic blood pressure Provider Name and Address Organization Details Last Updated DateTime 5 16 /min 98.4 [degF] 98 % 98 % 89 /min 138 mm[Hg] 88 mm[Hg] Not Available [employer] 5 18:15:32 Social History None recorded. Functional Status None recorded. Mental Status None recorded. Family History Nothing Reported. Medical History No medical history recorded. Gynecological HistoryNo gynecological history recorded. Obstetrics History GPAL:G 0 P 0 0 0 0 Past Encounters Encounter ID Performer Location Encounter Start Date Encounter Closed Date Diagnosis/Indication Diagnosis SNOMED-CT Code Diagnosis ICD10 Code Diagnosis Note [id number] Alex Hall MD Main - [facility] [address] [place] [id number] 02/21/2023 17:54:56 02/22/2023 15:43:28 Pain of right knee region 3912206312 94690 M25.561 This 62-year-ol d female apparently sustained [...] PCP. The patient agreed with this plan. [id number] Saundra Chen MD Main - [facility] [address] [place] [address] [id number] 05/07/2024 15:56:03 05/07/2024 22:38:04 Infection of big toe 087978774 L08.9 64 year old female with COPD [...] assessment and plan as documented by the community health advocate. I provided real-time medical direction for this encounter and was immediatel y available to provide additional phone-base d assistance as needed. We discussed the diagnostic uncertaint y of home visits and associated risks. We discussed the need to seek care urgently/e mergently in the setting of any new or worsening symptoms. [id number] Michael Barrera MD Main - [facility] [address] [place] [phone] 10/29/2024 18:15:21 10/29/2024 21:43:07 Pain in left foot [id number] 62844 M79.672 Health Concerns Section Related Observation LastModified by Organization Detai ls LastModified Time None Recorded Concern Status LastModified by Organization Details LastModified Time None Recorded Advance Directives Directive None Recorded Payers Encounter Date Sequence Insurance Name Policy Number Policy Dumont Covered Member ID Dumont Member ID Guarantor Name 02/21/2023 1 [facility] - DOS ON OR AFTER 2022 - DUAL ELIGIBLE - HALF-WAY OPTIONS AND ONE CARE (MEDICARE REPLACEMENT/ADV ANTAGE - HMO) Diolinda Bahadur [id number] Diolinda Bahadur 05/07/2024 1 [facility] - DOS ON OR AFTER 2022 - DUAL ELIGIBLE - HALF-WAY OPTIONS AND ONE CARE (MEDICARE REPLACEMENT/ADV ANTAGE - HMO) Diolinda Bahadur [id number] Diolinda Bahadur 10/29/2024 1 [facility] - DOS ON OR AFTER 2022 - DUAL ELIGIBLE - HALF-WAY OPTIONS AND ONE CARE (MEDICARE REPLACEMENT/ADV ANTAGE - HMO) Diolmela Bahadur [id number] Diolinda Bahadur Notes Date Note Type Note [...] .................. .................. .................. .................. .................. .................. ............... Technology Assistant Note From Hawa Murray: Sent to a [...] or deformities noted; Skin: pink, warm, dry; [facility] consulted advises pt continue taking Tylenol and follow up with PCP. Red flags discussed. Pt has no further questions. .................. .................. .................. .................. .................. .................. .................. ............... Disposition: Fulfilled Alex Hall MD [address] [facility],[address], [place], [phone], [employer] 02/21/2023 18:00:06 05/07/2024 text/html CRC Nurse Triage Notes (Geovany Rodriguez): Reason For Request: Patient wants someone to look at her foot, she had foot surgery and it's now painful, and swollen. Chief Complaints: Pain PMH: COPD/Asthma, Hypertension Allergies: Egg Comments: Archery Instructor verified the member's name//address and phone number. [...] .................. .................. .................. .................. .................. .................. ............... Technology Assistant Note From Dante Livingston: Pt reports surgery [...] base of big toe/lateral side of foot. [facility] contacted an will send rx to pharmacy. Pt instructed to keep appointment on Tuesday and to seek emergent medical care for new or worsening sx, which are reviewed with her. .................. .................. .................. .................. .................. .................. .................. ............... Disposition: Fulfilled Saundra Chen MD [address] [facility],[address], [place], [address], [employer] 05/07/2024 16:11:29 10/29/2024 text/html CRC Nurse Triage [...] .................. .................. .................. .................. .................. .................. ............... Technology Assistant Note From Alexander Pugh: Dispatch to the [...] the bottom and top of her foot. [facility] consulted. Pt advised that she should have it imaged sooner rather than later. Pt advised she would call for a ride to urgent care and if she was not able to procure one she would call 911. Red flags discussed. All times are approximate. .................. .................. .................. .................. .................. .................. .................. ............... [facility] Consulted: Michael Barrera .................. .................. .................. .................. .................. .................. .................. ............... Disposition: Fulfilled Michael Barrera MD [address] [facility],[address], [place], [address], TOMMY - TARA FORTE 10/29/2024 21:31:08 OBGyn Episode No OBEpisode recorded.
--- OUTSIDE RECORDS SUMMARY | 2025-01-11 12:51 | XMS_ITS | Encounter Summary ---
Author Organization [facility] [facility] Address [address] [place] [address] Care Team Providers Care Clerk Checker Name Role Phone Naun Max MD Primary Care Provider [phone] Sunita Ellis MD Primary Care Provider Unava ilable Encounter Details Date Type Department Care Team Description 02/25/2016 Puttier Report Medical Records [address] [place], [place] [phone] Patsy Quevedo Social History Tobacco Use Types Packs/Day Years [...] on filedocumented in this encounter Care Teams Clerk Checker Relationship Specialty Start Date End Date Naun Max MD [address] [place], [place] [phone] PCP - General Internal Medicine 08/26/14 09/26/23 Sunita Ellis MD [address] [place] [address] PCP - General Boiler Setter 09/27/23 documented as of this encounter
--- OUTSIDE RECORDS SUMMARY | 2025-01-11 12:52 | XMS_ITS | Encounter Summary ---
Author Organization [employer] [facility] Address [address] [place] [address] Care Team Providers Care High Man Name Role Phone Naun Max MD Primary Care Provider [phone] Sunita Ellis MD Primary Care Provider Unava ilable Encounter Details Date Type Department Care Team Description 09/29/2014 Hospital Medical Records [address] [place], [place] [phone] Luigi Blake MD Social History Tobacco Use [...] on filedocumented in this encounter Care Teams High Man Relationship Specialty Start Date End Date Naun Max MD [address] [place], [place] [phone] PCP - General Internal Medicine 08/26/14 09/26/23 Sunita Ellis MD [address] [place] [address] PCP - General Maintenance Dispatcher 09/27/23 documented as of this encounter
--- OUTSIDE RECORDS SUMMARY | 2025-01-11 12:52 | XMS_ITS | Encounter Summary ---
Author Organization [employer] Address [address] [facility] 7[address] [place] [address] Care Team Providers Care Skid Wrapper Name Role Phone Sunita Ellis MD Primary Care Provider [phone] Reason for Visit * Reason Comments Med Refill Encounter Details Date Type Department Care Team (Late st Contact Info) Description 12/19/2024 Refill [facility] MEDICINE [address] [place], [place] [phone] Sunita Ellis MD [address] [place], [place] [phone] Social History Tobacco Use Types Packs/Day Years [...] documented as of this encounter Care Teams Skid Wrapper Relationship Specialty Start Date End Date Sunita Ellis MD [address] [place] [address] PCP - General Family Medicine 02/04/23 documented as of this encounter
--- OUTSIDE RECORDS SUMMARY | 2025-01-11 12:52 | XMS_ITS | Encounter Summary ---
Author Organization [facility] Address [address] [place] [address] Care Team Providers Care Tank Car Loader Name Role Phone Naun Max MD Primary Care Provider [phone] Sunita Ellis MD Primary Care Provider Unava ilable Encounter Details Date Type Department Care Team Description 09/27/2014 Hospital Medical Records [address] [place] [address] Social History Tobacco Use Types Packs/Day Years [...] on filedocumented in this encounter Care Teams Tank Car Loader Relationship Specialty Start Date End Date Naun Max MD [address] [place], [place] [address] PCP - General Internal Medicine 08/26/14 09/26/23 Sunita Ellis MD [address] [place] [address] PCP - General Tire Trucker 09/27/23 documented as of this encounter
--- OUTSIDE RECORDS SUMMARY | 2025-01-11 12:52 | XMS_ITS | Encounter Summary ---
Author Organization [employer] [facility] Address [address] [place] [address] Care Team Providers Care Business Objects Report Developer Name Role Phone Naun Max MD Primary Care Provider [phone] Sunita Ellis MD Primary Care Provider Unava ilable Encounter Details Date Type Department Care Team Description 05/23/2015 Business Doc Medical Records [address] [place], [place] [phone] Abstract, Provider Social History Tobacco Use Types [...] on filedocumented in this encounter Care Teams Business Objects Report Developer Relationship Specialty Start Date End Date Naun Max MD [address] [place], [place] [phone] PCP - General Internal Medicine 08/26/14 09/26/23 Sunita Ellis MD [address] [place] [address] PCP - General Trench Digger 09/27/23 documented as of this encounter
--- OUTSIDE RECORDS SUMMARY | 2025-01-11 12:52 | XMS_ITS | Encounter Summary ---
Author Organization [employer] Address [address] [facility] 7t [place] [address] Care Team Providers Care Pocket Secretary Assembler Name Role Phone Sunita Ellis MD Primary Care Provider [phone] Reason for Visit * Reason Onset Date Comments Nurse Triage 01/08/2025 Encounter Details Date Type Department Care Team ([facility] st Contact Info) Description 01/08/2025 Telephone [facility] MEDICINE [address] [place], [place] [phone] Sunita Ellis MD [address] [place], [place] [phone] Nurse Triage Social History Tobacco Use Types [...] encounter Miscellaneous Notes * Telephone Encounter - Enedina Banks RN - 01/08/2025 2:25 PM EDT called pt to triage, spoke to pt. pt states several days duration of pain in right knee with mild swelling. pt states pain radiates into the foot and makes ambulation difficult. pt denies known injury, inability to stand or walk, redness, or severe swelling. given appt Tuesday with red team providerat 11:00 for exam. advised home care: rest, fluids, elevate, OTC pain reliever as needed, and call back if worsening or new concerns. pt understands and agrees with plan. insurance verified. Protocol Used: Knee Pain (Adult) Protocol-Based Disposition: See in Office or Video Visit within 3 Days Video visit offer not recorded Positive Triage Question: * Patient wants to be seen * All higher-acuity triage questions were negative Care Advice Discussed: * Reassurance and Education - Knee Pain * Pain Medicines * Reasons To Call Back - You become worse * Telephone Encounter - Charles Wilkins - 01/08/2025 1:25 PM EDT Symptom: Knee Pain - Not From Injury Outcome: Schedule an urgent appointment (within 1 hour) or talk to a nurse or provider soon Reason: Trouble walking The caller accepted this outcome. Contact pt at [phone] documented in this encounter Plan of Treatment Not on file documented as of this encounter Visit Diagnoses Not on filedocumented in this encounter Additional Health Concerns Assessment Noted Time PHQ-9 Depression Total Score: 7 10/29/19 23 9:12 AM EST documented as of this encounter Care Teams Pocket Secretary Assembler Relationship Specialty Start Date End Date Sunita Ellis MD [address] [place] [address] PCP - General Family Medicine 02/04/23 documented as of this encounter
--- OUTSIDE RECORDS SUMMARY | 2025-01-11 12:52 | XMS_ITS | Encounter Summary ---
Author Organization [employer] Address [address] [facility] 7t [place] [address] Care Team Providers Care Cabinet Abrasive Sandblaster Name Role Phone Sunita Ellis MD Primary Care Provider Reason for Visit * Reason Comments Knee Pain Encounter Details Date Type Department Care Team ([facility] st Contact Info) Description 01/11/2025 11:00 AM EDT Office Visit [facility] MEDICINE [address] [place], [place] [phone] [facility] [address] [place], [place] [phone] Chronic foot pain, right (Primary Dx) Social History Tobacco Use Types Packs/Day Years [...] past 12 months, has t he electric, [employer], oil or water company threatened to shut [...] AM EDT documented as of this encounter Last Filed Vital Signs Vital Sign Reading [...] Mass Index 34.01 01/11/2025 11:02 AM EDT documented in this encounter Plan of Treatment Not on file documented as of this encounter Procedures Procedure Name Priority Date/Time Associated Diagnosis Comments XR FOOT 3+ VIEWS RIGHT Routine 01/11/2025 11:59 AM EDT Chronic foot pain, right documented in this encounter Results * XR Foot 3+ Views Right (01/11/2025 11:59 AM EDT) Anatomical Region Laterality Modality Lower Extremities, Foot Right Radiogra phic Imaging 01/11/2025 11:5 9 AM EDT Narrative 01/11/2025 12:50 PM EDT ?[facility] ?[address] ?[place] [address] ?XRay Report ? Signed ? Patient: Bahadur,Diolinda ?MR#: [id number] ?? [id number] ? : 1960 ?Acct:[id number] ? Age/Sex: 64 / F ?ADM Date: 01/11/25 ? Loc: HO.HHCX ? Attending Dr: Cherry Atwood PERSONNEL MONITOR ? Ordering Physician: Cherry Atwood ?? Date of Service: 01/11/25 ?? Procedure(s): XR foot RT min 3V ?? Accession Number(s): [id number] ? cc: Cherry Atwood PERSONNEL MONITOR ? EXAMINATION: ??XR FOOT 3 OR MORE VIEWS RIGHT ? HISTORY: PAIN ? COMPARISON: Comparison is made with the prior examination dated ?? 10/12/2023. ? FINDINGS: ? Three views of the right foot are submitted. ??Osseous mineralization is ?? normal. ??Postsurgical changes are noted involving the 1st metatarsal ?? head. There is an old healed fracture of the 3rd metatarsal. There is ?? no acute fracture or dislocation. ??The joint spaces are preserved. ??The ?? soft tissues are unremarkable. ? XR/XR foot RT min 3V ?? IMPRESSION: ? Postsurgical changes involving the 1st metatarsal head. No evidence of ?? fracture of the right foot. ? Electronically signed by: ??Garret Nagel MD ??01/11/2025 12:48 PM EDT ?? RP ? Dictated By: ?Garret Nagel MD ? Signed By: ?<Electronically signed by Garret Nagel MD in OV> ?01/11/25 1248 ? DD/ 1159 ? TD/TT: 01/11/25 1200 ? C.O.D. Biller: ? Procedure Note Anita, Image - 01/11/[address] [address] XRay Report Signed Patient: Edvin Martinez#: [id number] : 2Acct:[id number] Age/Sex: 64 / FADM Date: 01/11/25 Loc: HO.HHCX Attending Dr: Cherry Atwood PERSONNEL MONITOR Ordering Physician: Cherry Atwood Date of Service: 01/11/25 Procedure(s): XR foot RT min 3V Accession Number(s): [id number] cc: Cherry Atwood [facility] EXAMINATION: XR FOOT 3 OR MORE VIEWS RIGHT HISTORY: PAIN COMPARISON: Comparison is made with the prior examination dated 10/12/2023. FINDINGS: Three views of the right foot are submitted. Osseous mineralization is normal. Postsurgical changes are noted involving the 1st metatarsal head. There is an old healed fracture of the 3rd metatarsal. There is no acute fracture or dislocation. The joint spaces are preserved. The soft tissues are unremarkable. XR/XR foot RT min 3V IMPRESSION: Postsurgical changes involving the 1st metatarsal head. No evidence of fracture of the right foot. Electronically signed by: Garret Nagel MD 01/11/2025 12:48 PM EDT Dictated By: Garret Nagel MD Signed By: <Electronically signed by Garret Nagel MD in OV> 01/11/25 1248 DD/ 1159 TD/TT: 01/11/25 1200 C.O.D. Biller: [facility] PERSONNEL MONITOR IMG XR PROCEDURES Edited Resu lt - Final documented in this encounter Visit Diagnoses Diagnosis Chronic foot pain, right- Primary documented in this encounter Additional Health Concerns Assessment Noted Time PHQ-9 Depression Total Score: 7 10/29/19 23 9:12 AM EST documented as of this encounter Care Teams Cabinet Abrasive Sandblaster Relationship Specialty Start Date End Date Sunita Ellis MD [address] [place] [address] PCP - General Family Medicine 02/04/23 documented as of this encounter
--- OUTSIDE RECORDS SUMMARY | 2025-01-11 12:52 | XMS_ITS | Encounter Summary ---
Author Organization [employer] Address [address] [facility] 7t [place] [address] Care Team Providers Care 21 Dealer Name Role Phone Carlos Orozco Primary Care Provider Unavail able Sunita Ellis MD Primary Care Provider [phone] Reason for Visit * Reason Onset Date Comments Results 11/24/2022 Encounter Details Date Type Department Care Team ([facility] st Contact Info) Description 11/24/2022 Telephone [facility] MEDICINE [address] [place], [place] [phone] Carlos Orozco AGNP Results Social History Tobacco [...] blood work to be sent to her manager entry office, pt advised she will need to sign a medical release with medical records, she confirmed this and will try to fill out the forms prior to her next appointment. Pt had no further concerns. * Telephone Encounter - Heladio Yeboah - 11/29/2022 2:33 PM EDT Tc from pt returning call regarding message below. Please contact pt at [phone] * Telephone Encounter - Heladio Yeboah - 11/24/2022 10:43 AM EST Tc from pt requesting a call back regarding blood work. Pt requesting for results Please contact pt at [phone] documented in this encounter Plan of Treatment Not on file documented as of this encounter Visit Diagnoses Not on filedocumented in this encounter Additional Health Concerns Assessment Noted Time PHQ-9 Depression Total Score: 7 10/29/19 9:12 AM EST documented as of this encounter Care Teams 21 Dealer Relationship Specialty Start Date End Date Carlos Orozco AGNP PCP - General Family Medicine 10/05/22 02/03/23 Sunita Ellis MD [address] [place] [address] PCP - General Family Medicine 02/04/23 documented as of this encounter
--- OUTSIDE RECORDS SUMMARY | 2025-01-11 12:52 | XMS_ITS | Encounter Summary ---
Author Organization [employer] Address [address] [place] [address] [place] [address] Care Team Providers Care Estate Administrator Name Role Phone Cherry Atwood Primary Care Provider [phone] Carlos Orozco Primary Care Provider Unavail Sunita Clay MD Primary Care Provider [phone] Encounter Details Date Type Department Care Team (Late st Contact Info) Description 09/02/2022 Orders Only [facility] [address] [place], [place] [phone] Cherry Atwood FNP [address] [place] [address] Social History Tobacco Use Types Packs/Day Years [...] on filedocumented in this encounter Care Teams Estate Administrator Relationship Specialty Start Date End Date Cherry Atwood FNP [address] [place] [address] [phone] PCP - General Family Medicine 05/06/22 10/04/22 Carlos Orozco AGNP [address] [place] [address] PCP - General Family Medicine 10/05/22 02/03/23 Sunita Ellis MD [address] [place] [address] PCP - General Family Medicine 02/04/23 documented as of this encounter
--- OUTSIDE RECORDS SUMMARY | 2025-01-11 12:52 | XMS_ITS | Encounter Summary ---
Author Organization [facility] Address [address] [place] [address] Care Team Providers Care Obstetrics Tech Name Role Phone Naun Max MD Primary Care Provider [phone] Sunita Ellis MD Primary Care Provider Unava ilable Encounter Details Date Type Department Care Team Description 01/31/2015 Walk In Clinic Visit Medical Records [address] [place], [place] [id number] Social History Tobacco Use Types Packs/Day Years [...] on filedocumented in this encounter Care Teams Obstetrics Tech Relationship Specialty Start Date End Date Naun Max MD [address] [place], [place] [phone] PCP - General Internal Medicine 08/26/14 09/26/23 Sunita Ellis MD [address] [place] [id number] PCP - General Transport Aide 09/27/23 documented as of this encounter
--- OUTSIDE RECORDS SUMMARY | 2025-01-11 12:52 | XMS_ITS | Encounter Summary ---
Author Organization [facility] Address [address] [place] [address] Care Team Providers Care Mold Carrier Name Role Phone Sunita Ellis MD Primary Care Provider Alicia burton Encounter Details Date Type Department Care Team Description 03/07/2024 Orders Only Medical Records [address] [place] [address] Juan Arias DPM [address] [place] [address] Social History Tobacco Use Types Packs/Day Years [...] Procedure Name Priority Date/Time Associated Diagnosis Comments OUTSIDE PATHOLOGY Routine 03/02/2024 documented in this encounter Results * OUTSIDE PATHOLOGY (03/02/2024) Juan Arias DPM OUTSIDE LAB documented in this encounter Visit Diagnoses Not on filedocumented in this encounter Care Teams Mold Carrier Relationship Specialty Start Date End Date Sunita Ellis MD PCP - General School Bus Driver/Mechanic 09/27/23 documented as of this encounter
--- OUTSIDE RECORDS SUMMARY | 2025-01-11 12:52 | XMS_ITS | Encounter Summary ---
Author Organization [facility] Address [address] [place] [address] Care Team Providers Care Research Project Manager Name Role Phone Naun Max MD Primary Care Provider [phone] Sunita Ellis MD Primary Care Provider Unava ilable Encounter Details Date Type Department Care Team Description 10/02/2014 RELAY ASSOCIATE/[place] Report Medical Records [address] [place], [place] [id number] Abstract, Provider Social History Tobacco Use Types [...] on filedocumented in this encounter Care Teams Research Project Manager Relationship Specialty Start Date End Date Naun Max MD [address] [place], [place] [phone] PCP - General Internal Medicine 08/26/14 09/26/23 Sunita Ellis MD [address] [place] [address] PCP - General Dairy Consultant 09/27/23 documented as of this encounter
--- OUTSIDE RECORDS SUMMARY | 2025-01-11 12:52 | XMS_ITS | Encounter Summary ---
Author Organization [employer] [facility] Address [address] [place] [address] Care Team Providers Care Canal Lock Tender Chief Operator Name Role Phone Naun Max MD Primary Care Provider [phone] Sunita Ellis MD Primary Care Provider Unava ilable Encounter Details Date Type Department Care Team Description 05/12/2015 Transfer Records Medical Records [address] [place], [place] [id number] Abstract, Provider Social History Tobacco Use Types [...] on filedocumented in this encounter Care Teams Canal Lock Tender Chief Operator Relationship Specialty Start Date End Date Naun Max MD [address] [place], [place] [phone] PCP - General Internal Medicine 08/26/14 09/26/23 Sunita Ellis MD [address] [place] [address] PCP - General Claims Supervisor 09/27/23 documented as of this encounter
--- OUTSIDE RECORDS SUMMARY | 2025-01-11 12:52 | XMS_ITS | Data Portability ---
Author Organization [facility] Address [address] [facility],[address] [place] [address] Care Team Providers Care Consulting Manager Name Role Phone JI LAUREANO Referring Provider [...] By Organization Details Last Modified Time 02/25/2016 44649 She was advised against bed rest lasting longer than four days and to continue activities as tolerated. Benefits of smoking cessation were discussed with her. [email or web address] Not available 03/15/2016 10:21:06 Reason for Referral None Reported. Problems Name Problem SNOMED Code Status Onset Date Resolution Date Notes Provider Name and Address Organization Details Recorded Time Muscle pain 83383332 Active Patsy wan MD [address] , [address], [place], [address], [place] [facility] 6 10:21:06 Osteoarthritis 052704185 Active Patsy wan MD [address] , [address], [place], [address], [place] [facility] [...] Name and Address Organization Details Recorded Time 75051 Non-stero idal anti-infl ammatory agent (product) medicatio n respirato ry distress Not available Not available 02/25/2016 70903 005 SNOMED Yani green [place] [facility] 6 14:54:07 38110 beclometh asone dipropion ate medicatio n respirato ry distress Not available Not available 02/25/2016 1348 RxNorm Yani green [place] [facility] 6 14:54:07 92555 cyclobenz aprine hydrochlo ride medicatio n hives Not available Not available 02/25/2016 64011 RxNorm Yani green [place] [facility] 6 14:54:07 81957 egg extract food,medi cation hives Not available Not available 02/25/2016 13068 15 RxNorm Yani green, [place] - [facility] [...] Details Last Updated DateTime 6 76 /min 18909.6 266 g 97 % 97 % 165.1 cm 30 kg/m2 117 mm[Hg] 60 mm[Hg] [facility] 6 14:54:07 Social History Question Answer Notes LastModified by Organizat ion Details LastModified Time Tobacco Smoking Status Former Smoker quit x 1-2 months with recent smoking Not Available [employer] 07/04/2020 03:16:11 What Is Your Level Of Alcohol Consumption? None [id number] Information not available 07/04/2020 Are You Currently Employed? No [id number] Information not available 07/04/2020 Which Illicit Or Recreational Drugs Have You Used? No [id number] Information not available 07/04/2020 Education 12 With Some College [email or web address] Information not available 02/25/2016 Live Alone Or With Others? Alone Information not available 02/25/2016 Marital Status Informatio n not available 02/25/2016 How Many Years Have You Smoked Tobacco? 20 [id number] Information not available 07/04/2020 Sex: Unknown Functional [...] Condition Response Anxiety Disorder Y Arthritis Y Fibromyalgia Y Osteoporosis Y Depression Y COPD Y Gynecological HistoryNo gynecological history recorded. Obstetrics History GPAL:G 0 P 0 0 0 0 Past Encounters Encounter ID Performer Location Encounter Start Date Encounter Closed Date Diagnosis/Indication Diagnosis SNOMED-CT Code Diagnosis ICD10 Code Diagnosis Note [id number] Patsy Quevedo MD PAIN OFFICE [address] [place] [phone] 02/25/2016 14:27:06 03/15/2016 10:21:32 Muscle pain 02125920 M79.1 Osteoarthritis 171448660 M15.0 Health Concerns Section Related Observation LastModified by Organization Detai ls LastModified Time None Recorded Concern Status LastModified by Organization Details LastModified Time None Recorded Advance Directives Directive None Recorded Payers Encounter Date Sequence Insurance Name Policy Number Policy Dumont Covered Member ID Dumont Member ID Guarantor Name 02/25/2016 1 [place] [employer] Rodrigue [facility] [id number] Rodrigue [facility] 02/25/2016 2 [place] [facility] [id number] Rodrigue [facility] Notes Date Note Type Note Provider Name and Address Organization Details Recorded Time 02/25/2016 text/html [facility] eported bypatient.Location:Mary Ann Martinez is a 55 year old woman with complaints of pain in her mid back region. She has history of chronic pain and has been diagnosed with Fibromyalgia and is seeing a electrical helper at [facility]. She also has a diagnosis of arthritis [...] in her right foot. Patsy Quevedo MD [address] [place] [address] , [address], [place], [address], [facility] 03/16/2016 16:14:28 OBGyn Episode No OBEpisode recorded.
--- OUTSIDE RECORDS SUMMARY | 2025-01-11 12:52 | XMS_ITS | Encounter Summary ---
Author Organization [facility] Address [address] [place] [address] Care Team Providers Care Director Of Professional Services Name Role Phone Naun Max MD Primary Care Provider [phone] Sunita Ellis MD Primary Care Provider Unava ilable Encounter Details Date Type Department Care Team Description 04/22/2015 Cake Winder Report Medical Records [address] [place], [place] [phone] Nilo Curran Social History Tobacco Use Types [...] on filedocumented in this encounter Care Teams Director Of Professional Services Relationship Specialty Start Date End Date Naun Max MD [address] [place], [place] [phone] PCP - General Internal Medicine 08/26/14 09/26/23 Sunita Ellis MD [address] [place] [id number] PCP - General Pill Packer 09/27/23 documented as of this encounter
--- OUTSIDE RECORDS SUMMARY | 2025-01-11 12:52 | XMS_ITS | Encounter Summary ---
Author Organization [facility] Address [address] [place] [address] Care Team Providers Care Supervisor Lace Tearing Name Role Phone Naun Max MD Primary Care Provider Sunita Ellis MD Primary Care Provider Unava ilable Reason for Visit * Reason Onset Date Comments Faxed Order 02/04/2015 Encounter Details Date Type Department Care Team Description 02/04/2015 Telephone Adult Medicine [address] [phone] Naun Max MD [address] [place] [address] [phone] Faxed Order Social History Tobacco Use Types [...] 02/04/2015 2:57 PM EDT Faxed orders from [facility] services sent to [place] smith to sign documented in this encounter Plan of Treatment Not on file documented as of this encounter Visit Diagnoses Not on filedocumented in this encounter Care Teams Supervisor Lace Tearing Relationship Specialty Start Date End Date Naun Max MD [address] [place] [address] PCP - General Internal Medicine 08/26/14 09/26/23 Sunita Ellis MD [address] [place] [address] [place] [address] PCP - General Floral Decorator 09/27/23 documented as of this encounter
--- OUTSIDE RECORDS SUMMARY | 2025-01-11 12:52 | XMS_ITS | Encounter Summary ---
Author Organization [employer] Address [address] [facility] [address] [place] [address] Care Team Providers Care Jukebox Routeman Name Role Phone Sunita Ellis MD Primary Care Provider [phone] Reason for Visit * Reason Comments Med Refill Encounter Details Date Type Department Care Team (Late st Contact Info) Description 12/20/2024 Refill [facility] [address] [place], [place] [phone] Sunita Ellis MD [address] [place] [address] Social History Tobacco Use Types Packs/Day Years [...] documented as of this encounter Care Teams Jukebox Routeman Relationship Specialty Start Date End Date Sunita Ellis MD [address] [place] [address] PCP - General Family Medicine 02/04/23 documented as of this encounter
== END 2025-01-11 11:59 | disposition home or self-care (01) ==
LOC: HO.HHCX 11:58
PROVIDERS: Visit Provider Registered Nurse
DX: M79.671 Pain in right foot (principal); G89.29 Other chronic pain
CPT/HCPCS: 73630

== ENCOUNTER → 2025-01-11 11:59 | Outpatient (BNV) | payer OTHER, SELFPAY | PROVIDERS: Visit Provider Radiology Diagnostic Radiology | DX: M79.671 Pain in right foot (principal) | CPT/HCPCS: 73630 ==

== ENCOUNTER 2025-03-12 08:38 | Outpatient (AMB) | payer OTHER, SELFPAY ==
[2025-03-12 08:46] VITALS: BP 114/72; BMI 33.8
--- NOTE | 2025-03-12 08:46 | A.OFFVIS_ITS ---
Vital Signs 03/12/25 08:46 Height 5 ft 4 in Weight 197 lb BMI 33.8 BP 114/72 Blood Pressure Location Rt brachial Position Sitting Intake Visit Reasons: Botox Intake Note: Patient presents for botox injection. pharmacy supplied Allergies cyclobenzaprine (From Flexeril) Allergy (Severe, Verified 03/12/25 08:46) Anaphylaxis beclomethasone (From QVAR) Allergy (Intermediate, Verified 03/12/25 08:46) FACIAL/TONGUE SWELLING NSAIDS (Non-Steroidal Anti-Inflamma (Nsaids) Allergy (Intermediate, Verified 03/12/25 08:46) swollen egg (Egg) Allergy (Mild, Verified 03/12/25 08:46) UNKNOWN Medication List - Last Reconciled 03/12/25 by Beth Gil MD acetaminophen ER (Tylenol 8 Hour) 650 mg PO Q8H PRN albuterol sulfate 90 mcg/actuation 2 puffs PO Q6H PRN 30 days alprazolam (Xanax) 1 mg PO BEDTIME atorvastatin 20 mg PO DAILY baclofen 5 mg PO BEDTIME betamethasone dipropionate 0.05% topical duloxetine 60 mg PO BID eszopiclone (Lunesta) 3 mg PO BEDTIME fluticasone furoate-vilanterol 200-25 mcg/dose (Breo Ellipta) 1 inh inhalation DAILY 30 days levothyroxine 0 mcg PO meclizine mg PO morphine 15 mg PO Q6H PRN 3 days olanzapine 5 mg PO BEDTIME omega 7-cme-jfe-fish oil 60-90-500 mg (Fish Oil) 0 caps PO onabotulinumtoxinA (Botox) for migrains pantoprazole 40 mg PO DAILY sumatriptan succinate 50 - 100 mg orally at onset of headache, may repeat in 2 hrs PRN; max 2 tabs per day or 4 tabs/week 30 days tramadol 50 mg PO Q8H PRN 5 days ubrogepant (Ubrelvy) 1 tab at onset of migraine and can repeat in 2 hrs; MDD 2 tabs upadacitinib ER (Rinvoq) 15 mg PO DAILY HPI Comments Details: ?64y/o female comes for treatment of chronic migraines with botox. ??? Most frequent reported adverse reactions following injection of botox for chronic migraine include neck pain (9%), headache(5%), eyelid ptosis(4%), migraine(4%), muscular weakness(4%), musculuskeletal stiffness(4%), bronchitis(3%), injection site pain (3%), musculoskeletal pain(3%), myalgia(3%), facial paresis(2%), HTN(2%) and muscle spasms(2%) were discussed in detail. ??? Botulinum toxin typeA 200units lot no [id number] Exp June 2027 was diluted with 4 cc of normal saline . ??? Muscles injected- ??? Frontalis 4 sites ??? Procerus 1 site ??? Linen Sorter- 2 sites ??? Temporalis- 8 sites ??? Occipitalis- 6 sites ??? Cervical paraspinals- 4 sites ??? Trapezius- 6 sites ??? 5 units each in 31 site ??? Total use- 155units ??? Discarded-45units [facility] Medical History Left upper extremity numbness Asthma-COPD overlap syndrome DVT (deep venous thrombosis) Interstitial lung disease Femur fracture, right Depression Chronic pain Herniated disc Alopecia Anxiety Fibromyalgia Emphysema of lung Spondylosis of cervical spine Hypothyroidism Nocturnal hypoxemia COPD (chronic obstructive pulmonary disease) Surgical History History of bunionectomy H/O cervical spine surgery H/O tubal ligation History of cholecystectomy Family History Father Diabetes Mother CVD (cardiovascular disease) Social History Household Members: Children Household Members Other:: son Alcohol intake: never Patient Tobacco Use Status: Former Tobacco user Current occupational status: disabled Physical Exam Vital Signs: Last Vital Signs BP 114/72 03/12/25 08:46 BMI result Body Mass Index 33.8 Const General: cooperative, healthy appearing, comfortable, no acute distress and well developed Nutritional Appearance: overweight Orientation/consciousness: patient oriented x3 Eyes Pupils: Equal, round and reactive pupils present Neck Other: tight neck muscles Neck: Yes no meningeal signs Neuro General: patient oriented x3, gait normal, tone normal, moves all extremities, Normal light touch and pain sensation, no meningeal signs, no focal motor deficits and CN's II-XI intact bilaterally Cranial nerves: Yes CN's II-XII intact bilaterally, Yes Facial sensation intact/muscles of mastication intact and Yes Equal, round and reactive pupils present Cognition (Neuro): normal cognition Motor exam (neuro): 5/5 motor strength present throughout Coordination: qilpgk-af-mgyo test normal Office Procedures Botulinum toxin Injection 48027 - Migraine Procedure code (CPT) selection complete Office Meds onabotulinumtoxinA 200 unit solution for injection Performing Provider: Beth Gil MD Performing Location: [facility] Administered by: Beth Gil MD on 03/12/25 09:55 Dose Route Admin Location Dispensed Lot Number Expiration Date [facility] Systems Mechanic 185 unit subcut 200 units [id number] [employer] /[employer]OX Total Dispensed Waste 200 units 7.5 % Comments: see HPI Assessment & Plan Assessment & Plan (1) Chronic migraine with aura: Code(s): G43.109 - Migraine with aura, not intractable, without status migrainosus Category: Medical Qualifiers: Status migrainosus presence: without status migrainosus Intractability: intractable Qualified Code(s): G43.E19 - Chronic migraine with aura, intractable, without status migrainosus (2) Migraine with aura, intractable, without status migrainosus: Code(s): G43.119 - Migraine with aura, intractable, without status migrainosus Category: Medical (3) Neck pain: Code(s): M54.2 - Cervicalgia Category: Medical Plan Patient tolerated the procedure well she will call with any side effects. continue sumatriptan 100mg as needed ubrelvy 100 mg as needed Orders: Orders AMB Botulinum toxin Injection Today G43.E19 - Chronic migraine with aura, intractable, without status migrainosus Coding Level of Care Code Est Pt Level 1 (74689) Diagnoses Intractable chronic migraine with aura and without status migrainosus G43.E19 Status migrainosus presence: without status migrainosus Intractability: intractable Migraine with aura, intractable, without status migrainosus G43.119 Neck pain M54.2 CPT Codes Botox Injection - Botox 3: 02241 - Migraine ([id number])
--- OUTSIDE RECORDS SUMMARY | 2025-03-12 08:58 | XMS_ITS | Data Portability ---
Author Organization [facility] [employer] [facility], Ar [email or web address] [facility] Address [address] [place] [address] Care Team Providers Care Brush Washer Name Role Phone HIM [facility] OTHER [facility] Primary Care Provider [phone] Assessment Encounter Date Assessment Date Assessment LastModified [...] mg-160 mg tablet 024 024 [id number] [address] [place], [place], [phone], 4 16:00:01 Patient TargetsNo targets recorded. Patient InstructionsNo instructions recorded. Reason for Referral None Reported. Medical Equipment None Reported. Allergies Allergen ID Allergen Name Allergen Category Reaction Reaction Severity Criticality Documentation Date Start Date Code Code System Note Provider Name and Address Organization Details Recorded Time 46314 ibuprofen medicatio n Not available Not available Not available 10/29/2024 5640 RxNorm Not Available [facility] - production 5 14:29:58 87737 cyclobenz aprine hydrochlo ride medicatio n Not available Not available Not available 10/29/2024 74166 [facility] Not Available [facility] 14:29:58 7046 egg extract food,medi cation Not available Not available Not available 07/17/2024 55558 15 [facility] Not Available [facility] 4 03:34:34 Medications Name Sig [...] Not Available Not Available Not Available omega 1-cvf-mjp-fi sh oil 60 mg-90 mg-500 mg capsule [...] /min 138 mm[Hg] 88 mm[Hg] Not Available [facility] 5 18:15:32 Date Recorded Body height Respiratory rate Body weight Body temperature Oxygen saturation Oxygen saturation in Arterial blood by Pulse oximetry Heart rate Systolic blood pressure Diastolic blood pressure Provider Name and Address Organization Details Last Updated DateTime 3 165.1 cm 18 /min 90297.8 88 g 98.4 [degF] 96 % 96 % 70 /min 109 mm[Hg] 76 mm[Hg] Not Available [facility] 3 17:55:02 Date Recorded Oxygen saturation Oxygen saturation in Arterial blood by Pulse oximetry Body height Heart rate Respiratory rate Body weight Body temperature Systolic blood pressure Diastolic blood pressure Provider Name and Address Organization Details Last Updated DateTime 4 95 % 95 % 152.4 cm 95 /min 16 /min 50651.5 2 g 99.3 [degF] 160 mm[Hg] 89 mm[Hg] Not Available [facility] 4 15:56:16 Social History None recorded. Functional Status None recorded. Mental Status None recorded. Family History Nothing Reported. Medical History No medical history recorded. Gynecological HistoryNo gynecological history recorded. Obstetrics History GPAL:G 0 P 0 0 0 0 Past Encounters Encounter ID Performer Location Encounter Start Date Encounter Closed Date Diagnosis/Indication Diagnosis SNOMED-CT Code Diagnosis ICD10 Code Diagnosis Note [id number] Alex Hall MD [facility] - [facility] [address] [place] [address] 02/21/2023 17:54:56 02/22/2023 15:43:28 Pain of right knee region [id number] 66665 M25.561 This 62-year-ol d female apparently sustained [...] PCP. The patient agreed with this plan. [id number] Saundra Chen MD Main - [address] [address] 05/07/2024 15:56:03 05/07/2024 22:38:04 Infection of big toe 276578486 L08.9 64 year old female with COPD [...] assessment and plan as documented by the tax compliance officer. I provided real-time medical direction for this encounter and was immediatel y available to provide additional phone-base d assistance as needed. We discussed the diagnostic uncertaint y of home visits and associated risks. We discussed the need to seek care urgently/e mergently in the setting of any new or worsening symptoms. [id number] Michael Barrera MD Main - [facility] [address] [place] [phone] 10/29/2024 18:15:21 10/29/2024 21:43:07 Pain in left foot [id number] 91961 M79.672 Health Concerns Section Related Observation LastModified by Organization Detai ls LastModified Time None Recorded Concern Status LastModified by Organization Details LastModified Time None Recorded Advance Directives Directive None Recorded Payers Insurance Date Sequence Insurance Name Policy Number Policy Dumont Covered Member ID Dumont Member ID Guarantor Name 10/29/2024 1 [facility] - DOS ON OR AFTER 2022 - DUAL ELIGIBLE - LONGTERM OPTIONS AND ONE CARE (MEDICARE REPLACEMENT/ADV ANTAGE - HMO) Rodrigue Martinez [id number] Rodrigue Martinez Notes Date Note Type Note [...] .................. .................. .................. .................. .................. .................. ............... Truckload Owner Operator Note From Hawa Murray: Sent to a [...] noted; Skin: pink, warm, dry; [facility] [place] advises pt continue taking Tylenol and follow up with PCP. Red flags discussed. Pt has no further questions. .................. .................. .................. .................. .................. .................. .................. ............... Disposition: Fulfilled Alex Hall MD [address] [place] [address],[address], [place], [address] [employer] 02/21/2023 18:00:06 05/07/2024 text/html CRC Nurse Triage Notes (Geovany Rodriguez): Reason For Request: Patient wants someone to look at her foot, she had foot surgery and it's now painful, and swollen. Chief Complaints: Pain PMH: COPD/Asthma, Hypertension Allergies: Egg Comments: Law Enforcement Director verified the member's name//address and phone number. [...] .................. .................. .................. .................. .................. .................. ............... Truckload Owner Operator Note From Dante Livingston: Pt reports surgery [...] big toe/lateral side of foot. [facility] contacted an will send rx to pharmacy. Pt instructed to keep appointment on Tuesday and to seek emergent medical care for new or worsening sx, which are reviewed with her. .................. .................. .................. .................. .................. .................. .................. ............... Disposition: Fulfilled Saundra Chen MD [address] [facility],[address], [place], [address], [employer] 05/07/2024 16:11:29 10/29/2024 text/html CRC Nurse Triage [...] PMH Reviewed at 10/29/2024: Allergies Reviewed at 10/29/2024:29 Comments: Patient calling in to place a [...] .................. .................. .................. .................. .................. .................. ............... Truckload Owner Operator Note From Alexander Pugh: Dispatch to the [...] CTA, A febrile, ABD soft nontender/distende d, CVA tenderness, Pupils PERRL, +swelling to left ankle (top/lateral/media l aspects), unable to palpate pedal pulses, Pt did have sensation at the bottom and top of her foot. [facility]. Pt advised that she should have [...] .................. .................. .................. .................. .................. ............... Disposition: Ellyn Barrera MD [address] [facility],[address], [place], [address], [facility] - [employer] 10/29/2024 21:31:08 OBGyn Episode No OBEpisode recorded.
== END 2025-03-12 08:58 | disposition home or self-care (01) ==
LOC: HO.HSMS 08:39
PROVIDERS: PCP General Practice; Visit Provider Psychiatry & Neurology Neurology
DX: G43.E19 Chronic migraine with aura, intractable, without status migrainosus (principal)
CPT/HCPCS: 64615

== ENCOUNTER → 2025-03-12 08:38 | Outpatient (BNVA) | payer OTHER, SELFPAY | PROVIDERS: PCP General Practice; Visit Provider Psychiatry & Neurology Neurology | DX: G43.E19 Chronic migraine with aura, intractable, without status migrainosus (principal); M54.2 Cervicalgia; J84.9 Interstitial pulmonary disease, unspecified; F32.A Depression, unspecified; F41.9 Anxiety disorder, unspecified; M79.7 Fibromyalgia; J43.9 Emphysema, unspecified; E03.9 Hypothyroidism, unspecified; Z87.891 Personal history of nicotine dependence; Z79.890 Hormone replacement therapy; Z79.51 Long term (current) use of inhaled steroids | CPT/HCPCS: 64615; 99211; J0585 ==

== ENCOUNTER 2025-04-10 08:48 | Outpatient (REF) | payer OTHER, SELFPAY ==
--- NOTE | ~2025-04-10 | XR_ITS ---
EXAMINATION: XR KNEE, RIGHT CLINICAL INFORMATION: R knee pain, prior surgery COMPARISON: December 16, 2023. TECHNIQUE: AP, lateral and sunrise views of the right knee. FINDINGS: Old traumatic deformity distal diaphysis of the femur and status post metallic plate placement that appears intact without gross loosening. Degenerative changes in the medial and lateral compartment of the right knee. No gross joint effusion, suprapatellar bursa. No subcutaneous emphysema. XR/XR knee RT 3V IMPRESSION: Bicompartmental osteoarthrosis, mild to moderate. No acute fracture or dislocation. Stable open reduction internal fixation with old traumatic deformity distal femur. Electronically signed by: Anthony Ruiz MD 04/10/2025 09:46 AM EDT
--- NOTE | ~2025-04-10 | XR_ITS ---
EXAMINATION: XR FEMUR, RIGHT CLINICAL INFORMATION: checking hardware stability COMPARISON: November 24, 2023. TECHNIQUE: AP and lateral views of the right femur were obtained. FINDINGS: Old traumatic deformity with callus formation distal diaphysis of the femur. There is a 3 cm cephalad exostosis on the medial aspect of the old fracture. The metallic plate is intact anchor with the intact screws without gross loosening. XR/XR femur RT 2V IMPRESSION: Status post open reduction internal fixation of an old fracture distal diaphysis of the femur. Electronically signed by: Anthony Ruiz MD 04/10/2025 09:44 AM EDT
--- NOTE | ~2025-04-10 | XR_ITS ---
EXAMINATION: XR KNEE, LEFT CLINICAL INFORMATION: L knee pain, anterior and with giving way COMPARISON: October 30, 2024. TECHNIQUE: AP lateral and sunrise views of the left knee. FINDINGS: No acute cortical disruption or malalignment. Joint space narrowing involving medial and to a lesser extent lateral compartment with mild sclerosis of the articular surfaces and tibial plateau and small marginal osteophyte formation and medial femoral condyle and medial tibial plateau. Questionable small suprapatellar bursa joint effusion. No lytic or blastic lesions. XR/XR knee LT 3V IMPRESSION: Medial compartment osteoarthrosis, mild. Questionable small suprapatellar bursa joint effusion. Electronically signed by: Anthony Ruiz MD 04/10/2025 09:42 AM EDT
--- OUTSIDE RECORDS SUMMARY | 2025-04-10 09:10 | XMS_ITS | Clinical Summary ---
Author Organization [facility] Address [address] [facility] [place] [address] Care Team Providers Care Pulp Drier Firer Name Role Phone Unknown Primary Care Provider Unavailabl e Allergies Active Allergy Reactions Criticality Noted Date Comments Ibuprofen Nausea Only 06/01/2012 Extreme stomach cramping Medications acetaminophen-c odeine (TYLENOL #3) 300-30 mg per tablet Take 2 tablets by mouth 2 times daily. Active albuterol (PROVENTIL HFA;VENTOLIN HFA) 90 mcg/actuation inhaler Inhale 2 puffs into the lungs every 4 hours as needed. Use with spacer Active carisoprodol (SOMA) 350 mg tablet Take 700 mg by mouth 2 times daily. Active ipratropium-alb uterol (DUONEB) 0.5 mg-3 mg(2.5 mg base)/3 mL nebulizer solution Take 3 mLs by nebulization 4 times daily. Active folic acid (FOLVITE) 1 mg tablet Take 1 mg by mouth daily. Active alendronate (FOSAMAX) 70 mg tablet Take 70 mg by mouth every 7 days. Take in the morning with a full glass of water, on an empty stomach, and do not take anything else by mouth or lie down for the next 30 min. Active LORazepam (ATIVAN) 0.5 mg tablet Take 0.5 mg by mouth 2 times daily as needed. Active methotrexate 2.5 mg tablet Take 2.5 mg by mouth once a week. Can take without regard to food. Call clinic before/prior to starting medication/scrip t. Active omeprazole (PRILOSEC) 20 mg capsule Take 20 mg by mouth daily. Active predniSONE (DELTASONE) 20 mg tablet Take 40 mg by mouth. Active salmeterol (SEREVENT) 50 mcg/dose diskus inhaler Inhale 1 puff into the lungs 2 times daily. Active Social History Tobacco Use Types Packs/Day Years Used Date Smoking Tobacco: Never Assessed Comments Unknown Sex and Gender Information Value Date Recorded Sex Assigned at Not on file Legal Sex Female 7:33 AM EST Gender Identity Not on file Sexual Orientation Not on file Plan of Treatment Health Maintenance Due Date Last Done Comments CT Colonography 1962 Colonoscopy 1962 Colorectal Cancer Screening 1962 FIT DNA 1962 FIT 1962 Sigmoidoscopy (10 year) with FIT yearly 1962 Sigmoidoscopy 1962 HIV screen 1980 Hepatitis C Screening 1980 Tetanus/Diphtheria/Pertussis Vaccines (1 - Tdap) 03/25 HPV test 1992 PAP Smear 1992 Breast Cancer Share Decision Needed 2002 Breast Cancer screening 2002 Pneumoccocal Vaccine: 50+ (1 of 1 - PCV) 2012 Zoster vaccine (1 of 2) 2012 Advance Directive 2017 Covid-19 Vaccine (1 - 2023- season) 2024 Influenza (Flu) vaccine (1 o f 1 - Influenza standard series) 05/20/2025 Care Teams Pulp Drier Firer Relationship Specialty Start Date End Date Unknown None PCP - General 10/20/17
--- OUTSIDE RECORDS SUMMARY | 2025-04-10 09:10 | XMS_ITS | Clinical Summary ---
Author Organization 175 [facility] Address [address] [place] [address] Phone Care Team Providers Care Marine Structural Welder Name Role Phone Sunita Ellis MD Primary Care Provider [phone] Allergies Active Allergy Reactions Criticality Noted Date [...] victim COPD (chronic obstructive pu lmonary disease) [place] [place] [facility] [place] 09/30/2014 DJD (degenerative joint disease) 09/30/2014 Fibromyalgia 09/30/2014 Migraine 09/30/2014 Osteoporosis 09/30/2014 Seizure disorder [place] [place], [facility] V28) 09/19 Overview (06/22/2024): Follows with Dr Best Encounters Date Type Department Care Team Description 03/28/2025 10:45 AM EDT Office Visit Orthopedic Surgery [facility] [address] [phone] Juan Arias DPM Sesamoiditis of right foot (Primary Dx); Neuritis of right foot 03/04/2025 11:30 AM EDT - 03/04/2025 11:59 PM EDT Hospital Encounter [facility] MRI [address] [place] [phone] Neuritis of right foot Discharge Disposition: Home or Self Care 02/28/2025 9:45 AM EDT Office Visit Orthopedic Surgery [facility] [address] [phone] Juan Arias DPM Neuritis of right foot (Primary Dx) from Last 3 Months Surgical History Surgery Date Site/Laterality Comments CATARACT EXTRACTION PROCEDURE: HISTORICAL CATARACT REMOVAL CHOLECYSTECTOMY PROCEDURE: HISTORICAL CHOLECYSTECTOMY OTHER SURGICAL HISTORY PROCEDURE: [place] ANESTHESIA CERVICAL SPINE & CORD NOS; COMMENT: disectomy TUBAL LIGATION PROCEDURE: HISTORICAL TUBAL LIGATION Medical History Medical History Date Comments COPD (chronic obstructive pu lmonary disease) [place] [place] [facility] [place] 09/30/2014 DX:COPD (chronic o bstructive pulmonary disease) ([facility]) DJD (degenerative joint disease) 09/30/2014 DX:DJD (degenerative joint disease) Migraine 09/30/2014 DX:Migraine Fibromyalgia 09/30/2014 DX:Fibromyalgia Essential hypertension, benign 11/06/2014 D X:Essential hypertension, benign Seizure disorder [place] [place] 4, [facility] [place] 09/30/2014 DX:Seizure disorder ([facility]); C OMMENT: Follows with Dr Best Osteoporosis [...] 07/26/2024 8:18 AM EST Plan of Treatment Upcoming Encounters Date Type Department Care Team (Late st Contact Info) Description 05/14/2025 8:45 AM EDT Office Visit Orthopedic Surgery - [place] [address] [phone] Juan Arias DPM [address] [address] Health Maintenance Due Date Last Done Comments DTaP,Tdap,and Td Vaccines (1 - Tdap) 1981 Hepatitis A Vaccines (1 of 2 - Risk 2-dose series) 1981 Zoster Vaccines (1 of 2) 2012 Pneumococcal Vaccine: 50+ Years (2 of 2 - PCV) 12/07/2013 12/07/2012 Cervical Cancer Screening: Pap Smear 05/21/2018 05/21/2015, 05/21/2015 COVID-19 Vaccine (3 [...] Breast Cancer Screening 09/02/2022 09/02/2020 Depression Screening 09/19/2024 Influenza Vaccine (#1) 2025 Hypertension/CHF/CAD Annual BMP Blood Test 03/04/2026 03/04/2025, 11/04/2022, 07/14/2015 Cholesterol Screening (Lipid Panel) 03/04/2030 03/04/2025, 09/11/2024, 11/04/2022, Additional history exists Hepatitis C Screening Completed 05/21/2015 HIB Vaccines [...] 20 months Aged Out No longer eligible based on patient's age to complete this topic Varicella Vaccines Aged Out No longer eligible based on patient's age to complete this topic Procedures Procedure Name Priority Date/Time Associated Diagnosis Comments INTERFERON GAMMA INTERPRETATION Routine 03/04/2025 12:34 PM EDT Alopecia (capitis) totalis Psoriasis vulgaris INTERFERON GAMMA ANTIGEN 2 Routine 03/04/2025 12:34 PM EDT Alopecia (capitis) totalis Psoriasis vulgaris INTERFERON GAMMA ANTIGEN 1 Routine 03/04/2025 12:34 PM EDT Alopecia (capitis) totalis Psoriasis vulgaris INTERFERON GAMMA MITOGEN Routine 03/04/2025 12:34 PM EDT Alopecia (capitis) totalis Psoriasis vulgaris INTERFERON GAMMA NIL Routine 03/04/2025 12:34 PM EDT Alopecia (capitis) totalis Psoriasis vulgaris CBC WITH AUTO DIFFERENTIAL Routine 03/04/2025 12:34 PM EDT Alopecia (capitis) totalis Psoriasis vulgaris INTERFERON GAMMA FOR TB, QUALITATIVE Routine 03/04/2025 12:34 PM EDT Alopecia (capitis) totalis Psoriasis vulgaris LIPID PANEL WITH REFLEX TO DIRECT LDL Routine 03/04/2025 12:34 PM EDT Alopecia (capitis) totalis Psoriasis vulgaris COMPREHENSIVE METABOLIC PANEL Routine 03/04/2025 12:34 PM EDT Alopecia (capitis) totalis Psoriasis vulgaris CBC AND DIFFERENTIAL Routine 03/04/2025 12:34 PM EDT Alopecia (capitis) totalis Psoriasis vulgaris MR FOOT WO CONTRAST RIGHT Routine 03/04/2025 12:30 PM EDT Neuritis of right foot HEPATITIS C SCREENING Routine 05/21/2015 HM HPV Routine 05/21/2015 from Last 3 Months or Most Recently Relevant to Health Maintenance Results * Interferon gamma interpretation (03/04/2025 12:34 PM EDT) Pathologist [facility] Quantiferon Plus Interpretation Negative Negative LAB CHEMISTRY METHOD 03/05/2025 12:[address] [facility] Blood Venous blood specimen / Unknown Venipuncture / Unknown 03/04/2025 12:34 PM EDT 03/04/2025 1:37 PM EDT us Kaley Zeng MD LAB BLOOD ORDERABLES Final Resu lt Performing Organization Address City/[facility]/ZIP Co de Phone Number [facility] [address] [place] [address], [place] [phone] * Interferon gamma antigen 2 (03/04/2025 12:34 PM EDT) Blood Venous blood specimen / Unknown Venipuncture / Unknown 03/04/2025 12:34 PM EDT 03/04/2025 1:37 PM EDT us Kaley Zeng MD LAB BLOOD ORDERABLES Final Resu lt Performing Organization Address City/[facility] Co de Phone Number [facility] [address] [place] [address], [place] [phone] * Interferon gamma antigen 1 (03/04/2025 12:34 PM EDT) Blood Venous blood specimen / Unknown Venipuncture / Unknown 03/04/2025 12:34 PM EDT 03/04/2025 1:37 PM EDT us Kaley Zeng MD LAB BLOOD ORDERABLES Final Resu lt Performing Organization Address [facility] Co de Phone Number [facility] [address] [place] [address], [place] [phone] * Interferon gamma mitogen (03/04/2025 12:34 PM EDT) Blood Venous blood specimen / Unknown Venipuncture / Unknown 03/04/2025 12:34 PM EDT 03/04/2025 1:37 PM EDT us Kaley Zeng MD LAB BLOOD ORDERABLES Final Resu lt Performing Organization Address City/[facility]/ZIP Co de Phone Number [facility] [address] [place] [address], * Interferon gamma NIL (03/04/2025 12:34 PM EDT) Blood Venous blood specimen / Unknown Venipuncture / Unknown 03/04/2025 12:34 PM EDT 03/04/2025 1:37 PM EDT Kaley Zeng MD LAB BLOOD ORDERABLES Final Resu lt Performing Organization Address [facility]/ZIP Co de Phone Number [facility] [address] [place] [address], [place] [phone] * (ABNORMAL) Lipid panel with reflex to direct LDL (03/04/2025 12:34 PM EDT) Cholesterol 210(H) 0 - 200 mg/dL LAB CHEMISTRY METHOD 03/04/2025 3:[address] [facility] Triglycerides 164(H) 0 - 150 mg/dL LAB CHEMISTRY METHOD 03/04/2025 3:[address] [facility] HDL 61 >=40 mg/dL LAB CHEMISTRY METHOD 03/04/2025 3:[address] [facility] LDL Calculated 116(H) 0 - 100 mg/dL LAB CHEMISTRY METHOD 03/04/2025 3:[address] [facility] VLDL Cholesterol Wili 32.8 mg/dL LAB CHEMISTRY METHOD 03/04/2025 3:[address] [facility] Non HDL Chol. (LDL+VLDL) 149(H) <145 mg/dL LAB CHEMISTRY METHOD 03/04/2025 3:[address] [facility] Chol/HDL Ratio 3.4 0.0 - 4.4 LAB CHEMISTRY METHOD 03/04/2025 3:[address] [facility] Blood Venous blood specimen / Unknown Venipuncture / Unknown 03/04/2025 12:34 PM EDT 03/04/2025 1:38 PM EDT us Kaley Zeng MD LAB BLOOD ORDERABLES Final Resu lt [facility] [address] [place] [address], * (ABNORMAL) CBC auto differential (03/04/2025 12:34 PM EDT) WBC 3.6(L) 4.8 - 10.8 K/mcL LAB HEMETOLOGY METHOD 03/04/2025 1:[address] [facility] RBC 3.80 3.80 - 4.80 M/mcL LAB HEMETOLOGY METHOD 03/04/2025 1:[address] [facility] Hemoglobin 11.1(L) 11.5 - 16.0 g/dL LAB HEMETOLOGY METHOD 03/04/2025 1:[address] [facility] Hematocrit 33.0(L) 35.0 - 47.0 % LAB HEMETOLOGY METHOD 03/04/2025 1:[address] [facility] MCV 87.8 79.0 - 98.0 FL LAB HEMETOLOGY METHOD 03/04/2025 1:[address] [facility] MCH 29.5 27.0 - 32.0 pcg LAB HEMETOLOGY METHOD 03/04/2025 1:[address] [facility] MCHC 33.6 32.0 - 37.0 g/dL LAB HEMETOLOGY METHOD 03/04/2025 1:[address] [facility] RDW 13.3 11.0 - 15.0 % LAB HEMETOLOGY METHOD 03/04/2025 1:[address] [facility] Platelets 351 130 - 400 K/mcL LAB HEMETOLOGY METHOD 03/04/2025 1:[address] [facility] MPV 10.2 7.0 - 11.0 FL LAB HEMETOLOGY METHOD 03/04/[facility]25 1[facility] NRBC 0.0 <1.0 % LAB HEMETOLOGY METHOD 03/04/2025 1:[facility] NRBC Absolute 0.00 <0.10 K/mcL LAB HEMETOLOGY METHOD 03/04/2025 1:54 [facility] Neutrophils Relative 47.6 % LAB HEMETOLOGY METHOD 03/04/2025 1:54 PM [facility] Lymphocytes Relative 41.2 % LAB HEMETOLOGY METHOD 03/04/2025 1:54 PM [facility] Monocytes Relative 8.7 % LAB HEMETOLOGY METHOD 03/04/2025 1:54 PM [facility] Eosinophils Relative 1.4 % LAB HEMETOLOGY METHOD 03/04/2025 1:54 PM [facility] Basophils Relative 0.8 % LAB HEMETOLOGY METHOD 03/04/2025 1:54 PM [facility] Immature Granulocytes Relative 0.3 % LAB HEMETOLOGY METHOD 03/04/2025 1:54 PM [facility] Neutrophils Absolute 1.70 1.50 - 7.00 K/mcL LAB HEMETOLOGY METHOD 03/04/2025 1:[address] [facility] Lymphocytes Absolute 1.47 1.00 - 5.00 K/mcL LAB HEMETOLOGY METHOD 03/04/2025 1:54 [facility] Monocytes Absolute 0.31 0.20 - 1.00 K/mcL LAB HEMETOLOGY METHOD 03/04/2025 1:54 [facility] Eosinophils Absolute 0.05 0.00 - 0.50 K/mcL LAB HEMETOLOGY METHOD 03/04/2025 1:[address] [facility] Basophils Absolute 0.03 0.00 - 0.20 K/[facility] HEMETOLOGY METHOD 03/04/2025 1:[address] [facility] Immature Granulocytes Absolute 0.01 0.00 - 0.03 K/[facility] LAB HEMETOLOGY METHOD 03/04/2025 1:[address] [facility] Blood Venous blood specimen / Unknown Venipuncture / Unknown 03/04/2025 12:34 PM EDT 03/04/2025 1:38 PM EDT Kaley Zeng MD LAB BLOOD ORDERABLES Final Resu lt [facility] [address] [place] [address], * Comprehensive metabolic panel (03/04/2025 12:34 PM EDT) Sodium 139 133 - 145 mmol/L LAB CHEMISTRY METHOD 03/04/2025 3:34 PM [facility] Potassium 3.7 3.5 - 5.5 mmol/L LAB CHEMISTRY METHOD 03/04/2025 3:34 PM [facility] Chloride 109 96 - 110 mmol/L LAB CHEMISTRY METHOD 03/04/2025 3:34 PM [facility] CO2 27 21 - 32 mmol/L LAB CHEMISTRY METHOD 03/04/2025 3:34 PM [facility] Anion Gap 3 3 - 11 LAB CHEMISTRY METHOD 03/04/2025 3:34 PM [facility] Glucose 99 70 - 100 mg/dL LAB CHEMISTRY METHOD 03/04/2025 3:34 PM [facility] BUN 19 5 - 25 mg/dL LAB CHEMISTRY METHOD 03/04/2025 3:34 PM [facility] Creatinine 0.86 0.50 - 1.10 mg/dL LAB CHEMISTRY METHOD 03/04/2025 3:34 PM [facility] eGFR 76 >=60 mL/min/1. 73m2 LAB CHEMISTRY METHOD 03/04/2025 3:34 PM [facility] Comment:Calculation based on the Chronic Kidney Disease Epidemiology Collaboration (CKD-EPI) equation refit without adjustment for race. BUN/Creatinine Ratio 22.1 LAB CHEMISTRY METHOD 03/04/2025 3:34 PM [facility] Calcium 9.0 8.5 - 10.5 mg/dL LAB CHEMISTRY METHOD 03/04/2025 3:34 PM [facility] AST (SGOT) 17 10 - 42 unit/L LAB CHEMISTRY METHOD 03/04/2025 3:34 PM [facility] ALT (SGPT) 18 10 - 60 unit/L LAB CHEMISTRY METHOD 03/04/2025 3:34 PM [facility] Alkaline Phosphatase 70 42 - 121 unit/L LAB CHEMISTRY METHOD 03/04/2025 3:34 PM [facility] Total Protein 6.7 6.0 - 8.0 g/dL LAB CHEMISTRY METHOD 03/04/2025 3:34 PM [facility] Albumin 3.6 3.2 - 5.0 g/dL LAB CHEMISTRY METHOD 03/04/2025 3:34 PM [facility] Total Bilirubin 0.4 0.0 - 1.4 mg/dL LAB CHEMISTRY METHOD 03/04/2025 3:34 PM [facility] Blood Venous blood specimen / Unknown Venipuncture / Unknown 03/04/2025 12:34 PM EDT 03/04/2025 1:38 PM EDT Kaley Zeng MD LAB BLOOD ORDERABLES Final Resu lt [facility] [address] [place] [address], * MR Foot wo Contrast Right (03/04/2025 12:30 PM EDT) Anatomical Region Laterality Modality Lower Extremities, Foot Right Magnetic Resonance 03/05/2025 4:18 AM EDT Impressions 03/05/2025 4:21 AM EDT Medial sesamoiditis of the right great toe MTP. -------- FINAL REPORT -------- Dictated By: Juana Payton Dictated Date: 03/05/2025 04:18 ET Assigned Physician: Juana Payton Reviewed and Electronically Signed By: Juana Payton Signed Date: 03/05/2025 04:21 ET Workstation ID: [id number] Transcribed By: Self Edit Transcribed Date: 03/05/2025 04:18 ET Narrative 03/05/2025 4:21 AM EDT INDICATION: chronic great toe pain 1st metatarsal head post surgical COMPARISON: None TECHNIQUE: Multiplanar, multisequence MRI was performed of the right foot without intravenous contrast FINDINGS: Bone: Postsurgical appearance is noted of the right great toe status post bunionectomy. Degenerative changes of the right great toe MTP with hypertrophic lipping. Medial sesamoiditis with joint space as well as cystic change. Soft Tissues: Joint fluid within the right great toe MTP as well as the second through fifth toe MTPs. Small amount of intermetatarsal bursal fluid between the first and second third and fourth metatarsal heads. Procedure Note Juana Payton MD - 03/05/2025 INDICATION: chronic great toe pain 1st metatarsal head post surgical COMPARISON: None TECHNIQUE: Multiplanar, multisequence MRI was performed of the right footwithout intravenous contrast FINDINGS: Bone: Postsurgical appearance is noted of the right great toe status postbunionectomy. Degenerative changes of the right great toe MTP withhypertrophic lipping. Medial sesamoiditis with joint space as well ascystic change. Soft Tissues: Joint fluid within the right great toe MTP as well as thesecond through fifth toe MTPs. Small amount of intermetatarsal bursalfluid between the first and second third and fourth metatarsal heads. IMPRESSION: Medial sesamoiditis of the right great toe MTP. -------- FINAL REPORT -------- Dictated By: Juana Payton Dictated Date: 03/05/2025 04:18 ET Assigned Physician: Juana Payton Reviewed and Electronically Signed By: Juana Payton Signed Date: 03/05/2025 04:21 ET Workstation ID: [id number] Transcribed By: Self Edit Transcribed Date: 03/05/2025 04:18 ET Juan Arias DPJose Luis IMG MRI PROCEDURES Final Result * Cervical Cancer Screening: HPV (05/21/2015) Pathologist [facility] Cervical Cancer Screening: HPV Abstracted ,negative Historical Provider HEALTH MAINTENANCE Final Result * Hepatitis C Screening (05/21/2015) [facility] Hepatitis C Screening Abstracted Historical Provider HEALTH MAINTENANCE Final Result from Last 3 Months or Most Recently Relevant to [place] [id number] [employer] MEDICARE Member Subscriber Plan / Payer (Ef fective 2016-Present) Name:RODRIGUE MARTINEZ Relation to Subscriber:Self Name:Rodrigue Martinez Payer ID:[id number] Group ID:[id number] Type:Not on file Address: [place] [address] [address] [address] Care Teams Marine Structural Welder Relationship Specialty Start Date End Date Sunita Ellis MD [address] [place] [id number] PCP - General 09/27/23
--- OUTSIDE RECORDS SUMMARY | 2025-04-10 09:10 | XMS_ITS | Data Portability ---
Author Organization [employer] [facility], [facility] [employer] [facility] Address [address] [place] [address] Care Team Providers Care Media Supervisor Name Role Phone HIM CCA OTHER [facility] Primary Care Provider Assessment Encounter Date [...] DS 800 mg-160 [address] tablet [address] [id number] [address] [facility] [place], [phone], 4 16:00:01 Patient TargetsNo targets recorded. Patient InstructionsNo instructions recorded. Reason for Referral None Reported. Medical Equipment None Reported. Allergies Allergen ID Allergen Name Allergen Category Reaction Reaction Severity Criticality Documentation Date Start Date Code Code System Note Provider Name and Address Organization Details Recorded Time 96797 ibuprofen medicatio n Not available Not available Not available 10/29/2024 5640 RxNorm Not Available [facility] - production 5 14:29:58 28694 cyclobenz aprine hydrochlo ride medicatio n Not available Not available Not available 10/29/2024 57173 Rx[facility] Not Available [facility] 5 14:29:58 7046 egg extract food,medi cation Not available Not available Not available 07/17/2024 83520 15 RxNorm Not Available [facility] 4 03:34:34 Medications Name Sig [...] Not Available Not Available Not Available omega 4-hee-dmn-fi sh oil 60 mg-90 mg-500 mg capsule [...] blood by Pulse oximetry Heart rate Systolic And Diastolic Provider Name and Address Organization Details Last Updated DateTime 5 16 /min 98.4 [degF] 98 % 98 % 89 /min 138/88 mm[Hg] Not Available [employer] [facility] 5 18:15:32 Date Recorded Body height Respiratory rate Body weight Body temperature Oxygen saturation Oxygen saturation in Arterial blood by Pulse oximetry Heart rate Systolic And Diastolic Provider Name and Address Organization Details Last Updated DateTime 3 165.1 cm 18 /min 02496.8 88 g 98.4 [degF] 96 % 96 % 70 /min 109/76 mm[Hg] Not Available [employer] 3 17:55:02 Date Recorded Oxygen saturation Oxygen saturation in Arterial blood by Pulse oximetry Body height Heart rate Respiratory rate Body weight Body temperature Systolic And Diastolic Provider Name and Address Organization Details Last Updated DateTime 4 95 % 95 % 152.4 cm 95 /min 16 /min 28004.5 2 g 99.3 [degF] 160/89 mm[Hg] Not Available [employer] 4 15:56:16 Social History None recorded. Functional Status None recorded. Mental Status None recorded. Family History Nothing Reported. Medical History No medical history recorded. Gynecological HistoryNo gynecological history recorded. Obstetrics History GPAL:G 0 P 0 0 0 0 Past Encounters Encounter ID Performer Location Encounter Start Date Encounter Closed Date Diagnosis/Indication Diagnosis SNOMED-CT Code Diagnosis ICD10 Code Diagnosis Note [id number] Alex Hall MD Main - [facility] [address] [place] [address] 02/21/2023 17:54:56 02/22/2023 15:43:28 Pain of right knee region [id number] 02963 M25.561 This 62-year-ol d female apparently sustained [...] PCP. The patient agreed with this plan. [id number] Saundra Chen MD Main - [address] [phone] 05/07/2024 15:56:03 05/07/2024 22:38:04 Infection of big toe 811748516 L08.9 64 year old female with COPD [...] assessment and plan as documented by the office support clerk. I provided real-time medical direction for this encounter and was immediatel y available to provide additional phone-base d assistance as needed. We discussed the diagnostic uncertaint y of home visits and associated risks. We discussed the need to seek care urgently/e mergently in the setting of any new or worsening symptoms. [id number] Michael Barrera MD Main - [facility] [address] [place] [phone] 10/29/2024 18:15:21 10/29/2024 21:43:07 Pain in left foot [id number] 37912 M79.672 Health Concerns Section Related Observation LastModified by Organization Detai ls LastModified Time None Recorded Concern Status LastModified by Organization Details LastModified Time None Recorded Advance Directives Directive None Recorded Payers Insurance Date Sequence Insurance Name Policy Number Policy Dumont Covered Member ID Dumont Member ID Guarantor Name 10/29/2024 [facility] - DOS ON OR AFTER 2022 - DUAL ELIGIBLE - CARE HOME OPTIONS AND ONE CARE (MEDICARE REPLACEMENT/ADV ANTAGE - HMO) Rodrigue Martinez [id number] Rodrigue Martinez Notes Date Note Type Note Provider Name and Address Organization Details Recorded Time 02/21/2023 text/html ROS as noted in the HPI HPI: pt had operation in a leg>swelling. [...] .................. .................. .................. .................. .................. .................. ............... Kier Operator Note From Hawa Murray: Sent to [...] Pt has an appt with PCP on Jacek and states she has been prescribed pain [...] .................. ............... Disposition: Fulfilled Alex Hall MD [address] [place] [address],[address], [place], [address], [employer] 02/21/2023 18:00:06 05/07/2024 text/html CRC Nurse Triage Notes (Geovany Rodriguez): Reason For Request: Patient wants someone to look at her foot, she had foot surgery and it's now painful, and swollen. Chief Complaints: Pain PMH: COPD/Asthma, Hypertension Allergies: Egg Comments: Creative Assistant verified the member's name//address and phone number. [...] .................. .................. .................. .................. .................. .................. ............... Kier Operator Note From Dante Livingston: Pt reports [...] base of big toe/lateral side of foot. [facility] contacted an will send rx to pharmacy. Pt instructed to keep appointment on Tuesday and to seek emergent medical care for new or worsening sx, which are reviewed with her. .................. .................. .................. .................. .................. .................. .................. ............... Disposition: Fulfilled Saundra Chen MD [address] [facility],[address], [place], [address], [employer] 05/07/2024 16:11:29 10/29/2024 text/html CRC Nurse Triage [...] .................. .................. .................. .................. .................. .................. ............... Kier Operator Note From Alexander Pugh: Dispatch to [...] the bottom and top of her foot. [facility] consulted. Pt advised that she should have it imaged sooner rather than later. Pt advised she would call for a ride to urgent care and if she was not able to procure one she would call 911. Red flags discussed. All times are approximate. .................. .................. .................. .................. .................. .................. .................. ............... [facility] Consulted: Michael Barrera .................. .................. .................. .................. .................. .................. .................. ............... Disposition: Fulfilled Michael Barrera MD [address] [facility],[address], [place], [address], [employer] 10/29/2024 21:31:08 OBGyn Episode No OBEpisode recorded.
== END 2025-04-10 08:49 | disposition home or self-care (01) ==
LOC: HO.HHCX 08:48
PROVIDERS: PCP General Practice; Visit Provider General Practice
DX: M25.561 Pain in right knee (principal); M25.562 Pain in left knee; G89.29 Other chronic pain
CPT/HCPCS: 73552; 73562

== ENCOUNTER → 2025-04-10 08:58 | Outpatient (BNV) | payer OTHER, SELFPAY | PROVIDERS: PCP General Practice; Visit Provider Radiology Diagnostic Radiology | DX: M17.11 Unilateral primary osteoarthritis, right knee (principal); M25.562 Pain in left knee; Z96.698 Presence of other orthopedic joint implants | CPT/HCPCS: 73552; 73562 ==

== ENCOUNTER 2025-06-18 07:42 | Outpatient (AMB) | payer OTHER, SELFPAY ==
[2025-06-18 07:44] VITALS: BP 110/68; PULSE 67; O2SAT 95; BMI 33.7
--- NOTE | 2025-06-18 07:44 | MHC.OFFVIS ---
Vital Signs 06/18/25 07:44 Height 5 ft 4 in Weight 196 lb 2 oz BMI 33.7 BP 110/68 Blood Pressure Location Rt brachial Position Sitting Pulse 67 Pulse Source Pulse Oximeter Pulse Oximetry (%) 95 Oxygen Delivery Method Room Air Intake Visit Reasons: Botox Intake Note: Botox Account Manager Required: No Accompanied by: Son Allergies cyclobenzaprine (From Flexeril) Allergy (Severe, Verified 06/18/25 07:44) Anaphylaxis beclomethasone (From QVAR) Allergy (Intermediate, Verified 06/18/25 07:44) FACIAL/TONGUE SWELLING NSAIDS (Non-Steroidal Anti-Inflamma (Nsaids) Allergy (Intermediate, Verified 06/18/25 07:44) swollen egg (Egg) Allergy (Mild, Verified 06/18/25 07:44) UNKNOWN Medication List - Last Reconciled 06/18/25 by Beth Gil MD acetaminophen ER (Tylenol 8 Hour) 650 mg PO Q8H PRN albuterol sulfate 90 mcg/actuation 2 puffs PO Q6H PRN 30 days alprazolam (Xanax) 1 mg PO BEDTIME ascorbic acid (vitamin C) (Vitamin C) 500 mg PO BID atorvastatin 20 mg PO DAILY baclofen 5 mg PO BEDTIME betamethasone dipropionate 0.05% topical duloxetine 60 mg PO BID eszopiclone (Lunesta) 3 mg PO BEDTIME fluticasone furoate-vilanterol 200-25 mcg/dose (Breo Ellipta) 1 inh inhalation DAILY 30 days meclizine mg PO olanzapine 5 mg PO BEDTIME onabotulinumtoxinA (Botox) for migrains pantoprazole 40 mg PO DAILY prazosin 1 - 2 mg PO BEDTIME ubrogepant (Ubrelvy) 1 tab at onset of migraine and can repeat in 2 hrs; MDD 2 tabs upadacitinib ER (Rinvoq) 15 mg PO DAILY HPI Comments Details: ?65y/o female comes for treatment of chronic migraines with botox. How many migraine days prior to botox 22 How long do the migraines last3 days Intensity of [id number]/10 ER visits related to migraine 2-3 Effectiveness of botox from last?two?treatment(s) good How many migraine days since receiving treatment: 10 Change? in intensity of migraine?decreased Change in frequency of migraine?decreased Change in use of acute medication for migraine?decreased Change in quality of life?improved ER visits related to migraine?0 Explanation for any gaps in treatment none Have at least three months elapsed since last treatment (Last botox date - frequency of injections)yes ??? Most frequent reported adverse reactions following injection of botox for chronic migraine include neck pain (9%), headache(5%), eyelid ptosis(4%), migraine(4%), muscular weakness(4%), musculuskeletal stiffness(4%), bronchitis(3%), injection site pain (3%), musculoskeletal pain(3%), myalgia(3%), facial paresis(2%), HTN(2%) and muscle spasms(2%) were discussed in detail. ??? Botulinum toxin typeA 200units lot no [id number] Exp Jul 2026 was diluted with 4 cc of normal saline . ??? Muscles injected- ??? Frontalis 4 sites ??? Procerus 1 site ??? Gauge Maker- 2 sites ??? Temporalis- 8 sites ??? Occipitalis- 6 sites ??? Cervical paraspinals- 4 sites ??? Trapezius- 6 sites- 10 units each ??? 5 units each in 31 site ??? Total use- 185units ??? Discarded-15units [facility] Medical History Left upper extremity numbness Asthma-COPD overlap syndrome DVT (deep venous thrombosis) Interstitial lung disease Femur fracture, right Depression Chronic pain Herniated disc Alopecia Anxiety Fibromyalgia Emphysema of lung Spondylosis of cervical spine Hypothyroidism Nocturnal hypoxemia COPD (chronic obstructive pulmonary disease) Surgical History History of bunionectomy H/O cervical spine surgery H/O tubal ligation History of cholecystectomy Family History Father Diabetes Mother CVD (cardiovascular disease) Social History Household Members: Children Household Members Other:: son Alcohol intake: never Patient Tobacco Use Status: Former Tobacco user Current occupational status: disabled Physical Exam Vital Signs: Last Vital Signs Pulse 67 06/18/25 07:44 BP 110/68 06/18/25 07:44 Pulse Ox 95 06/18/25 07:44 Oxygen Delivery Method Room Air 06/18/25 07:44 BMI result Body Mass Index 33.7 Const General: cooperative, healthy appearing, comfortable, no acute distress and well developed Nutritional Appearance: overweight Orientation/consciousness: patient oriented x3 Eyes Pupils: Equal, round and reactive pupils present Neck Other: tight neck muscles Neck: Yes no meningeal signs Neuro General: patient oriented x3, gait normal, tone normal, moves all extremities, Normal light touch and pain sensation, no meningeal signs, no focal motor deficits and CN's II-XI intact bilaterally Cranial nerves: Yes CN's II-XII intact bilaterally, Yes Facial sensation intact/muscles of mastication intact and Yes Equal, round and reactive pupils present Cognition (Neuro): normal cognition Motor exam (neuro): 5/5 motor strength present throughout Coordination: [id number] test normal Office Procedures Botulinum toxin Injection 51291 - Migraine Procedure code (CPT) selection complete Office Meds onabotulinumtoxinA 200 unit solution for injection Performing Provider: Beth Gil MD [place] [facility] [place] [facility] Administered by: Beth Gil MD on 06/18/25 08:14 Dose Route Admin Location Dispensed Lot Number Expiration Date [facility] Special Library Librarian 185 unit subcut 200 units [id number] ALLERGAN/BOTOX Total Dispensed Waste 200 units 7.5 % Comments: see hpi Assessment & Plan Assessment & Plan (1) Chronic migraine with aura: Code(s): G43.109 - Migraine with aura, not intractable, without status migrainosus Category: Medical Qualifiers: Status migrainosus presence: without status migrainosus Intractability: intractable Qualified Code(s): G43.E19 - Chronic migraine with aura, intractable, without status migrainosus (2) Migraine with aura, intractable, without status migrainosus: Code(s): G43.119 - Migraine with aura, intractable, without status migrainosus Category: Medical (3) Neck pain: Code(s): M54.2 - Cervicalgia Category: Medical Plan Patient tolerated the procedure well she will call with any side effects. continue sumatriptan 100mg as needed PT for neck pain start magnesium 400mg qhs ubrelvy 100 mg as needed Orders: Orders AMB Botulinum toxin Injection Today G43.E19 - Chronic migraine with aura, intractable, without status migrainosus PT Evaluation and Treatment Today M54.2 - Cervicalgia Medications: New magnesium oxide 400 mg PO BEDTIME 90 caps 3RF Coding Level of Care Code Est Pt Level 1 (94876) Diagnoses Intractable chronic migraine with aura and without status migrainosus G43.E19 Status migrainosus presence: without status migrainosus Intractability: intractable Migraine with aura, intractable, without status migrainosus G43.119 Neck pain M54.2 CPT Codes Botox Injection - Botox 3: 50787 - Migraine ([id number])
--- OUTSIDE RECORDS SUMMARY | 2025-06-18 07:52 | XMS_ITS | Encounter Summary ---
Author Organization [employer] Address [address] [facility] 7t [place] [address] Care Team Providers Care Public Service Administrator Name Role Phone Sunita Ellis MD Primary Care Provider [phone] Encounter Details Date Type Department Care Team ([facility] st Contact Info) Description 08/01/2023 Abstract [facility] MEDICINE [address] [place], [place] [phone] Sunita Ellis MD [address] [place], [place] [phone] Social History Tobacco Use Types Packs/Day Years [...] documented as of this encounter Care Teams Public Service Administrator Relationship Specialty Start Date End Date Sunita Ellis MD [address] [place] [id number] PCP - General Family Medicine 02/04/23 documented as of this encounter
--- OUTSIDE RECORDS SUMMARY | 2025-06-18 07:52 | XMS_ITS | Clinical Summary ---
Author Organization [facility] Address [address] [facility] [place] [address] Care Team Providers Care Supervisory It Specialist Name Role Phone Unknown Primary Care Provider [...] Advance Directive 2017 Covid-19 Vaccine (1 - season) 2025 Influenza (Flu) vaccine (1 o f 1 - Influenza standard series) 05/20/2025 Care Teams Supervisory It Specialist Relationship Specialty Start Date End Date Unknown None PCP - General 10/20/17
--- OUTSIDE RECORDS SUMMARY | 2025-06-18 07:52 | XMS_ITS | Encounter Summary ---
Author Organization [employer] Address [address] [facility] 7t [place] [address] Care Team Providers Care .Net Programmer Name Role Phone Sunita Ellis MD Primary Care Provider [phone] Reason for Visit * Reason Onset Date Comments Med Refill 09/23/2023 Encounter Details Date Type Department Care Team (Late st Contact Info) Description 09/23/2023 Refill [facility] PEDS [address] [place], [place] [phone] Sunita Ellis MD [address] [place] [address] Social History Tobacco Use Types Packs/Day Years [...] documented as of this encounter Care Teams .Net Programmer Relationship Specialty Start Date End Date Sunita Ellis MD [address] [place] [address] PCP - General Family Medicine 02/04/23 documented as of this encounter
--- OUTSIDE RECORDS SUMMARY | 2025-06-18 07:52 | XMS_ITS | Encounter Summary ---
Author Organization [employer] Address [address] [facility] 7t [place] [address] Care Team Providers Care Statistics Professor Name Role Phone Sunita Ellis MD Primary Care Provider [phone] Encounter Details Date Type Department Care Team ([facility] st Contact Info) Description 07/04/2023 Abstract [facility] MEDICINE [address] [place], [place] [phone] Sunita Ellis MD [address] [place], [place] [phone] Social History Tobacco Use Types Packs/Day Years [...] documented as of this encounter Care Teams Statistics Professor Relationship Specialty Start Date End Date Sunita Ellis MD [address] [place] [id number] PCP - General Family Medicine 02/04/23 documented as of this encounter
--- OUTSIDE RECORDS SUMMARY | 2025-06-18 07:52 | XMS_ITS | Encounter Summary ---
Author Organization [employer] Address [address] [place] [address] 7t [place] [address] Care Team Providers Care Creative Writing English Professor Name Role Phone Carlos Orozco Primary Care Provider Unavail able Sunita Ellis MD Primary Care Provider [phone] Reason for Visit * Reason Onset Date Comments Results 11/24/2022 Encounter Details Date Type Department Care Team ([facility] st Contact Info) Description 11/24/2022 Telephone [facility] MEDICINE [address] [place], [place] [phone] Carlos Orozco AGNP Results Social History Tobacco [...] blood work to be sent to her immigration patrol inspector office, pt advised she will need to sign a medical release with medical records, she confirmed this and will try to fill out the forms prior to her next appointment. Pt had no further concerns. * Telephone Encounter - Heladio Yeboah - 11/29/2022 2:33 PM EDT Tc from pt returning call regarding message below. Please contact pt at [phone] * Telephone Encounter - Heladio Yeboah - 11/24/2022 10:43 AM EST Tc from pt requesting a call back regarding blood work. Pt requesting for results Please contact pt at [phone] documented in this encounter Plan of Treatment Not on file documented as of this encounter Visit Diagnoses Not on filedocumented in this encounter Additional Health Concerns Assessment Noted Time PHQ-9 Depression Total Score: 7 10/29/19 9:12 AM EST documented as of this encounter Care Teams Creative Writing English Professor Relationship Specialty Start Date End Date Carlos Orozco AGNP PCP - General Family Medicine 10/05/22 02/03/23 Sunita Ellis MD [address] [place] [id number] PCP - General Family Medicine 02/04/23 documented as of this encounter
--- OUTSIDE RECORDS SUMMARY | 2025-06-18 07:52 | XMS_ITS | Encounter Summary ---
Author Organization [employer] Address [address] [facility] 7t [place] [address] Care Team Providers Care Horse Racing Analyst Name Role Phone Sunita Ellis MD Primary Care Provider [phone] Reason for Visit * Reason Comments Med Refill Encounter Details Date Type Department Care Team (Late st Contact Info) Description 04/09/2024 Refill [facility] MEDICINE [address] [place], [place] [phone] Carlos Orozco AGNP Hyperlipidemia, unspecified hyperlipidemia type [...] documented as of this encounter Care Teams Horse Racing Analyst Relationship Specialty Start Date End Date Sunita Ellis MD [address] [place] [address] PCP - General Family Medicine 02/04/23 documented as of this encounter
--- OUTSIDE RECORDS SUMMARY | 2025-06-18 07:52 | XMS_ITS | Encounter Summary ---
Author Organization [employer] Address [address] [place] [address] 7 [place] [address] Care Team Providers Care Pencil Inspector Name Role Phone Carlos Orozco Primary Care Provider Unavail able Sunita Ellis MD Primary Care Provider [phone] Reason for Visit * Reason Comments Med Refill Encounter Details Date Type Department Care Team ([facility] st Contact Info) Description 01/26/2023 Refill [facility] MED[facility]INE 230 [place], [place] [phone] Carlos Orozco AGNP Social History Tobacco Use [...] documented as of this encounter Care Teams Pencil Inspector Relationship Specialty Start Date End Date Carlos Orozco AGNP PCP - General Family Medicine 10/05/22 02/03/23 Sunita Ellis MD [address] [place] [address] PCP - General Family Medicine 02/04/23 documented as of this encounter
--- OUTSIDE RECORDS SUMMARY | 2025-06-18 07:52 | XMS_ITS | Clinical Summary ---
Author Organization [facility] Address [address] [place] [address] Phone Care Team Providers Care Salesperson Burial Needs Name Role Phone Sunita Ellis MD Primary Care Provider [phone] Allergies Active Allergy Reactions Criticality Noted Date [...] victim COPD (chronic obstructive pu lmonary disease) ([facility] V24, [facility] V28) 09/30/2014 DJD (degenerative joint disease) 09/30/2014 Fibromyalgia 09/30/2014 Migraine 09/30/2014 Osteoporosis 09/30/2014 Seizure disorder ([facility] V24, [facility] V28) 09/19 Overview (06/22/2024): Follows with Dr Best Encounters Date Type Department Care Team Description 05/28/2025 Telephone Orthopedic Surgery [facility] [address] [phone] Georgette Weaver 05/16/2025 9:15 AM EDT Office Visit Orthopedic Surgery [facility] [address] [phone] Juan Arias DPM Neuritis of right foot (Primary Dx); Sesamoiditis of right foot 03/28/2025 10:45 AM EDT Office Visit Orthopedic Surgery [facility] [address] [phone] Juan Arias DPM Sesamoiditis of right foot (Primary Dx); Neuritis of right foot from Last 3 Months Surgical History Surgery Date Site/Laterality Comments CATARACT EXTRACTION PROCEDURE: HISTORICAL CATARACT REMOVAL CHOLECYSTECTOMY PROCEDURE: HISTORICAL CHOLECYSTECTOMY OTHER SURGICAL HISTORY PROCEDURE: SC ANESTHESIA CERVICAL SPINE & CORD NOS; COMMENT: disectomy TUBAL LIGATION PROCEDURE: HISTORICAL TUBAL LIGATION Medical History Medical History Date Comments COPD (chronic obstructive pu lmonary disease) ([facility] V24, [facility] V28) 09/30/2014 DX:COPD (chronic o bstructive pulmonary disease) ([facility]) DJD (degenerative joint disease) 09/30/2014 DX:DJD (degenerative joint disease) Migraine 09/30/2014 DX:Migraine Fibromyalgia 09/30/2014 DX:Fibromyalgia Essential hypertension, benign 11/06/2014 D X:Essential hypertension, benign Seizure disorder ([facility] V2 4, [facility] V28) 09/30/2014 DX:Seizure disorder ([facility]); C OMMENT: Follows with Dr Best Osteoporosis [...] Care Team (Late st Contact Info) Description 06/27/2025 8:15 AM EDT Office Visit Orthopedic Surgery - [facility] [address] [phone] Juan Arias, DPM [address] [phone] Health Maintenance Due Date Last Done Comments Colorectal Cancer Screening: Colonoscopy 1962 DTaP,Tdap,and Td Vaccines (1 - Tdap) 1981 Hepatitis A Vaccines (1 of 2 - Risk 2-dose series) 1981 Zoster Vaccines (1 of 2) 2012 Pneumococcal Vaccine: 50+ Years (2 of 2 - PCV) 12/07/2013 12/07/2012 Cervical Cancer Screening: Pap Smear 05/21/2018 05/21/2015, 05/21/2015 Hepatitis B Vaccines (1 of 3 - Risk 3-dose series) 2022 RSV Immunization Adult Patients (1 - Risk 60-74 years 1-dose series) 2022 HIV Screening 08/17/2022 Medicare Annual Wellness Visit 08/17/2022 Osteoporosis Screening (Bone Density Screening) 08/17/2022 Social Influencers of Health Screening 08/17/2022 Breast Cancer Screening 09/02/2022 09/02/2020 Depression Screening 09/19/2024 COVID-19 Vaccine (3 - season) 2025 07/24/2021, 07/03/2021 Influenza Vaccine (#1) 2025 Hypertension/CHF/CAD Annual BMP [...] Procedure Name Priority Date/Time Associated Diagnosis Comments COMPREHENSIVE METABOLIC PANEL Routine 03/04/2025 12:34 PM EDT Alopecia (capitis) totalis Psoriasis vulgaris LIPID PANEL WITH REFLEX TO DIRECT LDL Routine 03/04/2025 12:34 PM EDT Alopecia (capitis) totalis Psoriasis vulgaris HEPATITIS C SCREENING Routine 05/21/2015 HPV Routine 05/21/2015 from Last 3 Months or Most Recently Relevant to Health Maintenance Results * (ABNORMAL) Lipid panel with reflex to direct LDL (03/04/2025 12:34 PM EDT) Cholesterol 210(H) 0 - 200 mg/dL LAB CHEMISTRY METHOD 03/04/2025 3:34 PM EDT [facility] Triglycerides 164(H) 0 - 150 mg/dL LAB CHEMISTRY METHOD 03/04/2025 3:34 PM [facility] HDL 61 >=40 mg/dL LAB CHEMISTRY METHOD 03/04/2025 3:34 PM T [facility] LDL Calculated 116(H) 0 - 100 mg/dL LAB CHEMISTRY METHOD 03/04/2025 3:34 PM [facility] VLDL Cholesterol Wili 32.8 mg/dL LAB CHEMISTRY METHOD 03/04/2025 3:34 PM [facility] Non HDL Chol. (LDL+VLDL) 149(H) <145 mg/dL LAB CHEMISTRY METHOD 03/04/2025 3:34 PM [facility] Chol/HDL Ratio 3.4 0.0 - 4.4 LAB CHEMISTRY METHOD 03/04/2025 3:34 PM [facility] Blood Venous blood specimen / Unknown Venipuncture / Unknown 03/04/2025 12:34 PM EDT 03/04/2025 1:38 PM EDT us Kaley Zeng MD LAB BLOOD ORDERABLES Final Resu lt [facility] [address] [place] [address], [place] [phone] * Comprehensive metabolic panel (03/04/2025 12:34 PM EDT) Sodium 139 133 - 145 mmol/L LAB CHEMISTRY METHOD 03/04/2025 3:34 PM EDT [facility] Potassium 3.7 3.5 - 5.5 mmol/L LAB CHEMISTRY METHOD 03/04/2025 3:34 PM EDT [facility] Chloride 109 96 - 110 mmol/L LAB CHEMISTRY METHOD 03/04/2025 3:34 PM [facility] CO2 27 21 - 32 mmol/L LAB CHEMISTRY METHOD 03/04/2025 3:34 PM T [facility] Anion Gap 3 3 - 11 LAB CHEMISTRY METHOD 03/04/2025 3:34 PM [facility] Glucose 99 70 - 100 mg/dL LAB CHEMISTRY METHOD 03/04/2025 3:34 PM T [facility] BUN 19 5 - 25 mg/dL LAB CHEMISTRY METHOD 03/04/2025 3:34 PM [facility] Creatinine 0.86 0.50 - 1.10 mg/dL LAB CHEMISTRY METHOD 03/04/2025 3:34 PM [facility] eGFR 76 >=60 mL/min/1. 73m2 LAB CHEMISTRY METHOD 03/04/2025 3:34 PM EDT [facility] Comment:Calculation based on the Chronic Kidney Disease Epidemiology Collaboration (CKD-EPI) equation refit without adjustment for race. BUN/Creatinine Ratio 22.1 LAB CHEMISTRY METHOD 03/04/2025 3:34 PM T [facility] Calcium 9.0 8.5 - 10.5 mg/dL LAB CHEMISTRY METHOD 03/04/2025 3:34 PM EDT [facility] AST (SGOT) 17 10 - 42 unit/L LAB CHEMISTRY METHOD 03/04/2025 3:34 PM EDT [facility] ALT (SGPT) 18 10 - 60 unit/L LAB CHEMISTRY METHOD 03/04/2025 3:34 PM EDT [facility] Alkaline Phosphatase 70 42 - 121 unit/L LAB CHEMISTRY METHOD 03/04/2025 3:34 PM EDT [facility] Total Protein 6.7 6.0 - 8.0 g/dL LAB CHEMISTRY METHOD 03/04/2025 3:34 PM EDT [facility] Albumin 3.6 3.2 - 5.0 g/dL LAB CHEMISTRY METHOD 03/04/2025 3:34 PM EDT [facility] Total Bilirubin 0.4 0.0 - 1.4 mg/dL LAB CHEMISTRY METHOD 03/04/2025 3:34 PM EDT [facility] Blood Venous blood specimen / Unknown Venipuncture / Unknown 03/04/2025 12:34 PM EDT 03/04/2025 1:38 PM EDT Kaley Zeng MD LAB BLOOD ORDERABLES Final Resu lt [facility] [address] [place] [address], * Cervical Cancer Screening: HPV (05/21/2015) Cervical Cancer Screening: HPV Abstracted ,negative Historical Provider HEALTH MAINTENANCE Final Result * Hepatitis C Screening (05/21/2015) Hepatitis C Screening Abstracted Virgen Wesley MD HEALTH MAINTENANCE Final Result from Last 3 Months or Most Recently Relevant to [place] [phone] [employer] MEDICARE Member Subscriber Plan / Payer (Ef fective 2016-Present) Name:RODRIGUE MARTINEZ Relation to Subscriber:Self Name:Rodrigue Martinez Payer ID:[id number] Group ID:[id number] Type:Not on file Address: [place] [address] [address] [id number] Care Teams Salesperson Burial Needs Relationship Specialty Start Date End Date Sunita Ellis MD [address] [place] [address] PCP - General 09/27/23
--- OUTSIDE RECORDS SUMMARY | 2025-06-18 07:52 | XMS_ITS | Encounter Summary ---
Author Organization [employer] Address [address] [facility] 7t [place] [address] Care Team Providers Care Outdoor Fitness Trainer Name Role Phone Sunita Ellis MD Primary Care Provider [phone] Reason for Visit * Reason Comments Med Refill Encounter Details Date Type Department Care Team (Late st Contact Info) Description 12/19/2024 Refill [facility] [address] [place], [place] [phone] Sunita Ellis MD [address] [place], [place] [phone] Social History Tobacco Use Types Packs/Day Years [...] documented as of this encounter Care Teams Outdoor Fitness Trainer Relationship Specialty Start Date End Date Sunita Ellis MD [address] [place] [address] PCP - General Family Medicine 02/04/23 documented as of this encounter
--- OUTSIDE RECORDS SUMMARY | 2025-06-18 07:52 | XMS_ITS | Encounter Summary ---
Author Organization [employer] Address 75 [facility] 7t [place] [address] Care Team Providers Care Workday Senior Associate Name Role Phone Sunita Ellis MD Primary Care Provider [phone] Reason for Visit * Reason Comments Med Refill Encounter Details Date Type Department Care Team ([facility] st Contact Info) Description 09/06/2024 Refill [facility] & PEDS [address] [place], [place] [phone] Sunita Ellis MD [address] [place] [address] Social History Tobacco Use Types Packs/Day Years [...] documented as of this encounter Care Teams Workday Senior Associate Relationship Specialty Start Date End Date Sunita Ellis MD [address] [place] [id number] PCP - General Family Medicine 02/04/23 documented as of this encounter
--- OUTSIDE RECORDS SUMMARY | 2025-06-18 07:52 | XMS_ITS | Clinical Summary ---
Author Organization [employer] Address [address] [facility] 7t [place] [address] Care Team Providers Care Facility Practice Specialist Name Role Phone Sunita Ellis MD Primary Care Provider [phone] Allergies Active Allergy Reactions Criticality Noted Date [...] (Diprolene) 0.05 % ointment 02/09/20 23 Active DULoxetine (Cymbalta) [address] capsule [...] prazosin (Minipress) 1 MG capsule 09/16/20 Active omega-3 (Fish Oil) 500 MG capsuleIndications :Hyperlipidemia, unspecified hyperlipidemia type TAKE 1 CAPSULE BY MOUTH DAILY IN THE MORNING 90 capsule 3 11/15/19 Active atorvastatin (Lipitor) 20 MG tablet TAKE 1 TABLET(20 MG) BY MOUTH IN THE MORNING 90 tablet 3 02/20/20 Active loratadine (Claritin) 10 MG tablet Take 1 tablet (10 mg) by mouth Once per day. 30 tablet 11 05/15/20 Active acetaminophen (Tylenol 8 Hour) 650 MG ER tablet Take 1 tablet by mouth every 8 (eight) hours. Active Breo Ellipta 200-25 MCG/ACT aerosol powder Inhale 1 puff Once per day. 01/10/20 Active gabapentin (Neurontin) 400 MG capsuleIndications :Primary osteoarthritis, unspecified site Take 1 capsule by mouth 2 times daily. 07/04/20 Active pantoprazole (ProtoNix) 40 MG EC tabletIndications: Esophagitis Take 1 tablet (40 mg) by mouth before breakfast. Do not crush, chew, or split. 90 tablet 3 04/05/20 Active Diclofenac Sodium 1 % gelIndications:Bun ion of great toe of right foot Apply 1 Application topically if needed in the morning, at noon, in the evening, and at bedtime (pain). 150 g 04/05/20 Active levothyroxine (Synthroid, Levoxyl) 88 MCG tablet TAKE 1 TABLET BY MOUTH EVERY DAY HOLD ON SUNDAYS 90 tablet 04/05/20 Active Active Problems Problem Noted Date Diagnosed Date Elevated lipids 12/15/2022 Assessment & Plan (09/23/2023 1:02 PM EST): Likely related to Rinvoq side effect, ULISES says to continue to monitor lipids and treat as guideline appropriate LDL is 200 currently Trial of Lipitor is successful, she denies any side effects Assessment & Plan (02/28/2023 7:23 AM EDT): Likely related to Rinvoq side effect, UTD says to continue to monitor lipids and [...] 2 yr ago Cholesterol, Total <200 mg/dL 297 High 172 180 HDL Cholesterol > OR = 50 mg/dL 46 Low 34 Low 42 Low Triglycerides <150 mg/dL 300 High 274 High CM 293 High CM Comment: If a non-fasting specimen was collected, consider repeat triglyceride testing on a fasting specimen if clinically indicated. Veronica et al. J. of Clin. Lipidol. 2015;9:129-169. LDL Cholesterol mg/dL (calc) 200 High 99 CM 99 CM Comment: LDL-C levels > or = 190 mg/dL may indicate familial hypercholesterolemia (FH). Clinical assessment and measurement of blood lipid levels should be considered for all first degree relatives of patients with an FH diagnosis. For questions about testing for familial hypercholesterolemia, please call [employer] at [email or web address].menuvox.INFO. Veronica Blount, et al. J National Lipid Association Recommendations for Patient-Centered Management of Dyslipidemia: Part 1 Journal of Clinical Lipidology 2015;9(2), 129-169. Reference range: <100 Desirable range <100 mg/dL for primary prevention; <70 mg/dL for patients with CHD or diabetic patients with > or = 2 CHD risk factors. LDL-C is now calculated using the Andrea calculation, which is a validated novel method providing better accuracy than the Friedewald equation in the estimation of LDL-C. Esdras TOVAR et al. ROBER. 2013;310(19): 3176-7353 (http://education.Desktime.Nutrisystem/faq/GLA350) Chol/HDLC Ratio <5.0 (calc) 6.5 High 5.1 High 4.3 Non-HDL Cholesterol <130 mg/dL (calc) 251 High 138 High CM 138 High CM Comment: Non-HDL level > or = 220 is very high and may indicate genetic familial hypercholesterolemia (FH). Clinical assessment and measurement of blood lipid levels should be considered for all first-degree relatives of patients with an FH diagnosis. For patients with diabetes plus 1 major ASCVD risk factor, treating to a non-HDL-C goal of <100 mg/dL (LDL-C of <70 mg/dL) is considered a therapeutic option. 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 Muscle pain 10/29/2022 Osteoarthritis 08/20/2020 [...] pt Migraine 09/30/2014 Osteoporosis 09/30/2014 Seizure disorder (CMS/HCC) 09/30/2014 Assessment & Plan (09/23/2023 1:00 PM EST): Follows with Dr Nasir naranjo Tobacco abuse 05/26/2012 Resolved Problems Problem Noted Date Diagnosed Date Resolved Date Deep vein thrombosis (DVT) o f popliteal vein (CMS/HCC) 11/18/2020 09/23/2023 Encounters Date Type Department Care Team Description 04/10/2025 Results Follow-Up [facility] [address] [place] [id number] Sunita Ellis MD XR Knee 3 Views Right 04/05/2025 11:30 AM EDT Office Visit [facility] [address] [place] [address] Sunita Ellis MD Left anterior knee pain (Primary Dx); Dietary counseling; Exercise counseling; Class 1 obesity with serious comorbidity and body mass index (BMI) of 33.0 to 33.9 in adult, unspecified obesity type; Chronic pain of right knee; Phjrj-2-ifytgajsinn deficiency (CMS/HCC); Pulmonary emphysema, unspecified emphysema type (CMS/HCC); Seizure disorder (CMS/HCC); Primary osteoarthritis, unspecified site; Esophagitis; Bunion of great toe of right foot; 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 Travel 04/04/2025 Telephone [facility] [address] [place] [address] Sunita Ellis MD Chart Prep 04/02/2025 Telephone [facility] [address] [place] [address] Sunita Ellis MD Nurse Triage from Last 3 Months Immunizations Immunization Administration Dates Next Due Pneumococcal Polysaccharide PPSV23 12/07/2012 Social History Tobacco Use Types Packs/Day Years Used Date Smoking Tobacco: Former Cigarettes Passive Smoke Exposure: Past Smokeless Tobacco: Never Tobacco Cessation:Counseling Given: Not Answered Alcohol Use Standard Drinks/Week Comments Never 0 (1 standard drink = 0.6 oz pur e alcohol) Depression Answer Date Recorded Patient Health Questionnaire-9 Score 7 04/05/2025 Patient Health Questionnaire-9 Score 7 04/05/2025 Last PHQ-9: Questionnaire Data Not on file 0 04/05/2025 Housing Stability Answer Date Recorded What is your housing situation today? I have simi villalta 04/05/[address] you li ve. Do you have problems with any of the following? None of the above 04/05/2025 Food Insecurity Answer Date Recorded Within the past 12 months, y ou worried that your food would run out before you got money to buy more: Never True 04/05/2025 Within the past 12 months,th e food you bought just didn't last and you didn't have enough money to get more: Never True Transportation Answer Date Recorded In the past 12 months, has l ack of transportation kept you from medical appts, meetings, work or from getting things needed for daily living? No 04/05/2025 Utilities Answer Date Recorded In the past 12 months, has t he electric, gas, oil or water company threatened to shut off services in your home? No 04/05/2025 Depression Answer Date Recorded Patient Health Questionnaire-2 Score 3 04/05/2025 Internet Access Answer Date Recorded Internet Access Q1 Yes 04/05/2025 Internet Access Q2 Not on file 04/05/2025 Comments Unknown Sex and Gender Information Value Date Recorded Sex Assigned at Female 07/19/2022 10:23 AM EDT Legal Sex Female 10:23 AM EDT Gender Identity Female 07/19/2022 10:23 AM EDT Sexual Orientation Choose not to disclose 2021 10:23 AM EDT Last Filed Vital Signs Vital Sign Reading Time Taken Comments Blood Pressure 122/74 04/05/2025 11:40 AM EDT Pulse 80 04/05/2025 11:40 AM EDT Temperature 36.7 C (98.1 F) 04/05/2025 11:40 AM EDT Respiratory Rate 14 04/05/2025 11:40 AM EDT Oxygen Saturation 98% 01/11/2025 11:02 AM EDT Inhaled Oxygen Concentration - - Weight 89.5 kg (197 lb 4 oz) 04/05/2025 11:40 AM EDT Height 165.1 cm (5' 5 ) 04/05/2025 11:40 AM EDT Body Mass Index 32.82 04/05/2025 11:40 AM EDT Plan of Treatment Health Maintenance Due Date Last Done Comments CT Colonography 1962 Colonoscopy 1962 Colorectal Cancer Screening 1960 FIT DNA/Cologuard 1962 FIT 1962 FOBT 1960 HIV Screening 1960 Sigmoidoscopy 1960 Disability Screening 1962 Alcohol/Substance Use Screening 1974 Hepatitis C [...] 1-dose series) 2022 Mammogram 09/02/2022 09/02/2020, 09/05/2017 COVID-19 Vaccine (3 - season) 2025 07/24/2021, 07/03/2021 Influenza Vaccine (#1) 2025 Depression Screening 04/05/2026 04/05/2025, 04/05/20 SDOH Screening 04/05/2026 04/05/2025 Tobacco Screening 04/05/2026 04/05/2025 Lipid Panel 09/11/2029 09/11/2024, 10/20, 11/12/2021, Additional [...] Name Priority Date/Time Associated Diagnosis Comments XR FEMUR 2+ VIEWS RIGHT Routine 04/10/2025 8:27 AM EDT Chronic pain of right knee XR KNEE 3 VIEWS RIGHT Routine 04/10/2025 8:24 AM EDT Chronic pain of right knee XR KNEE 3 VIEWS LEFT Routine 04/10/2025 8:22 AM EDT Left anterior knee pain LIPID PANEL, STANDARD Routine 09/11/2024 9:10 AM EST Elevated lipids MAMMOGRAM GENERIC Routine 09/02/2020 7:5 3 AM EST from Last 3 Months or Most Recently Relevant to Health Maintenance Results * XR Femur 2+ Views Right (04/10/2025 8:27 AM EDT) Anatomical Region Laterality Modality Lower Extremities, Femur Right Radiogr aphic Imaging 04/10/2025 8:27 AM EDT Narrative 04/10/2025 9:47 AM EDT [address] [address] XRay Report Signed Patient: Rodrigue Martinez MR#: [id number] : 1960 Acct:[id number] Age/Sex: 65 / F ADM Date: 04/10/25 Loc: [facility] Attending Dr: Sunita Ellis MD Ordering Physician: Sunita Ellis Date of Service: 04/10/25 Procedure(s): XR femur RT 2V Accession Number(s): [id number] cc: Sunita Ellis EXAMINATION: XR FEMUR, RIGHT CLINICAL INFORMATION: checking hardware stability COMPARISON: November 24, 2023. TECHNIQUE: AP and lateral views of the right femur were obtained. FINDINGS: Old traumatic deformity with callus formation distal diaphysis of the femur. There is a 3 cm cephalad exostosis on the medial aspect of the old fracture. The metallic plate is intact anchor with the intact screws without gross loosening. XR/XR femur RT 2V IMPRESSION: Status post open reduction internal fixation of an old fracture distal diaphysis of the femur. Electronically signed by: Anthony Ruiz MD 04/10/2025 09:44 AM EDT Dictated By: Anthony Villarreal MD Signed By: <Electronically signed by Anthony Ruiz MD in OV> 04/10/25 0944 DD/ 0827 TD/TT: 04/10/25 0900 Electrologist: Procedure Note Donotuseinterpreter, Image - 04/10/[address] [address] XRay Report Signed Patient: Trish MartinezR#: [id number] : 1960cct:[id number] Age/Sex: 65 / FADM Date: 04/10/25 Loc: [facility] Attending Dr: Sunita Ellis MD Ordering Physician: Sunita Ellis Date of Service: 04/10/25 Procedure(s): XR femur RT 2V Accession Number(s): [id number] cc: Sunita Ellis EXAMINATION: XR FEMUR, RIGHT CLINICAL INFORMATION: checking hardware stability COMPARISON: November 24, 2023. TECHNIQUE: AP and lateral views of the right femur were obtained. FINDINGS: Old traumatic deformity with callus formation distal diaphysis of the femur. There is a 3 cm cephalad exostosis on the medial aspect of the old fracture. The metallic plate is intact anchor with the intact screws without gross loosening. XR/XR femur RT 2V IMPRESSION: Status post open reduction internal fixation of an old fracture distal diaphysis of the femur. Electronically signed by: Anthony Ruiz MD 04/10/2025 09:44 AM EDT Dictated By: Anthony Villarreal MD Signed By: <Electronically signed by Anthony Ruiz MDin OV> 04/10/2544 DD/ 6 TD/TT: 04/10/25 09 Electrologist: Sunita Ellis MD IMG XR PROCEDURES Final Result * XR Knee 3 Views Right (04/10/2025 8:24 AM EDT) Anatomical Region Laterality Modality Lower Extremities, Knee Right Radiogra [facility] Imaging 04/10/2025 8:24 AM EDT Narrative 04/10/2025 9:49 AM EDT [address] [address] XRay Report Signed Patient: Rodrigue Martinez MR#: [id number] : 1960 Acct:[id number] Age/Sex: 65 / F ADM Date: 04/10/25 Loc: HO.[facility]X Attending Dr: Sunita Ellis MD Ordering Physician: Sunita Ellis Date of Service: 04/10/25 Procedure(s): XR knee RT 3V Accession Number(s): [id number] cc: Sunita Ellis EXAMINATION: XR KNEE, RIGHT CLINICAL INFORMATION: R knee pain, prior surgery COMPARISON: December 16, 2023. TECHNIQUE: AP, lateral and sunrise views of the right knee. FINDINGS: Old traumatic deformity distal diaphysis of the femur and status post metallic plate placement that appears intact without gross loosening. Degenerative changes in the medial and lateral compartment of the right knee. No gross joint effusion, suprapatellar bursa. No subcutaneous emphysema. XR/XR knee RT 3V IMPRESSION: Bicompartmental osteoarthrosis, mild to moderate. No acute fracture or dislocation. Stable open reduction internal fixation with old traumatic deformity distal femur. Electronically signed by: Anthony Ruiz MD 04/10/2025 09:46 AM EDT RP Dictated By: Anthony Villarreal MD Signed By: <Electronically signed by Anthony Ruiz MD in OV> 04/10/2546 DD/ 0824 TD/TT: 04/10/25 0900 Electrologist: Procedure Note Donotuseinterpreter, Image - 04/10/[address] [address] XRay Report Signed Patient: Edvin Martinez#: [id number] : 1960cct:[id number] Age/Sex: 65 / FADM Date: 04/10/25 Loc: HO.HHCX Attending Dr: Sunita Ellis MD Ordering Physician: Sunita Ellis Date of Service: 04/10/25 Procedure(s): XR knee RT 3V Accession Number(s): [id number] cc: Sunita Ellis EXAMINATION: XR KNEE, RIGHT CLINICAL INFORMATION: R knee pain, prior surgery COMPARISON: December 16, 2023. TECHNIQUE: AP, lateral and sunrise views of the right knee. FINDINGS: Old traumatic deformity distal diaphysis of the femur and status post metallic plate placement that appears intact without gross loosening. Degenerative changes in the medial and lateral compartment of the right knee. No gross joint effusion, suprapatellar bursa. No subcutaneous emphysema. XR/XR knee RT 3V IMPRESSION: Bicompartmental osteoarthrosis, mild to moderate. No acute fracture or dislocation. Stable open reduction internal fixation with old traumatic deformity distal femur. Electronically signed by: Anthony Ruiz MD 04/10/2025 09:46 AM EDT RP Dictated By: Anthony Villarreal MD Signed By: <Electronically signed by Anthony Ruiz MDin OV> 04/10/25 0946 DD/ 0824 TD/TT: 04/10/25 0900 Electrologist: Sunita Ellis MD IMG XR PROCEDURES Final Result * XR Knee 3 Views Left (04/10/2025 8:22 AM EDT) Anatomical Region Laterality Modality Lower Extremities, Knee Left Radiogra phic Imaging 04/10/2025 8:22 AM EDT Narrative 04/10/2025 9:45 AM EDT [address] [address] XRay Report Signed Patient: Rodrigue Martinez MR#: [id number] : 1960 Acct:[id number] Age/Sex: 65 / F ADM Date: 04/10/25 Loc: [facility] Attending Dr: Sunita Ellis MD Ordering Physician: Sunita Ellis Date of Service: 04/10/25 Procedure(s): XR knee LT 3V Accession Number(s): [id number] cc: Sunita Ellis EXAMINATION: XR KNEE, LEFT CLINICAL INFORMATION: L knee pain, anterior and with giving way COMPARISON: October 30, 2024. TECHNIQUE: AP lateral and sunrise views of the left knee. FINDINGS: No acute cortical disruption or malalignment. Joint space narrowing involving medial and to a lesser extent lateral compartment with mild sclerosis of the articular surfaces and tibial plateau and small marginal osteophyte formation and medial femoral condyle and medial tibial plateau. Questionable small suprapatellar bursa joint effusion. No lytic or blastic lesions. XR/XR knee LT 3V IMPRESSION: Medial compartment osteoarthrosis, mild. Questionable small suprapatellar bursa joint effusion. Electronically signed by: Anthony Ruiz MD 04/10/2025 09:42 AM EDT RP Dictated By: Anthony Villarreal MD Signed By: <Electronically signed by Anthony Ruiz MD in OV> 04/10/25941 DD/ 1 TD/TT: 04/10/25899 Electrologist: Procedure Note Donotuseinterpreter, Image - 04/10/2025 [facility] [address] [facility] [place] [address] XRay Report Signed Patient: Edvin Martinez#: [id number] : 1960cct:[id number] Age/Sex: 65 / FADM Date: 04/10/25 Loc: HO.HHCX Attending Dr: Sunita Ellis MD Ordering Physician: Sunita Ellis Date of Service: 04/10/25 Procedure(s): XR knee LT 3V Accession Number(s): [id number] cc: Sunita Ellis EXAMINATION: XR KNEE, LEFT CLINICAL INFORMATION: L knee pain, anterior and with giving way COMPARISON: October 30, 2024. TECHNIQUE: AP lateral and sunrise views of the left knee. FINDINGS: No acute cortical disruption or malalignment. Joint space narrowing involving medial and to a lesser extent lateral compartment with mild sclerosis of the articular surfaces and tibial plateau and small marginal osteophyte formation and medial femoral condyle and medial tibial plateau. Questionable small suprapatellar bursa joint effusion. No lytic or blastic lesions. XR/XR knee LT 3V IMPRESSION: Medial compartment osteoarthrosis, mild. Questionable small suprapatellar bursa joint effusion. Electronically signed by: Anthony Ruiz MD 04/10/2025 09:42 AM EDT Dictated By: Anthony Villarreal MD Signed By: <Electronically signed by Anthony Ruiz MDin OV> 04/10/25941 DD/ 1 TD/TT: 04/10/25899 Electrologist: Sunita Ellis MD IMG XR PROCEDURES Final Result * (ABNORMAL) Lipid Panel, Standard (09/11/2024 9:10 AM EST) Triglycerides 231(H) <150 mg/dL [facility] Comment:Desirable Triglyceri de: less than 150 mg/dLBorderline High Triglyceride 150-199 mg/dLHigh Triglyceride: 200-499 mg/dLVery High Triglyceride: greater than or equal to 5OO mg/dL Cholesterol 192 <200 mg/dL [facility] Comment:Desirable Cholestero l: less than 200 mg/dLBorderline High Cholesterol: 200-239 mg/dLHigh Cholesterol: greater than 239 mg/dL LDL Cholesterol Calculated 95 <100 mg/dL [facility] Comment:Desirable LDL: less than 100 mg/dLNear Optimal/Above Optimal LDL: 110- 129 mg/dLBorderline High LDL: 130-159 mg/dLHigh LDL: 160-189 mg/dLVery High LDL: greater than or equal to 190 mg/dL HDL Cholesterol 51 >40 mg/dL [facility] Comment:Desirable HDL: great er than 40 mg/dL Note: This HDL assay may give artificially low results in patients with liver disease. Blood Venous blood specimen / Unknown 09/11/2024 9:10 AM EST 09/11/2024 10:59 AM EST us Sunita Ellis MD LAB BLOOD ORDERABLES Final Res ult [facility] [address] [place] [phone] * Mammography Report 1 (09/02/2020 7:53 AM EST) Anatomical Region Laterality Modality Breast Bilateral Mammography 09/02/2020 7:53 AM EST Narrative 09/02/2020 11:51 AM EST Refer to the Notes tab for result details [facility] Procedure: Mammography Report 1 Procedure Note Provider, MD Virgen - 12/11/2022 Refer to the Notes tab for result details [facility] Procedure: Mammography Report 1 us Miri Reyes INSURANCE CLAIMS ADJUSTER IMG BI PROCEDURES Final Result from Last 3 Months or Most Recently Relevant to Health Maintenance Insurance [employer] < 65 [place] [id number] Care Teams Facility Practice Specialist Relationship Specialty Start Date End Date Sunita Ellis MD [address] [place] [address] PCP - General Family Medicine 02/04/23
--- OUTSIDE RECORDS SUMMARY | 2025-06-18 07:52 | XMS_ITS | Encounter Summary ---
Author Organization [employer] Address [address] [place] [address] [place] [address] Care Team Providers Care Quality Improvement Manager Name Role Phone Cherry Atwood Primary Care Provider [phone] Carlos Orozco Primary Care Provider [employer] Sunita Clay MD Primary Care Provider [phone] Encounter Details Date Type Department Care Team (Late st Contact Info) Description 09/02/2022 Orders Only [facility] [address] [place], [place] [phone] Cherry Atwood FNP [address] [place], [place] [phone] Social History Tobacco Use Types Packs/Day Years [...] on filedocumented in this encounter Care Teams Quality Improvement Manager Relationship Specialty Start Date End Date Cherry Atwood FNP [address] [place] [phone] PCP - General Family Medicine 05/06/22 10/04/22 Carlos Orozco AGNP [address] [place] [phone] PCP - General Family Medicine 10/05/22 02/03/23 Sunita Ellis MD [address] [place] [address] PCP - General Family Medicine 02/04/23 documented as of this encounter
--- OUTSIDE RECORDS SUMMARY | 2025-06-18 07:52 | XMS_ITS | Encounter Summary ---
Author Organization [email or web address] Address [address] [facility] 7t [place] [address] Care Team Providers Care Manager Concrete Name Role Phone Sunita Ellis MD Primary Care Provider [phone] Reason for Visit * Reason Comments Med Refill Encounter Details Date Type Department Care Team ([facility] st Contact Info) Description 12/20/2024 Refill [facility] & PEDS [address] [place], [place] [phone] Sunita Ellis MD [address] [place] [address] Social History Tobacco Use Types Packs/Day Years [...] as of this encounter Care Teams Manager Concrete Relationship Specialty Start Date End Date Sunita Ellis MD [address] [place] [phone] PCP - General Family Medicine 02/04/23 documented as of this encounter
== END 2025-06-18 08:09 | disposition home or self-care (01) ==
LOC: HO.HSMS 07:42
PROVIDERS: PCP General Practice; Visit Provider Psychiatry & Neurology Neurology
DX: G43.E19 Chronic migraine with aura, intractable, without status migrainosus (principal)
CPT/HCPCS: 64615

== ENCOUNTER → 2025-06-18 07:42 | Outpatient (BNVA) | payer OTHER, SELFPAY | PROVIDERS: PCP General Practice; Visit Provider Psychiatry & Neurology Neurology | DX: G43.E19 Chronic migraine with aura, intractable, without status migrainosus (principal); J44.9 Chronic obstructive pulmonary disease, unspecified; J84.9 Interstitial pulmonary disease, unspecified; M54.2 Cervicalgia | CPT/HCPCS: 64615; 99211; 99212; J0585 ==

== ENCOUNTER 2025-06-18 09:47 | Outpatient (AMB) | payer OTHER, SELFPAY ==
[2025-06-18 09:54] VITALS: BP 102/70; PULSE 67; O2SAT 97; BMI 33.7
--- NOTE | 2025-06-18 09:54 | MHC.OFFVIS ---
Vital Signs 06/18/25 09:54 Height 5 ft 4 in Weight 196 lb 3.382 oz BMI 33.7 BP 102/70 Blood Pressure Location Lt brachial Position Sitting Pulse 67 Pulse Source Pulse Oximeter Pulse Oximetry (%) 97 Oxygen Delivery Method Room Air Intake Visit Reasons: COPD Intake Note: pt is here for follow up and states she has some coughing and some chest tightness at night, requiring her to use the inhaler, and she is using [facility] 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 Cardiothoracic Icu Rn: Cardiothoracic Icu Rn offered & declined Allergies cyclobenzaprine (From Flexeril) Allergy (Severe, Verified 06/18/25 10:11) Anaphylaxis beclomethasone (From QVAR) Allergy (Intermediate, Verified 06/18/25 10:11) FACIAL/TONGUE SWELLING NSAIDS (Non-Steroidal Anti-Inflamma (Nsaids) Allergy (Intermediate, Verified 06/18/25 10:11) swollen egg (Egg) Allergy (Mild, Verified 06/18/25 10:11) UNKNOWN Medication List - Last Reconciled 06/18/25 by Corinna Hi MD acetaminophen ER (Tylenol 8 Hour) 650 mg PO Q8H PRN albuterol sulfate 90 mcg/actuation 2 puffs PO Q6H PRN 30 days alprazolam (Xanax) 1 mg PO BEDTIME ascorbic acid (vitamin C) (Vitamin C) 500 mg PO BID atorvastatin 20 mg PO DAILY baclofen 5 mg PO BEDTIME betamethasone dipropionate 0.05% topical duloxetine 60 mg PO BID eszopiclone (Lunesta) 3 mg PO BEDTIME fluticasone furoate-vilanterol 200-25 mcg/dose (Breo Ellipta) 1 inh inhalation DAILY 30 days magnesium oxide 400 mg PO BEDTIME meclizine mg PO olanzapine 5 mg PO BEDTIME onabotulinumtoxinA (Botox) for migrains pantoprazole 40 mg PO DAILY prazosin 1 - 2 mg PO BEDTIME ubrogepant (Ubrelvy) 1 tab at onset of migraine and can repeat in 2 hrs; MDD 2 tabs upadacitinib ER (Rinvoq) 15 mg PO DAILY Do you need a note to return to daycare/school/sports/work: No HPI HPI COPD: Details: Elvia comes for follow-up almost after 1 year. She has mild case of ongoing bronchial asthma/COPD. Has been having intermittent bouts of cough with some wheezing. During the whole year did not have to go to the emergency room. At home she can walk around and do her usual work. 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 [facility] Medical History Neck pain Left upper extremity numbness Asthma-COPD overlap syndrome DVT (deep venous thrombosis) Interstitial lung disease Femur fracture, right Depression Chronic pain Herniated disc Alopecia Anxiety Fibromyalgia Emphysema of lung Spondylosis of cervical spine Hypothyroidism Nocturnal hypoxemia COPD (chronic obstructive pulmonary disease) Surgical History History of bunionectomy H/O cervical spine surgery H/O tubal ligation History of cholecystectomy Family History Father Diabetes Mother CVD (cardiovascular disease) Social History Household Members: Children Household Members Other:: son Alcohol intake: never Patient Tobacco Use Status: Former Tobacco user Current occupational status: disabled Review of Systems Const All systems reviewed & are unremarkable except as noted in HPI and below Eyes Reports no additional complaints ENT Reports nasal congestion (Only mild off and on) Card Denies chest pain, Denies irregular heart rhythm, Denies leg edema and Reports dyspnea on exertion (Mild if she walks fast) Resp Reports cough (Mild off and on) and Reports dyspnea on exertion (Mild if she walks fast) GI Reports as per HPI Reports no additional complaints Musc Reports back pain (Mild stiffness like feeling) and Reports myalgias (Fibromyalgia like symptoms) Skin/Breast Reports system reviewed and no additional complaints, except as documented Neuro Reports no additional complaints Psych Reports depression (Controlled in) Endo Reports no additional complaints Juan/Lymph Reports no additional complaints Physical Exam Vital Signs: Last Vital Signs Pulse 67 06/18/25 09:54 BP 102/70 06/18/25 09:54 Pulse Ox 97 06/18/25 09:54 Oxygen Delivery Method Room Air 06/18/25 09:54 BMI result Body Mass Index 33.7 Const General: comfortable, no acute distress, alert and awake Orientation/consciousness: patient oriented x3 HEENT Head: Yes normal to inspection General nose exam: No nasal polyps present and No nasal discharge present Face and sinus: Yes sinuses nontender Mouth: oropharynx normal Throat: Yes posterior oropharynx normal Eyes General: appearance normal, both eyes and all related structures Neck Neck: Yes normal visual inspection, Yes no lymphadenopathy, Yes trachea midline and Yes no JVD Thyroid: Thyroid normal Chest Chest palpation & inspection: normal inspection of the chest, normal palpation of entire chest wall and no tenderness Resp Other: Percussion is resonant, breath sounds are equal on both sides. A few fine inspiratory crackles over the basilar areas . No wheezes NO PLEURAL RUB. Cardio Palpation: normal PMI Rate: regular rate Rhythm: regular rhythm Heart sounds: no gallops and no murmurs Peripheral pulses: Peripheral pulses 2+ throughout GI Palpation (GI): Soft to palpation, nontender, No hepatosplenomegaly present and no masses Auscultation: normal bowel sounds Back/Spine/Pelvis Thoracic/Lumbar Spine: thoracic and lumbar spine normal to inspection Skin General skin exam: no rashes or lesions noted Neuro General: patient oriented x3 and no focal motor deficits Cranial nerves: Yes CN's II-XII intact bilaterally Extrem General: Yes normal to inspection, Yes no clubbing, cyanosis or edema and Yes no calf tenderness Psych Appearance: grossly normal and well kempt Speech and movement: Normal speech and movement present Assessment & Plan Assessment & Plan (1) Asthma-COPD overlap syndrome: Comment: She has diagnosis of ASTHAM/COPD The pulmonary function test has confirmed that she has predominantly bronchial asthma with mild COPD. SHE HAS BEEN DOING WELL WITH HER CURRENT REGIMEN WHICH INCLUDES BREO ELLIPTA 200-25 ONCE A DAY AND ALBUTEROL JUST PRN. Code(s): J44.9 - Chronic obstructive pulmonary disease, unspecified Category: Medical Plan: PRESCRIPTION FOR BREO AND ALBUTEROL IS RENEWED (2) Interstitial lung disease: Comment: She does have some residual interstitial lung disease, since her acute alveolitis in 2019 . She does have mild restrictive component probably due to residual interstitial lung disease. Code(s): J84.9 - Interstitial pulmonary disease, unspecified Category: Medical Plan: DOES NOT NEED ANY ACTIVE TREATMENT FOR THIS ADVISED TO KEEP ON DOING DEEP BREATHING EXERCISES. Medications: Refilled fluticasone furoate-vilanterol 200-25 mcg/dose (Breo Ellipta) 1 inh inhalation DAILY 60 ea 5RF ASTHMA/COPD 30 days Coding Level of Care Code Est Pt Level 3 (64333) Diagnoses Asthma-COPD overlap syndrome J44.9 Interstitial lung disease J84.9
== END 2025-06-18 10:18 | disposition home or self-care (01) ==
LOC: HO.HPS 09:48
PROVIDERS: PCP General Practice; Visit Provider Internal Medicine
DX: J44.9 Chronic obstructive pulmonary disease, unspecified (principal); J84.9 Interstitial pulmonary disease, unspecified
CPT/HCPCS: 99213

== ENCOUNTER 2025-06-26 12:44 | Emergency (ER) | payer OTHER, SELFPAY ==
--- NOTE | ~2025-06-26 | CT_ITS ---
EXAMINATION: CT CERVICAL SPINE WITHOUT CONTRAST CLINICAL INFORMATION: Fall COMPARISON: None available. TECHNIQUE: Axial imaging was performed from the base of the skull through T2 without IV contrast. Coronal and sagittal reformatted images were generated from the original axial data set. ALARA: The examination used one or more of the following radiation dose reduction techniques: Automated exposure control, iterative reconstruction, and/or adjustment of mA and/or KV. FINDINGS: There is moderate reversal of the normal cervical lordosis. No fractures are identified. There is no prevertebral soft tissue swelling. Postsurgical changes are seen related to anterior fusion C5-6 and C6-7. C2-3 and C3-4 demonstrate facet joint space narrowing with osteophytes and sclerosis. C4-5 demonstrates moderate disc space narrowing with degenerative endplate irregularities and osteophytes. C7-T1 demonstrates grade 1 anterolisthesis and mild disc space narrowing. There are facet osteophytes and joint space narrowing. CT/CT cervical spine wo IV con IMPRESSION: There is reversal of cervical lordosis. This can be related to degenerative changes, positioning, muscle spasm, or posterior soft tissue injury. No acute bony abnormality. Electronically signed by: Govind Lang MD 06/26/2025 02:26 PM EDT
--- NOTE | ~2025-06-26 | CT_ITS ---
EXAMINATION: CT HEAD WITHOUT CONTRAST CLINICAL INFORMATION: Fall COMPARISON: 10/26/2021 TECHNIQUE: Contiguous axial imaging was performed from the skull base to vertex without intravenous administration of contrast. This CT examination was performed using dose optimization techniques as appropriate, variously including the following: *Automated exposure control *Adjustment of mA and/or kV according to patient size (this includes techniques or standardized protocols for targeted exams where dose is matched to indication/reason for exam; i.e. extremities or head) *Use of iterative reconstruction technique FINDINGS: There is no acute ischemic change. There is no intracranial hemorrhage. There is no mass-effect or midline shift. Basal cisterns and ventricles are within normal limits for age/cerebral volume. Orbits are symmetrical and unremarkable. Paranasal sinuses and mastoid air cells are pneumatized. There are no bony abnormalities. CT/CT head/brain wo IV con IMPRESSION: No acute intracranial abnormality. Electronically signed by: Govind Lang MD 06/26/2025 02:28 PM EDT
--- NOTE | ~2025-06-26 | XR_ITS ---
EXAMINATION: XR ANKLE, LEFT CLINICAL INFORMATION: pain COMPARISON: 10/30/24. TECHNIQUE: AP, lateral, and mortise views of the left ankle. FINDINGS: No fracture, dislocation, or suspicious bone lesion. There is normal alignment. The ankle mortise is intact. The talar dome is normal. There is very mild osteoarthrosis in the ankle joint. The subtalar joints and calcaneus appear intact. There is a small dorsal calcaneal spur. Soft tissues appear normal. No significant soft tissue swelling. XR/XR ankle LT min 3V IMPRESSION: 1. No acute bony or soft tissue abnormality in the left ankle. 2. Mild osteoarthrosis of the ankle joint. Electronically signed by: Ted Taylor MD 06/26/2025 02:45 PM EDT
--- NOTE | ~2025-06-26 | XR_ITS ---
EXAMINATION: XR HIP, LEFT CLINICAL INFORMATION: pain COMPARISON: 06/10/2019. TECHNIQUE: AP pelvis, and 2 views of the left hip. FINDINGS: No fracture, dislocation, or suspicious bone lesion. Pelvis is intact. The hip joints are intact. The sacrum is intact. Mild degenerative arthritis is noted in both hip joints with grossly preserved joint spaces. There is normal acetabular coverage bilaterally. The femoral heads are normal in contour without evidence of AVN. Mild degenerative changes in both SI joints. No soft tissue abnormalities. XR/XR hip LT w PEL1V IMPRESSION: 1. No acute bony or soft tissue abnormalities of the pelvis or left hip. 2. Mild stable osteoarthrosis of both hip joints. Electronically signed by: Ted Taylor MD 06/26/2025 02:47 PM EDT
[2025-06-26 12:59] VITALS: BP 144/88; PULSE 72; O2SAT 98
[2025-06-26 13:01] VITALS: BP 111/51; PULSE 65; RESP 18; TEMP 36.7; O2SAT 96
[2025-06-26 13:24] VITALS: BP 127/59; PULSE 62; RESP 16; TEMP 36.8; O2SAT 96; BMI 33.0
--- NOTE | 2025-06-26 15:11 | ED.FALL ---
HPI - Fall General Chief Complaint: Fall Stated Complaint: fall yesterday, neck, back pain +slade Time Seen by Provider: 06/26/25 13:28 Source: patient and RN notes reviewed Mode of arrival: ambulatory Limitations: no limitations History of Present Illness ED Provider: Chaparrita Lopez PA-C HPI Narrative: This is a 65-year-old female, with a past medical history of COPD, who presents emergency department with complaints of left hip and low back pain as well as left ankle pain status post mechanical fall which occurred yesterday. Patient states that while she was carrying groceries she tripped and fell onto her left side. She states that she was able to get herself up without assistance. She denies hitting her head or LOC. She states that she has been taking Tylenol which has provided her without any relief. She is not on anticoagulation. She denies any severe headache, dizziness, blurred vision, chest pain, shortness of breath, abdominal pain, nausea, vomiting or diarrhea. No other complaints or concerns at this time. MD complaint: fall Onset (ago): day(s) Fall from: standing Fall witnessed: no Place fall occurred: street Loss of consciousness: none Prolonged down time: no Symptoms prior to fall: none Context: tripped/slipped Location of injury: pelvis Severity: moderate Quality: aching Associated symptoms (after fall): denies Related Data Home Medications ?Medication ?Instructions ?Recorded ?Confirmed olanzapine 5 mg tablet 5 mg PO BEDTIME 06/16/20 06/18/25 pantoprazole 40 mg tablet,delayed 40 mg PO DAILY 06/16/20 06/18/25 release betamethasone dipropionate 0.05 % topical 07/08/20 06/18/25 topical ointment alprazolam 1 mg tablet (Xanax) 1 mg PO BEDTIME 07/30/20 06/18/25 eszopiclone 3 mg tablet (Lunesta) 3 mg PO BEDTIME 07/30/20 06/18/25 duloxetine 60 mg capsule,delayed 60 mg PO BID 02/23/21 06/18/25 release onabotulinumtoxinA 100 unit IM .q 4 months PRN 04/13/22 06/18/25 solution for injection (Botox) meclizine 25 mg tablet mg PO 03/16/23 09/30/25 atorvastatin 20 mg tablet 20 mg PO DAILY 04/19/23 06/18/25 upadacitinib 15 mg tablet,extended 15 mg PO DAILY 09/20/24 06/18/25 release 24 hr (Rinvoq) ascorbic acid (vitamin C) 500 mg 500 mg PO BID 06/18/25 06/18/25 chewable tablet (Vitamin C) prazosin 1 mg capsule 1 - 2 mg PO BEDTIME nightmares 06/18/25 06/18/25 Previous Rx's ?Medication ?Instructions ?Recorded baclofen 5 mg tablet 5 mg PO BEDTIME #30 tabs 04/19/23 acetaminophen 650 mg 650 mg PO Q8H PRN pain #30 tabs 11/24/23 tablet,extended release (Tylenol 8 Hour) albuterol sulfate 90 mcg/actuation 2 puff PO Q6H PRN for wheezing 30 08/07/24 aerosol inhaler days #25.5 grams ubrogepant 100 mg tablet (Ubrelvy) See Rx Instructions .Route 12/04/24 .COMPLEX migraine #14 tabs fluticasone furoate 200 1 inh inhalation DAILY ASTHMA/COPD 06/18/25 mcg-vilanterol 25 mcg/dose 30 days #60 ea inhalation powder (Breo Ellipta) magnesium oxide 400 mg PO BEDTIME #90 caps 06/18/25 Allergies Allergy/AdvReac Type Severity Reaction Status Date / Time cyclobenzaprine (From Allergy Severe Anaphylaxis Verified 06/26/25 13:26 Flexeril) beclomethasone (From QVAR) Allergy Intermediate FACIAL/TONGUE Verified 06/26/25 13:26 SWELLING NSAIDS (Non-Steroidal Allergy Intermediate swollen Verified 06/26/25 13:26 Anti-Inflamma (Nsaids) egg (Egg) Allergy Mild UNKNOWN Verified 06/26/25 13:26 Review of Systems Review of Systems: Constitutional : No Fever, No Chills ENT/Mouth : No sore throat, No Rhinorrhea Eyes: No Eye Pain, No Swelling, No Redness Cardiovascular : No Chest Pain, No SOB Respiratory : No Cough, No Sputum Gastrointestinal : No Nausea, No Vomiting, No Diarrhea, No abdominal Pain Genitourinary : No Dysuria, No Hematuria Musculoskeletal : + joint pain, No Myalgias, No Joint Swelling Skin : No Skin Lesions Neuro : No Weakness, No Numbness, No Headache All other systems reviewed and are negative Yes all other systems are reviewed and are negative Constitutional: Constitutional: Reports as per [facility] Past Medical History Medical History Neck pain Left upper extremity numbness Asthma-COPD overlap syndrome DVT (deep venous thrombosis) Interstitial lung disease Femur fracture, right Depression Chronic pain Herniated disc Alopecia Anxiety Fibromyalgia Emphysema of lung Spondylosis of cervical spine Hypothyroidism Nocturnal hypoxemia COPD (chronic obstructive pulmonary disease) Surgical History History of bunionectomy H/O cervical spine surgery H/O tubal ligation History of cholecystectomy Family History Family History Father Diabetes Mother CVD (cardiovascular disease) Social History Social History Household Members: Children Household Members Other:: son Alcohol intake: never Patient Tobacco Use Status: Former Tobacco user Current occupational status: disabled Physical Exam Vital Signs: Vital Signs: Last Vital Signs Temp 98.3 F 06/26/25 17:21 Pulse 62 06/26/25 17:21 Resp 16 06/26/25 17:21 BP 127/59 L 06/26/25 17:21 Pulse Ox 96 06/26/25 17:21 O2 Del Method Room Air 06/26/25 17:21 BMI result Body Mass Index 33.0 Const: General: cooperative, comfortable and no acute distress Orientation/consciousness: patient oriented x3 Limitations: no limitations HEENT: Head: Yes normal to inspection, Yes normocephalic, Yes atraumatic, No Rosenbaum's sign and No raccoon eyes Ears: hearing grossly normal bilaterally and TM's normal bilaterally (No hemotympanum) General nose exam: Normal external nose present Face and sinus: Yes normal facial exam Mouth: Normal oral and palatal mucosa present, oropharynx normal and moist mucous membranes Throat: Yes posterior oropharynx normal Eyes: General: appearance normal, both eyes and all related structures Eyelids: Yes eyelids normal Conjunctivae: conjunctivae normal Sclerae: sclerae normal Pupils: Equal, round and reactive pupils present EOM: EOMs intact bilaterally Neck: Other: Patient with mild tenderness palpation along the midline cervical spine. Patient in cervical collar Neck: Yes normal visual inspection, Yes full ROM and Yes no lymphadenopathy Lymphatic: no lymphadenopathy noted Chest: Chest palpation & inspection: normal inspection of the chest Resp: Effort & Inspection: normal respiratory effort and able to speak in complete sentences Auscultation: clear to auscultation bilaterally, no crackles, no rales, no rhonchi and no wheezes Cardio: Rate: regular rate Rhythm: regular rhythm Heart sounds: S1 normal heart sound present and S2 normal heart sound present GI: Inspection: Yes normal to inspection Skin: General skin exam: no rashes or lesions noted Trauma: no lacerations or abrasions Wounds: no wounds Neuro: General: patient oriented x3 and moves all extremities Cranial nerves: Yes Equal, round and reactive pupils present Extrem: Other: Patient with mild tenderness palpation along the left hip, able to flex and extend at the hip. Patient does have mild tenderness palpation along the left lateral malleolus, no obvious bony deformity or swelling. Full ROM, able to dorsi and plantar flex. No calf tenderness. No left knee pain. General: Yes normal to inspection Right upper extremity: normal to inspection Left upper extremity: normal to inspection Right lower extremity: normal to inspection Left lower extremity: normal to inspection Medications Administered Discontinued Medications Generic Name Dose Route Start Last Admin Trade Name Freq PRN Reason Stop Dose Admin Diazepam 5 mg 06/26/25 15:41 06/26/25 15:47 Diazepam 5 Mg Tablet PO 06/26/25 15:42 5 mg ONCE ONE Administration Morphine Sulfate 4 mg 06/26/25 14:39 06/26/25 14:55 Morphine Sulfate 4 Mg/Ml Cartridge IVPUSH 06/26/25 14:40 4 mg ONCE ONE Administration Protocol Medical Decision Making Medical Decision Making [facility] Narrative: This is a 65-year-old female who presents emergency department complaints of neck pain, left hip pain, left ankle pain status post mechanical fall which occurred yesterday. On arrival, vital signs within normal limits. She is speaking full sentences under no acute distress. She does have mild tenderness palpation along the posterior and anterior left hip, able to flex and extend. She also has mild tenderness palpation along the left lateral malleolus. Differential diagnoses include fracture, contusion, sprain, strain. She also reports some neck pain, she does have slight cervical midline spine tenderness. Will obtain CT head and neck to rule out any acute intracranial hemorrhage although this is unlikely, also obtaining C-spine CT to rule out fracture. Also obtaining x-ray of the left ankle and left hip and pelvis to rule out fracture. These images reveal no acute findings. Discussed findings with patient, she still continues to have pain despite medicating with morphine, will medicate with Valium and reassess. >> I was notified by the nurse that patient needed to leave after receiving Valium, shortly after, she does have a ride home. Given that I am unable to reassess her and go over her official workup, patient left without Khoury completing treatment. I was notified by the nurse that patient was feeling slightly better after receiving Valium. Differential Diagnosis Differential Diagnoses: The differential diagnosis associated with the presentation includes See above Radiology Impression Discussion of test interpretation with radiology: I have reviewed the radiologist's reading. Radiologist Impression: FINDINGS: No fracture, dislocation, or suspicious bone lesion. There is normal alignment. The ankle mortise is intact. The talar dome is normal. There is very mild osteoarthrosis in the ankle joint. The subtalar joints and calcaneus appear intact. There is a small dorsal calcaneal spur. Soft tissues appear normal. No significant soft tissue swelling. XR/XR ankle LT min 3V IMPRESSION: 1. No acute bony or soft tissue abnormality in the left ankle. 2. Mild osteoarthrosis of the ankle joint. Electronically signed by: Ted Taylor MD 06/26/2025 02:45 PM EDT RP Dictated By: Ted Taylor MD XR/XR hip LT w PEL1V IMPRESSION: 1. No acute bony or soft tissue abnormalities of the pelvis or left hip. 2. Mild stable osteoarthrosis of both hip joints. Electronically signed by: Ted Taylor MD 06/26/2025 02:47 PM EDT RP Dictated By: Ted Taylor MD FINDINGS: There is no acute ischemic change. There is no intracranial hemorrhage. There is no mass-effect or midline shift. Basal cisterns and ventricles are within normal limits for age/cerebral volume. Orbits are symmetrical and unremarkable. Paranasal sinuses and mastoid air cells are pneumatized. There are no bony abnormalities. CT/CT head/brain wo IV con IMPRESSION: No acute intracranial abnormality. Electronically signed by: Govind Lang MD 06/26/2025 02:28 PM EDT RP Dictated By: Govind Lang MD CT/CT cervical spine wo IV con IMPRESSION: There is reversal of cervical lordosis. This can be related to degenerative changes, positioning, muscle spasm, or posterior soft tissue injury. No acute bony abnormality. Electronically signed by: Govind Lang MD 06/26/2025 02:26 PM EDT RP Dictated By: Govind Lang MD Discharge Plan Discharge Clinical Impression: Fall Patient Disposition: Left W/O Completing Treatment Additional Instructions: You were seen in the emergency department due to a fall. You have arthritis in your left ankle, you have no evidence of fracture. Your hip does not show any broken bones. You do have some arthritis in your hips. Your head CT does not show any bleeding in your brain. Your cervical spine CT does not show any broken bones in your neck. You likely have pain secondary to muscle spasms, this will take several days for it to improve. Please alternate between ibuprofen and or Tylenol as needed for pain and symptoms. Please follow-up with your primary care physician regarding this visit. Rest and ice can help. If any new or worsening symptoms occur including but not limited to worsening pain, severe chest pain or shortness of breath, please seek emergent care. Prescriptions: No Action acetaminophen [Tylenol 8 Hour] 650 mg tablet extended release 650 mg PO Q8H PRN (Reason: pain) Qty: 30 0RF betamethasone dipropionate 0.05 % ointment topical olanzapine 5 mg tablet 5 mg PO BEDTIME pantoprazole 40 mg tablet,delayed release (DR/EC) 40 mg PO DAILY duloxetine 60 mg capsule,delayed release(DR/EC) 60 mg PO BID alprazolam [Xanax] 1 mg tablet 1 mg PO BEDTIME eszopiclone [Lunesta] 3 mg tablet 3 mg PO BEDTIME Botox 100 unit recon soln IM .q 4 months PRN Rx Instructions: for migrains meclizine 25 mg tablet PO albuterol sulfate 90 mcg/actuation HFA aerosol inhaler 2 puff PO Q6H PRN (Reason: for wheezing) 30 Days Qty: 25.5 3RF prazosin 1 mg capsule 1 - 2 mg PO BEDTIME ascorbic acid (vitamin C) [Vitamin C] 500 mg tablet,chewable 500 mg PO BID magnesium oxide 400 mg magnesium capsule 400 mg PO BEDTIME Qty: 90 3RF fluticasone furoate-vilanterol [Breo Ellipta] 200-25 mcg/dose blister with device 1 inh inhalation DAILY 30 Days Qty: 60 5RF atorvastatin 20 mg tablet 20 mg PO DAILY baclofen 5 mg tablet 5 mg PO BEDTIME Qty: 30 3RF Rinvoq 15 mg tablet extended release 24 hr 15 mg PO DAILY Ubrelvy 100 mg tablet See Rx Instructions .ROUTE .COMPLEX MDD 2 tabs Qty: 14 3RF Rx Instructions: 1 tab at onset of migraine and can repeat in 2 hrs; Interventions: ED Discharge Assessment Last Done: 06/26/25 17:21 Discharge Date/Time: 06/26/25 17:21
--- NOTE | 2025-06-26 17:20 | PC.NURSE ---
Pt's ride home (son) had to go to work and pt chose not to wait for discharge paperwork.
[2025-06-26 17:21] VITALS: BP 127/59; PULSE 62; RESP 16; TEMP 36.8; O2SAT 96
== END 2025-06-26 17:21 | disposition left against medical advice (07) ==
PROVIDERS: Emergency Provider Emergency Medicine Emergency Medical Services; PCP General Practice
DX: Z04.3 Encounter for examination and observation following other accident (principal); M25.552 Pain in left hip; M25.572 Pain in left ankle and joints of left foot; M54.2 Cervicalgia; M54.50 Low back pain, unspecified; Z91.81 History of falling; Z88.8 Allergy status to other drugs, medicaments and biological substances
CPT/HCPCS: 70450; 72125; 73502; 73610; 96374; 99283; 99284; J2270

== ENCOUNTER → 2025-06-26 14:01 | Outpatient (BNV) | payer OTHER, SELFPAY | PROVIDERS: PCP General Practice; Visit Provider Radiology Diagnostic Radiology | DX: M54.2 Cervicalgia (principal); S09.90XA Unspecified injury of head, initial encounter; M16.12 Unilateral primary osteoarthritis, left hip; M19.072 Primary osteoarthritis, left ankle and foot | CPT/HCPCS: 70450; 72125; 73502; 73610 ==

== ENCOUNTER 2025-07-07 14:40 | Emergency (ER) | payer OTHER, SELFPAY ==
--- NOTE | ~2025-07-07 | CT_ITS ---
CLINICAL HISTORY: LLQ pain, L flank pain ?renal stone CT abdomen and pelvis without contrast Comparison: None available Findings: No nephrolithiasis or hydronephrosis. Bilateral renal parapelvic cysts. No bladder stone. No consolidation at the lung bases. Small pericardial effusion. Status post cholecystectomy. Dilation of the common bile duct greater than expected status post cholecystectomy, measuring 2.0 cm. Cysts in the left lobe of the liver. The other solid organs are normal. No bowel wall thickening or dilation. A normal appendix is identified. Colonic diverticulosis. No inflamed diverticula or pericolonic stranding. No aneurysm. Mild calcified atherosclerotic disease. No lymphadenopathy. No ascites. No acute fracture. Grade 1 anterolisthesis of L4 on L5, degenerative. Impression: No urinary tract stone or obstruction. Dilation of the common bile duct. Correlate with laboratory values and consider further evaluation with MRCP. This document has been electronically signed by: Erin Vargas MD on 07/07/2025 17:41:13
--- NOTE | ~2025-07-07 | US_ITS ---
CLINICAL HISTORY: LLQ pain US female pelvis LMP:Postmenopausal. Technique: Ultrasound examination of the pelvis was performed with transabdominal and transvaginal technique for better visualization of the endometrium and ovaries. Comparison: CT/REG/SR - CT ABDOMEN PELVIS WO IV CON - 07/07/25 17:01 EDT Findings: Anteverted uterus measuring 5.6 x 2.8 x 2.9cm without masses. Normal endometrial thickness of 0.5cm. The ovaries are not visualized. No lesions in the adnexa. No free fluid. Impression: No acute pathology. This document has been electronically signed by: Erin Vargas MD on 07/07/2025 21:28:25
[2025-07-07 14:44] VITALS: BP 160/90; PULSE 75; O2SAT 98
[2025-07-07 14:47] VITALS: BP 135/70; PULSE 70; RESP 18; TEMP 36.9; O2SAT 96; BMI 33.2
[2025-07-07 14:52] VITALS: BP 135/70; PULSE 70; RESP 18; TEMP 36.9; O2SAT 96
--- NOTE | 2025-07-07 15:15 | ED.ABDPAIN ---
HPI - Abdominal Pain General Chief Complaint: Abdominal Pain Stated Complaint: LLQ PAIN,RECTAL BLEEDING PER EMS Time Seen by Provider: 07/07/25 14:47 Source: patient and EMS Mode of arrival: EMS Limitations: no limitations History of Present Illness ED Provider: LILLI FRYE PA-C HPI narrative: 65 year old female with a pmhx significant for lumbar radiculopathy, number migraines, COPD, hypothyroidism, fibromyalgia, anxiety, depression, DVT (no longer on AC) presents to the ED today for evaluation of left lower abdominal pain x3 weeks, worsening x3 days. Reports pains for an intermittent, becoming more constant x3 days. Pain now wraps around to her left lower back. Pain became more severe this morning, waking her from her sleep around 0400. Endorses associated nausea without vomiting, secondary to the pain. Reports taking three tablets of 325mg Tylenol around 0500, then another three tablets of Tylenol around 1100 without effect. Admits to passing a bowel movement around 1300 today, noticed blood/clots on the toilet paper after wiping. Reports history of similar secondary to hemorrhoids. This has been occurring more frequently over the past two months. Admits to history of over 10 colonoscopies , cannot recall when her last colonoscopy was. States I think I am due for one . Reports recent constipation, straining to pass BMs. Her BM today was was hard. Denies fever, chills, vomiting, diarrhea, melena, dysuria, hematuria. Denies hx renal stones or diverticulitis. Surgical hx includes cholecystectomy 15 years ago. Related Data Home Medications ?Medication ?Instructions ?Recorded ?Confirmed olanzapine 5 mg tablet 5 mg PO BEDTIME 06/16/20 06/18/25 pantoprazole 40 mg tablet,delayed 40 mg PO DAILY 06/16/20 06/18/25 release betamethasone dipropionate 0.05 % topical 07/08/20 06/18/25 topical ointment alprazolam 1 mg tablet (Xanax) 1 mg PO BEDTIME 07/30/20 06/18/25 eszopiclone 3 mg tablet (Lunesta) 3 mg PO BEDTIME 07/30/20 06/18/25 duloxetine 60 mg capsule,delayed 60 mg PO BID 02/23/21 06/18/25 release onabotulinumtoxinA 100 unit IM .q 4 months PRN 04/13/22 06/18/25 solution for injection (Botox) meclizine 25 mg tablet mg PO 12/02/22 06/18/25 atorvastatin 20 mg tablet 20 mg PO DAILY 04/19/23 06/18/25 upadacitinib 15 mg tablet,extended 15 mg PO DAILY 09/20/24 06/18/25 release 24 hr (Rinvoq) ascorbic acid (vitamin C) 500 mg 500 mg PO BID 06/18/25 06/18/25 chewable tablet (Vitamin C) prazosin 1 mg capsule 1 - 2 mg PO BEDTIME nightmares 06/18/25 06/18/25 Previous Rx's ?Medication ?Instructions ?Recorded baclofen 5 mg tablet 5 mg PO BEDTIME #30 tabs 04/19/23 acetaminophen 650 mg 650 mg PO Q8H PRN pain #30 tabs 11/24/23 tablet,extended release (Tylenol 8 Hour) albuterol sulfate 90 mcg/actuation 2 puff PO Q6H PRN for wheezing 30 08/07/24 aerosol inhaler days #25.5 grams ubrogepant 100 mg tablet (Ubrelvy) See Rx Instructions .Route 12/04/24 .COMPLEX migraine #14 tabs fluticasone furoate 200 1 inh inhalation DAILY ASTHMA/COPD 06/18/25 mcg-vilanterol 25 mcg/dose 30 days #60 ea inhalation powder (Breo Ellipta) magnesium oxide 400 mg PO BEDTIME #90 caps 06/18/25 cefpodoxime 200 mg tablet 200 mg PO Q12H 10 days #20 tabs 07/07/25 Allergies Allergy/AdvReac Type Severity Reaction Status Date / Time cyclobenzaprine (From Allergy Severe Anaphylaxis Verified 07/07/25 14:51 Flexeril) beclomethasone (From QVAR) Allergy Intermediate FACIAL/TONGUE Verified 07/07/25 14:51 SWELLING NSAIDS (Non-Steroidal Allergy Intermediate swollen Verified 07/07/25 14:51 Anti-Inflamma (Nsaids) egg (Egg) Allergy Mild UNKNOWN Verified 07/07/25 14:51 Review of Systems Review of Systems Yes all other systems are reviewed and are negative PMFSH Past Medical History Attestation statement: The following information was validated with the patient. Source: old records reviewed and nursing notes reviewed Medical History Neck pain Left upper extremity numbness Asthma-COPD overlap syndrome DVT (deep venous thrombosis) Interstitial lung disease Femur fracture, right Depression Chronic pain Herniated disc Alopecia Anxiety Fibromyalgia Emphysema of lung Spondylosis of cervical spine Hypothyroidism Nocturnal hypoxemia COPD (chronic obstructive pulmonary disease) Surgical History History of bunionectomy H/O cervical spine surgery H/O tubal ligation History of cholecystectomy Family History Family History Father Diabetes Mother CVD (cardiovascular disease) Social History Social History Household Members: Children Household Members Other:: son Alcohol intake: never Patient Tobacco Use Status: Former Tobacco user Current occupational status: disabled Physical Exam ED Vital Signs: Vital Signs - 24 hr 07/07/25 14:47 07/07/25 14:52 07/07/25 16:41 Temperature 98.5 F 98.5 F Pulse Rate 70 70 74 Respiratory Rate 18 18 18 Blood Pressure 135/70 135/70 143/59 H Pulse Oximetry 96 96 98 Oxygen Delivery Method Room Air Room Air Room Air 07/07/25 19:40 07/07/25 22:14 Temperature 98.0 F 98.0 F Pulse Rate 67 67 Respiratory Rate 18 18 Blood Pressure 100/46 L 100/46 L Pulse Oximetry 96 96 Oxygen Delivery Method Room Air Room Air BMI result Body Mass Index 33.2 hypertensive, vital signs stable General: Intermittently tearful Skin: Warm, dry, intact. No rashes or lesions. Head: Normocephalic, atraumatic. EENT: Hearing is intact b/l. Conjunctiva clear. Sclera is anicteric. PERRLA. EOM intact. Moist mucous membranes.? Neck: Supple without LAD. FROM. Trachea midline.? Cardiac: Chest wall symmetric. RRR Lungs: Normal respiratory effort without accessory muscle use. CTA bilaterally. Abdomen: Obese abdomen, soft, nondistended, tender to palpation of left lower quadrant with guarding. No rebound tenderness. Active bowel sounds x4. Mild left CVAT. Negative Jernigan's sign. Rectal exam performed with Sriram dias student present in room to sole blacker. Normal rectal sphincter tone. multiple external hemorrhoids, no active bleeding/ thrombosis. No palpable stool in rectal vault. OBS negative. Back: No midline spinous or paraspinal tenderness. No step off deformity. Ext: Upper and lower extremities atraumatic, without tenderness, deformity, swelling or erythema. Full ROM throughout Neuro: AOx3. Normal speech. Ambulating with steady gait Course Course Course Narrative: CBC without leukocytosis or left shift. Normocytic anemia, H&H stable. Chemistry without acute electrolyte abnormality requiring intervention. No CELIO. Liver function WNL. OBS negative. Urine shows small blood, small leukocyte esterase, 3-5 RBCs, calcium oxalate crystals and 2+ urine bacteria. Concern for possible renal/ureteral stone. Dry CT abdomen/pelvis ordered to further evaluate. CT abdomen/pelvis does not reveal urinary tract stone or obstruction. Incidental finding of CBD dilation greater than expected status post cholecystectomy, measuring 2 centimeters. Cyst in left lobe of liver. Colonic diverticulosis, no diverticulitis. On re-evaluation, patient tearful, guarding her left lower abdomen. Her pain appears to be out of proportion to my findings. I have ordered another mg of Dilaudid. I discussed case with my attending Dr. Sanchez who has also evaluated patient at bedside. Recommending ovarian doppler to assess for torsion. I have also added on a lactic acid for possible ischemic bowel although no history of afib. Will continue to monitor. Regarding incidental finding of CBD dilation, I did speak with general surgeon Dr. Briceno - patient's liver function is WNL. She is not tender to palpation of the epigastric region or right upper quadrant. She has negative Jernigan's sign. He is recommending MRCP with GI consultation. 1920 -- patient is stable at the end of my shift. pain improved with second dose of dilaudid, lying comfortably on the bed talking on her phone. lactic/ ovarian doppler pending. sign out given to dr. sanchez pending results and disposition. Medical Decision Making Medical Decision Making [facility] Narrative: 65 year old female with a pmhx significant for lumbar radiculopathy, number migraines, COPD, hypothyroidism, fibromyalgia, anxiety, depression, DVT (no longer on AC) presents to the ED today for evaluation of left lower abdominal pain x3 weeks, worsening x3 days. Hypertensive, vitals otherwise WNL. Afebrile. On exam, obese abdomen, soft, nondistended, tender to palpation of left lower quadrant with guarding. No rebound tenderness. Active bowel sounds x4. Mild left CVAT. Negative Jernigan's sign. Differential diagnosis includes diverticulosis/diverticulitis, colitis, nephrolithiasis, renal colic, pyelonephritis, anemia, GI bleed, UTI, ovarian cyst, ovarian torsion Plan for labs, UA, imaging, pain control, re-evaluation. Lactic acid is normal. Ultrasound did not show any signs of significant abnormality. Patient's CT imaging is negative. We will plan to discharge patient with cefpodoxime to treat for UTI, muscle relaxer will be provided the patient as well. Patient will be discharged home Differential Diagnosis Differential Diagnoses: The differential diagnosis associated with the presentation includes as above. Admission/Observation Consideration of admission/observation: Escalation of care including admission/observation considered Consult Healthcare Provider Management of the patient was discussed with: Sales Manager [place] General surgeon - dr. briceno Lab Data MDM Lab Attestation statement: I reviewed the patient's lab results. as above. 07/07/25 15:06 07/07/25 16:14 Labs: Lab Results 07/07/25 07/07/25 07/07/25 Range/Units 15:06 15:33 16:14 WBC 5.8 (4.8-10.8) X10*3/uL RBC 4.13 L (4.20-5.50) X10*6/uL Hgb 11.7 L (12.0-16.0) g/dl Hct 34.4 L (37.0-47.0) % MCV 83.3 (80.0-98.0) fL MCH 28.3 (27.0-33.0) pg MCHC 34.0 (31.0-35.0) g/dl RDW 13.7 (11.0-16.0) % Plt Count 318 D (160-400) X10*3/uL MPV 9.9 (9.4-12.3) fL Immature Gran % (Auto) 0.2 (0.0-0.4) % Neut % (Auto) 59.7 (45-73) % Lymph % (Auto) 28.4 (20-40) % [place] % (Auto) 7.0 (2-11) % Eos % (Auto) 3.8 (0-4) % Baso % (Auto) 0.9 (0-2) % Lymph # (Auto) 1.7 (1.2-4.9) X10*3/uL [place] # (Auto) 0.4 (0.1-1.2) X10*3/uL Eos # (Auto) 0.2 (0.0-0.4) X10*3/uL Baso # (Auto) 0.1 (0.0-0.2) X10*3/uL Abs Immat Gran (auto) 0.01 (0.00-0.03) X10*3/uL Absolute Neuts (auto) 3.5 (2.0-8.3) x10*3/uL Absolute Nucleated RBC 0.000 (0.0-0.012) X10*3/uL Nucleated RBC % (auto) 0.0 (0.0-0.2) /100WBC Sodium 145 (135-145) mmol/L Potassium 3.3 (3.3-5.1) mmol/L Chloride 109 H (96-108) mmol/L Carbon Dioxide 27 (22-29) mmol/L Anion Gap 12 (12-20) BUN 16 (9-16) mg/dL Creatinine 0.85 (0.5-1.4) mg/dL Estim Creat Clear Calc 75.2 Estimated GFR > 60 Random Glucose 110 (60-115) mg/dL Lactic Acid (0.5-2.0) mmol/L Calcium 9.1 (8.4-10.2) mg/dL Total Bilirubin 0.2 (0.0-1.0) mg/dL AST 24 (5-31) U/L ALT 14 (0-31) U/L Alkaline Phosphatase 70 (39-117) U/L Total Protein 6.7 (6.5-8.0) g/dL Albumin 3.8 (3.5-5.0) g/dL Urine Color Yellow Urine Appearance Cloudy Urine pH 8.0 (5.0-9.0) Ur Specific [place] 1.020 (1.005-1.025) Urine Protein Negative (Neg-Trace) mg/dL Urine Glucose (UA) Negative (Negative) mg/dL Urine Ketones Trace (Negative) mg/dL Urine Blood Small (1+) H (Negative) Urine Nitrite Negative (Negative) Ur Leukocyte Esterase Small (1+) H (Negative) Urine RBC 3-5 H (0-2) /HPF Urine WBC 0-5 (0-5) /HPF Ur Squamous Epith Cells 3-5 (0-2) /HPF Calcium Oxalate Crystal Present Urine Bacteria 2+ (None Seen) Hyaline Casts 0-2 (0-2) /LPF Stool Occult Blood NEGATIVE (NEGATIVE) 07/07/25 Range/Units 19:24 WBC (4.8-10.8) X10*3/uL RBC (4.20-5.50) X10*6/uL Hgb (12.0-16.0) g/dl Hct (37.0-47.0) % MCV (80.0-98.0) fL MCH (27.0-33.0) pg MCHC (31.0-35.0) g/dl RDW (11.0-16.0) % Plt Count (160-400) X10*3/uL MPV (9.4-12.3) fL Immature Gran % (Auto) (0.0-0.4) % Neut % (Auto) (45-73) % Lymph % (Auto) (20-40) % [place] % (Auto) (2-11) % Eos % (Auto) (0-4) % Baso % (Auto) (0-2) % Lymph # (Auto) (1.2-4.9) X10*3/uL [place] # (Auto) (0.1-1.2) X10*3/uL Eos # (Auto) (0.0-0.4) X10*3/uL Baso # (Auto) (0.0-0.2) X10*3/uL Abs Immat Gran (auto) (0.00-0.03) X10*3/uL Absolute Neuts (auto) (2.0-8.3) x10*3/uL Absolute Nucleated RBC (0.0-0.012) X10*3/uL Nucleated RBC % (auto) (0.0-0.2) /100WBC Sodium (135-145) mmol/L Potassium (3.3-5.1) mmol/L Chloride (96-108) mmol/L Carbon Dioxide (22-29) mmol/L Anion Gap (12-20) BUN (9-16) mg/dL Creatinine (0.5-1.4) mg/dL Estim Creat Clear Calc Estimated GFR Random Glucose (60-115) mg/dL Lactic Acid 1.1 (0.5-2.0) mmol/L Calcium (8.4-10.2) mg/dL Total Bilirubin (0.0-1.0) mg/dL AST (5-31) U/L ALT (0-31) U/L Alkaline Phosphatase (39-117) U/L Total Protein (6.5-8.0) g/dL Albumin (3.5-5.0) g/dL Urine Color Urine Appearance Urine pH (5.0-9.0) Ur Specific [place] (1.005-1.025) Urine Protein (Neg-Trace) mg/dL Urine Glucose (UA) (Negative) mg/dL Urine Ketones (Negative) mg/dL Urine Blood (Negative) Urine Nitrite (Negative) Ur Leukocyte Esterase (Negative) Urine RBC (0-2) /HPF Urine WBC (0-5) /HPF Ur Squamous Epith Cells (0-2) /HPF Calcium Oxalate Crystal Urine Bacteria (None Seen) Hyaline Casts (0-2) /LPF Stool Occult Blood (NEGATIVE) Independent Interpretation I performed an independent interpretation of an: Ultrasound and CT Scan Interpretation: ct abdomen without bowel obstruction, no obvious perinephric stranding Radiology Impression Discussion of test interpretation with radiology: I have reviewed the radiologist's reading. Radiologist Impression: Procedure(s): CT abdomen pelvis wo IV con Accession Number(s): [id number] cc: Physician,Unknown ; Lilli Frye~ Report Number: [id number]: Total DLP = 616.00 mGy-cm Reason for Exam: LLQ pain, L flank pain ?renal stone CLINICAL HISTORY: LLQ pain, L flank pain ?renal stone CT abdomen and pelvis without contrast Comparison: None available Findings: No nephrolithiasis or hydronephrosis. Bilateral renal parapelvic cysts. No bladder stone. No consolidation at the lung bases. Small pericardial effusion. Status post cholecystectomy. Dilation of the common bile duct greater than expected status post cholecystectomy, measuring 2.0 cm. Cysts in the left lobe of the liver. The other solid organs are normal. No bowel wall thickening or dilation. A normal appendix is identified. Colonic diverticulosis. No inflamed diverticula or pericolonic stranding. No aneurysm. Mild calcified atherosclerotic disease. No lymphadenopathy. No ascites. No acute fracture. Grade 1 anterolisthesis of L4 on L5, degenerative. Impression: No urinary tract stone or obstruction. Dilation of the common bile duct. Correlate with laboratory values and consider further evaluation with MRCP. This document has been electronically signed by: Erin Vargas MD on 07/07/2025 17:41:13 Independent Historian Clinical information obtained from an independent historian. History obtained from or confirmed by: EMS External Record Review External record reviewed: Inpatient record, Office record, Outpatient record, Prior outpatient labs and Prior outpatient radiology Prescription Management I considered prescription management with: Pain Medication and Antibiotic Social Determinants Patient?s care significantly limited by Social Determinants of Health including: Other Social Determinant of Health Medications Administered Discontinued Medications Generic Name Dose Route Start Last Admin Trade Name Freq PRN Reason Stop Dose Admin Cephalexin HCl 500 mg 07/07/25 21:57 07/07/25 22:09 Cephalexin 500 Mg Capsule PO 07/07/25 21:58 500 mg ONCE ONE Administration Hydromorphone HCl 0.5 mg 07/07/25 16:27 07/07/25 16:35 Hydromorphone Hcl 0.5 Mg/0.5 Ml Syringe IVPUSH 07/07/25 16:28 0.5 mg ONCE ONE Administration Protocol Hydromorphone HCl 1 mg 07/07/25 17:53 07/07/25 18:47 Hydromorphone Hcl 1 Mg/Ml Syringe IVPUSH 07/07/25 17:54 1 mg ONCE ONE Administration Protocol Morphine Sulfate 4 mg 07/07/25 15:16 07/07/25 15:30 Morphine Sulfate 10 Mg/Ml Cartridge IVPUSH 07/07/25 15:17 4 mg ONCE ONE Administration Protocol Oxycodone HCl 5 mg 07/07/25 21:56 07/07/25 22:09 Oxycodone Hcl Immed Release 5 Mg Tablet PO 07/07/25 21:57 5 mg ONCE ONE Administration Discharge Plan Discharge Clinical Impression: UTI (urinary tract infection) Qualifiers: Urinary tract infection type: site unspecified Hematuria presence: without hematuria Qualified Code(s): N39.0 - Urinary tract infection, site not specified Patient Disposition: Home, Self-Care Instructions: Urinary Tract Infection in Women (ED) Prescriptions: New cefpodoxime 200 mg tablet 200 mg PO Q12H 10 Days Qty: 20 0RF Rx Instructions: must administer with a meal/food No Action acetaminophen [Tylenol 8 Hour] 650 mg tablet extended release 650 mg PO Q8H PRN (Reason: pain) Qty: 30 0RF betamethasone dipropionate 0.05 % ointment topical olanzapine 5 mg tablet 5 mg PO BEDTIME pantoprazole 40 mg tablet,delayed release (DR/EC) 40 mg PO DAILY duloxetine 60 mg capsule,delayed release(DR/EC) 60 mg PO BID alprazolam [Xanax] 1 mg tablet 1 mg PO BEDTIME eszopiclone [Lunesta] 3 mg tablet 3 mg PO BEDTIME Botox 100 unit recon soln IM .q 4 months PRN Rx Instructions: for migrains meclizine 25 mg tablet PO albuterol sulfate 90 mcg/actuation HFA aerosol inhaler 2 puff PO Q6H PRN (Reason: for wheezing) 30 Days Qty: 25.5 3RF prazosin 1 mg capsule 1 - 2 mg PO BEDTIME ascorbic acid (vitamin C) [Vitamin C] 500 mg tablet,chewable 500 mg PO BID magnesium oxide 400 mg magnesium capsule 400 mg PO BEDTIME Qty: 90 3RF fluticasone furoate-vilanterol [Breo Ellipta] 200-25 mcg/dose blister with device 1 inh inhalation DAILY 30 Days Qty: 60 5RF atorvastatin 20 mg tablet 20 mg PO DAILY baclofen 5 mg tablet 5 mg PO BEDTIME Qty: 30 3RF Rinvoq 15 mg tablet extended release 24 hr 15 mg PO DAILY Ubrelvy 100 mg tablet See Rx Instructions .ROUTE .COMPLEX MDD 2 tabs Qty: 14 3RF Rx Instructions: 1 tab at onset of migraine and can repeat in 2 hrs; Interventions: ED Discharge Assessment Last Done: 07/07/25 22:14 Discharge Date/Time: 07/07/25 22:15 Print Language: Croatian
[2025-07-07 15:21] LABS: MANUAL DIFF FLAG NO
[2025-07-07 15:23] LABS: Hematocrit 34.4 % (37.0-47.0); Hemoglobin 11.7 g/dl (12.0-16.0); Imm Gran Abs Auto 0.01 X10*3/uL (0.00-0.03); Imm Gran Pct Auto 0.2 % (0.0-0.4); Lymphocytes Absolute Auto 1.7 X10*3/uL (1.2-4.9); Mean Corpuscular HGB Conc 34.0 g/dl (31.0-35.0); Mean Corpuscular Hemoglobin 28.3 pg (27.0-33.0); Mean Corpuscular Volume 83.3 fL (80.0-98.0); NRBC Abs Auto 0.000 X10*3/uL (0.0-0.012); NRBC Pct Auto 0.0 /100WBC (0.0-0.2); Platelet Count 318 X10*3/uL (160-400); Red Blood Count 4.13 X10*6/uL (4.20-5.50); White Blood Count 5.8 X10*3/uL (4.8-10.8)
--- OUTSIDE RECORDS SUMMARY | 2025-07-07 15:32 | XMS_ITS | Encounter Summary ---
Author Organization [facility] Address [address] [place] [address] Care Team Providers Care Cooling Pan Tender Name Role Phone Sunita Ellis MD Primary Care Provider [phone] Reason for Visit * Reason Comments Med Refill Encounter Details Date Type Department Care Team (Late st Contact Info) Description 04/09/2024 Refill [facility] [address] [place], [place] [id number] Carlos Orozco AGNP Hyperlipidemia, unspecified hyperlipidemia type [...] documented as of this encounter Care Teams Cooling Pan Tender Relationship Specialty Start Date End Date Sunita Ellis MD [address] [place] [address] PCP - General Family Medicine 02/04/23 documented as of this encounter
--- OUTSIDE RECORDS SUMMARY | 2025-07-07 15:32 | XMS_ITS | Data Portability ---
Author Organization [employer] [facility], [place] [employer] [facility] Address [address] [place] [address] Care Team Providers Care Suppression Crew Leader Name Role Phone HIM CCA OTHER Unavailable Primary Care Provider Assessment Encounter Date Assessment [...] DS 800 mg-160 mg tablet 024 024 [id number], [address] [facility] [place], [place], [phone], 4 16:00:01 Patient TargetsNo targets recorded. Patient InstructionsNo instructions recorded. Reason for Referral None Reported. Medical Equipment None Reported. Allergies Allergen ID Allergen Name Allergen Category Reaction Reaction Severity Criticality Documentation Date Start Date Code Code System Note Provider Name and Address Organization Details Recorded Time 64975 ibuprofen medicatio n Not available Not available Not available 10/29/2024 5640 RxNorm Not Available [facility] - production 5 14:29:58 33268 cyclobenz aprine hydrochlo ride medicatio n Not available Not available Not available 10/29/2024 01666 RxNorm Not Available [facility] - production 5 14:29:58 7046 egg extract food,medi cation Not available Not available Not available 07/17/2024 38076 15 [facility] Not Available [facility] 4 03:34:34 Medications Name Sig [...] Not Available Not Available Not Available omega 0-ahi-cpx-fi sh oil 60 mg-90 mg-500 mg capsule [...] % 89 /min 138/88 mm[Hg] Not Available [facility] 5 18:15:32 Date Recorded Body height Respiratory rate Body weight Body temperature Oxygen saturation Oxygen saturation in Arterial blood by Pulse oximetry Heart rate Systolic And Diastolic Provider Name and Address Organization Details Last Updated DateTime 3 165.1 cm 18 /min 53011.8 88 g 98.4 [degF] 96 % 96 % 70 /min 109/76 mm[Hg] Not Available [facility] 3 17:55:02 Date Recorded Oxygen saturation Oxygen saturation in Arterial blood by Pulse oximetry Body height Heart rate Respiratory rate Body weight Body temperature Systolic And Diastolic Provider Name and Address Organization Details Last Updated DateTime 4 95 % 95 % 152.4 cm 95 /min 16 /min 79299.5 2 g 99.3 [degF] 160/89 mm[Hg] Not Available [facility] 4 15:56:16 Social History None recorded. Functional Status None recorded. Mental Status None recorded. Family History Nothing Reported. Medical History No medical history recorded. Gynecological HistoryNo gynecological history recorded. Obstetrics History GPAL:G 0 P 0 0 0 0 Past Encounters Encounter ID Performer Location Encounter Start Date Encounter Closed Date Diagnosis/Indication Diagnosis SNOMED-CT Code Diagnosis ICD10 Code Diagnosis IMO Codes Diagnosis Note [id number] Alex Hall MD [facility] [address] [place] [address] 02/21/2023 17:54:56 02/22/2023 15:43:28 Pain of right knee region 5861695109 47769 M25.561 This 62-year-ol d female apparently sustained [...] PCP. The patient agreed with this plan. [id number] Saundra Chen MD Main - [facility] [address] [place] [phone] 05/07/2024 15:56:03 05/07/2024 22:38:04 Infection of big toe 617562363 L08.9 64 year old female with COPD [...] assessment and plan as documented by the research worker kitchen. I provided real-time medical direction for this encounter and was immediatel y available to provide additional phone-base d assistance as needed. We discussed the diagnostic uncertaint y of home visits and associated risks. We discussed the need to seek care urgently/e mergently in the setting of any new or worsening symptoms. [id number] Michael Barrera MD Main [facility] [address] [place] [phone] 10/29/2024 18:15:21 10/29/2024 21:43:07 Pain in left foot [id number] 37484 M79.672 Health Concerns Section Related Observation LastModified by Organization Detai ls LastModified Time None Recorded Concern Status LastModified by Organization Details LastModified Time None Recorded Advance Directives Directive None Recorded Payers Insurance Date Sequence Insurance Name Policy Number Policy Dumont Covered Member ID Dumont Member ID Guarantor Name 10/29/2024 1 [facility] - DOS ON OR AFTER 2022 - DUAL ELIGIBLE - CARE HOME OPTIONS AND ONE CARE (MEDICARE REPLACEMENT/ADV ANTAGE - HMO) Rodrigue Martinez [id number] Rodrigue Martinez Notes Date Note Type Note [...] .................. .................. .................. .................. .................. .................. ............... Topper Press Operator Automatic Note From Hawa Murray: Sent to a [...] .................. ............... Disposition: Fulfilled Alex Hall MD [address] [place] [address],[address], [place], [address], [employer] 02/21/2023 18:00:06 05/07/2024 text/html CRC Nurse Triage Notes (Geovany Rodriguez): Reason For Request: Patient wants someone to look at her foot, she had foot surgery and it's now painful, and swollen. Chief Complaints: Pain PMH: COPD/Asthma, Hypertension Allergies: Egg Comments: Property Assistant verified the member's name//address and phone [...] .................. .................. .................. .................. .................. .................. ............... [employer]pper Press Operator Automatic Note From Dante Livingston: Pt reports surgery [...] base of big toe/lateral side of foot. [facility] contacted an will send rx to pharmacy. Pt instructed to keep appointment on Tuesday and to seek emergent medical care for new or worsening sx, which are reviewed with her. .................. .................. .................. .................. .................. .................. .................. ............... Disposition: Fulfilled Saundra Chen MD [address] [facility] [place] [facility],[address], [place], [address], [employer] 05/07/2024 16:11:29 10/29/2024 text/html CRC Nurse Triage [...] .................. .................. .................. .................. .................. .................. ............... [employer] Press Operator Automatic Note From Alexander Pugh: Dispatch to the [...] the bottom and top of her foot. [facility] consulted. Pt advised that she should have it imaged sooner rather than later. Pt advised she would call for a ride to urgent care and if she was not able to procure one she would call 911. Red flags discussed. All times are approximate. .................. .................. .................. .................. .................. .................. .................. ............... [facility] Consulted: Michael Barrera .................. .................. .................. .................. .................. .................. .................. ............... Disposition: Fulfilled Michael Barrera MD [address] [facility],[address], [place], [address], [employer] 10/29/2024 21:31:08 OBGyn Episode No OBEpisode recorded.
--- OUTSIDE RECORDS SUMMARY | 2025-07-07 15:32 | XMS_ITS | Encounter Summary ---
Author Organization [employer] Address [address] [place] [address] [address] [place] [address] Care Team Providers Care Ct Tech Name Role Phone Carlos Orozco Primary Care Provider Unavail able Sunita Ellis MD Primary Care Provider [phone] Reason for Visit * Reason Onset Date Comments Results 11/24/2022 Encounter Details Date Type Department Care Team ([facility] st Contact Info) Description 11/24/2022 Telephone [facility] MEDICINE [address] [place], [place] [phone] Carlos Orozco AGNP Results Social History Tobacco [...] blood work to be sent 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 Pt had no further concerns. * Telephone Encounter - Heladio Yeboah - 11/29/2022 2:33 PM EDT Tc from pt returning call regarding message below. Please contact pt at [phone] * Telephone Encounter - Heladio Yeboah - 11/24/2022 10:43 AM EST Tc from pt requesting a call back regarding blood work. Pt requesting for results Please contact pt at [phone] documented in this encounter Plan of Treatment Not on file documented as of this encounter Visit Diagnoses Not on filedocumented in this encounter Additional Health Concerns Assessment Noted Time PHQ-9 Depression Total Score: 7 10/29/19 9:12 AM EST documented as of this encounter Care Teams Ct Tech Relationship Specialty Start Date End Date Carlos Orozco AGNP PCP - General Family Medicine 10/05/22 02/03/23 Sunita Ellis MD [address] [place] [address] PCP - General Family Medicine 02/04/23 documented as of this encounter
--- OUTSIDE RECORDS SUMMARY | 2025-07-07 15:32 | XMS_ITS | Encounter Summary ---
Author Organization [employer] Address [address] [facility] [address] [place] [address] Care Team Providers Care Union Organizer Name Role Phone Sunita Ellis MD Primary Care Provider Reason for Visit * Reason Onset Date Comments Med Refill 09/23/2023 Encounter Details Date Type Department Care Team (Late st Contact Info) Description 09/23/2023 Refill [facility] [address] [place], [place] [phone] Sunita Ellis MD [address] [place] [address] Social History Tobacco Use Types Packs/Day Years [...] documented as of this encounter Care Teams Union Organizer Relationship Specialty Start Date End Date Sunita Ellis MD [address] [place] [address] PCP - General Family Medicine 02/04/23 documented as of this encounter
--- OUTSIDE RECORDS SUMMARY | 2025-07-07 15:32 | XMS_ITS | Encounter Summary ---
Author Organization [employer] Address [address] [place] [address] [address] [place] [address] Care Team Providers Care Specialty Trimmer Name Role Phone Carlos Orozco Primary Care Provider Unavail able Sunita Ellis MD Primary Care Provider [phone] Reason for Visit * Reason Comments Med Refill Encounter Details Date Type Department Care Team ([facility] st Contact Info) Description 01/26/2023 Refill [facility] MEDICINE [address] [place], [place] [phone] Carlos Orozco AGNP Social History Tobacco Use [...] documented as of this encounter Care Teams Specialty Trimmer Relationship Specialty Start Date End Date Carlos Orozco AGNP PCP - General Family Medicine 10/05/22 02/03/23 Sunita Ellis MD [address] [place] [address] PCP - General Family Medicine 02/04/23 documented as of this encounter
--- OUTSIDE RECORDS SUMMARY | 2025-07-07 15:32 | XMS_ITS | Encounter Summary ---
Author Organization [employer] Address [address] [place] [address] [place] [address] Care Team Providers Care Party Plan Sales Director Name Role Phone Cherry Atwood Primary Care Provider Carlos Orozco Primary Care Provider Unavail Sunita Clay MD Primary Care Provider [phone] Encounter Details Date Type Department Care Team (Late st Contact Info) Description 09/02/2022 Orders Only [facility] [address] [place], [place] [phone] Cherry Atwood FNP [address] [place], [place] [phone] Social History Tobacco Use Types Packs/Day Years [...] on filedocumented in this encounter Care Teams Party Plan Sales Director Relationship Specialty Start Date End Date Cherry Atwood FNP [address] [place] [phone] PCP - General Family Medicine 05/06/22 10/04/22 Carlos Orozco AGNP [address] [place] [address] PCP - General Family Medicine 10/05/22 02/03/23 Sunita Ellis MD [address] [place] [address] PCP - General Family Medicine 02/04/23 documented as of this encounter
--- OUTSIDE RECORDS SUMMARY | 2025-07-07 15:32 | XMS_ITS | Encounter Summary ---
Author Organization [employer] Address [address] [facility] [address] [place] [address] Care Team Providers Care Clin Tech Name Role Phone Sunita Ellis MD Primary Care Provider [phone] Reason for Visit * Reason Comments Med Refill Encounter Details Date Type Department Care Team (Late st Contact Info) Description 12/19/2024 Refill [facility] MEDICINE [address] [place], [place] [phone] Sunita Ellis MD [address] [place], [place] [phone] Social History Tobacco Use Types Packs/Day Years [...] documented as of this encounter Care Teams Clin Tech Relationship Specialty Start Date End Date Sunita Ellis MD [address] [place] [id number] PCP - General Family Medicine 02/04/23 documented as of this encounter
--- OUTSIDE RECORDS SUMMARY | 2025-07-07 15:32 | XMS_ITS | Clinical Summary ---
Author Organization [employer] Address [address] [facility] [address] [place] [address] Care Team Providers Care Menagerie Caretaker Name Role Phone Sunita Ellis MD Primary Care Provider [phone] Allergies Active Allergy Reactions Criticality Noted Date Comments Beclomethasone 09/30/2014 Other reaction(s): Respiratory Distress Eye and tongue swelling Cyclobenzaprine Anaphylaxis,Hives High 09/30/2014 Hives,swelling Egg Protein (Egg White) 09/30/2014 Rash Egg Protein-Containing Drug Products 03/17/2015 Ibuprofen 03/17/2015 Nsaids 09/30/2014 Hives,swelling,gi [...] about testing for familial hypercholesterolemia, please call [facility] Client Services at 1.913.[employer].INFO. Veronica Blount, et al. J National Lipid Association Recommendations for Patient-Centered Management of Dyslipidemia: Part 1 Journal of Clinical Lipidology 2015;9(2), 129-169. Reference range: <100 Desirable range <100 mg/dL for primary prevention; <70 mg/dL for patients with CHD or diabetic patients with > or = 2 CHD risk factors. LDL-C is now calculated using the Esdras-Senait calculation, which is a validated novel method providing better accuracy than the Friedewald equation in the estimation of LDL-C. Esdras TOVAR et al. ROBER. 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 Muscle pain 10/29/2022 Osteoarthritis 08/20/2020 [...] pt Migraine 09/30/2014 Osteoporosis 09/30/2014 Seizure disorder ([facility]) 09/30/2014 Assessment & Plan (09/23/2023 1:00 PM EST): Follows with Dr Nasir naranjo Tobacco abuse 05/26/2012 Resolved Problems Problem Noted Date Diagnosed Date Resolved Date Deep vein thrombosis (DVT) o f popliteal vein ([facility]) 11/18/2020 09/23/2023 Encounters Date Type Department Care Team Description 06/28/2025 Telephone [facility] [address] [place] [address] Sunita Ellis MD Nurse Triage 06/26/2025 Orders Only [facility] External Provider, [facility] 04/10/2025 Results Follow-Up [facility] [address] [place] [address] Sunita Ellis MD XR Knee 3 Views Right from Last 3 Months Immunizations Immunization Administration [...] 2022 Mammogram 09/02/2022 09/02/2020, 09/05/2017 COVID-19 Vaccine ( season) 2025 07/24/2021, 07/03/2021 Influenza Vaccine (#1) 2025 Depression Screening 04/05/2026 04/05/2025, 04/05/20 25 SDOH Screening 04/05/2026 04/05/2025 Tobacco Screening 04/05/2026 [...] Priority Date/Time Associated Diagnosis Comments XR ANKLE 3+ VIEWS LEFT Routine 06/26/2025 2:32 PM EDT XR HIP LEFT WITH PELVIS 1 VIEW Routine 06/26/2025 2:[address] HEAD WO CONTRAST Routine 06/26/2025 2 :[address] CERVICAL SPINE WO CONTRAST Routine 06/26/2025 2:06 PM EDT XR FEMUR 2+ VIEWS RIGHT Routine 04/10/2025 [...] Relevant to Health Maintenance Results * XR Ankle 3+ Views Left (06/26/2025 2:32 PM EDT) Anatomical Region Laterality Modality Lower Extremities, Ankle Left Radiogr aphic Imaging 06/26/2025 2:32 PM EDT Narrative 06/26/2025 2:48 PM EDT [address] [address] XRay Report Signed Patient: Rodrigue Martinez MR#: [id number] 3445 : 1960 Acct:[id number] Age/Sex: 65 / F ADM Date: 06/26/25 Loc: HO.ED Attending Dr: Ordering Physician: Chaparrita Lopez Date of Service: 06/26/25 Procedure(s): XR ankle LT min 3V Accession Number(s): [id number] cc: Sunita Ellis; Chaparrita Lopez Reason for Exam: pain EXAMINATION: XR ANKLE, LEFT CLINICAL INFORMATION: pain COMPARISON: 10/30/24. TECHNIQUE: AP, lateral, and mortise views of the left ankle. FINDINGS: No fracture, dislocation, or suspicious bone lesion. There is normal alignment. The ankle mortise is intact. The talar dome is normal. There is very mild osteoarthrosis in the ankle joint. The subtalar joints and calcaneus appear intact. There is a small dorsal calcaneal spur. Soft tissues appear normal. No significant soft tissue swelling. XR/XR ankle LT min 3V IMPRESSION: 1. No acute bony or soft tissue abnormality in the left ankle. 2. Mild osteoarthrosis of the ankle joint. Electronically signed by: Ted Taylor MD 06/26/2025 02:45 PM EDT RP Dictated By: Ted Taylor MD Signed By: <Electronically signed by Ted Taylor MD in OV> 06/26/25 1445 DD/ 1432 TD/TT: 06/26/25 1432 Night Nurse: Procedure Note Donotuseinterpreter, Image - 06/26/2025 [place] [address] XRay Report Signed Patient: Edvin Martinez#: [id number] : 1960cct:[id number] Age/Sex: 65 / FADM Date: 06/26/25 Loc: HO.ED Attending Dr: Ordering Physician: Chaparrita Lopez Date of Service: 06/26/25 Procedure(s): XR ankle LT min 3V Accession Number(s): [id number] cc: Sunita Ellis; Chaparrita Lopez Reason for Exam: pain EXAMINATION: XR ANKLE, LEFT CLINICAL INFORMATION: pain COMPARISON: 10/30/24. TECHNIQUE: AP, lateral, and mortise views of the left ankle. FINDINGS: No fracture, dislocation, or suspicious bone lesion. There is normal alignment. The ankle mortise is intact. The talar dome is normal. There is very mild osteoarthrosis in the ankle joint. The subtalar joints and calcaneus appear intact. There is a small dorsal calcaneal spur. Soft tissues appear normal. No significant soft tissue swelling. XR/XR ankle LT min 3V IMPRESSION: 1. No acute bony or soft tissue abnormality in the left ankle. 2. Mild osteoarthrosis of the ankle joint. Electronically signed by: Ted Taylor MD 06/26/2025 02:45 PM EDT Dictated By: Ted Taylor MD Signed By: <Electronically signed by Ted Taylor MD in OV> 06/26/25 1445 DD/ 1432 TD/TT: 06/26/25 1432 Night Nurse: [facility] External Provider IMG XR PROCEDURES Final Result * XR Hip left with Pelvis 1 view (06/26/2025 2:20 PM EDT) Anatomical Region Laterality Modality Lower Extremities, Hip Bilateral Radiograp hic Imaging 06/26/2025 2:20 PM EDT Narrative 06/26/2025 2:50 PM EDT [place] [address] XRay Report Signed Patient: Rodrigue Martinez MR#: [id number] 3445 : 1960 Acct:[id number] Age/Sex: 65 / F ADM Date: 06/26/25 Loc: HO.ED Attending Dr: Ordering Physician: Chaparrita Lopez Date of Service: 06/26/25 Procedure(s): XR hip LT w PEL1V Accession Number(s): [id number] cc: Sunita Ellis; Chaparrita Lopez Reason for Exam: pain EXAMINATION: XR HIP, LEFT CLINICAL INFORMATION: pain COMPARISON: 06/10/2019. TECHNIQUE: AP pelvis, and 2 views of the left hip. FINDINGS: No fracture, dislocation, or suspicious bone lesion. Pelvis is intact. The hip joints are intact. The sacrum is intact. Mild degenerative arthritis is noted in both hip joints with grossly preserved joint spaces. There is normal acetabular coverage bilaterally. The femoral heads are normal in contour without evidence of AVN. Mild degenerative changes in both SI joints. No soft tissue abnormalities. XR/XR hip LT w PEL1V IMPRESSION: 1. No acute bony or soft tissue abnormalities of the pelvis or left hip. 2. Mild stable osteoarthrosis of both hip joints. Electronically signed by: Ted Taylor MD 06/26/2025 02:47 PM EDT RP Dictated By: Ted Taylor MD Signed By: <Electronically signed by Ted Taylor MD in OV> 06/26/25 1447 DD/ 1420 TD/TT: 06/26/25 1432 Night Nurse: Procedure Note Donotuseinterpreter, Image - 06/26/[address] [address] XRay Report Signed Patient: Edvin Martinez#: [id number] 3445 : 1960cct:[id number] Age/Sex: 65 / FADM Date: 06/26/25 Loc: .ED Attending Dr: Ordering Physician: Chaparrita Lopez Date of Service: 06/26/25 Procedure(s): XR hip LT w PEL1V Accession Number(s): [id number] cc: Sunita Ellis; Chaparrita Lopez Reason for Exam: pain EXAMINATION: XR HIP, LEFT CLINICAL INFORMATION: pain COMPARISON: 06/10/2019. TECHNIQUE: AP pelvis, and 2 views of the left hip. FINDINGS: No fracture, dislocation, or suspicious bone lesion. Pelvis is intact. The hip joints are intact. The sacrum is intact. Mild degenerative arthritis is noted in both hip joints with grossly preserved joint spaces. There is normal acetabular coverage bilaterally. The femoral heads are normal in contour without evidence of AVN. Mild degenerative changes in both SI joints. No soft tissue abnormalities. XR/XR hip LT w PEL1V IMPRESSION: 1. No acute bony or soft tissue abnormalities of the pelvis or left hip. 2. Mild stable osteoarthrosis of both hip joints. Electronically signed by: Ted Taylor MD 06/26/2025 02:47 PM EDT Dictated By: Ted Taylor MD Signed By: <Electronically signed by Ted Taylor MD in OV> 06/26/25 1447 DD/ 1420 TD/TT: 06/26/25 1432 Night Nurse: [facility] External Provider IMG XR PROCEDURES Final Result * CT Cervical Spine w/o Contrast (06/26/2025 2:06 PM EDT) Anatomical Region Laterality Modality Spine, C-spine Computed Tomogra phy 06/26/2025 2:06 PM EDT Narrative 06/26/2025 2:29 PM EDT [place] [address] CT Scan Report Signed Patient: Rodrigue Martinez MR#: [id number] 3445 : 1960 Acct:[id number] Age/Sex: 65 / F ADM Date: 06/26/25 Loc: HO.ED Attending Dr: Ordering Physician: Chaparrita Lopez Date of Service: 06/26/25 Procedure(s): CT cervical spine wo IV con Accession Number(s): [id number] cc: Sunita Ellis; Chaparrita Lopez Report Number: [id number]: Total DLP = 1107.00 mGy-cm Reason for Exam: fall EXAMINATION: CT CERVICAL SPINE WITHOUT CONTRAST CLINICAL INFORMATION: Fall COMPARISON: None available. TECHNIQUE: Axial imaging was performed from the base of the skull through T2 without IV contrast. Coronal and sagittal reformatted images were generated from the original axial data set. ALARA: The examination used one or more of the following radiation dose reduction techniques: Automated exposure control, iterative reconstruction, and/or adjustment of mA and/or KV. FINDINGS: There is moderate reversal of the normal cervical lordosis. No fractures are identified. There is no prevertebral soft tissue swelling. Postsurgical changes are seen related to anterior fusion C5-6 and C6-7. C2-3 and C3-4 demonstrate facet joint space narrowing with osteophytes and sclerosis. C4-5 demonstrates moderate disc space narrowing with degenerative endplate irregularities and osteophytes. C7-T1 demonstrates grade 1 anterolisthesis and mild disc space narrowing. There are facet osteophytes and joint space narrowing. CT/CT cervical spine wo IV con IMPRESSION: There is reversal of cervical lordosis. This can be related to degenerative changes, positioning, muscle spasm, or posterior soft tissue injury. No acute bony abnormality. Electronically signed by: Govind Lang MD 06/26/2025 02:26 PM EDT RP Dictated By: Govind Lang MD Signed By: <Electronically signed by Govind Lang MD in OV> 06/26/25 1426 DD/ 1406 TD/TT: 06/26/25 1418 Night Nurse: Procedure Note Donotuseinterpreter, Image - 06/26/[address] [place] [address] [address] Scan Report Signed Patient: Edvin Martinez#: [id number] 3445 : 1960cct:[id number] Age/Sex: 65 / FADM Date: 06/26/25 Loc: .ED Attending Dr: Ordering Physician: Chaparrita Lopez Date of Service: 06/26/25 Procedure(s): CT cervical spine wo IV con Accession Number(s): [id number] cc: Sunita Ellis; Chaparrita Lopez Report Number: [id number]: Total DLP = 1107.00 mGy-cm Reason for Exam: fall EXAMINATION: CT CERVICAL SPINE WITHOUT CONTRAST CLINICAL INFORMATION: Fall COMPARISON: None available. TECHNIQUE: Axial imaging was performed from the base of the skull through T2 without IV contrast. Coronal and sagittal reformatted images were generated from the original axial data set. ALARA: The examination used one or more of the following radiation dose reduction techniques: Automated exposure control, iterative reconstruction, and/or adjustment of mA and/or KV. FINDINGS: There is moderate reversal of the normal cervical lordosis. No fractures are identified. There is no prevertebral soft tissue swelling. Postsurgical changes are seen related to anterior fusion C5-6 and C6-7. C2-3 and C3-4 demonstrate facet joint space narrowing with osteophytes and sclerosis. C4-5 demonstrates moderate disc space narrowing with degenerative endplate irregularities and osteophytes. C7-T1 demonstrates grade 1 anterolisthesis and mild disc space narrowing. There are facet osteophytes and joint space narrowing. CT/CT cervical spine wo IV con IMPRESSION: There is reversal of cervical lordosis. This can be related to degenerative changes, positioning, muscle spasm, or posterior soft tissue injury. No acute bony abnormality. Electronically signed by: Govind Lang MD 06/26/2025 02:26 PM EDT Dictated By: Govind Lang MD Signed By: <Electronically signed by Govind Lang MD in OV> 06/26/25 1426 DD/ 1406 TD/TT: 06/26/25 1418 Night Nurse: [facility] External Provider IMG CT PROCEDURES Final Result * CT Head w/o Contrast (06/26/2025 2:06 PM EDT) Anatomical Region Laterality Modality Head, Neck Computed Tomogra phy 06/26/2025 2:06 PM EDT Narrative 06/26/2025 2:31 PM EDT [place] [address] CT Scan Report Signed Patient: Rodrigue Martinez MR#: [id number] 3445 : 1960 Acct:[id number] Age/Sex: 65 / F ADM Date: 06/26/25 Loc: HO.ED Attending Dr: Ordering Physician: Chaparrita Lopez Date of Service: 06/26/25 Procedure(s): CT head/brain wo IV con Accession Number(s): [id number] cc: Sunita Ellis; Chaparrita Lopez Report Number: [id number]: Total DLP = 0.00 mGy-cm Reason for Exam: fall EXAMINATION: CT HEAD WITHOUT CONTRAST CLINICAL INFORMATION: Fall COMPARISON: 10/26/2021 TECHNIQUE: Contiguous axial imaging was performed from the skull base to vertex without intravenous administration of contrast. This CT examination was performed using dose optimization techniques as appropriate, variously including the following: *Automated exposure control *Adjustment of mA and/or kV according to patient size (this includes techniques or standardized protocols for targeted exams where dose is matched to indication/reason for exam; i.e. extremities or head) *Use of iterative reconstruction technique FINDINGS: There is no acute ischemic change. There is no intracranial hemorrhage. There is no mass-effect or midline shift. Basal cisterns and ventricles are within normal limits for age/cerebral volume. Orbits are symmetrical and unremarkable. Paranasal sinuses and mastoid air cells are pneumatized. There are no bony abnormalities. CT/CT head/brain wo IV con IMPRESSION: No acute intracranial abnormality. Electronically signed by: Govind Lang MD 06/26/2025 02:28 PM EDT RP Dictated By: Govind Lang MD Signed By: <Electronically signed by Govind Lang MD in OV> 06/26/25 1428 DD/ 1406 TD/TT: 06/26/25 1418 Night Nurse: Procedure Note Donotuseinterpreter, Image - 06/26/[address] [place] [address] [address] Scan Report Signed Patient: Edvin Martinez#: [id number] 3445 : 1960cct:[id number] Age/Sex: 65 / FADM Date: 06/26/25 Loc: HO.ED Attending Dr: Ordering Physician: Chaparrita Lopez Date of Service: 06/26/25 Procedure(s): CT head/brain wo IV con Accession Number(s): [id number] cc: Sunita Ellis; Chaparrita Lopez Report Number: [id number]: Total DLP = 0.00 mGy-cm Reason for Exam: fall EXAMINATION: CT HEAD WITHOUT CONTRAST CLINICAL INFORMATION: Fall COMPARISON: 10/26/2021 TECHNIQUE: Contiguous axial imaging was performed from the skull base to vertex without intravenous administration of contrast. This CT examination was performed using dose optimization techniques as appropriate, variously including the following: *Automated exposure control *Adjustment of mA and/or kV according to patient size (this includes techniques or standardized protocols for targeted exams where dose is matched to indication/reason for exam; i.e. extremities or head) *Use of iterative reconstruction technique FINDINGS: There is no acute ischemic change. There is no intracranial hemorrhage. There is no mass-effect or midline shift. Basal cisterns and ventricles are within normal limits for age/cerebral volume. Orbits are symmetrical and unremarkable. Paranasal sinuses and mastoid air cells are pneumatized. There are no bony abnormalities. CT/CT head/brain wo IV con IMPRESSION: No acute intracranial abnormality. Electronically signed by: Govind Lang MD 06/26/2025 02:28 PM EDT RP Dictated By: Govind Lang MD Signed By: <Electronically signed by Govind Lang MD in OV> 06/26/25 1428 DD/ 1406 TD/TT: 06/26/25 1418 Night Nurse: [facility] External Provider IMG CT PROCEDURES Final Result * XR Femur 2+ Views Right (04/10/2025 8:27 AM EDT) Anatomical Region Laterality Modality Lower Extremities, Femur Right Radiogr aphic Imaging 04/10/2025 8:27 AM EDT Narrative 04/10/2025 9:47 AM EDT [facility] [address] [place] [address] XRay Report Signed Patient: Rodrigue Martinez MR#: [id number] 3445 : 1960 Acct:[id number] Age/Sex: 65 / F ADM Date: 04/10/25 Loc: HO.HHCX Attending Dr: Sunita Ellis MD Ordering Physician: Sunita Ellis Date of Service: 04/10/25 Procedure(s): XR femur RT 2V Accession Number(s): [id number] cc: Sunita Ellis EXAMINATION: XR FEMUR, RIGHT [...] Anthony Ruiz MD 04/10/2025 09:44 AM EDT RP Dictated By: Anthony Villarreal MD Signed By: <Electronically signed by Anthony Ruiz MD in OV> 04/10/25 0944 DD/ 0827 TD/TT: 04/10/25 0900 Night Nurse: Procedure Note Donotuseinterpreter, Image - 04/10/[address] [address] XRay Report Signed Patient: Edvin Martinez#: [id number] 3445 : 1960cct:[id number] Age/Sex: 65 / FADM Date: 04/10/25 Loc: HO.HHCX Attending Dr: Sunita Ellis MD Ordering Physician: Sunita Ellis Date of Service: 04/10/25 Procedure(s): XR femur RT 2V Accession Number(s): [id number] cc: Sunita Ellis EXAMINATION: XR FEMUR, RIGHT [...] Anthony Ruiz MD 04/10/2025 09:44 AM EDT RP Dictated By: Anthony Villarreal MD Signed By: <Electronically signed by Anthony Ruiz MDin OV> 04/10/25 0944 DD/ 0827 TD/TT: 04/10/25 0900 Night Nurse: Sunita Ellis MD IMG XR PROCEDURES Final Result * XR Knee 3 Views Right (04/10/2025 8:24 AM EDT) Anatomical Region Laterality Modality Lower Extremities, Knee Right Radiogra phic Imaging 04/10/2025 8:24 AM EDT Narrative 04/10/2025 9:49 AM EDT [address] [address] XRay Report Signed Patient: Rodrigue Martinez MR#: [id number] 3445 : 1960 Acct:[id number] Age/Sex: 65 / F ADM Date: 04/10/25 Loc: HO.HHCX Attending Dr: Sunita Ellis MD Ordering Physician: Sunita Ellis Date of Service: 04/10/25 Procedure(s): XR knee RT 3V Accession Number(s): [id number] cc: Sunita Ellis EXAMINATION: XR KNEE, RIGHT [...] signed by Anthony Ruiz MD in OV> 04/10/25945 DD/ 3 TD/TT: 04/10/25899 Night Nurse: Procedure Note Donotkimberinterpreter, Image - 04/10/[address] [address] XRay Report Signed Patient: Edvin Martinez#: [id number] 3445 : 1960cct:[id number] Age/Sex: 65 / FADM Date: 04/10/25 Loc: HO.HHCX Attending Dr: Sunita Ellis MD Ordering Physician: Sunita Ellis Date of Service: 04/10/25 Procedure(s): XR knee RT 3V Accession Number(s): [id number] cc: Sunita Ellis EXAMINATION: XR KNEE, RIGHT [...] <Electronically signed by Anthony Ruiz MDin OV> 04/10/25945 DD/ 3 TD/TT: 04/10/25899 Night Nurse: Sunita Ellis MD IMG XR PROCEDURES Final Result * XR Knee 3 Views Left (04/10/2025 8:22 AM EDT) Anatomical Region Laterality Modality Lower Extremities, Knee Left Radiogra phic Imaging 04/10/2025 8:22 AM EDT Narrative 04/10/2025 9:45 AM EDT [address] [address] XRay Report Signed Patient: Rodrigue Martinez MR#: [id number] 3445 : 1960 Acct:[id number] Age/Sex: 65 / F ADM Date: 04/10/25 Loc: HO.HHCX Attending Dr: Sunita Ellis MD Ordering Physician: Sunita Ellis Date of Service: 04/10/25 Procedure(s): XR knee LT 3V Accession Number(s): [id number] cc: Sunita Ellis EXAMINATION: XR KNEE, LEFT [...] by Anthony Ruiz MD in OV> 04/10/25 0942 DD/ 0822 TD/TT: 04/10/25 09 Night Nurse: Procedure Note Donotuseinterpreter, Image - 04/10/[address] [address] XRay Report Signed Patient: Trish MartinezR#: [id number] : 2Acct:[id number] Age/Sex: 65 / FADM Date: 04/10/25 Loc: HO.HHCX Attending Dr: Sunita Ellis MD Ordering Physician: Sunita Ellis Date of Service: 04/10/25 Procedure(s): XR knee LT 3V Accession Number(s): [id number] cc: Sunita Ellis EXAMINATION: XR KNEE, LEFT [...] signed by Anthony Ruiz MDin OV> 04/10/25 0942 DD/ 0822 TD/TT: 04/10/25 0900 Night Nurse: Sunita Ellis MD IMG XR PROCEDURES Final Result * (ABNORMAL) Lipid Panel, Standard (09/11/2024 9:10 AM EST) Triglycerides 231(H) <150 mg/dL [facility] Comment:Desirable Triglyceri de: less than 150 mg/dLBorderline High Triglyceride 150-199 mg/dLHigh Triglyceride: 200-499 mg/dLVery High Triglyceride: greater than or equal to 5OO mg/dL Cholesterol 192 <200 mg/dL [facility] Comment:Desirable Cholestero l: less than 200 mg/dLBorderline High Cholesterol: 200-239 mg/dLHigh Cholesterol: greater than 239 mg/dL LDL Cholesterol Calculated 95 <100 mg/dL [facility] Comment:Desirable LDL: less than 100 mg/dLNear Optimal/Above Optimal LDL: 110- 129 mg/dLBorderline High LDL: 130-159 mg/dLHigh LDL: 160-189 mg/dLVery High LDL: greater than or equal to 190 mg/dL HDL Cholesterol 51 >40 mg/dL [facility] Comment:Desirable HDL: great er than 40 mg/dL Note: This HDL assay may give artificially low results in patients with liver disease. Blood Venous blood specimen / Unknown 09/11/2024 9:10 AM EST 09/11/2024 10:59 AM EST us Sunita Ellis MD LAB BLOOD ORDERABLES Final Res ult [facility] [address] [place] [phone] * Mammography Report 1 (09/02/2020 7:53 AM EST) Anatomical Region Laterality Modality Breast Bilateral Mammography 09/02/2020 7:53 AM EST Narrative 09/02/2020 11:51 AM EST Refer to the Notes tab for result details [facility] Procedure: Mammography Report 1 Procedure Note ProviderVirgen MD - 12/11/2022 Refer to the Notes tab for result details [facility] Procedure: Mammography Report 1 us Miri Reyes [employer] IMG BI PROCEDURES Final Result from Last 3 Months or Most Recently Relevant to Health Maintenance Insurance [facility] ONE CARE < 65 Care Teams Menagerie Caretaker Relationship Specialty Start Date End Date Sunita Ellis MD [address] [place] [phone] PCP - General Family Medicine 02/04/23
--- OUTSIDE RECORDS SUMMARY | 2025-07-07 15:32 | XMS_ITS | Encounter Summary ---
Author Organization [employer] Address [address] [facility] [address] [place] [address] Care Team Providers Care Physical Geographer Name Role Phone Sunita Ellis MD Primary Care Provider [phone] Encounter Details Date Type Department Care Team ([facility] st Contact Info) Description 08/01/2023 Abstract [facility] [address], [place] [phone] Sunita Ellis MD [address] [place], [place] [phone] Social History Tobacco Use Types Packs/Day Years [...] documented as of this encounter Care Teams Physical Geographer Relationship Specialty Start Date End Date Sunita Ellis MD [address] [place] [phone] PCP - General Family Medicine 02/04/23 documented as of this encounter
--- OUTSIDE RECORDS SUMMARY | 2025-07-07 15:32 | XMS_ITS | Clinical Summary ---
Author Organization [address] [facility] Address [address] [place] [address] Phone Care Team Providers Care Oracle Distribution Consultant Name Role Phone Sunita Ellis MD Primary Care Provider [phone] Allergies Active Allergy Reactions Criticality Noted Date [...] victim COPD (chronic obstructive pu lmonary disease) ([facility] V24, [facility] V28) 09/30/2014 DJD (degenerative joint disease) 09/30/2014 Fibromyalgia 09/30/2014 Migraine 09/30/2014 Osteoporosis 09/30/2014 Seizure disorder ([facility] V24, [facility] V28) 09/19 Overview (06/22/2024): Follows with Dr Best Encounters Date Type Department Care Team Description 05/28/2025 Telephone Orthopedic Surgery [facility] [address] [address] Georgette Weaver 05/16/2025 9:15 AM EDT Office Visit Orthopedic Surgery [facility] [address] [phone] Juan Arias, DPM Neuritis of right foot (Primary Dx); Sesamoiditis of right foot from Last 3 Months Surgical History Surgery Date Site/Laterality Comments CATARACT EXTRACTION PROCEDURE: HISTORICAL CATARACT REMOVAL CHOLECYSTECTOMY PROCEDURE: HISTORICAL CHOLECYSTECTOMY OTHER SURGICAL HISTORY PROCEDURE: [place] ANESTHESIA CERVICAL SPINE & CORD NOS; COMMENT: disectomy TUBAL LIGATION PROCEDURE: HISTORICAL TUBAL LIGATION Medical History Medical History Date Comments COPD (chronic obstructive pu lmonary disease) ([facility] V24, [facility] V28) 09/30/2014 DX:COPD (chronic o bstructive pulmonary disease) ([facility]) DJD (degenerative joint disease) 09/30/2014 DX:DJD (degenerative joint disease) Migraine 09/30/2014 DX:Migraine Fibromyalgia 09/30/2014 DX:Fibromyalgia Essential hypertension, benign 11/06/2014 D X:Essential hypertension, benign Seizure disorder ([facility] V2 4, [facility] V28) 09/30/2014 DX:Seizure disorder ([facility]); C OMMENT: Follows with Dr Best [...] of 2 - Risk 2-dose series) 1981 RSV Immunization Adult Patients (1 - Risk 50-74 years 1-dose series) 2012 Zoster Vaccines (1 of 2) 2012 Pneumococcal Vaccine: 50+ Years (2 of 2 - PCV) 12/07/2013 12/07/2012 Cervical Cancer Screening: Pap Smear 05/21/2018 05/21/2015, 05/21/2015 COVID-19 Vaccine (3 - Pfizer risk series) 08/21/2021 07/24/2021, 07/03/2021 Hepatitis B Vaccines (1 of 3 - Risk 3-dose series) 2022 HIV Screening 08/17/2022 Medicare Annual [...] LAB CHEMISTRY METHOD 03/04/2025 3:34 PM EDT [facility] Triglycerides 164(H) 0 - 150 mg/dL LAB CHEMISTRY METHOD 03/04/2025 3:34 PM EDT [facility] HDL 61 >=40 mg/dL LAB CHEMISTRY METHOD 03/04/2025 3:34 PM EDT [facility] LDL Calculated 116(H) 0 - 100 mg/dL LAB CHEMISTRY METHOD 03/04/2025 3:34 PM EDT [facility] VLDL Cholesterol Wili 32.8 mg/dL LAB CHEMISTRY METHOD 03/04/2025 3:34 PM EDT [facility] Non HDL Chol. (LDL+VLDL) 149(H) <145 mg/dL LAB CHEMISTRY METHOD 03/04/2025 3:34 PM EDT [facility] Chol/HDL Ratio 3.4 0.0 - 4.4 LAB CHEMISTRY METHOD 03/04/2025 3:34 PM EDT [facility] Blood Venous blood specimen / Unknown Venipuncture / Unknown 03/04/2025 12:34 PM EDT 03/04/2025 1:38 PM EDT Kaley Zeng MD LAB BLOOD ORDERABLES Final Resu lt [facility] [address] [place] [address], * Comprehensive metabolic panel (03/04/2025 12:34 PM EDT) Sodium 139 133 - 145 mmol/L LAB CHEMISTRY METHOD 03/04/2025 3:34 PM EDT [facility] Potassium 3.7 3.5 - 5.5 mmol/L LAB CHEMISTRY METHOD 03/04/2025 3:34 PM [facility] Chloride 109 96 - 110 mmol/L LAB CHEMISTRY METHOD 03/04/2025 3:34 PM [facility] CO2 27 21 - 32 mmol/L LAB CHEMISTRY METHOD 03/04/2025 3:34 PM [facility] Anion Gap 3 3 - 11 LAB CHEMISTRY METHOD 03/04/2025 3:34 PM [facility] Glucose 99 70 - 100 mg/dL LAB CHEMISTRY METHOD 03/04/2025 3:34 PM [facility] BUN 19 5 - 25 mg/dL LAB CHEMISTRY METHOD 03/04/2025 3:34 PM [facility] Creatinine 0.86 0.50 - 1.10 mg/dL LAB CHEMISTRY METHOD 03/04/2025 3:34 PM [facility] eGFR 76 >=60 mL/min/1. 73m2 LAB CHEMISTRY METHOD 03/04/2025 3:34 PM [facility] Comment:Calculation based on the Chronic Kidney Disease Epidemiology Collaboration (CKD-EPI) equation refit without adjustment for race. BUN/Creatinine Ratio 22.1 LAB CHEMISTRY METHOD 03/04/2025 3:34 PM [facility] Calcium 9.0 8.5 - 10.5 mg/dL LAB CHEMISTRY METHOD 03/04/2025 3:34 PM [facility] AST (SGOT) 17 10 - 42 unit/L LAB CHEMISTRY METHOD 03/04/2025 3:34 PM [facility] ALT (SGPT) 18 10 - 60 unit/L LAB CHEMISTRY METHOD 03/04/2025 3:34 PM [facility] Alkaline Phosphatase 70 42 - 121 unit/L LAB CHEMISTRY METHOD 03/04/2025 3:34 PM [facility] Total Protein 6.7 6.0 - 8.0 g/dL LAB CHEMISTRY METHOD 03/04/2025 3:34 PM [facility] Albumin 3.6 3.2 - 5.0 g/dL LAB CHEMISTRY METHOD 03/04/2025 3:34 PM EDT [facility] Total Bilirubin 0.4 0.0 - 1.4 mg/dL LAB CHEMISTRY METHOD 03/04/2025 3:34 PM EDT [facility] Blood Venous blood specimen / Unknown Venipuncture / Unknown 03/04/2025 12:34 PM EDT 03/04/2025 1:38 PM EDT Kaley Zeng MD LAB BLOOD ORDERABLES Final Resu lt [facility] [address] [place] [address], [place] [phone] * Cervical Cancer Screening: HPV (05/21/2015) Cervical Cancer Screening: HPV Abstracted ,negative Historical Provider HEALTH MAINTENANCE Final Result * Hepatitis C Screening (05/21/2015) Pathologist [facility] Hepatitis C Screening Abstracted Historical Provider HEALTH MAINTENANCE Final Result from Last 3 Months or Most Recently Relevant to Health Maintenance Insurance [facility] MEDICARE Member Subscriber Plan / Payer (Ef fective 2016-Present) Name:RODRIGUE MARTINEZ Relation to Subscriber:Self Name:Rodrigue Martinez Payer ID:[id number] Group ID:[id number] Type:Not on file Address: [place] [address] [address] [id number] Care Teams Oracle Distribution Consultant Relationship Specialty Start Date End Date Sunita Ellis MD [address] [place] [id number] PCP - General 09/27/23
--- OUTSIDE RECORDS SUMMARY | 2025-07-07 15:32 | XMS_ITS | Encounter Summary ---
Author Organization [employer] Address [address] [facility] [address] [place] [address] Care Team Providers Care Irrigator Valve Pipe Name Role Phone Sunita Ellis MD Primary Care Provider [phone] Reason for Visit * Reason Comments Med Refill Encounter Details Date Type Department Care Team ([facility] st Contact Info) Description 12/20/2024 Refill [facility] MED & PEDS [address] [place], [place] [phone] Sunita Ellis MD [address] [place] [address] Social History Tobacco Use Types Packs/Day Years [...] documented as of this encounter Care Teams Irrigator Valve Pipe Relationship Specialty Start Date End Date Sunita Ellis MD [address] [place] [phone] PCP - General Family Medicine 02/04/23 documented as of this encounter
--- OUTSIDE RECORDS SUMMARY | 2025-07-07 15:32 | XMS_ITS | Encounter Summary ---
Author Organization [employer] Address [address] [facility] [address] [place] [address] Care Team Providers Care Swimming Pool Cleaner Name Role Phone Sunita Ellis MD Primary Care Provider [phone] Encounter Details Date Type Department Care Team ([facility] st Contact Info) Description 07/04/2023 Abstract [facility] MEDICINE [address] [place], [place] [phone] Sunita Ellis MD [address] [place], [place] [phone] Social History Tobacco Use Types Packs/Day Years [...] documented as of this encounter Care Teams Swimming Pool Cleaner Relationship Specialty Start Date End Date Sunita Ellis MD [address] [place] [id number] PCP - General Family Medicine 02/04/23 documented as of this encounter
--- OUTSIDE RECORDS SUMMARY | 2025-07-07 15:32 | XMS_ITS | Clinical Summary ---
Author Organization [facility] Address [address] [facility] [place] [address] Care Team Providers Care Senior Formulation Scientist Name Role Phone Unknown Primary Care Provider [...] - Influenza standard series) 05/20/2025 Care Teams Senior Formulation Scientist Relationship Specialty Start Date End Date Unknown None PCP - General 10/20/17
--- OUTSIDE RECORDS SUMMARY | 2025-07-07 15:32 | XMS_ITS | Encounter Summary ---
Author Organization [employer] Address [address] [facility] [address] [place] [address] Care Team Providers Care Crystal Growing Technician Name Role Phone Sunita Ellis MD Primary Care Provider [phone] Reason for Visit * Reason Comments Med Refill Encounter Details Date Type Department Care Team ([facility] st Contact Info) Description 09/06/2024 Refill [facility] MED & PEDS [address] [place], [place] [phone] Sunita Ellis MD [address] [place] [address] Social History Tobacco Use Types Packs/Day Years [...] documented as of this encounter Care Teams Crystal Growing Technician Relationship Specialty Start Date End Date Sunita Ellis MD [address] [place] [phone] PCP - General Family Medicine 02/04/23 documented as of this encounter
[2025-07-07 15:44] LABS: Appearance Urine Cloudy; Glucose Urine UA Negative (Negative); PH 8.0 (5.0-9.0); Specific Gravity - Urine 1.020 (1.005-1.025); UMIC TRIGGER UACC YES
[2025-07-07 16:17] LABS: UACC Culture Trigger YES
[2025-07-07 16:25] LABS: OBS Int Ctl Valid YES; OBS1 NEGATIVE (NEGATIVE)
[2025-07-07 16:41] VITALS: BP 143/59; PULSE 74; RESP 18; O2SAT 98
[2025-07-07 16:54] LABS: Alanine Aminotransferase 14 U/L (0-31); Albumin Level 3.8 g/dL (3.5-5.0); Anion Gap 12 (12-20); Aspartate Amino Transferase 24 U/L (5-31); Blood Urea Nitrogen 16 mg/dL (9-16); Calcium 9.1 mg/dL (8.4-10.2); Carbon Dioxide 27 mmol/L (22-29); Chloride 109 mmol/L (96-108); Creatinine Clr Calc Pharmacy 75.2; Estimated Glomerular Filt Rate > 60; Potassium 3.3 mmol/L (3.3-5.1); Sodium 145 mmol/L (135-145); Total Protein 6.7 g/dL (6.5-8.0)
[2025-07-07 17:26] LABS: Alkaline Phosphatase 70 U/L (39-117)
[2025-07-07 19:40] VITALS: BP 100/46; PULSE 67; RESP 18; TEMP 36.7; O2SAT 96
[2025-07-07] MEDS: oxyCODONE HCl Immed Release 5 MG TABLET PO (22:09)
[2025-07-07 22:14] VITALS: BP 100/46; PULSE 67; RESP 18; TEMP 36.7; O2SAT 96
== END 2025-07-07 22:15 | disposition home or self-care (01) ==
PROVIDERS: Emergency Medicine; Physician Assistant Medical; Emergency Provider Student in an Organized Health Care Education/Training Program
DX: N39.0 Urinary tract infection, site not specified (principal); R10.32 Left lower quadrant pain; Z87.891 Personal history of nicotine dependence; R11.0 Nausea; K59.00 Constipation, unspecified
CPT/HCPCS: 36415; 74176; 76830; 76856; 80053; 81001; 82272; 83605; 85025; 87086; 96374; 96375; 96376; 99284; J1171; J2270

== ENCOUNTER → 2025-07-07 16:26 | Outpatient (BNV) | payer OTHER, SELFPAY | PROVIDERS: Emergency Provider Emergency Medicine; Visit Provider Radiology Diagnostic Radiology | DX: N28.1 Cyst of kidney, acquired (principal); K76.89 Other specified diseases of liver; R10.32 Left lower quadrant pain | CPT/HCPCS: 74176; 76830; 76856 ==

== ENCOUNTER 2025-08-23 16:05 | Outpatient (REF) | payer OTHER, SELFPAY ==
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
--- OUTSIDE RECORDS SUMMARY | 2025-08-23 19:48 | XMS_ITS | Data Portability ---
Author Organization Compliance [facility], [place] [employer] [facility] Address [address] [place] [address] Care Team Providers Care Health Coach Name Role Phone HIM CCA OTHER Unavailable [...] DS 800 mg-160 mg tablet 024 024 [id number], [address] [facility] [place], [place], [phone], 4 16:00:01 Patient TargetsNo targets recorded. Patient InstructionsNo instructions recorded. Reason for Referral None Reported. Medical Equipment None Reported. Allergies Allergen ID Allergen Name Allergen Category Reaction Reaction Severity Criticality Documentation Date Start Date Code Code System Note Provider Name and Address Organization Details Recorded Time 84167 ibuprofen medicatio n Not available Not available Not available 10/29/2024 5640 RxNorm Not Available [facility] - production 14:29:58 32427 cyclobenz aprine hydrochlo ride medicatio n Not available Not available Not available 10/29/2024 10786 [facility] Available [facility] 5 14:29:58 7046 egg extract food,medi cation Not available Not available Not available 07/17/2024 74191 15 RxNorm Not Available [employer] - production 4 03:34:34 Medications Name Sig [...] Not Available Not Available Not Available omega 0-ooe-xdq-fi sh oil 60 mg-90 mg-500 mg capsule [...] Recorded Respiratory rate Body temperature Oxygen saturation Heart rate Systolic And Diastolic Provider Name and Address Organization Details Last Updated DateTime 5 16 /min 98.4 [degF] 98 % 89 /min 138/88 mm[Hg] Not Available [employer] 5 18:15:32 Date Recorded Body height Respiratory rate Body weight Body temperature Oxygen saturation Heart rate Systolic And Diastolic Provider Name and Address Organization Details Last Updated DateTime 3 165.1 cm 18 /min 37700.8 88 g 98.4 [degF] 96 % 70 /min 109/76 mm[Hg] Not Available [employer] 3 17:55:02 Date Recorded Oxygen saturation Body height Heart rate Respiratory rate Body weight Body temperature Systolic And Diastolic Provider Name and Address Organization Details Last Updated DateTime 4 95 % 152.4 cm 95 /min 16 /min 13953.5 2 g 99.3 [degF] 160/89 mm[Hg] Not Available [employer] 4 15:56:16 Social History None recorded. Functional Status None recorded. Mental Status None recorded. Family History Nothing Reported. Medical History No medical history recorded. Gynecological HistoryNo gynecological history recorded. Obstetrics History GPAL:G 0 P 0 0 0 0 Past Encounters Encounter ID Performer Location Encounter Start Date Encounter Closed Date Diagnosis/Indication Diagnosis SNOMED-CT Code Diagnosis ICD10 Code Diagnosis IMO Codes Diagnosis Note [id number] Alex Hall MD [facility] [address] [place] [phone] 02/21/2023 17:54:56 02/22/2023 15:43:28 Pain of right knee region 5641504623 16445 M25.561 This 62-year-ol d female apparently sustained [...] PCP. The patient agreed with this plan. [id number] Saundra Chen MD [facility] [address] [place] [phone] 05/07/2024 15:56:03 05/07/2024 22:38:04 Infection of big toe 083243267 L08.9 64 year old female with COPD [...] assessment and plan as documented by the distillation operator. I provided real-time medical direction for this encounter and was immediatel y available to provide additional phone-base d assistance as needed. We discussed the diagnostic uncertaint y of home visits and associated risks. We discussed the need to seek care urgently/e mergently in the setting of any new or worsening symptoms. [id number] Michael Barrera MD [facility] [address] [place] [phone] 10/29/2024 18:15:21 10/29/2024 21:43:07 Pain in left foot [id number] 88462 M79.672 Health Concerns Section Related Observation LastModified by Organization Detai ls LastModified Time None Recorded Concern Status LastModified by Organization Details LastModified Time None Recorded Advance Directives Directive None Recorded Payers Insurance Date Sequence Insurance Name Policy Number Policy Dumont Covered Member ID Dumont Member ID Guarantor Name 10/29/[address] [facility] - DOS ON OR AFTER 2022 - DUAL ELIGIBLE - DETENTION OPTIONS AND ONE CARE (MEDICARE REPLACEMENT/ADV ANTAGE - HMO) Rodrigue Martinez [id number] Rodrigue Martinez Notes Date Note Type Note [...] .................. .................. .................. .................. .................. .................. ............... Billet Heater Operator Note From Hawa Murray: Sent to [...] .................. ............... Disposition: Fulfilled Alex Hall MD [address] [place] [address],[address] [facility], [place], [address], [employer] 02/21/2023 18:00:06 05/07/2024 text/html CRC Nurse Triage Notes (Geovany Rodriguez): Reason For Request: Patient wants someone to look at her foot, she had foot surgery and it's now painful, and swollen. Chief Complaints: Pain PMH: COPD/Asthma, Hypertension Allergies: Egg Comments: [employer] Developer verified the member's name//address and phone [...] .................. .................. .................. .................. .................. .................. ............... Billet Heater Operator Note From Dante Livingston: Pt reports [...] .................. ............... Disposition: Fulfilled Saundra Chen MD [address] [place] [address],[address], [place], [phone], [employer] 05/07/2024 16:11:29 10/29/2024 text/html CRC Nurse Triage [...] PMH: COPD/Asthma, Hypertension PMH Reviewed at 10/29/2024 Allergies Reviewed at 10/29/2024: Comments: Patient calling [...] .................. .................. .................. .................. .................. .................. ............... Billet Heater Operator Note From Alexander Pugh: Dispatch to [...] .................. ............... Disposition: Ellyn Barrera MD [address] [facility],[address], [place], [address], [employer] 10/29/2024 21:31:08 OBGyn Episode No OBEpisode recorded.
--- OUTSIDE RECORDS SUMMARY | 2025-08-23 19:49 | XMS_ITS | Clinical Summary ---
Author Organization [facility] Address [address] [facility] [place] [address] Care Team Providers Care Wet Mix Operator Name Role Phone Unknown Primary Care Provider [...] Advance Directive 2017 Covid-19 Vaccine (1 - 2024- season) 2025 Influenza (Flu) vaccine (1 o f 1 - Influenza standard series) 05/20/2025 Care Teams Wet Mix Operator Relationship Specialty Start Date End Date Unknown None PCP - General 10/20/17
--- OUTSIDE RECORDS SUMMARY | 2025-08-23 19:49 | XMS_ITS | Encounter Summary ---
Author Organization [employer] Address [address] [facility] 7t [place] [address] Care Team Providers Care Resident Services Coordinator Name Role Phone Sunita Ellis MD Primary Care Provider [phone] Reason for Visit * Reason Comments Med Refill Encounter Details Date Type Department Care Team ([facility] st Contact Info) Description 09/06/2024 Refill [facility] MED & PEDS [address] [place], [place] [phone] Sunita Ellis MD [address] [place] [address] Social History Tobacco Use Types Packs/Day Years [...] as of this encounter Care Teams Resident Services Coordinator Relationship Specialty Start Date End Date Sunita Ellis MD [address] [place] [address] PCP - General Family Medicine 02/04/23 documented as of this encounter
--- OUTSIDE RECORDS SUMMARY | 2025-08-23 19:49 | XMS_ITS | Encounter Summary ---
Author Organization [employer] Address [address] [place] [address] 7 [place] [address] Care Team Providers Care Director Shopper Marketing Name Role Phone Carlos Orozco Primary Care Provider Unavail able Sunita Ellis MD Primary Care Provider [phone] Reason for Visit * Reason Comments Med Refill Encounter Details Date Type Department Care Team ([facility] st Contact Info) Description 01/26/2023 Refill [facility] MEDICINE [address] [place], [place] [phone] Carlos Orozco AGNP Social History Tobacco Use [...] documented as of this encounter Care Teams Director Shopper Marketing Relationship Specialty Start Date End Date Carlos Orozco AGNP PCP - General Family Medicine 10/05/22 02/03/23 Sunita Ellis MD [address] [place] [address] PCP - General Family Medicine 02/04/23 documented as of this encounter
--- OUTSIDE RECORDS SUMMARY | 2025-08-23 19:49 | XMS_ITS | Clinical Summary ---
Author Organization [employer] Address [address] [facility] 7t [place] [address] Care Team Providers Care Cloud Systems Administrator Name Role Phone Sunita Ellis MD Primary Care Provider [phone] Allergies Active Allergy Reactions Criticality Noted Date [...] MORNING 90 tablet 3 02/20/20 24 Active loratadine (Claritin) 10 MG tablet Take 1 tablet (10 mg) by mouth Once per day. 30 tablet 11 05/15/20 24 Active acetaminophen (Tylenol 8 Hour) 650 MG ER tablet Take 1 tablet by mouth every 8 (eight) hours. Active Breo Ellipta 200-25 MCG/ACT aerosol powder Inhale 1 puff Once per day. 01/10/20 24 Active gabapentin (Neurontin) 400 MG capsuleIndications :Primary osteoarthritis, unspecified site Take 1 capsule by mouth 2 times daily. 07/04/20 24 Active pantoprazole (ProtoNix) 40 MG EC tabletIndications: Esophagitis Take 1 tablet (40 mg) by mouth before breakfast. Do not crush, chew, or split. 90 tablet 3 04/05/20 25 Active Diclofenac Sodium 1 % gelIndications:Bun ion of great toe of right foot Apply 1 Application topically if needed in the morning, at noon, in the evening, and at bedtime (pain). 150 g 3 04/05/20 25 Active levothyroxine (Synthroid, Levoxyl) 88 MCG tablet TAKE 1 TABLET BY MOUTH EVERY DAY HOLD ON SUNDAYS 90 tablet 3 04/05/20 25 Active Magnesium Oxide -Mg Supplement 400 MG capsule Take 1 capsule by mouth at bedtime. 06/23/20 25 Active cefpodoxime (Vantin) 200 MG tablet Take 1 tablet by mouth 2 times daily. 07/08/20 25 Active lidocaine (Xylocaine) 5 % ointment Apply topically if needed in the morning, at noon, and at bedtime for moderate pain (pain). 50 g 3 08/23/20 25 026 Active acetaminophen-code ine (Tylenol w/ Codeine #3) 300-30 MG tabletIndications: Left hip pain Take 1 tablet by mouth at bedtime for 10 days. 10 tablet 08/23/20 025 Active Active Problems Problem Noted Date Diagnosed Date Bilateral primary osteoarthritis of hip 08/23/20 Assessment & Plan (08/23/2025 11:19 AM EST): Patient with recent diagnosis of bilateral hip OA Cannot tolerate physical therapy due to pain Trial T3 for sleep x 7-10days Referral to ortho to consider injection for component of trochanteric bursitis with OA Left hip pain 08/23/2025 Screening for cervical cancer 08/23/2025 Encounter for screening mamm ogram for malignant neoplasm of breast 08/23/2025 Elevated lipids 12/15/2022 Assessment & Plan (09/23/2023 1:02 PM EST): Likely related to Rinvoq side effect, UTD [...] a fasting specimen if clinically indicated. Veronica reid al. J. of Clin. Lipidol. 2015;9:129-169. LDL Cholesterol mg/dL (calc) 200 High 99 CM 99 CM Comment: LDL-C levels > or = 190 mg/dL may indicate familial hypercholesterolemia (FH). Clinical assessment and measurement of blood lipid levels should be considered for all first degree relatives of patients with an FH diagnosis. For questions about testing for familial hypercholesterolemia, please call [facility] [facility] at 1.839.Flotype.INFO. Veronica Blount, et al. J National Lipid Association Recommendations for Patient-Centered Management of Dyslipidemia: Part 1 Journal of Clinical Lipidology 2015;9(2), 129-169. Reference range: <100 Desirable range <100 mg/dL for primary prevention; <70 mg/dL for patients with CHD or diabetic patients with > or = 2 CHD risk factors. LDL-C is now calculated using the Esdras-Sapp calculation, which is a validated novel method providing better accuracy than the Friedewald equation in the estimation of LDL-C. Esdras SS et al. ROBER. 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 Assessment & Plan (09/23/2023 1:01 PM EST): Start Rinvoq 15mg ER daily Monitor lipids Assessment & Plan (02/28/2023 7:22 AM EDT): Rinvoq was helping regrow hair Goal is to get back to taking this medication Derm is outside provider Ovklr-3-krzrnpobtly deficiency 10/29/2022 Muscle pain 10/29/2022 Osteoarthritis 08/20/2020 [...] pt Migraine 09/30/2014 Osteoporosis 09/30/2014 Seizure disorder ([facility]/HCC) 09/30/2014 Assessment & Plan (09/23/2023 1:00 PM EST): Follows with Dr Nasir naranjo Tobacco abuse 05/26/2012 Resolved Problems Problem Noted Date Diagnosed Date Resolved Date Dependence on supplemental oxygen 10/29/2022 08/23/2025 Assessment & Plan (09/23/2023 1:00 PM EST): Uses it nightly Deep vein thrombosis (DVT) o f popliteal vein (CMS/HCC) 11/18/2020 09/23/2023 Encounters Date Type Department Care Team Description 08/23/2025 9:00 AM EST Office Visit [address] [address] Sunita Ellis MD Bilateral primary osteoarthritis of hip (Primary Dx); Encounter for screening mammogram for malignant neoplasm of breast; Screening for cervical cancer; Left hip pain; Screening for colon cancer; Essential hypertension, benign; Anxiety; Fibromyalgia; Pulmonary emphysema (HCC); Irgcr-8-lguvgzqbhjc deficiency (HCC); Primary insomnia; Migraine without aura and without status migrainosus, not intractable 08/23/2025 Travel 08/22/[address] [address] Sunita Ellis MD chart prep 07/30/2025 Travel 07/15/[address] [address] Sunita Ellis MD Nurse Triage 07/09/[address] [address] Sunita Ellis MD RECALL 06/28/[address] [address] Sunita Ellis MD Nurse Triage 06/26/2025 Orders Only [facility] External Provider, [facility] from Last 3 Months Immunizations Immunization Administration [...] 14 08/23/2025 9:06 AM EST Oxygen Saturation 98% 01/11/2025 11:02 AM EDT Inhaled Oxygen Concentration - - Weight 86.4 kg (190 lb 6.4 oz) 08/23/2025 9:06 A M EST Height 165.1 cm (5' 5 ) 08/23/2025 9:06 AM EST Body Mass Index 31.68 08/23/2025 9:06 AM EST Plan of Treatment Health Maintenance Due Date Last Done Comments CT Colonography 1962 Colonoscopy 1962 Colorectal Cancer Screening 1962 FIT DNA/Cologuard 1962 FIT 1962 FOBT 1962 HIV Screening 1962 Sigmoidoscopy 1962 Disability Screening 1962 Hepatitis C Screening 1980 DTaP/Tdap/Td Vaccines (1 - Tdap) 1981 Hepatitis A Vaccines (1 of 2 - Risk 2-dose series) 1981 Pap Smear 1983 Cervical Cancer Screening 1992 HPV/Cotest 1992 RSV Patients and Patients Aged 60 years or older (1 - Risk 50-74 years 1-dose series) 2012 Zoster Vaccines (1 of 2) 2012 Pneumococcal Vaccine: 50+ Years (2 of 2 - PCV) 12/07/2013 12/07/2012 Hepatitis B Vaccines (1 of 3 - Risk 3-dose series) 2022 Mammogram 09/02/2022 09/02/2020, 09/05/2017 COVID-19 Vaccine ( season) 2025 07/24/2021, 07/03/2021 Influenza Vaccine (#1) 2025 Depression Monitoring 02/21/2026 08/23/2025, 025 SDOH Screening 04/05/2026 04/05/2025 Alcohol/Substance Use Screening 08/23/2026 08/23/2025 Tobacco Screening 08/23/2026 08/23/2025 Lipid Panel 09/11/2029 09/11/2024, 10/20, 11/12/2021, Additional [...] WO CONTRAST Routine 06/26/2025 2:06 PM EDT LIPID PANEL, STANDARD Routine 09/11/2024 9:10 AM EST Elevated lipids MAMMOGRAM GENERIC Routine 09/02/2020 7:5 3 AM EST from Last 3 Months or Most Recently Relevant to Health Maintenance Results * XR Ankle 3+ Views Left (06/26/2025 2:32 PM EDT) Anatomical Region Laterality Modality Lower Extremities, Ankle Left Radiogr aphic Imaging 06/26/2025 2:32 PM EDT Narrative 06/26/2025 2:48 PM EDT [place] [address] XRay Report Signed Patient: Rodrigue Martinez MR#: [id number] : 1960 Acct:[id number] Age/Sex: 65 / F ADM Date: 06/26/25 Loc: HO.ED Attending Dr: Ordering Physician: Chaparrita Lopez Date of Service: 06/26/25 Procedure(s): XR ankle LT min 3V Accession Number(s): [id number] cc: Sunita Ellis; Chaparrita Lopez Reason for [...] OV> 06/26/25 1445 DD/ 1432 TD/TT: 06/26/25 143 Collection Clerk: Procedure Note Donotuseinterpreter, Image - 06/26/2025 [place] [address] XRay Report Signed Patient: Edvin Martinez#: [id number] : 2Acct:[id number] Age/Sex: 65 / FADM Date: 06/26/25 Loc: HO.ED Attending Dr: Ordering Physician: Chaparrita Lopez Date of Service: 06/26/25 Procedure(s): XR ankle LT min 3V Accession Number(s): [id number] cc: Sunita Ellis; Chaparrita Lopez Reason for [...] 06/26/25 1445 DD/ 1432 TD/TT: 06/26/25 1432 Collection Clerk: [facility] External Provider IMG XR PROCEDURES Final Result * XR Hip left with Pelvis 1 view (06/26/2025 2:20 PM EDT) Anatomical Region Laterality Modality Lower Extremities, Hip Bilateral Radiograp hic Imaging 06/26/2025 2:20 PM EDT Narrative 06/26/2025 2:50 PM EDT [address] [address] XRay Report Signed Patient: Rodrigue Martinez MR#: [id number] : 1960 Acct:[id number] Age/Sex: 65 / F ADM Date: 06/26/25 Loc: HO.ED Attending Dr: Ordering Physician: Chaparrita Lopez Date of Service: 06/26/25 Procedure(s): XR hip LT w PEL1V Accession Number(s): [id number] cc: Sunita Ellis; Chaparrita Lopez Reason for [...] Taylor MD in OV> 06/26/25 1447 DD/ TD/TT: 06/26/25 143 Collection Clerk: Procedure Note Donotuseinterpreter, Image - 06/26/[address] [address] XRay Report Signed Patient: Edvin Martinez#: [id number] : 1960cct:[id number] Age/Sex: 65 / FADM Date: 06/26/25 Loc: HO.ED Attending Dr: Ordering Physician: Chaparrita Lopez Date of Service: 06/26/25 Procedure(s): XR hip LT w PEL1V Accession Number(s): [id number] cc: Sunita Ellis; Chaparrita Lopez Reason for [...] OV> 06/26/25 1447 DD/ 1420 TD/TT: 06/26/25 143 Collection Clerk: us [facility] External Provider IMG XR PROCEDURES Final Result * CT Cervical Spine w/o Contrast (06/26/2025 2:06 PM EDT) Anatomical Region Laterality Modality Spine, C-spine Computed Tomogra phy 06/26/2025 2:06 PM EDT Narrative 06/26/2025 2:29 PM EDT [address] [address] [address] Scan Report Signed Patient: Rodrigue Martinez MR#: [id number] : 1960 Acct:[id number] Age/Sex: 65 / F ADM Date: 06/26/25 Loc: HO.ED Attending Dr: Ordering Physician: Chaparrita Lopez Date of Service: 06/26/25 Procedure(s): CT cervical spine wo IV con Accession Number(s): [id number] cc: Sunita Ellis; Chaparrita Lopez Report Number: [id number]: Total DLP = 1107.00 mGy-cm Reason for [...] 06/26/25 1426 DD/ 1406 TD/TT: 06/26/25 1418 Collection Clerk: Procedure Note Donotuseinterpreter, Image - 06/26/[address] [address] [address] Scan Report Signed Patient: Trish MartinezR#: [id number] : 1960cct:[id number] Age/Sex: 65 / FADM Date: 06/26/25 Loc: .ED Attending Dr: Ordering Physician: Chaparrita Lopez Date of Service: 06/26/25 Procedure(s): CT cervical spine wo IV con Accession Number(s): [id number] cc: Sunita Ellis; Chaparrita Lopez Report Number: [id number]: Total DLP = 1107.00 mGy-cm Reason for [...] 06/26/25 1426 DD/ 1406 TD/TT: 06/26/25 1418 Collection Clerk: [facility] External Provider IMG CT PROCEDURES Final Result * CT Head w/o Contrast (06/26/2025 2:06 PM EDT) Anatomical Region Laterality Modality Head, Neck Computed Tomogra phy 06/26/2025 2:06 PM EDT Narrative 06/26/2025 2:31 PM EDT [place] [address] CT Scan Report Signed Patient: Rodrigue Martinez MR#: [id number] : 1960 Acct:[id number] Age/Sex: 65 / F ADM Date: 06/26/25 Loc: .ED Attending Dr: Ordering Physician: Chaparrita Lopez Date of Service: 06/26/25 Procedure(s): CT head/brain wo IV con Accession Number(s): [id number] cc: Sunita Ellis; Chaparrita Lopez Report Number: [id number]: Total DLP = 0.00 mGy-cm Reason for [...] 06/26/25 1428 DD/ 1406 TD/TT: 06/26/25 1418 Collection Clerk: Procedure Note Donotuseinterpreter, Image - 06/26/[address] [place] [address] [address] Scan Report Signed Patient: Edvin Martinez#: [id number] : 1960cct:[id number] Age/Sex: 65 / FADM Date: 06/26/25 Loc: HO.ED Attending Dr: Ordering Physician: Chaparrita Lopez Date of Service: 06/26/25 Procedure(s): CT head/brain wo IV con Accession Number(s): [id number] cc: Sunita Ellis; Chaparrita Lopez Report Number: [id number]: Total DLP = 0.00 mGy-cm Reason for [...] 06/26/25 1428 DD/ 1406 TD/TT: 06/26/25 1418 Collection Clerk: [facility] External Provider IMG CT PROCEDURES Final Result * (ABNORMAL) Lipid Panel, Standard (09/11/2024 9:10 AM EST) Triglycerides 231(H) <150 mg/dL [facility] Comment:Desirable Triglyceri de: less than 150 mg/dLBorderline High Triglyceride 150-199 mg/dLHigh Triglyceride: 200-499 mg/dLVery High Triglyceride: greater than or equal to 5OO mg/dL Cholesterol 192 <200 mg/dL [facility] Comment:Desirable Cholestero l: less than 200 mg/dLBorderline High Cholesterol: 200-239 mg/dLHigh Cholesterol: greater than 239 mg/dL LDL Cholesterol Calculated 95 <100 mg/dL [facility] Comment:Desirable LDL: less than 100 mg/dLNear Optimal/Above Optimal LDL: 110- 129 mg/dLBorderline High LDL: 130-159 mg/dLHigh LDL: 160-189 mg/dLVery High LDL: greater than or equal to 190 mg/dL HDL Cholesterol 51 >40 mg/dL [facility] Comment:Desirable HDL: great er than 40 mg/dL Note: This HDL assay may give artificially low results in patients with liver disease. Blood Venous blood specimen / Unknown 09/11/2024 9:10 AM EST 09/11/2024 10:59 AM EST Sunita Ellis MD LAB BLOOD ORDERABLES Final Res ult [facility] [address] [place] [address] [phone] * Mammography Report 1 (09/02/2020 7:53 AM EST) Anatomical Region Laterality Modality Breast Bilateral Mammography 09/02/2020 7:53 AM EST Narrative 09/02/2020 11:51 AM EST Refer to the Notes tab for result details [facility] Procedure: Mammography Report 1 Procedure Note Provider, MD Virgen - 12/11/2022 Refer to the Notes tab for result details [facility] Procedure: Mammography Report 1 Miri Reyes [employer] IMG BI PROCEDURES Final Result from Last 3 Months or Most Recently Relevant to Health Maintenance Insurance [facility] < 65 [place] [id number] Care Teams Cloud Systems Administrator Relationship Specialty Start Date End Date Sunita Ellis MD [address] [place] [address] PCP - General Family Medicine 02/04/23
--- OUTSIDE RECORDS SUMMARY | 2025-08-23 19:49 | XMS_ITS | Encounter Summary ---
Author Organization [employer] Address [address] [facility] 7t [place] [address] Care Team Providers Care Salt Cutter Name Role Phone Sunita Ellis MD Primary Care Provider [phone] Reason for Visit * Reason Onset Date Comments Med Refill 09/23/2023 Encounter Details Date Type Department Care Team ([facility] st Contact Info) Description 09/23/2023 Refill [facility] CH[facility] MED & PEDS [address] [place], [place] [phone] Sunita Ellis MD [address] [place] [address] Social History Tobacco Use Types Packs/Day Years [...] documented as of this encounter Care Teams Salt Cutter Relationship Specialty Start Date End Date Sunita Ellis MD [address] [place] [address] PCP - General Family Medicine 02/04/23 documented as of this encounter
--- OUTSIDE RECORDS SUMMARY | 2025-08-23 19:49 | XMS_ITS | Encounter Summary ---
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 Pt had no further concerns. * Telephone Encounter - Heladio Yeboah - 11/29/2022 2:33 PM EDT Tc from pt returning call regarding message below. Please contact pt at [phone] * Telephone Encounter - Heladio Yeboah - 11/24/2022 10:43 AM EST Tc from pt requesting a call back regarding blood work. Pt requesting for results Please contact pt at [phone] documented in this encounter Plan of Treatment Not on file documented as of this encounter Visit Diagnoses Not on filedocumented in this encounter Additional Health Concerns Assessment Noted Time PHQ-9 Depression Total Score: 7 10/29/19 9:12 AM EST documented as of this encounter Care Teams Artist Scientific Relationship Specialty Start Date End Date Carlos Orozco AGNP PCP - General Family Medicine 10/05/22 02/03/23 Sunita Ellis MD [address] [place] [address] PCP - General Family Medicine 02/04/23 documented as of this encounter
--- OUTSIDE RECORDS SUMMARY | 2025-08-23 19:49 | XMS_ITS | Encounter Summary ---
Author Organization [employer] Address [address] [place] [address] [place] [address] Care Team Providers Care Art Objects Salesperson Name Role Phone Cherry Atwood Primary Care Provider [phone] Carlos Orozco Primary Care Provider Unavail Sunita Clay MD Primary Care Provider [phone] Encounter Details Date Type Department Care Team (Late st Contact Info) Description 09/02/2022 Orders Only [facility] [address] [place], [place] [phone] Cherry Atwood FNP [address] [place], [place] [phone] Social History Tobacco Use Types Packs/Day Years [...] on filedocumented in this encounter Care Teams Art Objects Salesperson Relationship Specialty Start Date End Date Cherry Atwood FNP [address] [place] [phone] PCP - General Family Medicine 05/06/22 10/04/22 Carlos Orozco AGNP [address] [place] [address] PCP - General Family Medicine 10/05/22 02/03/23 Sunita Ellis MD [address] [place] [address] PCP - General Family Medicine 02/04/23 documented as of this encounter
--- OUTSIDE RECORDS SUMMARY | 2025-08-23 19:49 | XMS_ITS | Encounter Summary ---
Author Organization [employer] Address [address] [facility] 7t [place] [address] Care Team Providers Care Diamond Sorter Name Role Phone Sunita Ellis MD Primary Care Provider [phone] Reason for Visit * Reason Comments Med Refill Encounter Details Date Type Department Care Team ([facility] st Contact Info) Description 12/20/2024 Refill [facility] CH[facility] MED & PEDS [address] [place], [place] [phone] Sunita Ellis MD [address] [place] [address] Social History Tobacco Use Types Packs/Day Years [...] documented as of this encounter Care Teams Diamond Sorter Relationship Specialty Start Date End Date Sunita Ellis MD [address] [place] [address] PCP - General Family Medicine 02/04/23 documented as of this encounter
--- OUTSIDE RECORDS SUMMARY | 2025-08-23 19:49 | XMS_ITS | Clinical Summary ---
Author Organization [address] [facility] Address [address] [place] [address] Phone Care Team Providers Care Elementary Educator Name Role Phone Sunita Ellis MD Primary Care Provider [phone] Allergies Active Allergy Reactions Criticality Noted Date [...] victim COPD (chronic obstructive pu lmonary disease) ([facility] V24, [facility] V28) 09/30/2014 DJD (degenerative joint disease) 09/30/2014 Fibromyalgia 09/30/2014 Migraine 09/30/2014 Osteoporosis 09/30/2014 Seizure disorder ([facility] V24, [facility] V28) 09/19 Overview (06/22/2024): Follows with Dr Best Encounters Date Type Department Care Team Description 05/28/2025 Telephone Orthopedic Surgery - [address] [address] Georgette Weaver from Last 3 Months Surgical History Surgery Date Site/Laterality Comments CATARACT EXTRACTION PROCEDURE: HISTORICAL CATARACT REMOVAL CHOLECYSTECTOMY PROCEDURE: HISTORICAL CHOLECYSTECTOMY OTHER SURGICAL HISTORY PROCEDURE: [facility] ANESTHESIA CERVICAL SPINE & CORD NOS; COMMENT: disectomy TUBAL LIGATION PROCEDURE: HISTORICAL TUBAL LIGATION Medical History Medical History Date Comments COPD (chronic obstructive pu lmonary disease) ([facility] V24, [facility] V28) 09/30/2014 DX:COPD (chronic o bstructive pulmonary disease) ([facility]) DJD (degenerative joint disease) 09/30/2014 DX:DJD (degenerative joint disease) Migraine 09/30/2014 DX:Migraine Fibromyalgia 09/30/2014 DX:Fibromyalgia Essential hypertension, benign 11/06/2014 D X:Essential hypertension, benign Seizure disorder (CMS/HCC V2 4, CMS/HCC V28) 09/30/2014 DX:Seizure disorder (HCC); C OMMENT: Follows with Dr Best Osteoporosis [...] 12/07/2012 Cervical Cancer Screening: Pap Smear 05/21/2018 05/21/2015 COVID-19 Vaccine (3 - Pfizer risk [...] Psoriasis vulgaris HEPATITIS C SCREENING Routine 05/21/2015 PAP SMEAR Routine 05/21/2015 from Last 3 Months or Most Recently Relevant to Health Maintenance Results * (ABNORMAL) Lipid panel with reflex to direct LDL (03/04/2025 12:34 PM EDT) Cholesterol 210(H) 0 - 200 mg/dL LAB CHEMISTRY METHOD 03/04/2025 3:34 PM EDT [facility] Triglycerides 164(H) 0 - 150 mg/dL LAB CHEMISTRY METHOD 03/04/2025 3:34 PM EDT [facility] HDL 61 >=40 mg/dL LAB CHEMISTRY METHOD 03/04/2025 3:34 PM EDT [facility] LDL Calculated 116(H) 0 - 100 mg/dL LAB CHEMISTRY METHOD 03/04/2025 3:34 PM EDT [facility] VLDL Cholesterol Wili 32.8 mg/dL LAB CHEMISTRY METHOD 03/04/2025 3:34 PM EDT [facility] Non HDL Chol. (LDL+VLDL) 149(H) <145 mg/dL LAB CHEMISTRY METHOD 03/04/2025 3:34 PM EDT [facility] Chol/HDL Ratio 3.4 0.0 - 4.4 LAB CHEMISTRY METHOD 03/04/2025 3:34 PM EDT [facility] Blood Venous blood specimen / Unknown Venipuncture / Unknown 03/04/2025 12:34 PM EDT 03/04/2025 1:38 PM EDT us Kaley Zeng MD LAB BLOOD ORDERABLES Final Resu lt [facility] [address] [place] [address], * Comprehensive metabolic panel (03/04/2025 12:34 PM EDT) Sodium 139 133 - 145 mmol/L LAB CHEMISTRY METHOD 03/04/2025 3:34 PM EDT [facility] Potassium 3.7 3.5 - 5.5 mmol/L LAB CHEMISTRY METHOD 03/04/2025 3:34 PM EDT [facility] Chloride 109 96 - 110 mmol/L LAB CHEMISTRY METHOD 03/04/2025 3:34 PM EDT [facility] CO2 27 21 - 32 mmol/L LAB CHEMISTRY METHOD 03/04/2025 3:34 PM EDT [facility] Anion Gap 3 3 - 11 LAB CHEMISTRY METHOD 03/04/2025 3:34 PM [facility] Glucose 99 70 - 100 mg/dL LAB CHEMISTRY METHOD 03/04/2025 3:34 PM [facility] BUN 19 5 - 25 mg/dL LAB CHEMISTRY METHOD 03/04/2025 3:34 PM [facility] Creatinine 0.86 0.50 - 1.10 mg/dL LAB CHEMISTRY METHOD 03/04/2025 3:34 PM [facility] eGFR 76 >=60 mL/min/1. 73m2 LAB CHEMISTRY METHOD 03/04/2025 3:34 PM [facility] Comment:Calculation based on the Chronic Kidney Disease Epidemiology Collaboration (CKD-EPI) equation refit without adjustment for race. BUN/Creatinine Ratio 22.1 LAB CHEMISTRY METHOD 03/04/2025 3:34 PM [facility] Calcium 9.0 8.5 - 10.5 mg/dL LAB CHEMISTRY METHOD 03/04/2025 3:34 PM [facility] AST (SGOT) 17 10 - 42 unit/L LAB CHEMISTRY METHOD 03/04/2025 3:34 PM [facility] ALT (SGPT) 18 10 - 60 unit/L LAB CHEMISTRY METHOD 03/04/2025 3:34 PM [facility] Alkaline Phosphatase 70 42 - 121 unit/L LAB CHEMISTRY METHOD 03/04/2025 3:34 PM [facility] Total Protein 6.7 6.0 - 8.0 g/dL LAB CHEMISTRY METHOD 03/04/2025 3:34 PM [facility] Albumin 3.6 3.2 - 5.0 g/dL LAB CHEMISTRY METHOD 03/04/2025 3:34 PM [facility] Total Bilirubin 0.4 0.0 - 1.4 mg/dL LAB CHEMISTRY METHOD 03/04/2025 3:34 PM EDT [facility] Blood Venous blood specimen / Unknown Venipuncture / Unknown 03/04/2025 12:34 PM EDT 03/04/2025 1:38 PM EDT Kaley Zeng MD LAB BLOOD ORDERABLES Final Resu lt [facility] [address] [place] [address], * Hepatitis C Screening (05/21/2015) Hepatitis C Screening Abstracted Historical Provider HEALTH MAINTENANCE Final Result * Pap Smear (05/21/2015) Pap smear Abstracted ,negative Historical Provider HEALTH MAINTENANCE Final Result from Last 3 Months or Most Recently Relevant to [place] [phone] [employer] MEDICARE Member Subscriber Plan / Payer (Ef fective 2016-Present) Name:RODRIGUE MARTINEZ Relation to Subscriber:Self Name:Rodrigue Martinez Payer ID:[id number] Group ID:[id number] Type:Not on file Address: [place] [address] [address] [id number] Care Teams Elementary Educator Relationship Specialty Start Date End Date Sunita Ellis MD [address] [place] [phone] PCP - General 09/27/23
--- OUTSIDE RECORDS SUMMARY | 2025-08-23 19:49 | XMS_ITS | Encounter Summary ---
Author Organization [employer] Address [address] [facility] [address] [place] [address] Care Team Providers Care Generating Plant Superintendent Name Role Phone Sunita Ellis MD Primary Care Provider [phone] Reason for Visit * Reason Onset Date Comments chart prep 08/22/2025 Encounter Details Date Type Department Care Team ([facility] st Contact Info) Description 08/22/2025 Telephone [facility] MEDICINE [address] [place], [place] [phone] Sunita Ellis MD [address] [place], [place] [phone] chart prep Social History Tobacco Use Types Packs/Day Years [...] encounter Miscellaneous Notes * Telephone Encounter - Anju Nance [place] - 08/22/2025 9:26 AM EST Chart Prep Labs: not done from 04/05/2025 Images: done Referrals: complete Vaccines due: Covid, Flu, PCV20, Tdap, Hep A, RSV, and Zoster Screenings: colonoscopy, mammogram, and pap smear Overdue care gaps: SBIRT, PHQ-9, YAAD-7, and Disability screen documented in this encounter Plan of Treatment Not on file documented as of this encounter Visit Diagnoses Not on filedocumented in this encounter Additional Health Concerns Assessment Noted Time PHQ-9 Depression Total Score: 7 04/05/20 25 11:48 AM EDT documented as of this encounter Care Teams Generating Plant Superintendent Relationship Specialty Start Date End Date Sunita Ellis MD [address] [place] [address] PCP - General Family Medicine 02/04/23 documented as of this encounter
--- OUTSIDE RECORDS SUMMARY | 2025-08-23 19:49 | XMS_ITS | Encounter Summary ---
Author Organization [employer] Address [address] [facility] [address] [place] [address] Care Team Providers Care Older Worker Specialist Name Role Phone Sunita Ellis MD Primary Care Provider [phone] Reason for Visit * Reason Comments Med Refill Encounter Details Date Type Department Care Team (Late st Contact Info) Description 12/19/2024 Refill [facility] MEDICINE [address] [place], [place] [phone] Sunita Ellis MD [address] [place], [place] [phone] Social History Tobacco Use Types Packs/Day Years [...] documented as of this encounter Care Teams Older Worker Specialist Relationship Specialty Start Date End Date Sunita Ellis MD [address] [place] [phone] PCP - General Family Medicine 02/04/23 documented as of this encounter
--- OUTSIDE RECORDS SUMMARY | 2025-08-23 19:49 | XMS_ITS | Encounter Summary ---
Author Organization [employer] Address [address] [facility] [address]t [place] [address] Care Team Providers Care Air Box Tester Name Role Phone Sunita Ellis MD Primary Care Provider Encounter Details Date Type Department Care Team ([facility] st Contact Info) Description 08/01/2023 Abstract [facility] MEDICINE [address] [place], [place] [phone] Sunita Ellis MD [address] [place], [place] [phone] Social History Tobacco Use Types Packs/Day Years [...] documented as of this encounter Care Teams Air Box Tester Relationship Specialty Start Date End Date Sunita Ellis MD [address] [place] [phone] PCP - General Family Medicine 02/04/23 documented as of this encounter
--- OUTSIDE RECORDS SUMMARY | 2025-08-23 19:49 | XMS_ITS | Encounter Summary ---
Author Organization [employer] Address [address] [facility] [address] [place] [address] Care Team Providers Care Library Monitor Name Role Phone Sunita Ellis MD Primary Care Provider [phone] Encounter Details Date Type Department Care Team ([facility] st Contact Info) Description 07/04/2023 Abstract [facility] MEDICINE [address] [place], [place] [phone] Sunita Ellis MD [address] [place], [place] [phone] Social History Tobacco Use Types Packs/Day Years [...] documented as of this encounter Care Teams Library Monitor Relationship Specialty Start Date End Date Sunita Ellis MD [address] [place] [phone] PCP - General Family Medicine 02/04/23 documented as of this encounter
--- OUTSIDE RECORDS SUMMARY | 2025-08-23 19:49 | XMS_ITS | Encounter Summary ---
Author Organization [employer] Address [address] [facility] [address] [place] [address] Care Team Providers Care Computational Theory Scientist Name Role Phone Sunita Ellis MD Primary Care Provider [phone] Encounter Details Date Type Department Care Team (Latest Contact Info) Description 08/23/2025 Travel Social History Tobacco Use Types Packs/Day [...] AM EDT documented as of this encounter Functional Status * Over the past 2 weeks, how often have you been bothered by any of the following problems? Question Answer Date of Assessment Author Patient Health Questionnaire -2 Score 5 08/23/2025 9:10 AM Sherly Banuelos [place] * Little interest or pleasure in doing things Answer Date of Assessment Author Nearly every day 08/23/2025 9:10 AM Sherly Banuelos [place] * Feeling down, depressed, or hopeless Answer Date of Assessment Author More than half the days 08/23/2025 9:10 AM Sherly Collado MA * Trouble falling or staying asleep, or sleeping too much Answer Date of Assessment Author Nearly every day 08/23/2025 9:10 AM Sherly Banuelos [place] * Feeling tired or having little energy Answer Date of Assessment Author Nearly every day 08/23/2025 9:10 AM Sherly Banuelos [place] * Poor appetite or overeating Answer [...] ea, [place] documented as of this encounter Plan of Treatment Not on file documented as of this encounter Visit Diagnoses Not on filedocumented in this encounter Additional Health Concerns Assessment Noted Time PHQ-9 Depression Total Score: 14 025 9:10 AM EST documented as of this encounter Care Teams Computational Theory Scientist Relationship Specialty Start Date End Date Sunita Ellis MD [address] [place] [phone] PCP - General Family Medicine 02/04/23 documented as of this encounter
--- OUTSIDE RECORDS SUMMARY | 2025-08-23 19:49 | XMS_ITS | Encounter Summary ---
Author Organization [employer] Address [address] [facility] [address] [place] [address] Care Team Providers Care Rn Integrity Name Role Phone Sunita Ellis MD Primary Care Provider [phone] Reason for Visit * Reason Comments Med Refill Encounter Details Date Type Department Care Team (Late st Contact Info) Description 04/09/2024 Refill [facility] MEDICINE [address] [place], [place] [phone] Carlos Orozco AGNP Hyperlipidemia, unspecified hyperlipidemia type [...] documented as of this encounter Care Teams Rn Integrity Relationship Specialty Start Date End Date Sunita Ellis MD [address] [place] [address] PCP - General Family Medicine 02/04/23 documented as of this encounter
== END 2025-08-23 16:06 | disposition home or self-care (01) ==
LOC: HO.LNP 16:05
PROVIDERS: Visit Provider General Practice
DX: Z12.4 Encounter for screening for malignant neoplasm of cervix (principal); Z11.51 Encounter for screening for human papillomavirus (HPV)
CPT/HCPCS: 87626; 88175